=== PATIENT | female | born 1945 | race Caucasian/White ===

== ENCOUNTER → 2017-06-05 15:22 | Outpatient (CLI) | payer MEDICARE, OTHER, SELFPAY ==
[2017-06-05 17:12] LABS: Absolute Lymphocyte Count 1.61 X10^3/ul (0.83-4.51); Basophil# 0.04 X10^3/uL; Basophil% 0.5 % (0-1); Eosinophils% 2.3 % (0-5); Hematocrit 41.7 % (37-47); Hemoglobin 13.2 g/dl (12.0-15.0); Lymphocyte # 1.61 X10^3/ul (4.0); Lymphocyte % 18.7 % (19-41); Mean Corp Hgb Conc 31.7 g/gl (32-36); Mean Corpuscular Hgb 30.8 pg (27.0-32.0); Mean Corpuscular Volume 97.4 fL (81-99); Mean Platelet Vol. 10.6 fl (6.2-12.0); Monocyte# 0.73 X10^3/uL; Monocyte% 8.5 % (0-10); Neutrophil # 6.02 X10^3/uL (2.7-7.7); Neutrophil % 69.9 % (47-70); Platelet Count 307 K/mm3 (150-450); RBC Distribution Width SD 49.1 fl (35.1-43.9); Red Blood Count 4.28 M/mm3 (4.2-5.4); White Blood Count 8.6 K/mm3 (4.4-11.0)
[2017-06-05 17:16] LABS: POSITIVE COUNT NO; POSITIVE DIFFERENTIAL NO; POSITIVE MORPHOLOGY NO
[2017-06-05 17:32] LABS: AST(SGOT) 20 U/L (15-37); Alanine Aminotransfer ALT/SGPT 31 U/L (13-56); Albumin, Serum 3.6 g/dL (3.2-5.0); Alkaline Phosphatase 45 U/L (45-117); Anion Gap 10 (5-15); BUN 18 mg/dL (7-18); BUN/Creat Ratio 19.2 RATIO (10-20); Calcium,Total 9.5 mg/dL (8.5-10.1); Chloride 107 mmol/L (98-107); Creatinine, Serum 0.94 mg/dL (0.55-1.02); EST Glomerular Filtration Rate 62 mL/min (>60); Est Glom Filt Rate - Afr Amer 76 mL/min (>60); Globulin 3.7 g/dL (2.2-4.2); Glucose 112 mg/dL (74-106); Potassium 4.1 mmol/L (3.5-5.1); Protein, Total 7.3 g/dL (6.4-8.2); Sodium Level 144 mmol/L (136-145); Thyroid Stim Hormone (TSH) 2.33 uIU/mL (0.358-3.74)
[2017-06-05 17:36] LABS: Vitamin D,25 Hydroxy 17.9 ng/mL (29.95-100.01)
== END ==
PROVIDERS: Family Provider Family Medicine Geriatric Medicine; PCP Family Medicine Geriatric Medicine; Visit Provider Family Medicine Geriatric Medicine
DX: I10 Essential (primary) hypertension (principal); E55.9 Vitamin D deficiency, unspecified
CPT/HCPCS: 36415; 80053; 82306; 84443; 85025

== ENCOUNTER → 2017-06-19 12:47 | Outpatient (CLI) | payer MEDICARE, OTHER, SELFPAY ==
--- NOTE | 2017-06-19 13:00 | SP.MBSS_ITS ---
PRIMARY / SECONDARY DIAGNOSIS: dysphagia (R13.10) REFERRING PHYSICIAN: Dr. Jose Bañuelos MD CURRENT DIET: regular textures, thin liquids DENTITION: WFL MENTAL STATUS: WNL RESPIRATORY STATUS: O2 via room air PREVIOUS MODIFIED BARIUM SWALLOW STUDY: none REASON FOR REFERRAL: Patient is a 71 year old female referred for a modified barium swallow (MBS) study to objectively assess the Patients oropharyngeal swallow function under fluoroscopy secondary to reported globus sensation during intake occurring approximately 5 minutes into meals during intake of both solids and liquids, with reported reflux with associated heartburn and at times mild odynophagia. Patient reports globus sensation and reflux occurring more often at night. Patient reports symptoms occasionally ameliorated with effortful swallows and liquid wash. Patient reports gastroesophageal reflux disease currently treated via Omeprazole x1 daily, was previously treated with Omeprazole x2 daily with improved results. 09/25/2017 CT revealed persistent mild hydrocephalus, stable bore hole right frontal region with a shunt extending into the ventricular system; no evidence of acute hemorrhage infarct or edema. 08/05/2015 MRI revealed ventricular configuration suggesting normal pressure hydrocephalus, similar to previous CT examinations with right frontal ventriculoperitoneal shunt catheter; mild chronic involutional and small vessel ischemic changes of the brain; no acute intracranial findings. Esophagram scheduled 06/20/2017. MEDICAL HISTORY: Normal pressure hydrocephalus status post shunt placement, hypertension, deep vein thrombosis, osteoarthritis, pulmonary embolism, sleep apnea, obesities; surgical history significant for appendectomy, multiple surgeries for trigger fingers, ventral hernia repair ?2, appendectomy, hysterectomy and back surgery STUDY FINDINGS: Patient participated in a Modified Barium Swallow (MBS) study on 06/19/2017. Dr. Malave was the radiologist present for this evaluation. This study was recorded in the lateral view and images were sent to PACs for storage. The following consistencies were presented to this patient for analysis of oropharyngeal swallow function: thin liquids, nectar thickened liquids, pudding , and a regular textured, [place] cookie. Results of the MBS are as follows: PENETRATION / ASPIRATION SCALE (SANDY): 1 = does not enter airway 2 = enters airway/above vocal folds/ejected 3 = enters airway/above vocal folds/not ejected 4 = enters airway/contacts vocal folds/ejected 5 = enters airway/contacts vocal folds/not ejected 6 = enters airway/below vocal folds/ejected 7 = enters airway/below vocal folds/not ejected despite effort 8 = enters airway/below vocal folds/no effort VIDEOFLOROSCOPIC SCALE SCORE (SANDY): Grade I = aspiration of material that has penetrated into the laryngeal vestibule, intact cough reflex Grade II = aspiration < 10 % of the bolus, intact cough reflex Grade III = aspiration of < 10 % of the bolus, reduced cough reflex or aspiration of > 10 % of the bolus, intact cough reflex Grade IV = aspiration of > 10 % of the bolus, reduced cough reflex PENETRATION / ASPIRATION SCALE (SCORE) WITH VIDEOFLOROSCOPIC SCALE SCORE: Thin liquid - 5 mL tsp.: 3 Thin liquids via cup (single sip): 2 Thin liquids via cup (single sip): 2 Thin liquids via cup (sequential swallows): 4 Thin liquids via straw (sequential swallows): 4 Thin liquids via straw (single sip): 3 Thin liquids via straw (chin tuck): 1, 7* - Grade I Thin liquids via straw (chin tuck): 2 Thin liquids via straw (chin tuck): 2 [place] thickened liquids via cup (single sip): 2 [place] thickened liquids via cup (single sip): 2 [place] thickened liquids via cup (chin tuck): 1 [place] thickened liquids via cup (chin tuck): 1 [place] thickened liquids via cup (chin tuck): 1 Pudding via spoon: 1 Regular textured cookie: 1 Thin liquids via straw (effort swallow): 2 Thin liquids via straw (effort swallow): 2 IMPRESSION: DIAGNOSIS: moderate pharyngeal dysphagia (R13.13) ORAL PHASE CHARACTERIZED BY: LABIAL SEAL: no labial escape TONGUE CONTROL DURING BOLUS MANIPULATION: cohesive bolus between tongue to palatal seal BOLUS PREPARATION / MASTICATION: timely and efficient chewing and mashing BOLUS TRANSPORT / LINGUAL MOTION: brisk tongue motion ORAL RESIDUE: trace residue lining oral structures PHARYNGEAL PHASE CHARACTERIZED BY: INITIATION OF PHARYNGEAL SWALLOW: bolus head in pyriforms at first hyoid excursion SOFT PALATE ELEVATION: no bolus between soft palate and pharyngeal wall LARYNGEAL ELEVATION: partial superior movement of thyroid cartilage/partial approximation of arytenoids cartilage to epiglottic petiole ANTERIOR HYOID EXCURSION: complete anterior movement EPIGLOTTIC MOVEMENT: complete epiglottic inversion LARYNGEAL VESTIBULE CLOSURE AT HEIGHT OF SWALLOW: incomplete laryngeal vestibule closure with narrow column of air/contrast in laryngeal vestibule PHARYNGEAL STRIPPING WAVE: pharyngeal stripping wave present / complete PHARYNGOESOPHAGEAL SEGMENT OPENING: complete distension and complete duration with no obstruction of flow TONGUE BASE RETRACTION: trace column of contrast between tongue base and posterior pharyngeal wall PHARYNGEAL RESIDUE: complete pharyngeal clearance ESOPHAGEAL PHASE CHARACTERIZED BY: ESOPHAGEAL BOLUS CLEARANCE IN THE UPRIGHT POSITION: could not view EFFECTS OF TREATMENT STRATEGIES ATTEMPTED: Chin tuck posture = moderately effective 3 second prep = ineffective Effort swallow = ineffective Reduced bolus size = moderately effective Addition of straw = moderately effective DIET TEXTURE RECOMMENDATIONS: Will recommend a regular textured, nectar thickened liquid diet. COMPENSATORY STRATEGIES RECOMMENDED: Chin tuck, reduced bolus volume, seated upright at 90 degrees during PO intake , remain upright for 30-60 minutes post meal (GERD precaution) INTERPRETATION OF RESULTS: Patient presents with moderate pharyngeal dysphagia (R13.13) likely neurological in nature in addition to secondary presbyphagia based on the Patients provided past medical history. Oral phase largely unremarkable. Pharyngeal phase primarily marked by significant impaired pharyngeal swallow onset timing resulting in persistent suboptimal bolus location upon swallow onset contributing to prandial and occasional pre-prandial penetration; and reduced closure of the airway during deglutition attributed to reduced laryngeal elevation resulting in poor laryngeal vestibule closure / pressure contributing to prandial penetration, with insufficient and inconsistent laryngeal vestibule pressure generated to expel penetrated material resulting in overt aspiration of trace amounts of thin liquids upon review. All deficits ameliorated with bolus volume adjustments, execution of the chin tuck posture, and adjustments in liquid viscosity. RECOMMENDATIONS: This Patient would be a good candidate for the [place] Free Water Protocol ( FFWP) to facilitate improved liquid intake between meals following Patient education if clinically appropriate. Patient requires continued skilled speech- language intervention targeting continued diet texture management; training and implementation of recommended compensatory strategies; training, implementation , and Patient education regarding implementation of the FFWP; Patient and caregiver training targeting thickened liquid preparation; with considerations for training and implementation of pharyngeal strengthening exercises to facilitate improved pharyngeal strength and coordination, ADDITIONAL COMMENTS/RECOMMENDATIONS: Results and recommendations were discussed with the Patient immediately following MBS completion, with the Patient verbalizing understanding and agreement with all recommendations and education provided. IMAGE COUNT: [id number] G-CODES: SWALLOWING G8996 Current Status: CJ SWALLOWING G8997 Goal Status: CI SWALLOWING G8998 Discharge Status:
--- NOTE | 2017-06-19 13:00 | RAD_ITS ---
STUDY: SWALLOWING STUDY REASON FOR EXAM: Female, 71 years old. Dysphagia. TECHNIQUE: The examination was performed with Speech Pathology in attendance. Under fluoroscopic observation, the patient ingested thin barium, thick barium, barium pudding, and barium coated cracker. FLUOROSCOPY TIME: 1:38 minutes/seconds. 2069 fluoroscopic images were obtained. RADIOLOGIST INVOLVEMENT: Radiologist was present and providing direct supervision. COMPARISON: None. FINDINGS: The following was observed during swallowing of the various mixtures of barium: Thin Barium: Transient penetration to the level of the cords with ingestion of thin liquids. This improves with the chin tuck maneuver and the super super swallowing technique. Thick Barium: There was no evidence of aspiration or laryngeal penetration. Barium Pudding: There was no evidence of aspiration or laryngeal penetration. Barium Coated Cracker: There was no evidence of aspiration or laryngeal penetration. RAD/Swallowing Function w/Video IMPRESSION: Transient penetration to the level of the cords with ingestion of thin liquids. This improves with the chin tuck maneuver and the superior super swallowing technique. The swallow study findings were discussed with the patient by the speech pathologist at the conclusion of the examination. Please see speech pathology report for more information and recommendations. Electronically Signed: Jose M Malave MD at 13:49 EDT Tel [phone], Service support ,
== END ==
PROVIDERS: Family Provider Family Medicine Geriatric Medicine; PCP Family Medicine Geriatric Medicine; Visit Provider Family Medicine Geriatric Medicine
DX: R13.10 Dysphagia, unspecified (principal)
CPT/HCPCS: 74230; 92611; G8996; G8997; G8998

== ENCOUNTER → 2017-06-20 07:59 | Outpatient (CLI) | payer MEDICARE, OTHER, SELFPAY ==
--- NOTE | 2017-06-20 08:02 | RAD_ITS ---
STUDY: X-RAY - ESOPHAGUS (BARIUM SWALLOW) WITH FLUOROSCOPY REASON FOR EXAM: Female, 71 years old. Dysphagia for solids. TECHNIQUE: 15 view(s) of the esophagus were obtained following swallowing of barium. FLUOROSCOPY TIME (if supplied): (0:26) minutes/seconds COMPARISON: None. FINDINGS: There is no demonstrated esophageal foreign body. There is no demonstrated stricture or mucosal abnormality. Normal gastroesophageal junction, without a demonstrated hiatal hernia. The patient ingest a 12 mm tablet of barium without any difficulty. There is atherosclerotic tortuosity of the aortic arch and descending thoracic aorta. Normal visualized pulmonary parenchyma. There are degenerative changes of the visualized thoracic spine. RAD/Esophagus Only IMPRESSION: Normal plain film x-ray examination (barium swallow) of the esophagus. Electronically Signed: Jose M Malave MD at 8:58 EDT Tel [phone], Service support ,
--- NOTE | 2017-06-24 07:28 | LEAS_ITS ---
Arterial Study - Arterial Study Arterial Study: This is a 71 year old female with a history of hypertension, hyperlipidemia, and arthritis. The patient presents with temperature changes in her lower extremities suggestive of ischemia, and a history of intermittent claudication. She is brought to the noninvasive vascular laboratory at this time for the purpose of bilateral noninvasive lower extremity arterial assessment. Doppler signal assessment was used to evaluate the pulses at ankle level bilaterally. The posterior tibial and dorsalis pedis pulses were triphasic bilaterally. Segmental limb pressures were obtained at ankle level bilaterally. The right ankle pressure, as determined by posterior tibial pulse, was measured at 169 mmHg. The right ankle pressure, as determined by dorsalis pedis pulse, was measured at 156 mmHg. The left ankle pressure, as determined by posterior tibial pulse, was measured at 162 mmHg. The left ankle pressure, as determined by dorsalis pedis pulse, was measured at 169 mmHg. Resting ankle-brachial indices were calculated bilaterally. The resting right ankle-brachial index was calculated to be 1.14. The resting left ankle- brachial index was calculated to be 1.14. Impression: Based upon the findings of this resting noninvasive lower extremity trial study, arterial perfusion in the lower extremities appears to be normal bilaterally. There is no evidence of significant atherosclerotic peripheral arterial occlusive disease in the lower extremities bilaterally. In summary, this represents a normal resting noninvasive lower extremity arterial study bilaterally.
== END ==
PROVIDERS: Family Provider Family Medicine Geriatric Medicine; PCP Family Medicine Geriatric Medicine; Visit Provider Family Medicine Geriatric Medicine
DX: I73.9 Peripheral vascular disease, unspecified (principal); R13.10 Dysphagia, unspecified
CPT/HCPCS: 74220; 93922

== ENCOUNTER 2017-08-01 10:30 | Outpatient (RCR) | payer MEDICARE, OTHER, SELFPAY ==
--- NOTE | 2017-07-18 19:11 | HP.SP.AD_ITS ---
History - History Date of Eval: 07/18/17 Medical Diagnosis (from RX): Dysphagia (R13.12) Previous speech therapy: No Other Relevant Medical History/Diagnoses/Surgery: Normal pressure hydrocephalus status post shunt placement, asthma, shortness of breath, gastroesophageal reflux disease, chronic diastolic congestive heart failure, pharyngitis and bronchitis, prior aspiration pneumonia (aspiration of gastric contents following accidental ingestion of another individuals tobacco products), hypertension, deep vein thrombosis, osteoarthritis, pulmonary embolism, sleep apnea, obesity, hypokalemia, obstructive sleep apnea; surgical history significant for appendectomy, multiple surgeries for trigger fingers, ventral hernia repair ?2, appendectomy, hysterectomy and back surgery Medications related to this diagnosis: Ipratropium/Albuterol Respimat [ Combivent Respimat Inhal Maybee] 2 puff INHALATION 4X/DAY PRN. Amlodipine/ Benazepril [Lotrel 5-10 MG Capsule] 1 cap PO DAILY. Multivitamins,Ther W- Minerals [Multivitamin With Minerals] 1 tab PO DAILY. Aspirin [Aspirin, Baby] 81 mg PO DAILY@0800 #30 tab.chew. Gabapentin [Neurontin] 600 mg PO QHS. Spironolactone [Aldactone] 50 mg PO DAILY. Oxycodone CR [Oxycontin] 10 mg PO BID #30 tab. Oxycodone HCl/Acetaminophen [Percocet 5-325] 2 tab PO Q6H PRN PRN #30 tab. Vitamin B Comp W-C [[place] W/C [place], Thera B Comp/C] 1 cap PO DAILYCM #0 cap. Warfarin [Coumadin] 3.5 mg PO DAILY@1700. albuterol sulfate HFA 90 mcg/actuation aerosol inhaler 2 puff INHALATION Q4H #1 inh. fluticasone 200 mcg-vilanterol 25 mcg/dose powder for inhalation 1 inh INHALATION QDAY #60 ea Smoking Status: Never smoker Hx Smoking: No Hx Tobacco Use: No Hx Smoking Exposure: No - Pain Is pain an issue with your current prescribed condition?: No - Personal Right Hearing Abillity: Normal Left Hearing Abillity: Normal Patient Allergies - Allergies Allergies rivaroxaban [From Xarelto] Allergy (Severe, Verified 06/18/17 10:23) Unknown adhesive Allergy (Verified 06/18/17 10:23) Rash carisoprodol [From Soma] Allergy (Verified 06/18/17 10:23) Rash antihistamines Adverse Reaction (Uncoded 06/18/17 10:23) Other rash disoriented Subjective Oral Motor - Comments Comments: Patient reports moderate xerostomia; otherwise unremarkable. Dysphagia Assessment - Swallowing Impairment Contributing Factors to Swallowing Impairment: Delayed Swallow Initiation, Reduced Laryngeal Excursion - Impact Impact on Safety & Functioning: Risk for Aspiration - Diet Texture Recommendations Solids Other: Regular Liquids: The Silos Thick [place] free water Protocol: Yes - Safety Other: Reduced bolus volume, seated upright at 90 degrees during PO intake, remain upright for 30-60 minutes post meal (GERD precaution) Plan - Plan Plan: Patient is a 71 year old female referred for an outpatient clinical swallow assessment following completion of a modified barium swallow (MBS) study revealing moderate pharyngeal phase dysphagia (R13.12). Patient reporting continued globus sensation during intake occurring approximately 5 minutes into meals during intake of primarily solids, with reported reflux with associated heartburn and at times mild odynophagia; reports gastroesophageal reflux disease currently treated via Omeprazole x1 daily, was previously treated with Omeprazole x2 daily with improved results, previously treated with Nexium; prior workup via rn patient care revealing inflammation at what appears to be the lower esophageal sphincter with treatment via antibiotic regimen for 3 months, per Patient?s report. Patient reports symptoms occasionally ameliorated with effortful swallows and small volume liquid wash. Patient reports dedicated use of thickened liquids with initial complications (insufficient preparation with thicker ?chunks?) ameliorated with adjustments in preparation (using ? stirring stick?), no coughing episodes reported. 09/25/2017 CT revealed persistent mild hydrocephalus, stable bore hole right frontal region with a shunt extending into the ventricular system; no evidence of acute hemorrhage infarct or edema. 08/05/2015 MRI revealed ventricular configuration suggesting normal pressure hydrocephalus, similar to previous CT examinations with right frontal ventriculoperitoneal shunt catheter; mild chronic involutional and small vessel ischemic changes of the brain; no acute intracranial findings. Esophagram scheduled. 06/20/2017 X-ray examination of the esophagus (barium swallow) with fluoroscopy revealed normal plan film x-ray examination of the esophagus with atherosclerotic tortuosity of the aortic arch and descending thoracic aorta. Patient presents with moderate pharyngeal dysphagia (R13.13) likely neurological in nature in addition to secondary presbyphagia based on the Patients provided past medical history. Oral phase largely unremarkable. Pharyngeal phase primarily marked by significant impaired pharyngeal swallow onset timing resulting in persistent suboptimal bolus location upon swallow onset contributing to prandial and occasional pre-prandial penetration expressed by post prandial coughing, further complicated by reduced closure of the airway during deglutition attributed to reduced laryngeal elevation resulting in poor laryngeal vestibule closure / pressure contributing to prandial penetration expressed by reduction in hyolaryngeal excursion upon digital palpation. All deficits ameliorated with bolus volume adjustments, execution of the chin tuck posture, and adjustments in liquid viscosity. Recommend advancement as recommended following 06/19/2017 MBS. - Recommendations Treatment Warranted: Yes - Frequency Frequency: 1x/Week Duration: 4 Weeks - Prognosis Prognosis: Excellent - Goals that are Established: Determination:: Goals will be added/modified as deemed necessary and appropriate. Therapy will be discontinued when results of re-evaluation indicate therapy is no longer needed or lack of progress has been documented. - Goal #1-5 Goal #1: Pt. will tolerate the least restrictive means of nutrition to facilitate adequate hydration/nutrition with optimum safety and efficiency of the Pt.?s swallowing function during P.O. intake without overt signs and symptoms of aspiration across 3 consecutive sessions Goal #2: Pt. will independently demonstrate and utilize recommended compensatory swallowing techniques to facilitate improved airway protection and decreased risk for aspiration during PO intake, with minimal cueing and prompting provide by the clinician, across 2 out of 3 sessions. Goal #3: Pt. will independently demonstrate and utilize recommended safety precautions associated with the [place] Free Water Protocol to facilitate improved hydration / intake with complete independence across 3 consecutive sessions. Goal #4: Goal adjustment as needed Education - Patient Instruction Patient Education: Diagnosis, Treatment Plan Person Taught: Patient Teaching Method: Discussion Response to teaching: Verbalize understanding
--- NOTE | 2017-11-21 16:33 | HP.SP.DC ---
ST Discharge Summary - Discharged: Discharge: Patient is a 71 year old female referred for outpatient clinical swallow assessment and intervention following completion of a modified barium swallow (MBS) study revealing moderate pharyngeal phase dysphagia (R13.12). Patient has participated in 2 skilled speech-language therapy sessions targeting dysphagia, with Patient reporting consistent and dedicated use of thickened liquids; though reports inconsistent recall of chin tuck position (improves tolerance). Patient further reported continued heartburn with ingestion of tea, coffee, chocolate, roast beef (most meats), fried potatoes, mashed potatoes, potato chips; all improves slightly with moderation, though has needed to sleep at an incline due to nocturnal reflux, reports reflux with associated heartburn and at times mild odynophagia; reports gastroesophageal reflux disease currently treated via Omeprazole x1 daily, was previously treated with Omeprazole x2 daily with improved results, previously treated with Nexium; Reflux Symptom Index (RSI): 26 (RSI >13 indicates significant reflux). At this time, the Patient has not scheduled any follow up sessions after her initial intervention session. Will discharge the Patient from the caseload at this time, though would be more than willing to re-initiate intervention after obtaining a physicians order if further intervention is desired.
== END 2017-08-01 19:00 | disposition home or self-care (01) ==
LOC: SP 10:30
PROVIDERS: Family Provider Family Medicine Geriatric Medicine; PCP Family Medicine Geriatric Medicine; Visit Provider Family Medicine Geriatric Medicine
DX: T17.908D Unspecified foreign body in respiratory tract, part unspecified causing other injury, subsequent encounter (principal); G52.1 Disorders of glossopharyngeal nerve
CPT/HCPCS: 92526; 92610

== ENCOUNTER → 2017-09-12 12:00 | Outpatient (CLI) | payer MEDICARE, OTHER, SELFPAY ==
--- NOTE | 2017-09-12 12:00 | DT_ITS ---
This patient was seen during an EMR downtime September 09, 2017 - September 16, 2017. This patient may have a combination of paper and electronic documentation or all paper documentation. All documentation is viewable within the e-chart portion of [employer] for each patient visit.
[2017-09-17 05:16] LABS: ALB/GLOB Ratio 0.9 RATIO (0.9-2.4); Albumin, Serum 3.6 g/dL (3.2-5.0); BUN 19 mg/dL (7-18); BUN/Creat Ratio 21.1 RATIO (10-20); Calcium,Total 9.4 mg/dL (8.5-10.1); EST Glomerular Filtration Rate 65 mL/min (>60); Est Glom Filt Rate - Afr Amer 79 mL/min (>60); Globulin 3.8 g/dL (2.2-4.2); Glucose 89 mg/dL (74-106); Protein, Total 7.4 g/dL (6.4-8.2)
[2017-09-17 05:17] LABS: AST(SGOT) 15 U/L (15-37); Alanine Aminotransfer ALT/SGPT 29 U/L (13-56); Alkaline Phosphatase 55 U/L (45-117); Anion Gap 8 (5-15); Chloride 108 mmol/L (98-107); Potassium 4.2 mmol/L (3.5-5.1); Sodium Level 143 mmol/L (136-145); Thyroid Stim Hormone (TSH) 1.22 uIU/mL (0.358-3.74)
[2017-09-17 06:04] LABS: Hematocrit 43.1 % (37-47); Hemoglobin 13.4 g/dl (12.0-15.0); Lymphocyte % 20.1 % (19-41); Mean Corp Hgb Conc 31.1 g/gl (32-36); Mean Corpuscular Hgb 29.7 pg (27.0-32.0); Mean Corpuscular Volume 95.6 fL (81-99); Mean Platelet Vol. 10.3 fl (6.2-12.0); Neutrophil % 69.2 % (47-70); POSITIVE COUNT NO; POSITIVE DIFFERENTIAL NO; POSITIVE MORPHOLOGY NO; Platelet Count 340 K/mm3 (150-450); RBC Distribution Width CV 14.2 % (11.6-14.6); Red Blood Count 4.51 M/mm3 (4.2-5.4); White Blood Count 10.4 K/mm3 (4.4-11.0)
[2017-09-17 06:05] LABS: Absolute Lymphocyte Count 2.09 X10^3/ul (0.83-4.51); Absolute Neutrophil Count 7.2 X10^3/uL (2.0-7.7); Basophil# 0.04 X10^3/uL; Basophil% 0.4 % (0-1); Eosinophil# 0.26 X10^3/uL; Eosinophils% 2.5 % (0-5); Lymphocyte # 2.09 X10^3/ul (4.0); Monocyte# 0.76 X10^3/uL; Monocyte% 7.3 % (0-10); Neutrophil # 7.22 X10^3/uL (2.7-7.7); Total Cells Counted 0.05 (MANUAL DIFF)
== END ==
PROVIDERS: Family Provider Family Medicine Geriatric Medicine; PCP Family Medicine Geriatric Medicine; Visit Provider Family Medicine Geriatric Medicine
DX: E55.9 Vitamin D deficiency, unspecified (principal); I10 Essential (primary) hypertension
CPT/HCPCS: 36415; 80053; 82306; 84443; 85025

== ENCOUNTER → 2017-10-14 15:11 | Outpatient (CLI) | payer MEDICARE, OTHER, SELFPAY ==
[2017-10-14 16:22] LABS: Absolute Lymphocyte Count 1.18 X10^3/ul (0.83-4.51); Absolute Neutrophil Count 4.9 X10^3/uL (2.0-7.7); Basophil# 0.03 X10^3/uL; Basophil% 0.4 % (0-1); Eosinophils% 4.2 % (0-5); Hematocrit 39.8 % (37-47); Hemoglobin 12.2 g/dl (12.0-15.0); Lymphocyte # 1.18 X10^3/ul (4.0); Lymphocyte % 16.6 % (19-41); Mean Corp Hgb Conc 30.7 g/gl (32-36); Mean Corpuscular Hgb 29.3 pg (27.0-32.0); Mean Corpuscular Volume 95.4 fL (81-99); Mean Platelet Vol. 9.6 fl (6.2-12.0); Monocyte# 0.66 X10^3/uL; Monocyte% 9.3 % (0-10); Neutrophil # 4.94 X10^3/uL (2.7-7.7); Neutrophil % 69.5 % (47-70); Platelet Count 277 K/mm3 (150-450); RBC Distribution Width CV 14.1 % (11.6-14.6); RBC Distribution Width SD 49.2 fl (35.1-43.9); Red Blood Count 4.17 M/mm3 (4.2-5.4); White Blood Count 7.1 K/mm3 (4.4-11.0)
[2017-10-14 16:26] LABS: POSITIVE COUNT NO; POSITIVE DIFFERENTIAL NO; POSITIVE MORPHOLOGY NO
[2017-10-14 16:34] LABS: AST(SGOT) 22 U/L (15-37); Alanine Aminotransfer ALT/SGPT 37 U/L (13-56); Albumin, Serum 3.6 g/dL (3.2-5.0); Alkaline Phosphatase 49 U/L (45-117); Anion Gap 9 (5-15); BUN 13 mg/dL (7-18); BUN/Creat Ratio 15.4 RATIO (10-20); Calcium,Total 9.7 mg/dL (8.5-10.1); Chloride 107 mmol/L (98-107); Creatinine, Serum 0.84 mg/dL (0.55-1.02); EST Glomerular Filtration Rate 70 mL/min (>60); Est Glom Filt Rate - Afr Amer 85 mL/min (>60); Globulin 3.6 g/dL (2.2-4.2); Glucose 91 mg/dL (74-106); Potassium 4.1 mmol/L (3.5-5.1); Protein, Total 7.2 g/dL (6.4-8.2); Sodium Level 143 mmol/L (136-145)
--- NOTE | 2017-10-14 17:02 | CT_ITS ---
STUDY: CT ABDOMEN WITH CONTRAST REASON FOR EXAM: Female, 71 years old. Right lower quadrant tenderness RADIATION DOSAGE (If Supplied By Facility): CTDIvol = ( 16.86 ) mGy, DLP = ( 1212.29 ) mGycm TECHNIQUE: Transaxial images were obtained post I.V. administration of 100CC ml of Isovue 300 contrast, and oral contrast. Sagittal and coronal images were reconstructed. Individualized dose optimization techniques were used for this CT. COMPARISON: January 10, 2015 FINDINGS: The visualized lung bases are unremarkable. The visualized portions of the heart are within normal limits. Normal liver. Normal gallbladder is not visualized however there does appear to be thick-walled small fluid density in the gallbladder fossa which may be consistent with contracted gallbladder. Clinical correlation is recommended. Normal spleen. Normal pancreas. Normal bilateral adrenal glands. No evidence for renal obstruction or ureteral calculus. There is a small left renal cyst. Normal visualized stomach. Normal small intestine. There is eccentric thickening of the wall at the cecal tip. This may represent adherent feces however mucosal lesion cannot be excluded.. There is also thickening of the ileocecal junction. Possibility of changes due to Crohn's disease not excluded.. Appendix not visualized consistent with appendectomy.. There is also nonspecific concentric thickening of the wall of the mid descending colon Atherosclerotic changes of the aorta without evidence for aneurysm. Inferior vena caval filter noted in situ. Normal retroperitoneum. Uterus not visualized status post hysterectomy Normal abdominal wall. Lumbar spine demonstrates advanced spondylosis. There are postsurgical changes status post laminectomy and fusion at L3-4 There is a shunt tube entering the left upper abdomen extending inferiorly to the left lower quadrant CT/Abdomen/Pelvis WITH Contrast IMPRESSION: Normal appendix not visualized consistent with appendectomy. There is concentric thickening of the wall of the cecum as well as the ileocecal junction which may be due to chronic inflammatory disease. Neoplasm is not excluded. There is also nonspecific thickening of the ferreira of the descending colon with narrowing of the lumen without acute inflammatory changes in the fat. This could be due to peristaltic wave, chronic inflammatory changes or neoplasm. Clinical correlation recommended Electronically Signed: Eugenio Barrera MD at 18:40 EDT , Service support ,
== END ==
PROVIDERS: Family Provider Family Medicine Geriatric Medicine; PCP Family Medicine Geriatric Medicine; Visit Provider Family Medicine Geriatric Medicine
DX: R10.9 Unspecified abdominal pain (principal); N39.0 Urinary tract infection, site not specified
CPT/HCPCS: 36415; 74177; 80053; 85025; 87086; 87088; Q9967

== ENCOUNTER → 2017-10-15 21:41 | Outpatient (CLI) | payer MEDICARE, OTHER, SELFPAY | PROVIDERS: Family Provider Family Medicine Geriatric Medicine; PCP Family Medicine Geriatric Medicine; Visit Provider Family Medicine Geriatric Medicine | DX: R19.7 Diarrhea, unspecified (principal) | CPT/HCPCS: 82274; 83630; 87177; 87209; 87493 ==

== ENCOUNTER → 2021-01-03 15:03 | Outpatient (CLI) | payer MEDICARE, OTHER, SELFPAY ==
--- NOTE | 2021-01-03 15:22 | RAD_ITS ---
STUDY: X-RAY - PELVIS AND BILATERAL HIPS REASON FOR EXAM: Female, 75 years old. Hip pain. TECHNIQUE: AP view of the pelvis.? 2 views of the right hip, and 2 views of the left hip were obtained. COMPARISON: 08/05/2015. FINDINGS: There is a non-specific bowel gas pattern. Phleboliths. Osteopenia. Stable postsurgical changes of L4-5. Mild arthrosis of the sacroiliac joints and symphysis pubis, unchanged. Moderate arthrosis of both hips, with small osteophytes, right greater than left, slightly progressed since the prior study. RAD/Hips B/L min 2 views w/ Pelvis IMPRESSION: Osteopenia with progression of osteoarthrosis of both hips, right greater than left. Electronically Signed: Fabian Addison MD at 10:01 EDT , Service support ,
[2021-01-03 16:53] LABS: Absolute Lymphocyte Count 1.32 X10^3/uL (0.83-4.51); Basophil# 0.05 X10^3/uL; Basophil% 0.6 % (0-1); Eosinophil# 0.35 X10^3/uL; Eosinophils% 4.2 % (0-5); Hematocrit 30.7 % (37-47); Hemoglobin 9.2 g/dL (12.0-15.0); Lymphocyte # 1.32 X10^3/ul (0.83-4.51); Lymphocyte % 15.9 % (19-41); Mean Corpuscular Hgb 25.6 pg (27.0-32.0); Mean Corpuscular Volume 85.3 fL (81-99); Mean Platelet Vol. 9.8 fl (6.2-12.0); Monocyte# 0.63 X10^3/uL; Monocyte% 7.6 % (0-10); NRBC Flagged by Analyzer 0 % (0-5); Neutrophil # 5.95 X10^3/uL (2.7-7.7); Neutrophil % 71.5 % (47-70); Platelet Count 455 K/mm3 (150-450); RBC Distribution Width SD 50.6 fl (35.1-43.9); White Blood Count 8.3 K/mm3 (4.4-11.0)
[2021-01-03 17:14] LABS: ALB/GLOB Ratio 0.9 RATIO (0.9-2.4); AST(SGOT) 20 U/L (15-37); Alanine Aminotransfer ALT/SGPT 27 U/L (13-56); Albumin, Serum 3.4 g/dL (3.2-5.0); Alkaline Phosphatase 58 U/L (45-117); Anion Gap 10 (5-15); BUN 22 mg/dL (7-18); BUN/Creat Ratio 20.8 RATIO (10-20); Calcium,Total 9.8 mg/dL (8.5-10.1); Chloride 105 mmol/L (98-107); Creatinine, Serum 1.06 mg/dL (0.55-1.02); EST Glomerular Filtration Rate 54 mL/min (>60); Est Glom Filt Rate - Afr Amer 65 mL/min (>60); Globulin 3.9 g/dL (2.2-4.2); Glucose 101 mg/dL (74-106); Potassium 4.7 mmol/L (3.5-5.1); Protein, Total 7.3 g/dL (6.4-8.2); Sodium Level 138 mmol/L (136-145); Thyroid Stim Hormone (TSH) 1.26 uIU/mL (0.358-3.74)
== END ==
LOC: POLAB3 15:05 → RAD 15:21
PROVIDERS: PCP Family Medicine Geriatric Medicine; Referring Provider Family Medicine Geriatric Medicine; Visit Provider Family Medicine Geriatric Medicine
DX: E55.9 Vitamin D deficiency, unspecified (principal); I10 Essential (primary) hypertension; M25.559 Pain in unspecified hip
CPT/HCPCS: 36415; 73521; 80053; 82306; 84443; 85025

== ENCOUNTER → 2021-01-05 11:56 | Outpatient (CLI) | payer MEDICARE, OTHER, SELFPAY ==
[2021-01-05 12:55] LABS: Vitamin B12 537 pg/mL (211-911)
[2021-01-05 13:42] LABS: Ferritin 10 ng/mL (8-252); Iron 53 ug/dL (50-170); Iron Binding Capacity,Total 440 ug/dL (250-450)
== END ==
PROVIDERS: PCP Family Medicine Geriatric Medicine; Visit Provider Family Medicine Geriatric Medicine
DX: D64.9 Anemia, unspecified (principal)
CPT/HCPCS: 36415; 82607; 82728; 82746; 83540; 83550

== ENCOUNTER → 2021-02-02 13:08 | Outpatient (CLI) | payer MEDICARE, OTHER, SELFPAY ==
--- NOTE | 2021-02-02 13:12 | RAD_ITS ---
STUDY: X-RAY - CERVICAL SPINE REASON FOR EXAM: Female, 75 years old. Neck pain. TECHNIQUE: 3 view(s) of the cervical spine were obtained on 7 images. COMPARISON: None FINDINGS: Osteopenia. Normal anterior atlantoaxial articulation. Normal odontoid process. Normal cervical lordosis. Diffuse uncovertebral and facet sclerosis. Intervertebral disc space narrowing at C4-5, C5-6, C6-7 and C7-T1 with osteophyte formation most marked at C6-7. The soft tissue structures are unremarkable. RAD/Cerv Spine 2 or 3 Views IMPRESSION: Osteopenia with diffuse cervical spondylosis most marked at C6-7. No acute finding. Electronically Signed: Fabian Addison MD at 9:20 EDT , Service support ,
== END ==
PROVIDERS: PCP Family Medicine Geriatric Medicine; Referring Provider Family Medicine Geriatric Medicine; Visit Provider Family Medicine Geriatric Medicine
DX: M54.2 Cervicalgia (principal)
CPT/HCPCS: 72040

== ENCOUNTER → 2021-02-09 08:53 | Outpatient (CLI) | payer MEDICARE, OTHER, SELFPAY | PROVIDERS: PCP Family Medicine Geriatric Medicine; Referring Provider Family Medicine Geriatric Medicine; Visit Provider Family Medicine Geriatric Medicine | DX: R06.89 Other abnormalities of breathing (principal) | CPT/HCPCS: 87635; 87804; 87807; C9803; U0005; U0003 ==

== ENCOUNTER 2021-02-24 12:30 | Outpatient (RCR) | payer MEDICARE, OTHER, SELFPAY ==
--- NOTE | 2021-01-12 11:31 | HP.PTEVAL ---
Patient's Visit Information BRICE LOMELI is a 75 year old F referred to Physical Therapy by Dr. 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 Date of Evaluation: 01/12/21 Physical Therapist: Torrey Martin - Visit Plan Frequency: 2x /Week Duration: 6 Weeks Plan: Continue with hip, core, and back strengthening. Also add balance exercises as well. Use manual therapy and modalities as needed for pain control. - Subjective Pt. is a 75 y.o. female who has been having bilateral hip pain for a few years with right hip pain worse than the left. Pt. PLOF includes history of left TKR in 2011. She had recent x-ray of both of her hips which showed osteoarthritis. Pt. will get occasional back pain but has a history of a couple back surgeries in the past. She denies any pain down her legs normally but will occasionally get cramping. Pt. is using a cane now more recently for longer distances of walking. Pt. denies any falls in the last six months. She has difficulty with standing longer than 10 minutes, walking more than 1/2 a block, ascending/descending stairs, squatting, housework, and working in her flower beds. Pt. is retired and worked for [employer] prior. Her goal with physical therapy is to decrease the pain and be able to walk longer distances. Pt. has had previous physical therapy for her back and knee. Pt. currently rates right hip pain at 1/10, left hip pain 0/10, at worst 9/10 and describes the pain as achy and throbbing. Pt. will take Ibuprofen for pain. Her PMH includes two heart stents, prediabetic, left TKR, lumbar disectomy, lumbar fusion, shunt placed for hydrocephalus, right RTC repair, four trigger finger surgeries, left great toe surgery, bilateral carpal tunnel surgery, appendectomy, gall bladder removed, and hysterectomy. Pt. lives alone in a one story home with two steps to enter and no handrail. Her hobbies include reading, knitting, and sewing. - Objective Posture- Mild forward flexed posture in standing. Palpation- Tenderness over bilateral lateral hip over greater trochanter. Lumbar AROM- flexion WNL and mild low back pain, extension min restriction and mild low back pain, SB to right min restriction and mild low back pain, SB to left min restriction and mild low back pain, rotations WNL and no pain. Pelvis alignment- Normal pelvis and leg length in supine. Hip PROM- WNL bilaterally. Right hip strength flexion 4+/5 , abduction 4/5, adduction 4+/5, extension 4/5, knee flexion 5/5, knee extension 5/5, ankle DF 5/5, PF 5/5. Left hip strength flexion 4+/5, abduction 4/5, adduction 5/5, extension 4/5, knee flexion 5/5, knee extension 5/5, ankle DF 5/5, PF 5/5. Special test- Hip scour [+ bilaterally], Hip quadrant [+ bilaterally], SHANDRA's [+ on right]. Tandem stance on right 10 secs, left 27 secs. SLS on right 4 secs, left 4 secs. Sensation- WNL bilateral lower extremity sensation. 30 sec sit to stand- 9 times with no arm assist. Gait- Pt. ambulates with toe out on right and decreased knee extension during terminal stance. Stairs- Pt. ascends/descends stairs with alternating step pattern and unilateral handrail. - Balance/Special Test Scores Lower Extremity Functional Score: 34 - Goals Goal 1:: Pt. will be independent with home exercise program. Goal Time Frame: 2 Weeks Goal 2:: Pt. will be able to stand for at least 20 minutes with bilateral hip pain < 3/10. Goal Time Frame: 4-6 Weeks Goal 3:: Pt. will improve bilateral hip strength to 4+/5 for all motions in order to improve mobility. Goal Time Frame: 4-6 Weeks Goal 4:: Pt. will be able to complete at least 10 sit to stands in 30 secs in order to improve strength and mobility. Goal Time Frame: 4-6 Weeks Goal 5:: Pt. will be able to ascend/descend a flight of stairs with alternating step pattern and unilateral handrail with no hip pain. Goal Time Frame: 4-6 Weeks Goal 6:: Pt. will rate bilateral hip pain at worst at 3/10 with ADL's. Goal Time Frame: 4-6 Weeks - Rehabilitation Potential Physical Therapy Diagnosis: Decreased LE strength, core/back strength, balance, and pain Rehabilitation Potential: Good - Anticipated Interventions Patient/Client Instruction: Educate patient on: Condition, Plan of Care For the Purpose of:: To decrease pain, To decrease swelling/inflammation, To increase ROM, To improve ability to perform ADL's, To improve performance and independence with ADL's, To increase flexibility/ROM, To assume or resume ADL's, To improve tolerance to ADL's Therapeutic Exercise to Include: Strength training, Endurance training, Balance training, Body mechanics, Postural training, Gait and locomotor training, Active ROM, Dynamic Lumbar Stabilization Comment: Focus on hip, core, and back strengthening. Add balance exercises as well. For the Purpose of:: To decrease pain, To decrease swelling/inflammation, To increase ROM, To improve ability to perform ADL's, To improve performance and independence with ADL's, To increase flexibility/ROM, To assume or resume ADL's, To improve tolerance to ADL's Functional Training to Include: ADL Training, Gait training For the Purpose of:: To decrease pain, To improve ability to perform ADL's, To improve performance and independence with ADL's, To improve balance, To assume or resume ADL's, To improve tolerance to ADL's Manual Therapy Techniques to Include: Mobilization, Soft tissue mobilization For the Purpose of:: To decrease pain, To improve ability to perform ADL's, To improve performance and independence with ADL's, To assume or resume ADL's, To improve tolerance to ADL's Assistive Devices: Cane For the Purpose of:: To decrease pain, To improve ability to perform ADL's, To improve performance and independence with ADL's, To improve balance, To improve safety with gait, To assume or resume ADL's, To improve safety, To improve tolerance to ADL's TENS: Yes IF ES: Yes Cryotherapy (ice pack, ice massage): Yes Thermo therapy (hot pack): Yes For the Purpose of:: To decrease pain, To decrease swelling/inflammation, To improve ability to perform ADL's, To improve performance and independence with ADL's, To assume or resume ADL's, To improve tolerance to ADL's Thank you for the opportunity to evaluate your patient. For Medicare and Medicare HMO plans, please review the plan of care and approve it. It will need to be FAXED BACK to us at [phone] for Medicare purposes. For Medicare only, by signing this I certify the plan of care. Please let me know if there are questions or concerns regarding this plan of care. Physician Signature: Date:
--- NOTE | 2021-02-15 15:46 | HP.PTREVAL ---
Dr. Jean Paul Bañuelos MD, It has been my pleasure to treat BRICE LOMELI over the last 7 visits for OA bilateral hips, M19.90. Please see the progress note below for an update on the physical therapy plan of care! Subjective: Pt reports that her R hip still bothers her but not sharp pains like it has been. Her legs have gotten weak again and can not walk a long distance without legs feeling like giving out on her and did not have that since November when she had COVID. Pt has not fallen due to her legs given out but there has been a few times she has felt like it and grabbed something quick. R hip is her worst hip. Objective/Function: Stairs: up and down recip with 2 hand rails with evidence of weakness and heistation. LE MMT: Hip flex B 4/5, B knee ext 4/5, B knee flex 4/5, B hip abd 3-/5. Sit to stand: pt had trouble gettin up on first attempt as she did not weight shift enough FW. Plan Plan: Pt will be seen for 3 additional visits. Please give pt HEP with worksheets over next few visits as she will be out of town through the Holidays and will continue with HEP. Continue with hip, core, and back strengthening. Also add balance exercises as well. Use manual therapy and modalities as needed for pain control. Balance/Gait/Functional tests - Balance/Special Test Scores Lower Extremity Functional Score: 23 Goals Goal 1:: Pt. will be independent with home exercise program. Goal Time Frame: 2 Weeks Goal Progress: Progressing Goal 2:: Pt. will be able to stand for at least 20 minutes with bilateral hip pain < 3/10. Goal Time Frame: 4-6 Weeks Goal Progress: Goal Met Goal 3:: Pt. will improve bilateral hip strength to 4+/5 for all motions in order to improve mobility. Goal Time Frame: 4-6 Weeks Goal Progress: Progressing Goal 4:: Pt. will be able to complete at least 10 sit to stands in 30 secs in order to improve strength and mobility. Goal Time Frame: 4-6 Weeks Goal Progress: Progressing Goal 5:: Pt. will be able to ascend/descend a flight of stairs with alternating step pattern and unilateral handrail with no hip pain. Goal Time Frame: 4-6 Weeks Goal Progress: Progressing Goal 6:: Pt. will rate bilateral hip pain at worst at 3/10 with ADL's. Goal Time Frame: 4-6 Weeks Goal Progress: Progressing Anticipated Interventions Patient/Client Instruction: Educate patient on: Condition, Plan of Care For the Purpose of:: To decrease pain, To decrease swelling/inflammation, To increase ROM, To improve ability to perform ADL's, To improve performance and independence with ADL's, To increase flexibility/ROM, To assume or resume ADL's, To improve tolerance to ADL's Therapeutic Exercise to Include: Strength training, Endurance training, Balance training, Body mechanics, Postural training, Gait and locomotor training, Active ROM, Dynamic Lumbar Stabilization Comment: Focus on hip, core, and back strengthening. Add balance exercises as well. For the Purpose of:: To decrease pain, To decrease swelling/inflammation, To increase ROM, To improve ability to perform ADL's, To improve performance and independence with ADL's, To increase flexibility/ROM, To assume or resume ADL's, To improve tolerance to ADL's Functional Training to Include: ADL Training, Gait training For the Purpose of:: To decrease pain, To improve ability to perform ADL's, To improve performance and independence with ADL's, To improve balance, To assume or resume ADL's, To improve tolerance to ADL's Manual Therapy Techniques to Include: Mobilization, Soft tissue mobilization For the Purpose of:: To decrease pain, To improve ability to perform ADL's, To improve performance and independence with ADL's, To assume or resume ADL's, To improve tolerance to ADL's Assistive Devices: Cane For the Purpose of:: To decrease pain, To improve ability to perform ADL's, To improve performance and independence with ADL's, To improve balance, To improve safety with gait, To assume or resume ADL's, To improve safety, To improve tolerance to ADL's TENS: Yes IF ES: Yes Cryotherapy (ice pack, ice massage): Yes Thermo therapy (hot pack): Yes For the Purpose of:: To decrease pain, To decrease swelling/inflammation, To improve ability to perform ADL's, To improve performance and independence with ADL's, To assume or resume ADL's, To improve tolerance to ADL's Please do not hesitate to contact me at [phone] by phone or if you have questions or concerns regarding this new plan of care! Sincerely, Kalyani Prado, MPT
--- NOTE | 2021-02-24 13:55 | HP.PTDCSUM ---
It has been my pleasure to treat BRICE LOMELI referred by Dr. 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 Discharge Date: 02/24/21 Please see the following information for a summary of their discharge status. Subjective: Pt reports that she thinks that she will be fine with a HEP Right hip Pain Intensity (Out of 10): 2 Left hip pain Pain Intensity (Out of 10): 2 mid/upper back Pain Intensity (Out of 10): Unrated LBP Pain Intensity (Out of 10): 0 % Improvement: 40 Objective/Function: Pt had full understandin of HEP Goal 1:: Pt. will be independent with home exercise program. Goal Progress: Progressing Goal 2:: Pt. will be able to stand for at least 20 minutes with bilateral hip pain < 3/10. Goal Progress: Goal Met Goal 3:: Pt. will improve bilateral hip strength to 4+/5 for all motions in order to improve mobility. Goal Progress: Progressing Goal 4:: Pt. will be able to complete at least 10 sit to stands in 30 secs in order to improve strength and mobility. Goal Progress: Progressing Goal 5:: Pt. will be able to ascend/descend a flight of stairs with alternating step pattern and unilateral handrail with no hip pain. Goal Progress: Progressing Goal 6:: Pt. will rate bilateral hip pain at worst at 3/10 with ADL's. Goal Progress: Progressing Plan: Pt feels comfortable with the HEP given. DC PT to HEP with pictures Discharge Comments: DC PT to HEP If there are questions or concerns regarding this patient's physical therapy, please feel free to call me at [phone]. Thank you for the referral of this patient. Sincerely, Kalyani Prado, MPT Balance/Gait/Functional tests - Balance/Special Test Scores Lower Extremity Functional Score: 23
== END 2021-02-24 19:00 | disposition home or self-care (01) ==
LOC: PT 12:30
PROVIDERS: PCP Family Medicine Geriatric Medicine; Referring Provider Family Medicine Geriatric Medicine; Visit Provider Family Medicine Geriatric Medicine
DX: M16.0 Bilateral primary osteoarthritis of hip (principal)
CPT/HCPCS: 97110; 97162; 97530

== ENCOUNTER 2021-02-28 12:38 | Day surgery (SDC) | payer MEDICARE, OTHER, SELFPAY ==
[2021-02-28] VITALS (7 sets, daily range): BP systolic 120–150; BP diastolic 60–72; PULSE 56–68; RESP 16; TEMP 36.1–36.4; O2SAT 98–100; BMI 34.7
--- NOTE | 2021-02-28 | IMM_PTH ---
PATIENT: BRICE LOMELI LOC: EN U#:[id number] AGE/SX: 75/F ROOM: RE02/28/[address]: Dr. Kirby Cheng DO : 1945 BED: DIS: 02/28/2021 SPEC #: [id number] RECD: 03/01/21 12:34 STATUS: GIBRAN REYobani #: [id number] JEFERSON: 02/28/21 00:[address]: Kirby Cheng DEPT: IMMUNOHISTOCHEMISTRY RECD BY: Aroldo Cardenas ENTERED: 03/01/21 12:35 SP TYPE: IMMUNO OTHR DR: Dr. Jean Paul Bañuelos MD Tissues: Gastric mucous membrane Procedures: H Pylori (initial) PHYSICIAN & INSTITUTION [place] [address] SPECIMEN INFORMATION: Tissue Source: Gastric antrum Clinical Info: Diarrhea, anemia, cough Specimen Number: [id number] CPT code: 14261 METHODOLOGY: Deparaffinized sections of prefer/formalin-fixed tissue or PAP/DQ stained slides are incubated with monoclonal/polyclonal antibodies/oligonucleotide probes. Localization is made via biotin free immunoperoxidase method. Appropriate controls are performed and reacted as expected. Results on target cell population are indicated in the following table: RESULTS: ANTIBODY / CLONE RESULT H Pylori (polyclonal) negative These tests were developed and their performance characteristics determined by [facility]. They may not have been cleared or approved by the U.S. Food and Drug Administration. The FDA has determined that such clearance or approval is not necessary. The above immunohistochemical/dualISH markers are ordered and reviewed by the Pathologist. INTERPRETATION: Gastric antrum, biopsy: Negative for Helicobacter pylori organisms. SJ:driss 03/03/21
[2021-02-28] MEDS: Lactated Ringers 1,000 ML 15 ML IV (13:28)
--- NOTE | 2021-02-28 13:45 | EGD_PTH ---
PATIENT: BRICE LOMELI LOC: EN U#:[id number] AGE/SX: 75/F ROOM: RE02/28/[address]: Dr. Kirby Cheng DO : 1945 BED: DIS: 02/28/2021 SPEC #: [id number] RECD: 02/28/21 15:06 STATUS: GIBRAN CORNELIO #: [id number] JEFERSON: 02/28/21 13:[address]: Kirby Cheng DEPT: SURGICAL PATHOLOGY RECD BY: Katherine Wilson ENTERED: 03/01/21 08:38 SP TYPE: EGD BIOPSY OT DR: Dr. Jean Paul Bañuelos MD Tissues: A - Duodenum, NOS B - Gastric mucous membrane C - Esophagus, NOS D - COLON BIOPSY Procedures: Surgery Specimen Level IV HEADER OPERATION: EGD colonoscopy PRE-OP DIAGNOSIS: Diarrhea, anemia, cough TISSUE SUBMITTED: A. Duodenum biopsy, B. Gastric antrum biopsy, C. Distal esophagus biopsy, D. Random colon biopsy MICROSCOPIC DIAGNOSIS A. Duodenum biopsy: Fragments of duodenal mucosa, no pathologic diagnosis. B. Gastric antrum biopsy: Mild gastritis. See microscopic description and comment. C. Distal esophagus biopsy: Fragments of gastroesophageal mucosa with mild chronic inflammation. Intestinal metaplasia (goblet cell metaplasia) not identified. See comment. D. Random colon biopsy: Fragments of colonic mucosa with focal hyperplastic polyp type changes. COMMENT B. The results of immunohistochemistry for Helicobacter pylori will be reported separately ([id number]). C. Alcian blue/PAS stain with matched control is used in the evaluation of the specimen. MICROSCOPIC DESCRIPTION Slides are reviewed. B. The specimen shows fragments of gastric mucosa with mild chronic inflammatory cells infiltrates in the lamina propria consisting of lymphocytes and plasma cells, consistent with mild chronic gastritis. GROSS DESCRIPTION A. Received is one container labeled with the patient name and designated duodenum. The specimen consists of multiple irregular fragments of light villanueva soft tissue that in aggregate measures 1.2 x 0.3 x 0.1 cm. The specimen is totally submitted in one cassette. B. Received is one container labeled with the patient name and designated gastric antrum. The specimen consists of multiple irregular fragments of light villanueva soft tissue that in aggregate measures 1.0 x 0.3 x 0.1 cm. The specimen is totally submitted in one cassette. C. Received is one container labeled with the patient name and designated distal esophagus. The specimen consists of multiple irregular fragments of light villanueva soft tissue that in aggregate measures 1.0 x 0.3 x 0.1 cm. multiple irregular fragments of light villanueva soft tissue that in aggregate measures 1.2 x 0.3x 0.1 cm. The specimen is totally submitted in one cassette. D. Received is one container labeled with the patient name and designated random colon. The specimen consists of multiple irregular fragments of light villanueva soft tissue that in aggregate measures 2.0 x 1.0 x 0.1 cm. The specimen is totally submitted in one cassette. /SJ:cc 03/01/21 TC:3 CPT: 59249 x4, 97381
--- NOTE | 2021-02-28 13:53 | HP.PCM_ITS ---
History and Physical Date of Admission: 02/28/21 [facility] Chief Complaint: Cough Details: BRICE LOMELI, is a 75 F who presents to the office today for Referral from Dr. Bañuelos due to anemia and is hoping she will be eligible for endoscopy. RBC 3.6 HgB 9.2 on 01/03/21 In the last three years she has had two EGD's and one colonoscopy. Has difficulty with swallowing where it feels as though things get caught when swallowing. She has been having ongoing difficulty with urgent diarrhea causing incontinence sometimes it is mucous-like and notes blood. When it occurs it lasts about 24 hours; will sometimes go away for a couple days and then return. Also has more common difficulty with constipation issues occurring every five days. Has noted that diarrhea issues flare with emotional stress. Previous GI thought she has IBS and gave her medicine to help with diarrhea and stopped medications for constipation and GERD. During a previous EGD she was told that the food she had eaten the night before had not moved past the upper part of her small intestine. Taking colestipol and lasanprazole. She does not take these regularly. Colestipol gets missed sometimes because of timing - taking one hour after others and she forgets. ROS Const Constitutional: Positive for fatigue, headache(s) and weakness Eyes Eyes: Positive for blurry vision and irritation ENT ENT: Positive for ear or mastoid pain, hearing loss, headache(s), difficulty swallowing and sore throat Cardio Cardiology: Positive for shortness of breath Gastro GI: Positive for abdominal pain, bloating, constipation, diarrhea, heartburn, difficulty swallowing and Blood in stool Genitourinary-Female: Positive for urinary incontinence, urinary frequency and urinary urgency Musc Musculoskeletal: Positive for abnormal gait, back pain, muscle cramps, muscle weakness, Arthritis and restless legs Neuro Neurology: Positive for abnormal gait, weakness, headache(s) and restless legs Endo Endocrine: Positive for fatigue, heat intolerance and increased thirst/drinking Lokesh/Lymp Hematologic/Lymphatic: Positive for easy bruising Quality Reporting Tobacco Screening ([facility] 138) Smoking Status: Never smoker Assessment and Plan Assessment and Plan (1) Diarrhea: Plan - Dr. Orr Friend, DO: She will need to take her colestipol plus or minus a short course of doxycycline therapy. I think she really needs Xifaxan therapy because she has failed other therapies however we will try second line therapy prior to trying to institute Xifaxan. (2) Anemia: Status: Acute Patient Instructions: She will need to undergo a capsule endoscopy as soon as it is available to evaluate her small bowel for her chronic anemia. I have re-examined the patient. There are no clinical changes since date of exam.
--- NOTE | 2021-12-08 06:38 | OP.EGD_ITS ---
Patient Name: Barbara Lloyd Procedure Date: 02/28/2021 1:48 PM Date of : 1945 Age: 75 Procedure: Upper GI endoscopy Indications: Epigastric abdominal pain, Dysphagia, Heartburn Providers: Kirby Cheng DO Medicines: See the Anesthesia note for documentation of the administered medications Patient Profile: This is a 75 year old female. Refer to note in patient chart for documentation of history and physical. Patient has symptoms of chronic abdominal cramping, chronic abdominal distention, acute epigastric abdominal pain and dysphagia with solids. Complications: No immediate complications. Procedure: Pre-Anesthesia Assessment: - Prior to the procedure, a History and Physical was performed, and patient medications and allergies were reviewed. The patient is competent. The risks and benefits of the procedure and the sedation options and risks were discussed with the patient. All questions were answered and informed consent was obtained. Patient identification and proposed procedure were verified by the physician in the pre-procedure area. Mental Status Examination: alert and oriented. Airway Examination: normal oropharyngeal airway and neck mobility. Respiratory Examination: clear to auscultation. CV Examination: normal. Prophylactic Antibiotics: The patient does not require prophylactic antibiotics. Prior Anticoagulants: The patient has taken no previous anticoagulant or antiplatelet agents. ASA Grade Assessment: II - A patient with mild systemic disease. After reviewing the risks and benefits, the patient was deemed in satisfactory condition to undergo the procedure. The anesthesia plan was to use moderate sedation / analgesia (conscious sedation). Immediately prior to administration of medications, the patient was re-assessed for adequacy to receive sedatives. The heart rate, respiratory rate, oxygen saturations, blood pressure, adequacy of pulmonary ventilation, and response to care were monitored throughout the procedure. The physical status of the patient was re-assessed after the procedure. After obtaining informed consent, the endoscope was passed under direct vision. Throughout the procedure, the patient's blood pressure, pulse, and oxygen saturations were monitored continuously. The Endoscope was introduced through the and advanced to the. The gastroscope was introduced through the mouth, and advanced to the second part of duodenum. The upper GI endoscopy was accomplished without difficulty. The patient tolerated the procedure well. Moderate Sedation: Moderate (conscious) sedation was administered by the endoscopy nurse and supervised by the endoscopist. The patient's oxygen saturation, heart rate, blood pressure and response to care were monitored. Total physician intraservice time was 15 minutes. Scope In: 2:04:55 PM Scope Out: 2:15:59 PM Total Procedure Duration Time 0 hours 11 minutes 4 seconds Findings: Esophagitis with no bleeding was found 34 to 35 cm from the incisors. Biopsies were taken with a cold forceps for histology. Verification of patient identification for the specimen was done. Estimated blood loss was minimal. A moderate Schatzki ring was found in the lower third of the esophagus. A guidewire was placed and the scope was withdrawn. Dilation was performed with a Savary dilator with no resistance at 54 Fr. Patchy mild inflammation characterized by erythema was found in the gastric antrum. Biopsies were taken with a cold forceps for histology. Verification of patient identification for the specimen was done. Estimated blood loss was minimal. Patchy mildly erythematous mucosa without active bleeding and with no stigmata of bleeding was found in the second portion of the duodenum. Biopsies were taken with a cold forceps for histology. Impression: - Candidiasis esophagitis. Biopsied. - Moderate Schatzki ring. Dilated. - Gastritis. Biopsied. - Erythematous duodenopathy. Biopsied. Recommendation: - Await pathology results. - Await pathology results. - Repeat upper endoscopy in 1 year for surveillance based on pathology results. - Return to GI clinic in 2 weeks. - Continue present medications. Procedure Code(s): --- Professional --- 94617, Esophagogastroduodenoscopy, flexible, transoral; with insertion of guide wire followed by passage of dilator(s) through esophagus over guide wire 76916, 59, Esophagogastroduodenoscopy, flexible, transoral; with biopsy, single or multiple G0500, Moderate sedation services provided by the same physician or other qualified health client care coordinator performing a gastrointestinal endoscopic service that sedation supports, requiring the presence of an independent trained observer to assist in the monitoring of the patient's level of consciousness and physiological status; initial 15 minutes of intra-service time; patient age 5 years or older (additional time may be reported with 45553, as appropriate) CPT copyright 2017 [employer]. All rights reserved. The codes documented in this report are preliminary and upon swing ride operator review may be revised to meet current compliance requirements. Kirby Cheng DO 02/28/2021 2:55:46 PM This report has been signed electronically. Number of Addenda: 1 Note Initiated On: 02/28/2021 1:48 PM Addendum Number: 1 Addendum Date: 12/08/2021 6:33:53 AM MAC was used instead of moderate sedation for this patient. Kirby Cheng DO 12/08/2021 6:33:57 AM This report has been signed electronically.
== END 2021-02-28 15:47 ==
LOC: EN 12:38 → AC 12:40
PROVIDERS: PCP Family Medicine Geriatric Medicine; Referring Provider Family Medicine Geriatric Medicine; Visit Provider Internal Medicine Gastroenterology
PROC: 0DJD8ZZ Inspection of Lower Intestinal Tract, Via Natural or Artificial Opening Endoscopic (ICD-10-PCS; CPT 45378; principal; 2021-02-28 13:40)
DX: B37.81 Candidal esophagitis (principal); K29.70 Gastritis, unspecified, without bleeding; R19.7 Diarrhea, unspecified; D64.9 Anemia, unspecified; I48.91 Unspecified atrial fibrillation; J45.909 Unspecified asthma, uncomplicated; I50.32 Chronic diastolic (congestive) heart failure; I11.0 Hypertensive heart disease with heart failure; Z86.718 Personal history of other venous thrombosis and embolism; G47.33 Obstructive sleep apnea (adult) (pediatric)
CPT/HCPCS: 43239; 43248; 88305; 88342; J7120; C1769; J2405

== ENCOUNTER 2021-05-15 11:23 | Outpatient (CLI) | payer MEDICARE, OTHER, SELFPAY ==
--- NOTE | 2021-05-15 11:28 | VDLE_ITS ---
Reason For Study: Edema RIGHT LEFT GSV is normal. GSV is normal. CFV is compressible, spontaneous, phasic, CFV is compressible, spontaneous, phasic, competent and demonstrates normal competent, and demonstrates normal augmentation. augmentation. FV is compressible, spontaneous, phasic, FV is compressible, spontaneous, phasic, competent and demonstrates normal competent and demonstrates normal augmentation. augmentation. POP V is compressible, spontaneous, phasic, POP V is compressible, spontaneous, phasic, competent and demonstrates normal competent and demonstrates normal augmentation. augmentation. T/P Trunk is compressible. T/P Trunk is compressible. PTV is compressible. PTV is compressible. RT PerV is compressible. LT PerV is compressible. Procedure This is a venous duplex using B-mode, color flow and spectral Doppler. Exam performed in department. A preliminary report was called and/or faxed to [facility]. VL/Venous Duplex US, Unilateral Interpretation Summary Deep veins of the lower extremities are bilaterally patent and compressible seg mentally. There is no evidence of deep vein thrombosis on either side. Valvular competence appears in tact within the proximal deep venous systems bilaterally. The great saphenous veins appear bila terally patent and compressible segmentally. Ordering Physician: Jean Paul Bañuelos Referring Physician: Jean Paul Bañuelos Chi Performed By: Maribel Ruggiero RVT
== END 2021-05-15 23:59 | disposition home or self-care (01) ==
PROVIDERS: PCP Family Medicine Geriatric Medicine; Referring Provider Family Medicine Geriatric Medicine; Visit Provider Family Medicine Geriatric Medicine
DX: R60.0 Localized edema (principal); R79.9 Abnormal finding of blood chemistry, unspecified
CPT/HCPCS: 36415; 80048; 84550; 85025; 85652; 86140; 93971

== ENCOUNTER 2021-05-15 11:30 | Outpatient (CLI) | payer MEDICARE, OTHER, SELFPAY ==
[2021-05-15 12:31] LABS: Erythrocyte Sedimentation Rate 129 mm/hr (0-30)
[2021-05-15 12:32] LABS: Absolute Lymphocyte Count 1.66 X10^3/uL (0.83-4.51); Absolute Neutrophil Count 11.9 X10^3/uL (2.0-7.7); Basophil# 0.06 X10^3/uL; Basophil% 0.4 % (0-1); Eosinophil# 0.22 X10^3/uL; Eosinophils% 1.4 % (0-5); Hematocrit 26.5 % (37-47); Hemoglobin 7.7 g/dL (12.0-15.0); Lymphocyte # 1.66 X10^3/ul (0.83-4.51); Lymphocyte % 10.9 % (19-41); Mean Corp Hgb Conc 29.1 g/dL (32-36); Mean Corpuscular Hgb 19.6 pg (27.0-32.0); Mean Corpuscular Volume 67.6 fL (81-99); Mean Platelet Vol. 10.5 fl (6.2-12.0); Monocyte# 1.31 X10^3/uL; Monocyte% 8.6 % (0-10); NRBC Flagged by Analyzer 0 % (0-5); Neutrophil # 11.91 X10^3/uL (2.7-7.7); Neutrophil % 78.2 % (47-70); POSITIVE MORPHOLOGY YES; Platelet Count 553 K/mm3 (150-450); RBC Distribution Width CV 20.7 % (11.6-14.6); RBC Distribution Width SD 49.4 fl (35.1-43.9); Red Blood Count 3.92 M/mm3 (4.2-5.4); White Blood Count 15.2 K/mm3 (4.4-11.0)
[2021-05-15 12:34] LABS: Differential Indicated SCAN CRITERIA MET
[2021-05-15 12:41] LABS: Anion Gap 9 (5-15); BUN 21 mg/dL (7-18); BUN/Creat Ratio 17.4 RATIO (10-20); Calcium,Total 9.5 mg/dL (8.5-10.1); Chloride 107 mmol/L (98-107); Creatinine, Serum 1.21 mg/dL (0.55-1.02); EST Glomerular Filtration Rate 46 mL/min (>60); Est Glom Filt Rate - Afr Amer 56 mL/min (>60); Glucose 116 mg/dL (74-106); Potassium 4.1 mmol/L (3.5-5.1); Sodium Level 138 mmol/L (136-145); Uric Acid 4.5 mg/dL (2.6-6.0)
[2021-05-15 12:59] LABS: Anisocytosis 1+
== END 2021-05-15 23:59 | disposition home or self-care (01) ==
LOC: POLAB3 11:33
PROVIDERS: PCP Family Medicine Geriatric Medicine; Visit Provider Family Medicine Geriatric Medicine
DX: R79.9 Abnormal finding of blood chemistry, unspecified (principal)
CPT/HCPCS: 36415; 80048; 84550; 85025; 85652; 86140

== ENCOUNTER 2021-05-16 11:23 | Outpatient (CLI) | payer MEDICARE, OTHER, SELFPAY | END 2021-05-16 23:59 | disposition home or self-care (01) | LOC: PSN 11:26 | PROVIDERS: PCP Family Medicine Geriatric Medicine; Referring Provider Family Medicine Geriatric Medicine; Visit Provider Family Medicine Geriatric Medicine | DX: D64.9 Anemia, unspecified (principal); R68.83 Chills (without fever) | CPT/HCPCS: 36415; 82607; 82728; 82746; 83540; 83550; 85025; 85045; 87635; 87804; 87807; C9803; U0003; U0005 ==

== ENCOUNTER 2021-05-16 14:48 | Outpatient (CLI) | payer MEDICARE, OTHER, SELFPAY ==
[2021-05-16 16:48] LABS: Absolute Lymphocyte Count 1.37 X10^3/uL (0.83-4.51); Absolute Neutrophil Count 20.8 X10^3/uL (2.0-7.7); Basophil# 0.02 X10^3/uL; Basophil% 0.1 % (0-1); Hemoglobin 6.7 g/dL (12.0-15.0); Lymphocyte # 1.37 X10^3/ul (0.83-4.51); Lymphocyte % 5.7 % (19-41); Mean Corp Hgb Conc 29.1 g/dL (32-36); Mean Corpuscular Hgb 19.4 pg (27.0-32.0); Mean Corpuscular Volume 66.7 fL (81-99); Mean Platelet Vol. 9.9 fl (6.2-12.0); Monocyte# 1.77 X10^3/uL; Monocyte% 7.3 % (0-10); NRBC Flagged by Analyzer 0 % (0-5); Neutrophil # 20.76 X10^3/uL (2.7-7.7); Neutrophil % 85.8 % (47-70); POSITIVE DIFFERENTIAL YES; POSITIVE MORPHOLOGY YES; Platelet Count 533 K/mm3 (150-450); RBC Distribution Width CV 20.7 % (11.6-14.6); RBC Distribution Width SD 48.4 fl (35.1-43.9); RET-HE 17.6 pg (30-35); Red Blood Count 3.45 M/mm3 (4.2-5.4); Reticulocyte Count 1.17 % (0.5-1.5); White Blood Count 24.2 K/mm3 (4.4-11.0)
[2021-05-16 16:57] LABS: Vitamin B12 419 pg/mL (211-911)
[2021-05-16 17:14] LABS: Differential Indicated SCAN CRITERIA MET
[2021-05-16 17:16] LABS: Anisocytosis 1+; Hypochromasia 1+; Microcytosis 1+; Platelet Estimate MOD INC (ADEQ); Red Cell Morphology N CHROM NORMAL (NORM C&C)
[2021-05-16 17:38] LABS: Ferritin 15 ng/mL (8-252); Iron 14 ug/dL (50-170); Iron Binding Capacity,Total 388 ug/dL (250-450); PERCENT IRON SATURATION 3.6 % (15.0-55.0)
[2021-05-17 13:51] LABS: Pathologist Review Reviewed
== END 2021-05-16 23:59 | disposition home or self-care (01) ==
LOC: POLAB3 14:49
PROVIDERS: PCP Family Medicine Geriatric Medicine; Visit Provider Family Medicine Geriatric Medicine
DX: D64.9 Anemia, unspecified (principal)
CPT/HCPCS: 36415; 82607; 82728; 82746; 83540; 83550; 85025; 85045

== ENCOUNTER 2021-05-18 06:50 | Outpatient (CLI) | payer MEDICARE, OTHER, SELFPAY ==
--- NOTE | 2021-05-18 06:55 | ECHOD_ITS ---
Reason For Study: CAD/ASHD Procedure This was a 2D Doppler, Color Flow transthoracic echocardiogram. The study was technically difficult. Exam performed in department. Left Ventricle Normal LV size. Sigmoid septum. Left ventricular systolic function is normal. The estimated ejection fraction is 60 %. Septal motion consistent with IVCD. Diastolic function is indeterminate. No regional wall motion abnormalities noted. Right Ventricle Normal RV size. Normal systolic function. Atria The left atrium is mildly enlarged. Normal right atrium. No doppler evidence for ASD. Mitral Valve There is no mitral annular calcification. Mild diffuse mitral valve thickening. Mild focal mitral valve calcification, bileaflet. Mild (1+) mitral valve insufficiency. Tricuspid Valve Normal tricuspid valve. Trivial tricuspid valve insufficiency. Right ventricular systolic pressure estimated to be 28 mmHg. Aortic Valve Trisinus/trileaflet aortic valve. Mild diffuse aortic valve thickening. Mild focal aortic valve calcification. Mild aortic stenosis. Pulmonic Valve The pulmonic valve is not well visualized. Great Vessels Normal aortic root. Pericardium/Pleural No pericardial effusion. MMode/2D Measurements & Calculations LVIDd: 4.9 cm IVSd: 1.2 cm LVOT diam: 2.1 cm LVIDs: 2.9 cm LVPWd: 1.1 cm LVOT area: 3.3 cm2 RVDd: 3.6 cm FS: 40.4 % Ao root diam: 3.1 cm LAV(MOD-bp): 94.9 ml LA A4 area: 26.0 cm2 LAV(MOD-bp) Indexed: 48.7 ml/m2 LAV(MOD-sp2): 86.9 ml LAV(MOD-sp4): 95.0 ml LA dimension(2D): 4.2 cm RA A4 area: 17.8 cm2 Time Measurements MV dec time: 0.15 sec Doppler Measurements & Calculations MV E max froylan: 102.7 cm/sec Lat Peak E' Froylan: 12.5 cm/sec Med Peak E' Froylan: 7.5 cm/sec MV A max froylan: 126.8 cm/sec E/E' lat: 8.2 E/E' med: 13.6 MV E/A: 0.81 Ao V2 max: 267.0 cm/sec LV V1 max: 110.1 cm/sec MR max froylan: 538.6 cm/sec Ao max P.5 mmHg LV V1 max P.9 mmHg MR max P.0 mmHg Ao V2 mean: 177.9 cm/sec LV V1 mean P.7 mmHg MR mean froylan: 410.7 cm/sec Ao mean P.1 mmHg LV V1 mean: 78.9 cm/sec MR mean P.4 mmHg Ao V2 VTI: 53.5 cm LV V1 VTI: 22.9 cm MR VTI: 189.7 cm SARA(I,D): 1.4 cm2 SARA(V,D): 1.4 cm2 SV(LVOT): 75.5 ml PA V2 max: 148.6 cm/sec TR max froylan: 249.7 cm/sec TR max P.9 mmHg ECHO/Echo Complete Interpretation Summary The study was technically difficult. Left ventricular systolic function is normal. The estimated ejection fraction is 60 %. Sigmoid septum. Septal motion consistent with IVCD. The left atrium is mildly enlarged. Mild diffuse mitral valve thickening. Mild focal mitral valve calcification, bileaflet. Mild (1+) mitral valve insufficiency. Trivial tricuspid valve insufficiency. Mild aortic stenosis. Right ventricular systolic pressure estimated to be 28 mmHg. Diastolic function is indeterminate. Ordering Physician: Merritt Cooper Referring Physician: Jean Paul Bañuelos Chi Performed By: Anabelle Nagy, RDCS, RVT
--- NOTE | 2021-05-18 06:55 | CDU_ITS ---
Reason For Study: Carotid artery bruit Rt. Velocities/BP Lt. Velocities/BP Prox CCA 102.1/26.5 cm/sec. Prox CCA 115.5/27.9 cm/sec. Mid CCA 79.9/20 cm/sec. Mid CCA 79/22.4 cm/sec. Dist CCA 68.2/20. cm/sec. Dist CCA 80.2/23.7 cm/sec. Prox ICA 83.9/25.2 cm/sec. Prox ICA 57.5/17.9 cm/sec. Mid ICA 98.2/26.5 cm/sec. Mid ICA 77.3/28.9 cm/sec. Dist ICA 86.5/27.8 cm/sec. Dist ICA 78.4/30 cm/sec. Rt. ICA/CCA = 1.23. Lt. ICA/CCA = 0.98. Prox ECA 94.3/10.8 cm/sec. Prox ECA 74/10.2 cm/sec. Rt. Vert. 135.7/24.3 cm/sec. Lt. Vert. 59.7/21.2 cm/sec. Right Extracranial There is intimal thickening but no significant atherosclerotic plaque noted in the right common carotid artery. There is heterogeneous, irregular atherosclerotic plaque noted in the right internal carotid artery. There is intimal thickening but no significant atherosclerotic plaque noted in the right external carotid artery. Antegrade flow is noted in the right vertebral artery. Left Extracranial There is homogeneous, smooth atherosclerotic plaque noted in the left common carotid artery. There is heterogeneous, irregular atherosclerotic plaque noted in the left internal carotid artery. There is intimal thickening but no significant atherosclerotic plaque noted in the left external carotid artery. Antegrade flow is noted in the left vertebral artery. Procedure Carotid Duplex [id number]. This is a Carotid Duplex examination using B-mode, color flow and specral Doppler. Exam performed in department. VL/Carotid Duplex Ultrasound Interpretation Summary Mild (<50%) stenosis right extracranial internal carotid. Mild (<50%) stenosis left extracranial internal carotid. Flow within the vertebral arteries is antegrade bilaterally. Ordering Physician: Merritt Cooper Referring Physician: Jean Paul Bañuelos Chi Performed By: Maribel Ruggiero RVT
--- NOTE | 2021-05-18 10:13 | STRESSREP_ITS ---
Stress Test Report Date: 05-18-2021 Procedure: Pharmacologic stress nuclear imaging study Indications: Chest pain/angina pectoris; CAD; PCI; PAF Consent: Per the patient Procedure: The patient underwent pharmacologic (Regadenoson 0.4mg ) evaluation with a peak heart rate of 82 beats per minute (56%predicted maximal heart rate) and a peak blood pressure of 128/72 mmHg. The baseline ECG demonstrated sinus rhythm; nonspecific ST/T wave abnormality. The peak pharmacologic ECG demonstrated no obvious ECG changes. There was a rare PVC during recovery. There was no complaint of chest discomfort during pharmacologic infusion or recovery. The examination was discontinued secondary to completion of protocol. Impression: 1. Pharmacologic (Regadenoson) evaluation 2. Peak pharmacologic ECG with continued nonspecific ST/T wave abnormality. 3. There was a rare PVC during recovery. 4. Nuclear images pending Myocardial perfusion imaging study: Technique: The patient was injected with 11.9 millicuries of technetium 99m Cardiolite and subsequently rest SPECT Cardiolite nuclear imaging was obtained in the horizontal long, vertical long, and short axis views. The patient underwent pharmacologic (Regadenoson) evaluation with a peak heart rate of 82 beats per minute (56% percent predicted maximal heart rate) and a peak blood pressure of 128/72 mmHg. The patient was injected with 35.5 millicuries of technetium 99m Cardiolite and subsequently stress SPECT Cardiolite nuclear imaging was obtained in the horizontal long, vertical long, and short axis views. A gated Cardiolite study at peak stress was obtained. Interpretation: Rest and stress SPECT Cardiolite nuclear imaging status post realignment, normalization, and attenuation correction demonstrate an element of body motion during image acquisition and at rest the appearance of subtle diminished tracer uptake in portions of the distal anterior, distal anteroseptal, and septal apica l segments which appears to improve/normalize following stress. There is end systolic thickening and brightening. The gated Cardiolite study demonstrates myocardial thickening and inward wall motion. The reported LVEF is 67%. Impression: 1. Rest and stress SPECT Cardiolite nuclear imaging demonstrate myocardial perfusion changes appearing compatible with shifting soft tissue attenuation/artifact with no myocardial perfusion changes considered diagnostic for associated stress-induced myocardial ischemia. 2. The gated Cardiolite study reports an LVEF of 67%. This note was generated with [employer] software. It may contain incorrect words, spelling, and punctuation that were not noted in checking the note before signing.
== END 2021-05-18 23:59 | disposition home or self-care (01) ==
LOC: CVS 06:51
PROVIDERS: PCP Family Medicine Geriatric Medicine; Referring Provider Internal Medicine Cardiovascular Disease; Visit Provider Internal Medicine Cardiovascular Disease
DX: R09.89 Other specified symptoms and signs involving the circulatory and respiratory systems (principal); I50.32 Chronic diastolic (congestive) heart failure; I11.0 Hypertensive heart disease with heart failure; E78.5 Hyperlipidemia, unspecified; I25.10 Atherosclerotic heart disease of native coronary artery without angina pectoris; R07.9 Chest pain, unspecified; Z95.5 Presence of coronary angioplasty implant and graft; Z95.828 Presence of other vascular implants and grafts; Z86.711 Personal history of pulmonary embolism
CPT/HCPCS: 78452; 93017; 93306; 93880; A9500; A4216; J2785

== ENCOUNTER 2021-05-19 08:22 | Outpatient (CLI) | payer MEDICARE, OTHER, SELFPAY ==
[2021-05-17 13:36] LABS: Hematocrit 22.2 % (37-47); Hemoglobin 6.1 g/dL (12.0-15.0)
[2021-05-19] VITALS (7 sets, daily range): BP systolic 130–146; BP diastolic 54–70; PULSE 62–71; RESP 16–18; TEMP 35.8–36.4; O2SAT 97–100; BMI 35.6
[2021-05-19] MEDS: 0.9% NaCl Peripheral Flush Adult/Peds IV (09:14)
[2021-05-19] MEDS: Furosemide 20 MG/2 ML VIAL IV (11:24)
== END 2021-05-19 23:59 | disposition home or self-care (01) ==
LOC: MEDOUTP 08:23
PROVIDERS: PCP Family Medicine Geriatric Medicine; Referring Provider Family Medicine Geriatric Medicine; Visit Provider Family Medicine Geriatric Medicine
DX: D64.9 Anemia, unspecified (principal)
CPT/HCPCS: 36415; 36430; 85014; 85018; 86850; 86900; 86901; 86920; 86922; J7040; P9016; A4216; J1940

== ENCOUNTER 2021-06-13 16:00 | Outpatient (CLI) | payer MEDICARE, OTHER, SELFPAY ==
[2021-06-13 16:43] LABS: Absolute Lymphocyte Count 2.09 X10^3/uL (0.83-4.51); Absolute Neutrophil Count 6.3 X10^3/uL (2.0-7.7); Basophil# 0.06 X10^3/uL; Basophil% 0.6 % (0-1); Eosinophil# 0.32 X10^3/uL; Eosinophils% 3.4 % (0-5); Hematocrit 31.3 % (37-47); Hemoglobin 9.2 g/dL (12.0-15.0); Lymphocyte # 2.09 X10^3/ul (0.83-4.51); Mean Corp Hgb Conc 29.4 g/dL (32-36); Mean Corpuscular Hgb 22.6 pg (27.0-32.0); Mean Corpuscular Volume 76.9 fL (81-99); Mean Platelet Vol. 9.9 fl (6.2-12.0); Monocyte# 0.68 X10^3/uL; Monocyte% 7.2 % (0-10); NRBC Flagged by Analyzer 0 % (0-5); Neutrophil % 66.5 % (47-70); POSITIVE MORPHOLOGY YES; Platelet Count 344 K/mm3 (150-450); Red Blood Count 4.07 M/mm3 (4.2-5.4); White Blood Count 9.5 K/mm3 (4.4-11.0)
[2021-06-13 17:52] LABS: Differential Indicated SCAN CRITERIA MET
[2021-06-13 18:06] LABS: Anisocytosis 1+; Differential Comment SCANNED; Hypochromasia 2+; Target Cells RARE
== END 2021-06-13 23:59 | disposition home or self-care (01) ==
LOC: POLAB3 16:01
PROVIDERS: PCP Family Medicine Geriatric Medicine; Visit Provider Family Medicine Geriatric Medicine
DX: D50.9 Iron deficiency anemia, unspecified (principal)
CPT/HCPCS: 36415; 85025

== ENCOUNTER 2021-07-05 17:06 | Outpatient (CLI) | payer MEDICARE, OTHER, SELFPAY ==
[2021-07-05 17:23] LABS: Absolute Lymphocyte Count 2.48 X10^3/uL (0.83-4.51); Absolute Neutrophil Count 7.1 X10^3/uL (2.0-7.7); Basophil# 0.05 X10^3/uL; Basophil% 0.4 % (0-1); Eosinophils% 5.4 % (0-5); Hematocrit 24.1 % (37-47); Hemoglobin 7.3 g/dL (12.0-15.0); Lymphocyte # 2.48 X10^3/ul (0.83-4.51); Lymphocyte % 22.1 % (19-41); Mean Corp Hgb Conc 30.3 g/dL (32-36); Mean Corpuscular Hgb 23.1 pg (27.0-32.0); Mean Corpuscular Volume 76.3 fL (81-99); Mean Platelet Vol. 9.4 fl (6.2-12.0); Monocyte# 0.91 X10^3/uL; Monocyte% 8.1 % (0-10); NRBC Flagged by Analyzer 0 % (0-5); Neutrophil # 7.13 X10^3/uL (2.7-7.7); Neutrophil % 63.6 % (47-70); POSITIVE MORPHOLOGY YES; Platelet Count 444 K/mm3 (150-450); RBC Distribution Width CV 27.5 % (11.6-14.6); RBC Distribution Width SD 72.1 fl (35.1-43.9); Red Blood Count 3.16 M/mm3 (4.2-5.4); White Blood Count 11.2 K/mm3 (4.4-11.0)
[2021-07-05 18:14] LABS: Differential Indicated SCAN CRITERIA MET
[2021-07-05 18:21] LABS: ALB/GLOB Ratio 1.1 RATIO (0.9-2.4); AST(SGOT) 21 U/L (15-37); Alanine Aminotransfer ALT/SGPT 20 U/L (13-56); Albumin, Serum 3.4 g/dL (3.2-5.0); Alkaline Phosphatase 41 U/L (45-117); Anion Gap 5 (5-15); BUN 29 mg/dL (7-18); BUN/Creat Ratio 16.8 RATIO (10-20); Calcium,Total 9.2 mg/dL (8.5-10.1); Chloride 108 mmol/L (98-107); Creatinine, Serum 1.73 mg/dL (0.55-1.02); EST Glomerular Filtration Rate 30 mL/min (>60); Est Glom Filt Rate - Afr Amer 37 mL/min (>60); Globulin 3.2 g/dL (2.2-4.2); Glucose 95 mg/dL (74-106); Potassium 4.1 mmol/L (3.5-5.1); Protein, Total 6.6 g/dL (6.4-8.2); Sodium Level 139 mmol/L (136-145)
== END 2021-07-05 23:59 | disposition home or self-care (01) ==
LOC: LAB 17:07
PROVIDERS: PCP Family Medicine Geriatric Medicine; Referring Provider Family Medicine Geriatric Medicine; Visit Provider Family Medicine Geriatric Medicine
DX: I10 Essential (primary) hypertension (principal)
CPT/HCPCS: 36415; 80053; 85025

== ENCOUNTER 2021-07-07 10:24 | Outpatient (CLI) | payer MEDICARE, OTHER, SELFPAY | END 2021-07-07 23:59 | disposition home or self-care (01) | LOC: POLAB3 10:26 | PROVIDERS: PCP Family Medicine Geriatric Medicine; Visit Provider Family Medicine Geriatric Medicine | DX: D64.9 Anemia, unspecified (principal) | CPT/HCPCS: 36415; 80048; 85025; 86850; 86900; 86901; 86920; 86922 ==

== ENCOUNTER 2021-07-10 10:08 | Outpatient (CLI) | payer MEDICARE, OTHER, SELFPAY ==
[2021-07-07 10:49] LABS: Absolute Lymphocyte Count 1.14 X10^3/uL (0.83-4.51); Absolute Neutrophil Count 5.3 X10^3/uL (2.0-7.7); Basophil# 0.05 X10^3/uL; Basophil% 0.7 % (0-1); Eosinophil# 0.41 X10^3/uL; Eosinophils% 5.4 % (0-5); Hematocrit 22.5 % (37-47); Hemoglobin 6.7 g/dL (12.0-15.0); Lymphocyte # 1.14 X10^3/ul (0.83-4.51); Mean Corp Hgb Conc 29.8 g/dL (32-36); Mean Corpuscular Hgb 23.2 pg (27.0-32.0); Mean Corpuscular Volume 77.9 fL (81-99); Mean Platelet Vol. 9.7 fl (6.2-12.0); Monocyte# 0.67 X10^3/uL; Monocyte% 8.8 % (0-10); NRBC Flagged by Analyzer 0 % (0-5); Neutrophil # 5.31 X10^3/uL (2.7-7.7); Neutrophil % 69.7 % (47-70); POSITIVE MORPHOLOGY YES; Platelet Count 374 K/mm3 (150-450); RBC Distribution Width CV 27.8 % (11.6-14.6); RBC Distribution Width SD 73.6 fl (35.1-43.9); Red Blood Count 2.89 M/mm3 (4.2-5.4); White Blood Count 7.6 K/mm3 (4.4-11.0)
[2021-07-07 10:51] LABS: Differential Indicated SCAN CRITERIA MET
[2021-07-07 11:08] LABS: Anisocytosis 2+; Hypochromasia 2+
[2021-07-07 11:25] LABS: Anion Gap 4 (5-15); BUN 24 mg/dL (7-18); BUN/Creat Ratio 18.8 RATIO (10-20); Chloride 111 mmol/L (98-107); Creatinine, Serum 1.28 mg/dL (0.55-1.02); EST Glomerular Filtration Rate 43 mL/min (>60); Est Glom Filt Rate - Afr Amer 52 mL/min (>60); Glucose 112 mg/dL (74-106); Potassium 4.8 mmol/L (3.5-5.1); Sodium Level 137 mmol/L (136-145)
[2021-07-10 10:29] VITALS: BP 105/58; PULSE 58; RESP 18; TEMP 36.7; O2SAT 99
[2021-07-10 10:42] VITALS: BP 97/52; PULSE 65; RESP 18; TEMP 36.7
[2021-07-10 11:45] VITALS: BP 103/60; PULSE 58; RESP 16; TEMP 36.2; O2SAT 98
[2021-07-10 12:35] VITALS: BP 106/53; PULSE 53; RESP 16; TEMP 36.6; O2SAT 99
== END 2021-07-10 23:59 | disposition home or self-care (01) ==
LOC: MEDOUTP 10:09
PROVIDERS: PCP Family Medicine Geriatric Medicine; Referring Provider Family Medicine Geriatric Medicine; Visit Provider Family Medicine Geriatric Medicine
DX: D64.9 Anemia, unspecified (principal)
CPT/HCPCS: 36415; 36430; 80048; 85025; 86850; 86900; 86901; 86920; 86922; J7040; P9016; A4216

== ENCOUNTER 2021-07-11 08:23 | Outpatient (CLI) | payer MEDICARE, OTHER, SELFPAY ==
[2021-07-11] MEDS: 0.9% NaCl Peripheral Flush Adult/Peds IV ×2 (08:43→11:25)
[2021-07-11 08:44] VITALS: BP 148/58; PULSE 69; RESP 16; TEMP 35.7; O2SAT 99; BMI 35.0
[2021-07-11 09:18] VITALS: BP 115/65; PULSE 55; RESP 16; TEMP 35.8; O2SAT 99
[2021-07-11 10:26] VITALS: BP 127/63; PULSE 51; RESP 16; TEMP 35.8; O2SAT 99
[2021-07-11 11:16] VITALS: BP 130/62; PULSE 54; RESP 16; TEMP 35.8
[2021-07-11] MEDS: Furosemide 20 MG/2 ML VIAL IV (11:25)
== END 2021-07-11 23:59 | disposition home or self-care (01) ==
LOC: MEDOUTP 08:24
PROVIDERS: PCP Family Medicine Geriatric Medicine; Referring Provider Family Medicine Geriatric Medicine; Visit Provider Family Medicine Geriatric Medicine
DX: D64.9 Anemia, unspecified (principal)
CPT/HCPCS: 36430; 86850; 86900; 86901; 86920; 86922; J7040; P9016; A4216; J1940

== ENCOUNTER 2021-07-14 09:49 | Outpatient (CLI) | payer MEDICARE, OTHER, SELFPAY ==
[2021-07-14 12:41] LABS: Absolute Lymphocyte Count 1.04 X10^3/uL (0.83-4.51); Absolute Neutrophil Count 5.4 X10^3/uL (2.0-7.7); Basophil# 0.04 X10^3/uL; Basophil% 0.5 % (0-1); Eosinophil# 0.66 X10^3/uL; Eosinophils% 8.5 % (0-5); Hematocrit 30.8 % (37-47); Hemoglobin 9.3 g/dL (12.0-15.0); Lymphocyte # 1.04 X10^3/ul (0.83-4.51); Lymphocyte % 13.5 % (19-41); Mean Corp Hgb Conc 30.2 g/dL (32-36); Mean Corpuscular Hgb 25.8 pg (27.0-32.0); Mean Corpuscular Volume 85.6 fL (81-99); Mean Platelet Vol. 9.9 fl (6.2-12.0); Monocyte# 0.57 X10^3/uL; Monocyte% 7.4 % (0-10); NRBC Flagged by Analyzer 0 % (0-5); Neutrophil # 5.38 X10^3/uL (2.7-7.7); Neutrophil % 69.6 % (47-70); POSITIVE MORPHOLOGY YES; Platelet Count 322 K/mm3 (150-450); RBC Distribution Width CV 25.2 % (11.6-14.6); White Blood Count 7.7 K/mm3 (4.4-11.0)
[2021-07-14 12:42] LABS: Differential Indicated SCAN CRITERIA MET
[2021-07-14 12:51] LABS: Anion Gap 3 (5-15); BUN 23 mg/dL (7-18); BUN/Creat Ratio 21.9 RATIO (10-20); Chloride 111 mmol/L (98-107); Creatinine, Serum 1.05 mg/dL (0.55-1.02); EST Glomerular Filtration Rate 54 mL/min (>60); Est Glom Filt Rate - Afr Amer 65 mL/min (>60); Glucose 155 mg/dL (74-106); Potassium 4.4 mmol/L (3.5-5.1); Sodium Level 139 mmol/L (136-145)
[2021-07-14 13:01] LABS: Anisocytosis 2+; Microcytosis 1+; Platelet Estimate ADEQUATE (ADEQ)
== END 2021-07-14 23:59 | disposition home or self-care (01) ==
LOC: POLAB3 09:50
PROVIDERS: PCP Family Medicine Geriatric Medicine; Visit Provider Family Medicine Geriatric Medicine
DX: R53.83 Other fatigue (principal)
CPT/HCPCS: 36415; 80048; 85025

== ENCOUNTER 2021-08-03 14:32 | Observation (INO) | payer MEDICARE, OTHER, SELFPAY ==
[2021-08-03] VITALS (8 sets, daily range): BP systolic 104–138; BP diastolic 60–116; PULSE 57–80; RESP 16; TEMP 36.8–37.1; O2SAT 97–100; BMI 35.0; BMI 35.2
--- NOTE | 2021-08-03 15:12 | EKG12_ITS ---
Test Reason : CP Blood Pressure : / mmHG Vent. Rate : 065 BPM Atrial Rate : 065 BPM P-R Int : 236 ms QRS Dur : 196 ms QT Int : 464 ms P-R-T Axes : 059 -60 097 degrees QTc Int : 482 ms Sinus rhythm with 1st degree A-V block Left axis deviation Left bundle branch block Abnormal ECG Confirmed by NURYS VILLALTA, YAZMIN ([id number]), editor magazine FORREST SALDAÑA ([id number]) on 08/04/2021 10:28:51 AM Referred By: RICHARD Confirmed By:YAZMIN NUNO MD
--- NOTE | 2021-08-03 15:13 | EDS_ITS ---
HPI History of Present Illness Chief Complaint: Chest Pain Informant: patient Narrative Narrative: 75-year-old female with history of coronary artery disease presenting to the emergency department for evaluation of chest discomfort. Patient states that she follows locally with Dr. Cooper. She had a heart catheterization in 2020 receiving a stent to her LAD. Recently she states that she underwent a stress test and is supposed to follow-up in the office in 6 weeks. Last week she had an episode of what she describes as heartburn.. Describes discomfort in the anterior chest going up into the neck. She is unsure if there is associated dyspnea with it. She states that today she had 2 episodes lasting about 20 minutes while she was out shopping. Each time she felt perhaps there was a smell of the store that was causing it. She did not have her nit roglycerin with her. Last week the nitroglycerin did help her symptoms. She is currently asymptomatic. She has a known left bundle branch block. Aspirin taken at home. [facility] Medical History Afib Anemia Anemia Angina pectoris Aortic valve disorder Arthritis Asthma Atherosclerotic heart disease of [place] coronary artery without angina pectoris Atrial fibrillation Atrioventricular bloc first degree Back pain BiPAP (biphasic positive airway pressure) dependence Bronchitis Cardiology follow-up encounter Carotid bruit Chronic diastolic (congestive) heart failure Depression Diarrhea Difficulty balancing Dizziness DVT (deep venous thrombosis) Dysphagia Essential hypertension Fatigue Gastric reflux Glaucoma Hay fever Hemorrhoids History of atrial fibrillation History of DVT (deep vein thrombosis) History of echocardiogram History of edema History of IBS History of osteoarthritis History of pulmonary embolism History of stress test HLD (hyperlipidemia) Hypokalemia Incontinence Injury of head and neck Knee pain Leg cramps Limb weakness Neck pain Non-smoker Normal pressure hydrocephalus Obesities, morbid Obesity JONY (obstructive sleep apnea) Pharyngitis Presence of IVC filter Presence of IVC filter Pulmonary embolism Shortness of breath on exertion Shoulder pain Sleep apnea SOB (shortness of breath) Thromboembolic disorder unexpained bruising Upper respiratory infection Wears glasses Wears hearing aid Home Medications gabapentin 600 mg PO QHS 05/04/15 [History Last Taken Unknown] benazepril 10 mg tablet 10 mg PO DAILY 30 Days #30 09/27/17 [History Last Taken Unknown] latanoprostene bunod 0.024 % eye drops 1 drp OPHTHALMIC QPM 09/27/17 [History Last Taken Unknown] solifenacin 10 mg tablet 10 mg PO QDAY 09/27/17 [History Last Taken Unknown] atorvastatin 20 mg PO QHS 02/24/21 [History Last Taken Unknown] clopidogrel 75 mg PO DAILY 02/24/21 [History Last Taken 02/24/21] dorzolamide 1 drp LEFT EYE BID 02/24/21 [History Last Taken Unknown] duloxetine 40 mg PO DAILY 02/24/21 [History Last Taken Unknown] multivitamin 1 tab PO DAILY 02/24/21 [History Last Taken Unknown] nitroglycerin 0.4 mg SUBLINGUAL Q5M PRN 02/24/21 [History Last Taken Unknown] dabigatran etexilate 150 mg capsule 150 mg PO BID 04/27/21 [History Last Taken Unknown] spironolactone 50 mg tablet 50 mg PO DAILY #30 tab 04/27/21 [Rx Last Taken Unknown] albuterol sulfate 90 mcg/actuation aerosol inhaler 2 puff INHALATION Q4H PRN #18 g 07/20/21 [Rx Last Taken Unknown] Allergy/AdvReac Type Severity Reaction Status Date / Time rivaroxaban [From Xarelto] Allergy Severe Unknown Verified 08/03/21 14:35 acetaminophen [From Percocet] Allergy Unknown hallucinati Verified 08/03/21 14:35 ons alprazolam [From Xanax] Allergy Unknown fatigue Verified 08/03/21 14:35 oxycodone [From Percocet] Allergy Unknown hallucinati Verified 08/03/21 14:35 ons carisoprodol [From Soma] Allergy Rash Verified 08/03/21 14:35 adhesives Allergy Unknown blisters Uncoded 08/03/21 14:35 antihistamines AdvReac Other Uncoded 08/03/21 14:35 Family History Mother Cancer pancreatic Asthma Son Asthma Brother Heart disease Diabetes Hypertension Kidney disease Sister Heart disease Hypertension Diabetes Surgical History History of arthroscopy of right shoulder History of cardiac catheterization History of coronary artery stent placement History of hernia repair History of hysterectomy History of laminectomy History of spinal fusion History of toe surgery History of total left knee replacement History of ventriculoperitoneal shunting (~06/16/14) Hx of appendectomy Hx of carpal tunnel repair Hx of cholecystectomy Presence of coronary angioplasty implant and graft (~06/08/20) Presence of stent in coronary artery (~06/08/20) Social History Smoking Status: Never smoker Electronic Cigarette Use: not used alcohol intake: never substance use type: does not use caffeine: Yes Type: tea Number of servings: 1 ROS ROS ED Constitutional Constitutional ED: Denies chills, fever(s) or weight loss Eyes Eyes: Denies change in vision or diplopia ENT ENT ED: Denies ear pain, rhinorrhea or sore throat Cardiovascular Cardiovascular: Reports chest pain; Denies orthopnea, palpitations or racing heartbeat Respiratory/Chest Respiratory/Chest: Denies cough, dyspnea or orthopnea Gastrointestinal Gastrointestinal: Denies abdominal pain, diarrhea, nausea or vomiting Genitourinary Genitourinary ED: Denies dysuria, hematuria or urinary frequency Musculoskeletal Musculoskeletal: Denies arthralgias or myalgias Integumentary Denies abscess or rash Neurologic Neurologic: Denies headache(s) or weakness Psychiatric Psychiatric: Denies anxiety, depression, suicidal ideation or suicidal thoughts Endocrine Endocrinology: Denies polydipsia, polyphagia or polyuria Allergic/Immunologic Allergic/Immunologic ED: Denies mouth swelling, tongue swelling or urticaria EXAM Physical Exam Const Vital Signs: 08/03/21 14:33 08/03/21 14:46 08/03/21 15:55 Temperature 98.3 F Temperature Source Temporal Pulse Rate 80 65 Respiratory Rate 16 16 Respiratory Effort Normal Blood Pressure 138/116 H 104/87 H Blood Pressure Mean 123 92 Pulse Ox 100 99 Oxygen Delivery Method Room Air Room Air 08/03/21 16:39 Temperature Temperature Source Pulse Rate 62 Respiratory Rate 16 Respiratory Effort Blood Pressure 128/72 H Blood Pressure Mean 90 Pulse Ox 97 Oxygen Delivery Method Room Air Positive well nourished and well developed General Appearance ED: well developed HEENT Reports normocephalic, head/scalp atraumatic, TM's clear and moist mucous membranes normocephalic and atraumatic Tympanic Membrane ED: Yes TM's clear Eyes PERRL and EOMs intact bilaterally Neck no lymphadenopathy, supple and no JVD Resp normal respiratory effort and clear to auscultation bilaterally Cardio regular rate and regular rhythm Rate: other Other Details: systolic murmur GI normal to inspection, nondistended, normoactive bowel sounds and non-tender Palpation: soft Back/Spine no CVA tenderness and normal ROM Extremity normal to inspection General Extremety ED: Negative for edema General Extremity: Negative for edema Neuro oriented x3 and CN's II-XII intact bilaterally Sensorium / Orientation: alert Motor Exam: strength 5/5 throughout Psych mental status grossly normal Mood & Affect: Negative for depressed or tearful Skin no rashes or lesions noted and no wounds Heart Score History: Slightly/Non-Suspicious ECG: Normal Age: >/= 65 years Risk Factors: >/= 3 Risk Factors or History of CAD Troponin: </= Normal Limit Score: 4 MDM MDM MDM Narrative Medical decision making narrative: My interpretation of the chest x-ray is no acute process. CBC showed a hemoglobin of 9.8. Creatinine 1.2. Troponin is normal. My interpretation of the chest x-ray is no acute process. I spoke with her mechanical energy engineer as well as the patient. We will admit tonight for further evaluation. Lab Data Attestation: I reviewed the patient's lab results. Labs: Laboratory Results - last 24 hr 08/03/21 08/03/21 08/03/21 15:15 15:15 15:15 WBC 7.4 RBC 3.55 L Hgb 9.8 L Hct 31.9 L MCV 89.9 MCH 27.6 MCHC 30.7 L RDW Std Deviation 77.3 H RDW Coeff of Bridget 22.9 H Plt Count 306 MPV 9.9 Immature Gran % (Auto) 0.300 Neut % (Auto) 67.8 Lymph % (Auto) 19.3 [place] % (Auto) 8.1 Eos % (Auto) 4.0 Baso % (Auto) 0.5 Absolute Neuts (auto) 5.0 Absolute Lymphs (auto) 1.43 Nucleated RBC % 0 Differential Comment SCANNED Anisocytosis 2+ Sodium 138 Potassium 4.1 Chloride 106 Carbon Dioxide 27.0 Anion Gap 5 BUN 22 H Creatinine 1.20 H Estim Creat Clear Calc 32.99 Est GFR (MDRD) Af Amer 56 L Est GFR (MDRD) Non-Af 46 L BUN/Creatinine Ratio 18.3 Glucose 124 H Calcium 9.0 Troponin I High Sens 6 Radiography Diagnostic Testing: Clinical Impression(s) from Imaging Studies Chest X-Ray 08/03/21 15:28 IMPRESSION: No acute abnormality is seen. Electronically Signed: Jose M Malave MD at 15:44 EDT , EKG Initial EKG: Attestation: I personally reviewed and interpreted this EKG as follows: Comments: Sinus rhythm with a first-degree AV block and associated left bundle branch block with a ventricular rate of 65 bpm Discharge Plan Dx/Rx/DC Orders Clinical Impression: Chest pain, Anemia, CAD (coronary artery disease) Disposition Disposition: Acute Care Hospital [facility]
--- NOTE | 2021-08-03 15:28 | RAD_ITS ---
STUDY: X-RAY CHEST REASON FOR EXAM: Female, 75 years old. Chest pain WITH DIZZINESS -- CHEST PAIN OFF AND ON xWEEKS TECHNIQUE: Single AP portable view of the chest. COMPARISON: Comparison is made with prior examination dated 09/26/2015. FINDINGS: EKG electrodes are seen. A right-sided ventriculoperitoneal shunt tube is seen. The lungs are clear and expanded. There is no demonstrated pleural abnormality. Normal size heart. Normal mediastinum and holden. Normal visualized pulmonary arteries. There is atherosclerotic tortuosity of the aortic arch and descending thoracic aorta. There are diffuse degenerative changes of the visualized thoracic spine. Normal visualized ribs, clavicles, and shoulders. There is no demonstrated abnormality of the visualized soft tissue structures of the upper abdomen. RAD/Chest 1 View (Portable) IMPRESSION: No acute abnormality is seen. Electronically Signed: Jose M Malave MD at 15:44 EDT ,
[2021-08-03 15:31] LABS: Absolute Lymphocyte Count 1.43 X10^3/uL (0.83-4.51); Basophil# 0.04 X10^3/uL; Basophil% 0.5 % (0-1); Hematocrit 31.9 % (37-47); Hemoglobin 9.8 g/dL (12.0-15.0); Lymphocyte # 1.43 X10^3/ul (0.83-4.51); Lymphocyte % 19.3 % (19-41); Mean Corp Hgb Conc 30.7 g/dL (32-36); Mean Corpuscular Hgb 27.6 pg (27.0-32.0); Mean Corpuscular Volume 89.9 fL (81-99); Mean Platelet Vol. 9.9 fl (6.2-12.0); Monocyte% 8.1 % (0-10); NRBC Flagged by Analyzer 0 % (0-5); Neutrophil # 5.03 X10^3/uL (2.7-7.7); Neutrophil % 67.8 % (47-70); POSITIVE MORPHOLOGY YES; Platelet Count 306 K/mm3 (150-450); RBC Distribution Width CV 22.9 % (11.6-14.6); RBC Distribution Width SD 77.3 fl (35.1-43.9); Red Blood Count 3.55 M/mm3 (4.2-5.4); White Blood Count 7.4 K/mm3 (4.4-11.0)
[2021-08-03 15:36] LABS: Differential Indicated SCAN CRITERIA MET
[2021-08-03 15:45] LABS: Anion Gap 5 (5-15); BUN 22 mg/dL (7-18); BUN/Creat Ratio 18.3 RATIO (10-20); Chloride 106 mmol/L (98-107); EST Glomerular Filtration Rate 46 mL/min (>60); Est Glom Filt Rate - Afr Amer 56 mL/min (>60); Estimated Creatinine Clearance 32.99 ml/min; Glucose 124 mg/dL (74-106); Potassium 4.1 mmol/L (3.5-5.1); Sodium Level 138 mmol/L (136-145)
[2021-08-03 16:07] LABS: Anisocytosis 2+; Differential Comment SCANNED
[2021-08-03 16:31] LABS: Troponin-I HS (w/2H Reflex) 6 pg/mL (3.0-54.0)
--- NOTE | 2021-08-03 17:07 | PCM.HP.STD ---
HPI - General General Date of Admission: 08/03/21 Date of Service: 08/03/21 Chief Complaint: Chest pain, buring. HPI Narrative The patient is a 75 y/o F w/ PMHx: Anxiety and Depression, GERD, Asthma, Chronic anemia, HTN, HLD, JONY on BIPAP, Depression and Anxiety, PAF, VTE (PE, DVT) s/p IVC Filter placement, Chronic diastolic CHF, CAD s/p PCI following with Dr. Cooper with most recent catheterization 2020 with PCI LAD with recent outpatient stress testing with plan follow-up in the office in 6 weeks who presents to the [facility] ED on 08/03/21 with history of chest discomfort starting approximately 2 weeks prior with initial sensation the potentially was secondary to heartburn described as a discomfort in the anterior chest going up into the neck with on day of presentation 2 specific episodes each lasting approximately 20 minutes while she was out shopping reporting that the week prior she did take nitroglycerin which seemed to help subside her symptoms however she did not have it on her while she was out. Given recurrent episodes prompted ED evaluation. She can only denies any chest discomfort at this time. When she does have the discomfort she rates it 5 out of 10 in severity work-up in the ED included T 98.3, HR 80, BP 138/116, RR 16, 100% on RA, WC 7.4, hemoglobin 9.8, platelet 306 without marked shift, BMP with BUN/creat 22/1.20, glucose 124, troponin 6, chest x-ray with no acute cardiopulmonary finding, EKG with sinus rhythm with left bundle branch block with first-degree AVB. ED physician did discuss case with patient's cement tester assistant Dr. Cooper who requested cardiology consultation with Dr. Clifford for evaluation of patient for possible catheterization consideration. In the ED patient was chest pain-free of note. COUNT INCLUDES [facility] Medical History (Updated 08/03/21 @ 17:[address] Melly Hua MD) Afib Anemia Anemia Angina pectoris Aortic valve disorder Arthritis Asthma Atherosclerotic heart disease of [place] coronary artery without angina pectoris Atrial fibrillation Atrioventricular bloc first degree Back pain BiPAP (biphasic positive airway pressure) dependence Bronchitis Cardiology follow-up encounter Carotid bruit Chronic diastolic (congestive) heart failure Depression Diarrhea Difficulty balancing Dizziness DVT (deep venous thrombosis) Dysphagia Essential hypertension Fatigue Gastric reflux Glaucoma Hay fever Hemorrhoids History of atrial fibrillation History of DVT (deep vein thrombosis) History of echocardiogram History of edema History of IBS History of osteoarthritis History of pulmonary embolism History of stress test HLD (hyperlipidemia) Hydrocephalus Hypokalemia Incontinence Injury of head and neck Knee pain Leg cramps Limb weakness Neck pain Non-smoker Normal pressure hydrocephalus Obesities, morbid Obesity JONY (obstructive sleep apnea) Pharyngitis Presence of IVC filter Presence of IVC filter Pulmonary embolism Shortness of breath on exertion Shoulder pain Sleep apnea SOB (shortness of breath) Thromboembolic disorder unexpained bruising Upper respiratory infection Wears glasses Wears hearing aid Home Medications gabapentin 600 mg PO QHS 05/04/15 [History Last Taken 08/02/21] solifenacin 10 mg tablet 10 mg PO DAILY 09/27/17 [History Last Taken 08/02/21] atorvastatin 20 mg PO QHS 02/24/21 [History Last Taken 08/02/21] dorzolamide 1 drp LEFT EYE BID 02/24/21 [History Last Taken 08/03/21] multivitamin 1 tab PO DAILY 02/24/21 [History Last Taken 08/03/21] nitroglycerin 0.4 mg SUBLINGUAL Q5M PRN 02/24/21 [History Last Taken 07/28/21] dabigatran etexilate 150 mg capsule 150 mg PO BID 04/27/21 [History Last Taken 08/03/21] spironolactone 50 mg tablet 50 mg PO DAILY #30 tab 04/27/21 [Rx Last Taken 08/03/21] albuterol sulfate 90 mcg/actuation aerosol inhaler 2 puff INHALATION Q4H PRN #18 g 07/20/21 [Rx Last Taken Unknown] benazepril 10 mg PO DAILY 08/03/21 [History Last Taken 08/03/21] duloxetine 40 mg PO DAILY 08/03/21 [History Last Taken 08/03/21] latanoprost 1 drp EACH EYE QHS 08/03/21 [History Last Taken 08/02/21] polysaccharide iron complex [iFerex 150] 150 mg PO DAILY 08/03/21 [History Last Taken Unknown] Allergy/AdvReac Type Severity Reaction Status Date / Time rivaroxaban [From Xarelto] Allergy Severe Unknown Verified 08/03/21 14:35 acetaminophen [From Percocet] Allergy Unknown hallucinati Verified 08/03/21 14:35 ons alprazolam [From Xanax] Allergy Unknown fatigue Verified 08/03/21 14:35 oxycodone [From Percocet] Allergy Unknown hallucinati Verified 08/03/21 14:35 ons carisoprodol [From Soma] Allergy Rash Verified 08/03/21 14:35 adhesives Allergy Unknown blisters Uncoded 08/03/21 14:35 antihistamines AdvReac Other Uncoded 08/03/21 14:35 Family History Mother Cancer pancreatic Asthma Son Asthma Brother Heart disease Diabetes Hypertension Kidney disease Sister Heart disease Hypertension Diabetes Surgical History (Updated 08/03/21 @ 17:41 by Valerie Mendoza) History of arthroscopy of right shoulder History of cardiac catheterization History of coronary artery stent placement History of hernia repair History of hysterectomy History of laminectomy History of spinal fusion History of toe surgery History of total left knee replacement History of ventriculoperitoneal shunting (~06/16/14) Hx of appendectomy Hx of carpal tunnel repair Hx of cholecystectomy Intracranial shunt Presence of coronary angioplasty implant and graft (~06/08/20) Presence of stent in coronary artery (~06/08/20) Social History Smoking Status: Never smoker Electronic Cigarette Use: not used alcohol intake: never substance use type: does not use caffeine: Yes Type: tea Number of servings: 1 ROS ROS Narrative Admission Review of Systems: CONSTITUTIONAL: No weight loss, fever, chills, + weakness or fatigue. HEENT: Eyes: No visual loss, blurred vision, double vision or yellow sclerae. Ears, Nose, Throat: No hearing loss, sneezing, congestion, runny nose or sore throat. SKIN: No rash or itching, lesions, wounds. CARDIOVASCULAR: + chest pain, chest pressure or chest discomfort, No palpitations, edema, orthopnea, syncopal events. RESPIRATORY: No shortness of breath, cough or sputum, wheezing, hemoptysis. GASTROINTESTINAL: No anorexia, nausea, vomiting or diarrhea, abdominal pain, melena, BRBPR. GENITOURINARY: No dysuria, frequency, urgency or retention. NEUROLOGICAL: No headache, dizziness, syncope, paralysis, ataxia, numbness or tingling in the extremities, focal weakness, change in bowel or bladder control, seizure. MUSCULOSKELETAL: + muscle, back pain, joint pain or stiffness. HEMATOLOGIC: + anemia, bleeding or bruising. LYMPHATICS: No enlarged nodes. No history of splenectomy. PSYCHIATRIC: No history of depression or anxiety. ENDOCRINOLOGIC: No reports of sweating, cold or heat intolerance. No polyuria or polydipsia. ALLERGIES: No history of asthma, hives, eczema or rhinitis. Vital Signs Vital Signs Vital Signs: 08/03/21 14:33 08/03/21 14:46 08/03/21 15:55 Temperature 98.3 F Temperature Source Temporal Pulse Rate 80 65 Respiratory Rate 16 16 Respiratory Effort Normal Blood Pressure 138/116 H 104/87 H Blood Pressure Mean 123 92 Pulse Ox 100 99 Oxygen Delivery Method Room Air Room Air 08/03/21 16:39 Temperature Temperature Source Pulse Rate 62 Respiratory Rate 16 Respiratory Effort Blood Pressure 128/72 H Blood Pressure Mean 90 Pulse Ox 97 Oxygen Delivery Method Room Air Weight Weight: 198 lb Body Mass Index (BMI) 35.0 Physical Exam Narrative Physical Examination: General: Awake, alert, oriented x 3 and cooperative, seated upright in the ED bed in no apparent distress, no current chest pain. Skin: Normal color, normal turgor, no icterus, no cyanosis. HEENT: AT/NC, EOMI, PERRLA, MMM, no carotid bruits or JVD noted. Lungs: Mildly diminished, greater bases no rales, ronchi or wheezing. Heart: Currently regular rate and rhythm; no gallop, rub audible, some mild discomfort with palpation of the anterior chest but she notes this is different discomfort than she has been experiencing. Abdomen: Soft, obese, NTTP, ND, normal BS, no HSM. Extremities: No cyanosis, clubbing, or edema. Neurological: Patient awake, alert, oriented as noted, cognitive function intact; pupils equally reactive to light and accommodation, cranial nerves II-XII grossly normal, moving all 4 extremities, no focal deficits, strength mildly globally decreased secondary to acute complaints and presentation. Psychiatric: Affect appears normal, no acute evidence of depressive or anxiety feelings. Results Lab / Micro Data Result Diagrams: 08/03/21 15:15 08/03/21 15:15 Labs: Laboratory Results - last 24 hr 08/03/21 15:15: WBC 7.4, RBC 3.55 L, Hgb 9.8 L, Hct 31.9 L, MCV 89.9, MCH 27.6, MCHC 30.7 L, RDW Std Deviation 77.3 H, RDW Coeff of Bridget 22.9 H, Plt Count 306, MPV 9.9, Immature Gran % (Auto) 0.300, Neut % (Auto) 67.8, Lymph % (Auto) 19.3, [place] % (Auto) 8.1, Eos % (Auto) 4.0, Baso % (Auto) 0.5, Absolute Neuts (auto) 5.0, Absolute Lymphs (auto) 1.43, Nucleated RBC % 0, Differential Comment SCANNED, Anisocytosis 2+ 08/03/21 15:15: Sodium 138, Potassium 4.1, Chloride 106, Carbon Dioxide 27.0, Anion Gap 5, BUN 22 H, Creatinine 1.20 H, Estim Creat Clear Calc 32.99, Est GFR (MDRD) Af Amer 56 L, Est GFR (MDRD) Non-Af 46 L, BUN/Creatinine Ratio 18.3, Glucose 124 H, Calcium 9.0 08/03/21 15:15: Troponin I High Sens 6 Radiology Impression Chest X-Ray 08/03/21 15:28 IMPRESSION: No acute abnormality is seen. Electronically Signed: Jose M Malave MD at 15:44 EDT Reading Location ID and State: [address] [place] [address] , Service support , Assessment & Plan Assessment/Plan (1) Chest pain: QUALIFIERS: Chest pain type: unspecified Qualified Code(s): R07.9 - Chest pain, unspecified PLAN: The patient is a 75 y/o F w/ PMHx: Anxiety and Depression, GERD, Asthma, Chronic anemia, HTN, HLD, JONY on BIPAP, Depression and Anxiety, PAF, VTE (PE, DVT) s/p IVC Filter placement, Chronic diastolic CHF, CAD s/p PCI following with Dr. Cooper with most recent catheterization 2020 with PCI LAD with recent outpatient stress testing with plan follow-up in the office in 6 weeks who presents to the [facility] ED on 08/03/21 with history of chest discomfort starting approximately 2 weeks prior with initial sensation the potentially was secondary to heartburn described as a discomfort in the anterior chest going up into the neck with on day of presentation 2 specific episodes each lasting approximately 20 minutes while she was out shopping reporting that the week prior she did take nitroglycerin which seemed to help subside her symptoms however she did not have it on her while she was out. #1. Chest Pain: EKG in ED sinus rhythm with left bundle branch block with first-degree AVB, CXR w/ no acute cardiopulmonary finding, initial trop normal x1. Will admit to PCU, place on a monitored bed to assure no acute myocardial infarction with serial cardiac enzymes and EKGs. Patient with recent outpatient stress testing 05/18/2021 consider diagnostic for associated stress-induced myocardial ischemia with EF at that time 67%, will consult cardiology, n.p.o. after midnight in case of decision for catheterization, obtain coags, magnesium requested, FLP in AM. ASA, NG, morphine. #2. CAD: Status post most recent PCI 2020 with PCI LAD, recent stress testing approximately 6 weeks prior to current presentation, following with Dr. Cooper, will continue aspirin, temporarily holding Pradaxa and transition to heparin drip in case of catheterization, statin, benazepril, not on beta-graeme therapy. #3. Hypertension: Continue home regimen including spironolactone, benazepril, PRN hydralazine. #4. Hyperlipidemia: Continue home statin regimen. AM FLP. #5. Chronic anemia, iron deficiency: Admission hemoglobin 9.8, baseline since 2020 later in the year appears primarily 7-9 but has decreased into the sixes, most recently 07/14/2021 9.3, continue to trend and continue iron oral supplementation, recently held secondary to IV iron transfusions which she is recently just completed. #6. Chronic diastolic CHF: We will continue aspirin, holding Pradaxa temporarily with heparin transition as noted, benazepril, not on KIERSTEN inhibitor or ARB, continue spironolactone therapy #7. Asthma: Not on any chronic inhalers, as needed albuterol. #8. Anxiety and depression: We will continue patient home duloxetine regimen. #9. History of VTE: History of DVT, PE, patient status post IVC filter, will temporarily hold Pradaxa and transition to heparin drip at next dose due in case decision for cardiac catheterization. #10. PAF: Per current list not chronically anticoagulated, not on beta-graeme or rhythm agents per review of current list. #11. JONY: BiPAP nightly. #12. DVT prophylaxis: SCDs, will hold patient home Pradaxa regimen and transition to heparin drip in the interim in case decision for cardiac catheterization. #13. CODE STATUS: Full code. Charges/Coding Visit Charges OBSV E&M: 92760 Initial observation care L3
--- NOTE | 2021-08-03 17:48 | EKG12_ITS ---
Test Reason : AM EKG Blood Pressure : / mmHG Vent. Rate : 050 BPM Atrial Rate : 050 BPM P-R Int : 266 ms QRS Dur : 118 ms QT Int : 454 ms P-R-T Axes : 061 -30 027 degrees QTc Int : 413 ms Sinus bradycardia with 1st degree A-V block Left axis deviation Incomplete left bundle branch block Nonspecific ST and T wave abnormality Abnormal ECG Confirmed by NURYS VILLALTA, YAZMIN ([id number]), assignment editor FORREST SALDAÑA ([id number]) on 08/07/2021 11:36:32 AM Referred By: DR HOOKS Confirmed By:YAZMIN NUNO MD
[2021-08-03 18:04] LABS: Reflex Troponin-HS? (from REC) Y
[2021-08-03 18:12] LABS: Magnesium 2.4 mg/dL (1.6-2.6)
[2021-08-03 18:42] LABS: Troponin-I HS 7 pg/mL (3.0-54.0)
[2021-08-03 19:01] LABS: Partial Thromboplast Time 58.2 Seconds (24.1-36.2)
--- NOTE | 2021-08-03 19:45 | EKG12_ITS ---
Test Reason : RHYTHM CHG Blood Pressure : / mmHG Vent. Rate : 060 BPM Atrial Rate : 060 BPM P-R Int : 268 ms QRS Dur : 112 ms QT Int : 422 ms P-R-T Axes : 057 -35 061 degrees QTc Int : 422 ms Sinus rhythm with 1st degree A-V block Left axis deviation Incomplete left bundle branch block Nonspecific ST abnormality Abnormal ECG Confirmed by NURYS VILLALTA, YAZMIN ([id number]), book or script editor FORREST SALDAÑA ([id number]) on 08/07/2021 11:36:58 AM Referred By: DR HOOKS Confirmed By:YAZMIN NUNO MD
--- NOTE | 2021-08-03 20:51 | CPS ---
Pt had family bring her home cpap/bipap unit . Pt remains on room air.
[2021-08-03] MEDS: 0.9% Saline Lock 10 ML Syringe IV (21:18)
[2021-08-03] MEDS: Gabapentin 600 MG Tablet PO (21:19)
[2021-08-03] MEDS: Atorvastatin Calcium 20 MG Tablet PO (21:19)
[2021-08-03 21:50] LABS: Troponin-I HS 5 pg/mL (3.0-54.0)
[2021-08-03] MEDS: Dorzolamide 2% 10ml Bottle 1 DRP LEFT EYE (22:27)
[2021-08-03] MEDS: Latanoprost 0.005% 1 Bottle 1 DRP EACH EYE (22:27)
[2021-08-03] MEDS: 0.9% Normal Saline 1,000 ML 100 ML IV (23:31)
[2021-08-04] VITALS (13 sets, daily range): BP systolic 97–122; BP diastolic 52–65; PULSE 51–58; RESP 12–16; TEMP 36.6–36.7; O2SAT 94–99
[2021-08-04 04:07] LABS: Absolute Lymphocyte Count 1.83 X10^3/uL (0.83-4.51); Absolute Neutrophil Count 4.6 X10^3/uL (2.0-7.7); Basophil# 0.06 X10^3/uL; Basophil% 0.8 % (0-1); Eosinophil# 0.45 X10^3/uL; Eosinophils% 5.9 % (0-5); Hematocrit 29.2 % (37-47); Hemoglobin 8.8 g/dL (12.0-15.0); Lymphocyte # 1.83 X10^3/ul (0.83-4.51); Lymphocyte % 24.1 % (19-41); Mean Corp Hgb Conc 30.1 g/dL (32-36); Mean Corpuscular Hgb 27.4 pg (27.0-32.0); Mean Platelet Vol. 9.9 fl (6.2-12.0); Monocyte# 0.62 X10^3/uL; Monocyte% 8.2 % (0-10); NRBC Flagged by Analyzer 0 % (0-5); Neutrophil # 4.59 X10^3/uL (2.7-7.7); Neutrophil % 60.6 % (47-70); POSITIVE MORPHOLOGY YES; Platelet Count 274 K/mm3 (150-450); RBC Distribution Width CV 22.8 % (11.6-14.6); RBC Distribution Width SD 78.3 fl (35.1-43.9); Red Blood Count 3.21 M/mm3 (4.2-5.4); White Blood Count 7.6 K/mm3 (4.4-11.0)
[2021-08-04 04:09] LABS: Differential Indicated SCAN CRITERIA MET
[2021-08-04 04:23] LABS: ALB/GLOB Ratio 1.1 RATIO (0.9-2.4); AST(SGOT) 11 U/L (15-37); Alanine Aminotransfer ALT/SGPT 19 U/L (13-56); Alkaline Phosphatase 33 U/L (45-117); Anion Gap 5 (5-15); BUN 22 mg/dL (7-18); BUN/Creat Ratio 22.2 RATIO (10-20); Calcium,Total 8.7 mg/dL (8.5-10.1); Chloride 112 mmol/L (98-107); Cholesterol 103 mg/dL (200); Creatinine, Serum 0.99 mg/dL (0.55-1.02); EST Glomerular Filtration Rate 58 mL/min (>60); Est Glom Filt Rate - Afr Amer 70 mL/min (>60); Estimated Creatinine Clearance 39.99 ml/min; Globulin 2.7 g/dL (2.2-4.2); Glucose 105 mg/dL (74-106); High Density Lipoprotein 45 mg/dL; Potassium 4.2 mmol/L (3.5-5.1); Protein, Total 5.7 g/dL (6.4-8.2); Sodium Level 141 mmol/L (136-145); Triglycerides 74 mg/dL; Very Low Density Lipoprotein 15 mg/dL (5-40)
[2021-08-04 04:26] LABS: Partial Thromboplast Time 127.7 Seconds (24.1-36.2)
[2021-08-04 05:08] LABS: Anisocytosis 1+; Differential Comment SCANNED; Microcytosis 1+
[2021-08-04 05:19] LABS: International Normalized Ratio 1.5; Prothrombin Time (Protime)PT. 17.4 SECONDS (11.7-14.9)
--- NOTE | 2021-08-04 05:55 | EKG12_ITS ---
Test Reason : Blood Pressure : / mmHG Vent. Rate : 056 BPM Atrial Rate : 056 BPM P-R Int : 258 ms QRS Dur : 114 ms QT Int : 432 ms P-R-T Axes : 051 -39 045 degrees QTc Int : 416 ms Sinus bradycardia with 1st degree A-V block Left axis deviation Incomplete left bundle branch block Nonspecific ST and T wave abnormality Abnormal ECG Confirmed by NURYS VILLALTA, YAZMIN ([id number]), editor in chief newspaper FORREST SALDAÑA ([id number]) on 08/07/2021 11:37:19 AM Referred By: NEVA Confirmed By:YAZMIN NUNO MD
[2021-08-04] MEDS: Lisinopril 10 MG Tablet PO (06:35)
[2021-08-04] MEDS: Aspirin 81 MG TAB.CHEW PO (06:35)
--- NOTE | 2021-08-04 08:37 | PCM.CONS.C ---
Assessment & Plan Assessment/Plan (1) Unstable angina: PLAN: The patient presents with symptoms concerning for worsening angina pectoris/unstable angina pectoris. She has a cardiovascular history as noted above. She has recently undergone noninvasive studies as noted above. Despite her medical therapy and these findings she presents with concerning symptoms. Her cardiac enzymes appear to be negative. Her ECG is as noted. At the present time based upon the patient's clinical scenario and history it was felt prudent the patient be considered for further evaluation with diagnostic cardiac catheterization. The procedure and risk were discussed with her. She was agreeable to this approach. (2) Atherosclerotic heart disease of [place] coronary artery without angina pectoris: PLAN: The patient has undergone evaluation care for CAD in the past both locally and in [place], [place]. At the present time she will continue medical therapy as tolerated. Based upon her clinical history and her clinical scenario she will proceed with further evaluation with diagnostic cardiac catheterization. (3) Presence of stent in coronary artery: PLAN: The patient's previous PCI was reviewed. Based upon her recent noninvasive studies there was no definitive evidence of ongoing stress-induced myocardial ischemia. However based upon her ongoing symptoms and appear to be otherwise unexplained there is concern as to whether or not she has progressed her underlying CAD status. Thus she will continue medical therapy and proceed with further evaluation with diagnostic cardiac catheterization. (4) Aortic valve disorder: PLAN: The patient does have a cardiac murmur. She has been evaluated noninvasively. The results of her studies are as noted. She will continue to be followed. (5) Atrial fibrillation: PLAN: The patient has stated in the past that she believes she has a history of PAF. At the moment she appears to be in sinus rhythm. If she has recurrence of her atrial fibrillation then she will need further evaluation care as deemed appropriate. (6) Chronic diastolic (congestive) heart failure: PLAN: The patient does not appear to have acute on chronic diastolic mediated CHF symptoms at this time. She will continue medical management. (7) Essential hypertension: PLAN: The patient's blood pressure will be followed. Her medications can be adjusted accordingly. (8) Iron refractory iron deficiency anemia: PLAN: The patient does have a history of iron deficiency anemia. Her hemoglobin levels have waxed and waned. She has undergone GI evaluation as noted. She has been receiving iron supplements. This has to be taken into consideration depending upon the patient's cardiovascular findings especially if she would need to be placed on antiplatelet therapy with aspirin, other antiplatelets, or anticoagulant therapy. Addt'l Comments The patient's case was discussed and reviewed with the patient and previously with the [facility] emergency department staff. This note was generated using a voice recognition system and there may be incorrect words, spelling or punctuation that were not noted when reviewing the office note prior to saving. 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 Becerra and since that time has been following up with the [facility] in [place], who is being referred for evaluation of her ongoing concerns of heartburn. While living locally she has undergone noninvasive evaluation in the past with transthoracic echocardiogram, pharmacologic stress nuclear imaging study, and diagnostic cardiac catheterization. Those procedures are noted below. While living in the [place], [place] area she has undergone additional noninvasive and invasive studies. This included a transthoracic echocardiogram on 03-26-2018. At that time per the report the left ventricle was normal with an LVEF of 55 to 60% with mild left ventricular hypertrophy and a comment of aortic valve sclerosis without significant stenosis. On 06-08-2020 she underwent a right/left cardiac catheterization. Per the report the arterial access was via the left radial artery. There does not appear to be a comment with respect to the venous access site. The impression was she had severe CAD of the mid LAD with 80% stenosis, 50% mid RCA disease, normal right heart pressures, normal LV filling pressure with an LVEDP of 6 mmHg. It appears this was followed by successful PCI of the mid LAD with a DONNIE (Xience 3.5 x 23 mm and 3.0 x 8 mm) stents. It appears in July 2000 () she had an outpatient cardiovascular follow-up at which time she was continuing medical management. Earlier this year, she returned to [place] and wishes to reestablish cardiovascular care. She notes she has had symptoms of what she describes as heartburn. Although she states this radiates to her neck and to the back of her shoulders. This may be associated with some element of shortness of breath and dyspnea. There is been no nausea, emesis, or diaphoresis. She has not had any episodes of syncope. She does note the symptoms are similar to symptoms she has had prior to her PCI. She has used nitroglycerin sublingual for the symptoms and she believes she gains relief. She had an ECG in the office. She was noted to be in sinus rhythm with first-degree AV block with left axis deviation and a left bundle branch block pattern. She has been known to have a left bundle branch block pattern in the past. She also has a history of normal pressure hydrocephalus. She has an intracranial shunt in place. To the best of her knowledge it has been functioning appropriately. Status post her outpatient cardiovascular consultation on 04-27-2021 she underwent reevaluation from a noninvasive standpoint. This included a transthoracic echocardiogram and a pharmacologic stress nuclear imaging study. The results are noted below. She states that she had been doing well until recently. Recently she has had recurrence of her heartburn . She states she gets this sensation in her chest which radiates to her neck and her jaw. At times she will use her nitroglycerin sublingual and feel better. She states yesterday she had at least 2 episodes of this which occurred with exertional activity and improved with rest. She has not described ongoing orthopnea or PND or peripheral pitting edema. She has had no near-syncope or syncope. She states she was encouraged to contact the physician's office. She was then instructed to report to the emergency department for further evaluation. In the emergency department she was evaluated and thought to have negative cardiac enzymes. Her ECGs were noted to demonstrate sinus rhythm with a left bundle branch block pattern, however, at a somewhat lower rate it appeared she had sinus rhythm with a first-degree AV block with left axis deviation with an incomplete left bundle branch block pattern thus raising the question that she may have a rate related left bundle branch block pattern. Her chest x-ray was reported as unremarkable. She is noted to have anemia. She has undergone evaluation by gastroenterology. According to an outpatient gastroenterology note from March 2021 he had noted she had an EGD and a colonoscopy performed in February 2021. Her EGD demonstrated candidiasis esophagitis with a moderate Schatzki ring and gastritis and an erythematous duodenopathy. She was noted to have a random colon focal hyperplastic polyp. She was started on medical therapy with PPI and Carafate. She also was subsequently commended for capsule endoscopy which she states she had done and was reported as unremarkable. She states she has been diagnosed with an iron deficiency anemia and has required iron supplements including IV iron supplements. [facility] Medical History (Updated 08/04/21 @ 08:[address] Merritt Cooper MD) Afib Anemia Anemia Angina pectoris Aortic valve disorder Arthritis Asthma Atherosclerotic heart disease of [place] coronary artery without angina pectoris Atrial fibrillation Atrioventricular bloc first degree Back pain BiPAP (biphasic positive airway pressure) dependence Bronchitis Cardiology follow-up encounter Carotid bruit Chronic diastolic (congestive) heart failure Depression Diarrhea Difficulty balancing Dizziness DVT (deep venous thrombosis) Dysphagia Essential hypertension Fatigue Gastric reflux Glaucoma Hay fever Hemorrhoids History of atrial fibrillation History of DVT (deep vein thrombosis) History of echocardiogram History of edema History of IBS History of osteoarthritis History of pulmonary embolism History of stress test HLD (hyperlipidemia) Hydrocephalus Hypokalemia Incontinence Injury of head and neck Knee pain Leg cramps Limb weakness Neck pain Non-smoker Normal pressure hydrocephalus Obesities, morbid Obesity JONY (obstructive sleep apnea) Pharyngitis Presence of IVC filter Presence of IVC filter Pulmonary embolism Shortness of breath on exertion Shoulder pain Sleep apnea SOB (shortness of breath) Thromboembolic disorder unexpained bruising Unstable angina Upper respiratory infection Wears glasses Wears hearing aid Home Medications gabapentin 600 mg PO QHS 05/04/15 [History Last Taken 08/02/21] solifenacin 10 mg tablet 10 mg PO DAILY 09/27/17 [History Last Taken 08/02/21] atorvastatin 20 mg PO QHS 02/24/21 [History Last Taken 08/02/21] dorzolamide 1 drp LEFT EYE BID 02/24/21 [History Last Taken 08/03/21] multivitamin 1 tab PO DAILY 02/24/21 [History Last Taken 08/03/21] nitroglycerin 0.4 mg SUBLINGUAL Q5M PRN 02/24/21 [History Last Taken 07/28/21] dabigatran etexilate 150 mg capsule 150 mg PO BID 04/27/21 [History Last Taken 08/03/21] spironolactone 50 mg tablet 50 mg PO DAILY #30 tab 04/27/21 [Rx Last Taken 08/03/21] albuterol sulfate 90 mcg/actuation aerosol inhaler 2 puff INHALATION Q4H PRN #18 g 07/20/21 [Rx Last Taken Unknown] benazepril 10 mg PO DAILY 08/03/21 [History Last Taken 08/03/21] duloxetine 40 mg PO DAILY 08/03/21 [History Last Taken 08/03/21] latanoprost 1 drp EACH EYE QHS 08/03/21 [History Last Taken 08/02/21] polysaccharide iron complex [iFerex 150] 150 mg PO DAILY 08/03/21 [History Last Taken Unknown] Allergy/AdvReac Type Severity Reaction Status Date / Time rivaroxaban [From Xarelto] Allergy Severe Unknown Verified 08/03/21 14:35 acetaminophen [From Percocet] Allergy Unknown hallucinati Verified 08/03/21 14:35 ons alprazolam [From Xanax] Allergy Unknown fatigue Verified 08/03/21 14:35 oxycodone [From Percocet] Allergy Unknown hallucinati Verified 08/03/21 14:35 ons carisoprodol [From Soma] Allergy Rash Verified 08/03/21 14:35 adhesives Allergy Unknown blisters Uncoded 08/03/21 14:35 antihistamines AdvReac Other Uncoded 08/03/21 14:35 Family History Mother Cancer pancreatic Asthma Son Asthma Brother Heart disease Diabetes Hypertension Kidney disease Sister Heart disease Hypertension Diabetes Surgical History (Updated 08/03/21 @ 17:41 by Valerie Mendoza) History of arthroscopy of right shoulder History of cardiac catheterization History of coronary artery stent placement History of hernia repair History of hysterectomy History of laminectomy History of spinal fusion History of toe surgery History of total left knee replacement History of ventriculoperitoneal shunting (~06/16/14) Hx of appendectomy Hx of carpal tunnel repair Hx of cholecystectomy Intracranial shunt Presence of coronary angioplasty implant and graft (~06/08/20) Presence of stent in coronary artery (~06/08/20) Social History Smoking Status: Never smoker Electronic Cigarette Use: not used alcohol intake: never substance use type: does not use caffeine: Yes Type: tea Number of servings: 1 ROS Constitutional Constitutional: Reports as per HPI Eyes Eyes: Reports as per HPI ENT HEENT: Reports as per HPI Cardiovascular Cardiovascular: Reports chest pain and chest pain with activity Respiratory/Chest Respiratory/Chest: Reports as per HPI Gastrointestinal Gastrointestinal: Reports as per HPI Genitourinary Genitourinary: Reports as per HPI Musculoskeletal Musculoskeletal: Reports as per HPI Integumentary Integumentary: Reports as per HPI Neurologic Neurologic: Reports as per HPI Physical Exam Const alert, oriented x3 and healthy appearing Orientation / Consciousness: awake HEENT normocephalic, head/scalp atraumatic and hearing grossly normal bilaterally Eyes PERRL, EOMs intact bilaterally and conjunctivae normal Neck full ROM, supple and no JVD Resp clear to auscultation bilaterally Cardio regular rate, regular rhythm, S1 normal heart sound and S2 normal heart sound Heart Sounds: murmur systolic III/ harsh mid left sternal border, LVOT and sternal notch GI normal to inspection, nondistended, normoactive bowel sounds Extremity no pedal edema Skin no rashes or lesions noted Neuro oriented x3, moves all extremities, no focal motor deficits and no sensory deficits noted Psych mental status grossly normal Risk Stratification Risk Stratification Applicable: Yes Age >/= 65: Yes >/= 3 CAD Risk Factors (HTN, HLD, DM, family hx of CAD, or current smoker): Yes Aspirin Use in the Past 7 Days: No Severe Angina (>/= episodes in 24 hours): Yes EKG ST Changes >/= 0.5mm: No Positive Cardiac Marker: No MORIAH Risk Stratification Score: 3 MORIAH % Risk: 13% Risk Procedure Criteria Type of Procedure Procedure Type: Elective Elective Risks - COVID COVID Risk Discussion: The surgeon/proceduralist and patient have discussed in detail the risk of exposure to and/or potential harm posed by the COVID-19 virus with having a surgery/procedure at this time versus the risk of delaying the surgery/procedure. It is not possible to know either the risk of delaying the surgery or procedure or chance of getting an infection with perfect accuracy, but a joint decision was made between the patient and the surgeon/proceduralist to proceed at this time with the scheduled surgery/procedure as indicated on the consent form. Objective Data Vital Signs: Vital Signs Temp Pulse Resp BP Pulse Ox 98.0 F 53 L 16 108/65 95 08/04/21 06:26 08/04/21 06:39 08/04/21 06:26 08/04/21 06:26 08/04/21 06:26 Oxygen Delivery Method Room Air Weight: 198 lb 10.184 oz Body Mass Index (BMI) 35.2 Intake & Output: Intake and Output for Last 24 Hours 08/02/21 08/03/21 08/04/21 23:59 23:59 23:59 Intake Total 100 / 100 605.3 / 605.3 Balance 100 / 100 605.3 / 605.3 Lab / Micro Data Result Diagrams: 08/04/21 03:41 08/04/21 03:41 Labs: Laboratory Results - last 24 hr 08/03/21 14:50: APTT 58.2 H 08/03/21 15:15: WBC 7.4, RBC 3.55 L, Hgb 9.8 L, Hct 31.9 L, MCV 89.9, MCH 27.6, MCHC 30.7 L, RDW Std Deviation 77.3 H, RDW Coeff of Bridget 22.9 H, Plt Count 306, MPV 9.9, Immature Gran % (Auto) 0.300, Neut % (Auto) 67.8, Lymph % (Auto) 19.3, [place] % (Auto) 8.1, Eos % (Auto) 4.0, Baso % (Auto) 0.5, Absolute Neuts (auto) 5.0, Absolute Lymphs (auto) 1.43, Nucleated RBC % 0, Differential Comment SCANNED, Anisocytosis 2+ 08/03/21 15:15: Sodium 138, Potassium 4.1, Chloride 106, Carbon Dioxide 27.0, Anion Gap 5, BUN 22 H, Creatinine 1.20 H, Estim Creat Clear Calc 32.99, Est GFR (MDRD) Af Amer 56 L, Est GFR (MDRD) Non-Af 46 L, BUN/Creatinine Ratio 18.3, Glucose 124 H, Calcium 9.0 08/03/21 15:15: Troponin I High Sens 6 08/03/21 17:55: Magnesium 2.4 08/03/21 17:55: Troponin I High Sens 7 08/03/21 21:19: Troponin I High Sens 5 08/04/21 03:41: WBC 7.6, RBC 3.21 L, Hgb 8.8 L, Hct 29.2 L, MCV 91.0, MCH 27.4, MCHC 30.1 L, RDW Std Deviation 78.3 H, RDW Coeff of Bridget 22.8 H, Plt Count 274, MPV 9.9, Immature Gran % (Auto) 0.400, Neut % (Auto) 60.6, Lymph % (Auto) 24.1, [place] % (Auto) 8.2, Eos % (Auto) 5.9 H, Baso % (Auto) 0.8, Absolute Neuts (auto) 4.6, Absolute Lymphs (auto) 1.83, Nucleated RBC % 0, Differential Comment SCANNED, Anisocytosis 1+, Microcytosis 1+ 08/04/21 03:41: PT 17.4 H, INR 1.5, APTT Cancelled 08/04/21 03:41: Sodium 141, Potassium 4.2, Chloride 112 H, Carbon Dioxide 24.0, Anion Gap 5, BUN 22 H, Creatinine 0.99, Estim Creat Clear Calc 39.99, Est GFR (MDRD) Af Amer 70, Est GFR (MDRD) Non-Af 58 L, BUN/Creatinine Ratio 22.2 H, Glucose 105, Calcium 8.7, Total Bilirubin 0.30, AST 11 L, ALT 19, Alkaline Phosphatase 33 L, Total Protein 5.7 L, Albumin 3.0 L, Globulin 2.7, Albumin/Globulin Ratio 1.1, Triglycerides 74, Cholesterol 103, LDL Cholesterol 43, VLDL Cholesterol 15, HDL Cholesterol 45 08/04/21 03:41: APTT 127.7 H* Cardiology Labs/Tests 08/03/21 14:50: APTT 58.2 H 08/03/21 15:15: WBC 7.4, RBC 3.55 L, Hgb 9.8 L, Hct 31.9 L, MCV 89.9, MCH 27.6, MCHC 30.7 L, Plt Count 306, MPV 9.9, Immature Gran % (Auto) 0.300, Neut % (Auto) 67.8, Lymph % (Auto) 19.3, [place] % (Auto) 8.1, Eos % (Auto) 4.0, Baso % (Auto) 0.5, Absolute Neuts (auto) 5.0, Nucleated RBC % 0 08/03/21 15:15: Sodium 138, Potassium 4.1, Chloride 106, Carbon Dioxide 27.0, Anion Gap 5, BUN 22 H, Creatinine 1.20 H, Est GFR (MDRD) Af Amer 56 L, Est GFR (MDRD) Non-Af 46 L, BUN/Creatinine Ratio 18.3, Glucose 124 H, Calcium 9.0 08/03/21 17:55: Magnesium 2.4 08/04/21 03:41: WBC 7.6, RBC 3.21 L, Hgb 8.8 L, Hct 29.2 L, MCV 91.0, MCH 27.4, MCHC 30.1 L, Plt Count 274, MPV 9.9, Immature Gran % (Auto) 0.400, Neut % (Auto) 60.6, Lymph % (Auto) 24.1, [place] % (Auto) 8.2, Eos % (Auto) 5.9 H, Baso % (Auto) 0.8, Absolute Neuts (auto) 4.6, Nucleated RBC % 0 08/04/21 03:41: PT 17.4 H, INR 1.5, APTT Cancelled 08/04/21 03:41: Sodium 141, Potassium 4.2, Chloride 112 H, Carbon Dioxide 24.0, Anion Gap 5, BUN 22 H, Creatinine 0.99, Est GFR (MDRD) Af Amer 70, Est GFR (MDRD) Non-Af 58 L, BUN/Creatinine Ratio 22.2 H, Glucose 105, Calcium 8.7, Total Bilirubin 0.30, Triglycerides 74, Cholesterol 103, LDL Cholesterol 43, VLDL Cholesterol 15, HDL Cholesterol 45 08/04/21 03:41: APTT 127.7 H* Rhythm: EKG: Echocardiogram: 04/21/2015 Interpretation Summary Normal LV size. Left ventricular systolic function is normal. The estimated ejection fraction is 60 %. Mild concentric left ventricular hypertrophy. Transmitral and pulmonary venous doppler flow suggestive of impaired relaxation of left ventricle Echocardiogram: 09-27-2016 Normal LV size Mild concentric left ventricular perjury Left ventricular systolic function is normal Transmitral pulmonary venous Doppler flow suggestive of impaired relaxation of left ventricle Mild (1+) eccentric mitral valve insufficiency Mild tricuspid valve insufficiency Pulmonary artery systolic pressure is 28 mmHg Echocardiogram: 05-18-2021 Interpretation Summary The study was technically difficult. Left ventricular systolic function is normal. The estimated ejection fraction is 60 %. Sigmoid septum. Septal motion consistent with IVCD. The left atrium is mildly enlarged. Mild diffuse mitral valve thickening. Mild focal mitral valve calcification, bileaflet. Mild (1+) mitral valve insufficiency. Trivial tricuspid valve insufficiency. Mild aortic stenosis. Right ventricular systolic pressure estimated to be 28 mmHg. Diastolic function is indeterminate. DATE OF SERVICE: 09/26/2016 Pharmacologic myocardial perfusion stress test. The patient is a 70-year-old lady with a history of chest pain. MEDICATIONS: Lotrel, magnesium, benazepril, Pradaxa. Resting EKG demonstrates sinus bradycardia with a rate of 58 beats per minute. Normal intervals are noted. Resting blood pressure was 134/76. 0.4 mg of regadenoson was infused per usual protocol followed by rapid intravenous saline flush injection. Continuous EKG monitoring was performed. The maximum heart rate attained was 96 beats per minute, which was 64% of maximum predicted heart rate. The maximum workload attained was 1 MET. At rest, there were no ST or T-wave changes noted to suggest abnormal flow reserve. At peak infusion, no ST or T-wave changes were noted to suggest abnormal flow reserve. The resting blood pressure was 134/76. Final blood pressure was 138/78. MYOCARDIAL PERFUSION PROTOCOL: 14.3 mCi of sestamibi was injected at rest. 0.4 mg of regadenoson was infused. At peak infusion, 43.8 mCi of sestamibi was injected. Stress images were obtained. Stress and rest images were reconstructed and compared in the short axis, vertical long and horizontal long axes. Gated images were also obtained. PERFUSION SPECT ANALYSIS: Review of the images demonstrated normal uptake of tracer noted in all areas of the myocardium on the stress images. The resting images similarly demonstrated normal uptake of tracer noted in all areas of the myocardium. No areas of reversibility are noted to suggest ischemia. No previous infarct is noted. GATED SPECT ANALYSIS: The gated ejection fraction is noted to be 69%. CONCLUSION: 1. Normal pharmacologic myocardial perfusion stress test. 2. Preserved ejection fraction. Stress Test Report Date: 05-18-2021 Procedure: Pharmacologic stress nuclear imaging study Indications: Chest pain/angina pectoris; CAD; PCI; PAF Consent: Per the patient Procedure: The patient underwent pharmacologic (Regadenoson 0.4mg ) evaluation with a peak heart rate of 82 beats per minute (56%predicted maximal heart rate) and a peak blood pressure of 128/72 mmHg. The baseline ECG demonstrated sinus rhythm; nonspecific ST/T wave abnormality. The peak pharmacologic ECG demonstrated no obvious ECG changes. There was a rare PVC during recovery. There was no complaint of chest discomfort during pharmacologic infusion or recovery. The examination was discontinued secondary to completion of protocol. Impression: 1. Pharmacologic (Regadenoson) evaluation 2. Peak pharmacologic ECG with continued nonspecific ST/T wave abnormality. 3. There was a rare PVC during recovery. 4. Nuclear images pending Myocardial perfusion imaging study: Technique: The patient was injected with 11.9 millicuries of technetium 99m Cardiolite and subsequently rest SPECT Cardiolite nuclear imaging was obtained in the horizontal long, vertical long, and short axis views. The patient underwent pharmacologic (Regadenoson) evaluation with a peak heart rate of 82 beats per minute (56% percent predicted maximal heart rate) and a peak blood pressure of 128/72 mmHg. The patient was injected with 35.5 millicuries of technetium 99m Cardiolite and subsequently stress SPECT Cardiolite nuclear imaging was obtained in the horizontal long, vertical long, and short axis views. A gated Cardiolite study at peak stress was obtained. Interpretation: Rest and stress SPECT Cardiolite nuclear imaging status post realignment, normalization, and attenuation correction demonstrate an element of body motion during image acquisition and at rest the appearance of subtle diminished tracer uptake in portions of the distal anterior, distal anteroseptal, and septal apical segments which appears to improve/normalize following stress. There is end systolic thickening and brightening. The gated Cardiolite study demonstrates myocardial thickening and inward wall motion. The reported LVEF is 67%. Impression: 1. Rest and stress SPECT Cardiolite nuclear imaging demonstrate myocardial perfusion changes appearing compatible with shifting soft tissue attenuation/artifact with no myocardial perfusion changes considered diagnostic for associated stress-induced myocardial ischemia. 2. The gated Cardiolite study reports an LVEF of 67%. Cardiac catheterization: 10-13-2003: [facility] Conclusion: 1. Normal left ventricular size and function 2. Normal left main coronary artery 3. Normal left circumflex coronary artery 4. Right coronary artery which is dominant and normal Comment: According to the body of the report the LAD was reported as a medium sized vessel with no angiographically significant stenosis noted in this vessel. Radiography Diagnostic Testing: Radiology Impression Chest X-Ray 08/03/21 15:28 IMPRESSION: No acute abnormality is seen. Electronically Signed: Jose M Malave MD at 15:44 EDT ,
--- NOTE | 2021-08-04 08:41 | PCM.PN.HOSP ---
Subjective Subjective Feels well. No new complaints. No further chest pain. Objective Data Objective Data Vital Signs: Vital Signs Temp Pulse Resp BP Pulse Ox 36.7 C 53 L 16 108/65 95 08/04/21 06:26 08/04/21 06:39 08/04/21 06:26 08/04/21 06:26 08/04/21 06:26 Oxygen Delivery Method Room Air Weight: 90.1 kg Body Mass Index (BMI) 35.2 Intake & Output: Intake and Output for Last 24 Hours 08/02/21 08/03/21 08/04/21 23:59 23:59 23:59 Intake Total 100 / 100 605.3 / 605.3 Balance 100 / 100 605.3 / 605.3 Lab / Micro Data Result Diagrams: 08/04/21 03:41 08/04/21 03:41 Labs: Laboratory Results - last 24 hr 08/03/21 14:50: APTT 58.2 H 08/03/21 15:15: WBC 7.4, RBC 3.55 L, Hgb 9.8 L, Hct 31.9 L, MCV 89.9, MCH 27.6, MCHC 30.7 L, RDW Std Deviation 77.3 H, RDW Coeff of Bridget 22.9 H, Plt Count 306, MPV 9.9, Immature Gran % (Auto) 0.300, Neut % (Auto) 67.8, Lymph % (Auto) 19.3, [place] % (Auto) 8.1, Eos % (Auto) 4.0, Baso % (Auto) 0.5, Absolute Neuts (auto) 5.0, Absolute Lymphs (auto) 1.43, Nucleated RBC % 0, Differential Comment SCANNED, Anisocytosis 2+ 08/03/21 15:15: Sodium 138, Potassium 4.1, Chloride 106, Carbon Dioxide 27.0, Anion Gap 5, BUN 22 H, Creatinine 1.20 H, Estim Creat Clear Calc 32.99, Est GFR (MDRD) Af Amer 56 L, Est GFR (MDRD) Non-Af 46 L, BUN/Creatinine Ratio 18.3, Glucose 124 H, Calcium 9.0 08/03/21 15:15: Troponin I High Sens 6 08/03/21 17:55: Magnesium 2.4 08/03/21 17:55: Troponin I High Sens 7 04/28/22 21:19: Troponin I High Sens 5 08/04/21 03:41: WBC 7.6, RBC 3.21 L, Hgb 8.8 L, Hct 29.2 L, MCV 91.0, MCH 27.4, MCHC 30.1 L, RDW Std Deviation 78.3 H, RDW Coeff of Bridget 22.8 H, Plt Count 274, MPV 9.9, Immature Gran % (Auto) 0.400, Neut % (Auto) 60.6, Lymph % (Auto) 24.1, [place] % (Auto) 8.2, Eos % (Auto) 5.9 H, Baso % (Auto) 0.8, Absolute Neuts (auto) 4.6, Absolute Lymphs (auto) 1.83, Nucleated RBC % 0, Differential Comment SCANNED, Anisocytosis 1+, Microcytosis 1+ 08/04/21 03:41: PT 17.4 H, INR 1.5, APTT Cancelled 08/04/21 03:41: Sodium 141, Potassium 4.2, Chloride 112 H, Carbon Dioxide 24.0, Anion Gap 5, BUN 22 H, Creatinine 0.99, Estim Creat Clear Calc 39.99, Est GFR (MDRD) Af Amer 70, Est GFR (MDRD) Non-Af 58 L, BUN/Creatinine Ratio 22.2 H, Glucose 105, Calcium 8.7, Total Bilirubin 0.30, AST 11 L, ALT 19, Alkaline Phosphatase 33 L, Total Protein 5.7 L, Albumin 3.0 L, Globulin 2.7, Albumin/Globulin Ratio 1.1, Triglycerides 74, Cholesterol 103, LDL Cholesterol 43, VLDL Cholesterol 15, HDL Cholesterol 45 08/04/21 03:41: APTT 127.7 H* Radiography Diagnostic Testing: Radiology Impression Chest X-Ray 08/03/21 15:28 IMPRESSION: No acute abnormality is seen. Electronically Signed: Jose M Malave MD at 15:44 EDT , Physical Exam Const alert, no apparent distress and average body habitus Resp normal respiratory effort, no retractions, no use of accessory muscles and clear to auscultation bilaterally Cardio regular rate, regular rhythm, S1 normal heart sound and S2 normal heart sound GI normal to inspection, nondistended, normoactive bowel sounds, soft to palpation, non-tender and non-distended Assessment & Plan Assessment/Plan (1) Chest pain: QUALIFIERS: Chest pain type: unspecified Qualified Code(s): R07.9 - Chest pain, unspecified PLAN: 1. Unstable angina troponins negative [facility] unrermarkable Meds: ASA, NTG 2. Chronic conditions: CAD: PCI in 2020 HTN: spironolactone, benzapril, HLP: statin Chronic anemia: stable.no need for transfusion HFpEF: compensated Asthma: stable 3. VTE prophylaxis: not indicated as pt is on anticoagulation
[2021-08-04] MEDS: 0.9% Normal Saline 1,000 ML 75 ML IV (10:12)
[2021-08-04] MEDS: Famotidine 20 MG Tablet PO (10:14)
[2021-08-04] MEDS: DULoxetine Hcl 20 MG Capsule 40 MG PO (10:14)
[2021-08-04] MEDS: Tolterodine Tartrate 4 MG CAP.SA PO (10:14)
[2021-08-04] MEDS: Iron Polysaccharide Complex 150 MG CAPSULE PO (10:14)
--- NOTE | 2021-08-04 10:14 | CL.D_ITS ---
Patient Name: BRICE LOMELI Study Date: 08/04/2021 Performing: Merritt Cooper MD Ht: 63 inches 160 cm : 1945 Wt: 198.7 lbs 90 kg Age: 75 Gender: female BSA: 1.93 PROCEDURE(S) PERFORMED DC01-(40504)LHC/COR/LV CLINICAL PROFILE AND INDICATIONS Indications: Worsening Angina, Suspected CAD Heart Failure: None Stress/Imaging Date: 05/18/2021tress Test with SPECT MPI: Negative Angina Classification Anginal Classification w/in 2 Weeks: CCS III CAD Presentations: Unstable angina. CONCLUSIONS Elevated Left Ventricular End Diastolic Pressure Normal LV size, wall motion,and systolic function LVEF: by LV gram 55 % [place] Multivessel CAD LAD: stent: patent RECOMMENDATIONS Medical therapy Comment: in addition to medical management would optimize medical therapy for anemia and attempt to k eep Hg level near 10 or greater as best as possible Case discussed / reviewed with Dr. Rivas of intervenetional cardiology who did not recommend any additonal catheter based diagnostic or interventional procedures at this time DESCRIPTION OF PROCEDURE The patient arrived to the procedure lab. The risks and benefits of the procedure as well as a full d escription of our services here and current unavailability of surgical backup were fully explained to the patient and/or their significant other prior to the catheterization. The Timeout was completed, verifying the correct patient and procedure. The patient's procedural site was prepped and draped in the usual fashion. Local anesthetic was given subcutaneously to right radial region with Lidocaine 2% . Using a modified Seldinger technique, arterial access was obtained via the right radial artery, a 6 Fr sheath was inserted. Right Coronary Artery selective angiography was then performed in multiple v iews using a 5 Fr. 4.0 [place] catheter. Left Coronary Artery selective angiography was performed in mu ltiple views using a 5 Fr. JL3.5 catheter. Left Ventriculography was performed in WINTER projection usin g a 5 Fr. Pigtail catheter. LV to AO pullback pressures were then recorded.The arterial sheath was pulled and a TR Band was applied for hemostasis CORONARY ANGIOGRAPHY DOMINANCE: Right Dominant LEFT HEART ASSESSMENT Left Ventricular Ejection Fraction: by LV Gram 55 % Normal LV wall motion Elevated Left Ventricular End Diastolic Pressure LVEDP: 17 mmHg LEFT MAIN: Angiographically normal LEFT ANTERIOR DESCENDING ARTERY: MID LAD: Previously placed stent is patent DIAGONAL 1: Proximal - near a trifurcating branch area: smooth: eccentric: 25 - 50 % Stenosis CIRCUMFLEX ARTERY: MID CIRC: Mild luminal irregularities RIGHT CORONARY ARTERY: Mild luminal irregularities MID RCA: long: smooth: eccentric: 25 % Stenosis AORTIC ROOT: Angiographically normal COMPLICATIONS No Complications PROCEDURE MEDICATIONS Versed 1 mg IV Fentanyl 50 mcg IV Oxygen: 2 L/min via nasal cannula Heparin given IA 08/04/2021 09:18:16 SUMMARY OF HEMODYNAMIC DATA Time AIR REST ECG 08:53:07 Art 136/58 (83) 09:07:12 AO 97/57 (75) SA 09:20:15 LV 123/2, 16 09:33:52 LV 120/-4, 17 09:34:18 LV 118/-1, 18 09:35:11 LV 121/-3, 17 09:35:18 LVp 119/-4, 19 09:35:25 AOp 120/44 (76) 09:35:30 Signed By Merritt Cooper MD On 08/04/2021 10:14:05 Merritt Cooper MD
[2021-08-04] MEDS: Dorzolamide 2% 10ml Bottle 1 DRP LEFT EYE (10:16)
--- NOTE | 2021-08-04 11:38 | DCINST_ITS ---
Discharge Instructions Diet Discharge Diet: No restrictions Dressing / Incision Call your doctor if you observe: Shortness of breath and Chest pain Follow Up Care Test Results: Test results from this visit will be discussed in further detail at your follow-up appointment, if applicable. Discharge Plan Admission Admit Date/Time: 08/03/21 17:08 Primary Reason for Your Visit: chest pain Attending Provider: Moody Kate Primary Care Provider: Jean Paul Bañuelos Chi Consulting Providers: Yvette Clifford Discharge Orders/Prescriptions Prescriptions: New isosorbide mononitrate 30 mg Tablet Extended Release 24 Hr 30 mg PO DAILY Qty: 30 RF: 0 Continued solifenacin [Vesicare] 10 mg tablet 10 mg PO DAILY RF: 0 Pradaxa 150 mg capsule 150 mg PO BID RF: 0 albuterol sulfate [Ventolin HFA] 90 mcg/actuation HFA aerosol inhaler 2 puff inhalation Q4H PRN (Reason: shortness of breath or wheezing) Qty: 18 RF: 6 gabapentin 600 MG tablet 600 mg PO QHS RF: 0 multivitamin Tablet 1 tab PO DAILY RF: 0 atorvastatin 20 mg Tablet 20 mg PO QHS RF: 0 nitroglycerin 0.4 mg Tablet, Sublingual 0.4 mg SUBLINGUAL Q5M PRN (Reason: Chest Pain) RF: 0 dorzolamide 2 % Drops 1 drp LEFT EYE BID RF: 0 latanoprost 0.005 % drops 1 drp EACH EYE QHS RF: 0 polysaccharide iron complex [iFerex 150] 150 mg iron capsule 150 mg PO DAILY RF: 0 benazepril 10 mg tablet 10 mg PO DAILY RF: 0 duloxetine 20 mg capsule,delayed release(DR/EC) 40 mg PO DAILY RF: 0 Changed spironolactone 50 mg tablet 25 mg PO DAILY Qty: 30 RF: 12 Referrals / Follow Up: Gus Longoria MD [NON-STAFF] - 08/17/21 12:30 pm Kirby Cheng DO [STAFF PHYSICIAN] - 08/14/21 3:00 pm Jean Paul Bañuelos Chi, MD [Primary Care Provider] - Within 2 Weeks Daquan Cruz NP, ONLINE AFFILIATE MARKETING MANAGER-C [Nurse Practitioner] - 10/26/21 3:30 pm Disposition Disposition (needs filled in before D/C Order can be placed): Home, Self Care
--- NOTE | 2021-08-04 11:48 | DS.PCM_ITS ---
Providers Date of Admission: 08/03/21 Primary Care Physician: Dr. Jean Paul Bañuelos MD Consultations 08/03/21 17:48 Consult: Cardiology Routine Consulting Provider: Yvette Clifford Reason for Consult: Chest pain, recent stress test not marked, consideration cath EMERGENT Consult: No MD Notified: Yes Date Notified: 08/03/21 Time Notified: 17:09 Method of Notification: cortext Reason For Visit: CHEST PAIN Diagnosis Discharge Diagnosis (1) Chest pain: Status: Acute Code(s): R07.9 - Chest pain, unspecified Qualifiers: Chest pain type: unspecified Qualified Code(s): R07.9 - Chest pain, unspecified (2) Unstable angina: Status: Acute Code(s): I20.0 - Unstable angina Medications at Discharge Home Medications gabapentin 600 mg PO QHS 05/04/15 solifenacin 10 mg tablet 10 mg PO DAILY 09/27/17 atorvastatin 20 mg PO QHS 02/24/21 dorzolamide 1 drp LEFT EYE BID 02/24/21 multivitamin 1 tab PO DAILY 02/24/21 nitroglycerin 0.4 mg SUBLINGUAL Q5M PRN 02/24/21 dabigatran etexilate 150 mg capsule 150 mg PO BID 04/27/21 albuterol sulfate 90 mcg/actuation aerosol inhaler 2 puff INHALATION Q4H PRN #18 g 07/20/21 benazepril 10 mg PO DAILY 08/03/21 duloxetine 40 mg PO DAILY 08/03/21 latanoprost 1 drp EACH EYE QHS 08/03/21 polysaccharide iron complex [iFerex 150] 150 mg PO DAILY 08/03/21 isosorbide mononitrate 30 mg PO DAILY #30 tab 08/04/21 spironolactone 25 mg PO DAILY #30 tab 08/04/21 Hospital Course Operations None Procedures Cardiac catheterization Summary of Care Provided Minutes Spent on Discharge: 28 Hospital Course: 1. Unstable angina troponins negative [facility] unrermarkable Meds: ASA, NTG 2. Chronic conditions: CAD: PCI in 2020 HTN: spironolactone, benzapril, HLP: statin Chronic anemia: stable.no need for transfusion HFpEF: compensated Asthma: stable Physical Exam Const alert Weight / BMI Weight Weight: 90.1 kg Body Mass Index (BMI) 35.2 ABG / Lab / Microbiology Data Result Diagrams: 08/04/21 03:41 08/04/21 03:41 Laboratory: Laboratory Results - last 24 hr 08/03/21 14:50: APTT 58.2 H 08/03/21 15:15: WBC 7.4, RBC 3.55 L, Hgb 9.8 L, Hct 31.9 L, MCV 89.9, MCH 27.6, MCHC 30.7 L, RDW Std Deviation 77.3 H, RDW Coeff of Bridget 22.9 H, Plt Count 306, MPV 9.9, Immature Gran % (Auto) 0.300, Neut % (Auto) 67.8, Lymph % (Auto) 19.3, [place] % (Auto) 8.1, Eos % (Auto) 4.0, Baso % (Auto) 0.5, Absolute Neuts (auto) 5.0, Absolute Lymphs (auto) 1.43, Nucleated RBC % 0, Differential Comment SCANNED, Anisocytosis 2+ 08/03/21 15:15: Sodium 138, Potassium 4.1, Chloride 106, Carbon Dioxide 27.0, Anion Gap 5, BUN 22 H, Creatinine 1.20 H, Estim Creat Clear Calc 32.99, Est GFR (MDRD) Af Amer 56 L, Est GFR (MDRD) Non-Af 46 L, BUN/Creatinine Ratio 18.3, Glucose 124 H, Calcium 9.0 08/03/21 15:15: Troponin I High Sens 6 08/03/21 17:55: Magnesium 2.4 08/03/21 17:55: Troponin I High Sens 7 08/03/21 21:19: Troponin I High Sens 5 08/04/21 03:41: WBC 7.6, RBC 3.21 L, Hgb 8.8 L, Hct 29.2 L, MCV 91.0, MCH 27.4, MCHC 30.1 L, RDW Std Deviation 78.3 H, RDW Coeff of Bridget 22.8 H, Plt Count 274, MPV 9.9, Immature Gran % (Auto) 0.400, Neut % (Auto) 60.6, Lymph % (Auto) 24.1, [place] % (Auto) 8.2, Eos % (Auto) 5.9 H, Baso % (Auto) 0.8, Absolute Neuts (auto) 4.6, Absolute Lymphs (auto) 1.83, Nucleated RBC % 0, Differential Comment SCANNED, Anisocytosis 1+, Microcytosis 1+ 08/04/21 03:41: PT 17.4 H, INR 1.5, APTT Cancelled 08/04/21 03:41: Sodium 141, Potassium 4.2, Chloride 112 H, Carbon Dioxide 24.0, Anion Gap 5, BUN 22 H, Creatinine 0.99, Estim Creat Clear Calc 39.99, Est GFR (MDRD) Af Amer 70, Est GFR (MDRD) Non-Af 58 L, BUN/Creatinine Ratio 22.2 H, Glucose 105, Calcium 8.7, Total Bilirubin 0.30, AST 11 L, ALT 19, Alkaline Phosphatase 33 L, Total Protein 5.7 L, Albumin 3.0 L, Globulin 2.7, Albumin/ Globulin Ratio 1.1, Triglycerides 74, Cholesterol 103, LDL Cholesterol 43, VLDL Cholesterol 15, HDL Cholesterol 45 08/04/21 03:41: APTT 127.7 H* Radiography Diagnostic Testing: Radiology Impression Chest X-Ray 08/03/21 15:28 IMPRESSION: No acute abnormality is seen. Electronically Signed: Jose M Malave MD at 15:44 EDT , D/C Instructions Discharge Diet: No restrictions Call your doctor if you observe: Shortness of breath and Chest pain Meaningful Use Info Meaningful Use Diagnoses (Choose all that apply): None applicable Discharge Plan Admission Admit Date/Time: 08/03/21 17:08 Primary Reason for Your Visit: chest pain Attending Provider: Moody Kate Primary Care Provider: Jean Paul Bañuelos Chi Consulting Providers: Yvette Clifford Discharge Orders/Prescriptions Prescriptions: New isosorbide mononitrate 30 mg Tablet Extended Release 24 Hr 30 mg PO DAILY Qty: 30 RF: 0 Continued solifenacin [Vesicare] 10 mg tablet 10 mg PO DAILY RF: 0 Pradaxa 150 mg capsule 150 mg PO BID RF: 0 albuterol sulfate [Ventolin HFA] 90 mcg/actuation HFA aerosol inhaler 2 puff inhalation Q4H PRN (Reason: shortness of breath or wheezing) Qty: 18 RF: 6 gabapentin 600 MG tablet 600 mg PO QHS RF: 0 multivitamin Tablet 1 tab PO DAILY RF: 0 atorvastatin 20 mg Tablet 20 mg PO QHS RF: 0 nitroglycerin 0.4 mg Tablet, Sublingual 0.4 mg SUBLINGUAL Q5M PRN (Reason: Chest Pain) RF: 0 dorzolamide 2 % Drops 1 drp LEFT EYE BID RF: 0 latanoprost 0.005 % drops 1 drp EACH EYE QHS RF: 0 polysaccharide iron complex [iFerex 150] 150 mg iron capsule 150 mg PO DAILY RF: 0 benazepril 10 mg tablet 10 mg PO DAILY RF: 0 duloxetine 20 mg capsule,delayed release(DR/EC) 40 mg PO DAILY RF: 0 Changed spironolactone 50 mg tablet 25 mg PO DAILY Qty: 30 RF: 12 Referrals / Follow Up: Gus Longoria MD [NON-STAFF] - 08/17/21 12:30 pm Kirby Cheng DO [STAFF PHYSICIAN] - 08/14/21 3:00 pm Jean Paul Bañuelos Chi, MD [Primary Care Provider] - Within 2 Weeks Daquan Cruz NP, OPTICS MANUFACTURING TECHNICIAN-C [Nurse Practitioner] - 10/26/21 3:30 pm Disposition Disposition (needs filled in before D/C Order can be placed): Home, Self Care Charges/Coding Visit Charges OBSV E&M: 00028 Observation care discharge
[2021-08-04] MEDS: Isosorbide Mononitrate 30 MG Tablet PO (12:14)
[2021-08-04 13:22] LABS: Partial Thromboplast Time 22.4 Seconds (24.1-36.2)
== END 2021-08-04 11:47 | disposition home or self-care (01) ==
LOC: ED 16:54 → PCU 18:03
PROVIDERS: Admitting Provider Family Medicine; Emergency Provider Emergency Medicine; PCP Family Medicine Geriatric Medicine
DX: I25.110 Atherosclerotic heart disease of native coronary artery with unstable angina pectoris (principal); I11.0 Hypertensive heart disease with heart failure; I50.32 Chronic diastolic (congestive) heart failure; I48.0 Paroxysmal atrial fibrillation; I44.0 Atrioventricular block, first degree; I44.7 Left bundle-branch block, unspecified; E78.5 Hyperlipidemia, unspecified; D50.9 Iron deficiency anemia, unspecified; Z79.01 Long term (current) use of anticoagulants; F41.9 Anxiety disorder, unspecified; J45.909 Unspecified asthma, uncomplicated; F32.A Depression, unspecified; Z86.711 Personal history of pulmonary embolism; G47.33 Obstructive sleep apnea (adult) (pediatric); Z86.718 Personal history of other venous thrombosis and embolism; M19.90 Unspecified osteoarthritis, unspecified site; K21.9 Gastro-esophageal reflux disease without esophagitis; Z79.899 Other long term (current) drug therapy; Z79.02 Long term (current) use of antithrombotics/antiplatelets
CPT/HCPCS: 36415; 71045; 80048; 80053; 80061; 83735; 84484; 85025; 85610; 85730; 93005; 93458; 96365; 96366; 99152; 99153; 99218; 99285; J7030; A4216; C1769; C1894; G0378; Q9967

== ENCOUNTER → 2021-08-14 | Outpatient (CLI) | payer MEDICARE, OTHER, SELFPAY ==
[2021-08-14 16:40] LABS: Hemoglobin 8.3 g/dL (12.0-15.0)
== END | disposition home or self-care (01) ==
LOC: LAB 15:52
PROVIDERS: PCP Family Medicine Geriatric Medicine; Referring Provider Internal Medicine Gastroenterology; Visit Provider Internal Medicine Gastroenterology
DX: K21.9 Gastro-esophageal reflux disease without esophagitis (principal)
CPT/HCPCS: 36415; 85018

== ENCOUNTER → 2021-08-25 | Outpatient (CLI) | payer MEDICARE, OTHER, SELFPAY | END | disposition home or self-care (01) | LOC: SL 09:16 | PROVIDERS: PCP Family Medicine Geriatric Medicine; Visit Provider Nurse Practitioner Acute Care | DX: Z46.89 Encounter for fitting and adjustment of other specified devices (principal) ==

== ENCOUNTER → 2021-09-12 | Outpatient (CLI) | payer MEDICARE, OTHER, SELFPAY ==
[2021-09-12 17:31] LABS: Absolute Lymphocyte Count 1.38 X10^3/uL (0.83-4.51); Absolute Neutrophil Count 6.4 X10^3/uL (2.0-7.7); Basophil# 0.05 X10^3/uL; Basophil% 0.6 % (0-1); Eosinophil# 0.32 X10^3/uL; Eosinophils% 3.5 % (0-5); Hematocrit 29.2 % (37-47); Hemoglobin 8.7 g/dL (12.0-15.0); Lymphocyte # 1.38 X10^3/ul (0.83-4.51); Lymphocyte % 15.2 % (19-41); Mean Corp Hgb Conc 29.8 g/dL (32-36); Mean Corpuscular Volume 93.9 fL (81-99); Mean Platelet Vol. 10.6 fl (6.2-12.0); Monocyte# 0.91 X10^3/uL; NRBC Flagged by Analyzer 0 % (0-5); Neutrophil # 6.39 X10^3/uL (2.7-7.7); Neutrophil % 70.4 % (47-70); Platelet Count 359 K/mm3 (150-450); RBC Distribution Width CV 17.2 % (11.6-14.6); RBC Distribution Width SD 59.7 fl (35.1-43.9); Red Blood Count 3.11 M/mm3 (4.2-5.4); White Blood Count 9.1 K/mm3 (4.4-11.0)
[2021-09-12 17:52] LABS: Vitamin D,25 Hydroxy 38.5 ng/mL
[2021-09-12 17:56] LABS: ALB/GLOB Ratio 1.1 RATIO (0.9-2.4); AST(SGOT) 18 U/L (15-37); Alanine Aminotransfer ALT/SGPT 24 U/L (13-56); Albumin, Serum 3.3 g/dL (3.2-5.0); Alkaline Phosphatase 38 U/L (45-117); Anion Gap 8 (5-15); BUN 26 mg/dL (7-18); BUN/Creat Ratio 22.4 RATIO (10-20); Calcium,Total 9.2 mg/dL (8.5-10.1); Chloride 107 mmol/L (98-107); Creatinine, Serum 1.16 mg/dL (0.55-1.02); EST Glomerular Filtration Rate 48 mL/min (>60); Est Glom Filt Rate - Afr Amer 58 mL/min (>60); Globulin 3.1 g/dL (2.2-4.2); Glucose 96 mg/dL (74-106); Potassium 4.3 mmol/L (3.5-5.1); Protein, Total 6.4 g/dL (6.4-8.2); Sodium Level 140 mmol/L (136-145); Thyroid Stim Hormone (TSH) 1.28 uIU/mL (0.358-3.74); Uric Acid 5.2 mg/dL (2.6-6.0)
== END | disposition home or self-care (01) ==
LOC: POLAB3 12:56
PROVIDERS: PCP Family Medicine Geriatric Medicine; Visit Provider Family Medicine Geriatric Medicine
DX: I10 Essential (primary) hypertension (principal); E11.65 Type 2 diabetes mellitus with hyperglycemia; E55.9 Vitamin D deficiency, unspecified; M10.9 Gout, unspecified
CPT/HCPCS: 36415; 80053; 82306; 84443; 84550; 85025

== ENCOUNTER → 2021-09-25 | Outpatient (CLI) | payer MEDICARE, OTHER, SELFPAY ==
[2021-09-25 16:44] LABS: Absolute Lymphocyte Count 1.65 X10^3/uL (0.83-4.51); Absolute Neutrophil Count 7.5 X10^3/uL (2.0-7.7); Basophil# 0.03 X10^3/uL; Basophil% 0.3 % (0-1); Eosinophil# 0.35 X10^3/uL; Eosinophils% 3.4 % (0-5); Hematocrit 24.1 % (37-47); Hemoglobin 7.1 g/dL (12.0-15.0); Lymphocyte # 1.65 X10^3/ul (0.83-4.51); Lymphocyte % 16.1 % (19-41); Mean Corp Hgb Conc 29.5 g/dL (32-36); Mean Corpuscular Hgb 26.7 pg (27.0-32.0); Mean Corpuscular Volume 90.6 fL (81-99); Mean Platelet Vol. 9.9 fl (6.2-12.0); Monocyte# 0.72 X10^3/uL; NRBC Flagged by Analyzer 0 % (0-5); Neutrophil # 7.48 X10^3/uL (2.7-7.7); Neutrophil % 72.7 % (47-70); Platelet Count 406 K/mm3 (150-450); RBC Distribution Width CV 17.5 % (11.6-14.6); RBC Distribution Width SD 58.4 fl (35.1-43.9); Red Blood Count 2.66 M/mm3 (4.2-5.4); White Blood Count 10.3 K/mm3 (4.4-11.0)
[2021-09-25 17:21] LABS: ALB/GLOB Ratio 1.1 RATIO (0.9-2.4); AST(SGOT) 12 U/L (15-37); Alanine Aminotransfer ALT/SGPT 19 U/L (13-56); Albumin, Serum 3.2 g/dL (3.2-5.0); Alkaline Phosphatase 35 U/L (45-117); Anion Gap 8 (5-15); BUN 29 mg/dL (7-18); Calcium,Total 9.5 mg/dL (8.5-10.1); Chloride 104 mmol/L (98-107); Creatinine, Serum 1.38 mg/dL (0.55-1.02); EST Glomerular Filtration Rate 39 mL/min (>60); Est Glom Filt Rate - Afr Amer 48 mL/min (>60); Glucose 143 mg/dL (74-106); Potassium 4.3 mmol/L (3.5-5.1); Protein, Total 6.2 g/dL (6.4-8.2); Sodium Level 136 mmol/L (136-145); Thyroid Stim Hormone (TSH) 2.05 uIU/mL (0.358-3.74)
== END | disposition home or self-care (01) ==
LOC: POLAB3 16:21
PROVIDERS: PCP Family Medicine Geriatric Medicine; Visit Provider Family Medicine Geriatric Medicine
DX: R53.1 Weakness (principal)
CPT/HCPCS: 36415; 80053; 84443; 85025

== ENCOUNTER 2021-09-27 14:49 | Emergency (ER) | payer MEDICARE, OTHER, SELFPAY ==
[2021-09-27 14:50] VITALS: BP 106/82; PULSE 61; RESP 14; TEMP 36.4; O2SAT 100; BMI 78.0
--- NOTE | 2021-09-27 15:06 | EKG12_ITS ---
Test Reason : CHEST PAIN Blood Pressure : / mmHG Vent. Rate : 061 BPM Atrial Rate : 061 BPM P-R Int : 266 ms QRS Dur : 200 ms QT Int : 476 ms P-R-T Axes : 062 -62 092 degrees QTc Int : 479 ms Sinus rhythm with 1st degree A-V block Left axis deviation Left bundle branch block Abnormal ECG Confirmed by NURYS VILLALTA, YAZMIN ([id number]), legal editor FORREST SALDAÑA ([id number]) on 09/29/2021 11:29:19 AM Referred By: SOLITARIO Confirmed By:YAZMIN NUNO MD
--- NOTE | 2021-09-27 15:07 | EDS_ITS ---
HPI History of Present Illness Chief Complaint: Chest Pain Informant: patient Narrative Narrative: 75-year-old male presenting to the emergency room for evaluation of chest pain. Patient states that she was laying in bed today and rolled onto her left side and developed a squeezing pain in between her shoulder blades and also had discomfort in her throat that felt like a sore throat. She took a nitroglycerin and went away. Later on in the morning she was receiving blood transfusion when she started to get similar symptoms and took another nitro which resolved it. She was shelter through a lunch meat sandwich when she realized that she was not supposed to be eating lunch meat unaided anyway. She is not sure why she is not supposed to eat lunch meat. She states that she then developed heartburn. She states that she supposed to be taking medicine for heartburn but does not know what it is. She had a heart catheterization in July and was found to have mild disease patent stent and medical management was recommended. She is on Pradaxa. She is asymptomatic at the current time. [facility] Medical History Afib Anemia Anemia Anemia due to gastrointestinal blood loss Angina pectoris Aortic valve disorder Arthritis Asthma Atherosclerotic heart disease of [place] coronary artery without angina pectoris Atrial fibrillation Atrioventricular bloc first degree Back pain BiPAP (biphasic positive airway pressure) dependence Bronchitis CAD (coronary artery disease) Cardiology follow-up encounter Carotid bruit Chronic diastolic (congestive) heart failure Depression Difficulty balancing Dizziness DVT (deep venous thrombosis) Dysphagia Essential hypertension Fatigue Gastric reflux Glaucoma Hay fever Hemorrhoids History of atrial fibrillation History of DVT (deep vein thrombosis) History of echocardiogram History of edema History of IBS History of left heart catheterization (LHC) (~08/04/21) History of osteoarthritis History of pulmonary embolism History of stress test HLD (hyperlipidemia) Hydrocephalus Hypokalemia Incontinence Injury of head and neck Iron deficiency anemia Iron refractory iron deficiency anemia Knee pain Leg cramps Limb weakness Neck pain Non-smoker Normal pressure hydrocephalus Obesities, morbid Obesity JONY (obstructive sleep apnea) Pharyngitis Presence of IVC filter Presence of IVC filter Pulmonary embolism Shortness of breath on exertion Shoulder pain Sleep apnea SOB (shortness of breath) Thromboembolic disorder unexpained bruising Unstable angina Upper respiratory infection Wears glasses Wears hearing aid Home Medications gabapentin 600 mg tablet 600 mg PO QHS 01/27/16 [History Last Taken 08/02/21] solifenacin 10 mg tablet (Vesicare) 10 mg PO DAILY BLADDER 09/27/17 [History Last Taken 08/02/21] atorvastatin 20 mg tablet 20 mg PO QHS 02/24/21 [History Last Taken 08/02/21] dorzolamide 2 % eye drops 1 drp LEFT EYE BID 02/24/21 [History Last Taken 08/03/21] multivitamin 1 tab PO DAILY 02/24/21 [History Last Taken 08/03/21] nitroglycerin 0.4 mg sublingual tablet 0.4 mg sublingual Q5M PRN Chest Pain 02/24/21 [History Last Taken 07/28/21] dabigatran etexilate 150 mg capsule (Pradaxa) 150 mg PO BID BLOOD THINNER 04/27/21 [History Last Taken 08/03/21] albuterol sulfate 90 mcg/actuation aerosol inhaler (Ventolin HFA) 2 puff inhalation Q4H PRN shortness of breath or wheezing #18 grams 07/20/21 [Rx Last Taken Unknown] benazepril 10 mg tablet 10 mg PO DAILY BP 08/03/21 [History Last Taken 08/03/21] duloxetine 20 mg capsule,delayed release 40 mg PO DAILY DEPRESSION 08/03/21 [History Last Taken 08/03/21] latanoprost 0.005 % eye drops 1 drp EACH EYE QHS GLUACOMA 08/03/21 [History Last Taken 08/02/21] polysaccharide iron complex 150 mg iron capsule (iFerex 150) 150 mg PO DAILY IRON 08/03/21 [History Last Taken Unknown] isosorbide mononitrate 30 mg tablet,extended release 24 hr 30 mg PO DAILY #30 tabs 08/04/21 [Rx Last Taken Unknown] spironolactone 50 mg tablet 25 mg PO DAILY #30 tabs 08/04/21 [Rx Last Taken 08/03/21] pantoprazole 40 mg tablet,delayed release 40 mg PO BID #60 tabs 08/14/21 [Rx Last Taken Unknown] sucralfate 1 gram tablet 1 g PO QAC #90 tabs 09/08/21 [Rx Last Taken Unknown] Allergy/AdvReac Type Severity Reaction Status Date / Time rivaroxaban [From Xarelto] Allergy Severe Unknown Verified 09/27/21 14:53 acetaminophen [From Percocet] Allergy Unknown hallucinati Verified 09/27/21 14:53 ons alprazolam [From Xanax] Allergy Unknown fatigue Verified 09/27/21 14:53 oxycodone [From Percocet] Allergy Unknown hallucinati Verified 09/27/21 14:53 ons carisoprodol [From Soma] Allergy Rash Verified 09/27/21 14:53 adhesives Allergy Unknown blisters Uncoded 09/27/21 14:53 antihistamines AdvReac Other Uncoded 09/27/21 14:53 Family History Mother Cancer pancreatic Asthma Son Asthma Brother Heart disease Diabetes Hypertension Kidney disease Sister Heart disease Hypertension Diabetes Surgical History History of arthroscopy of right shoulder History of cardiac catheterization History of coronary artery stent placement History of hernia repair History of hysterectomy History of laminectomy History of spinal fusion History of toe surgery History of total left knee replacement History of ventriculoperitoneal shunting (~06/16/14) Hx of appendectomy Hx of carpal tunnel repair Hx of cholecystectomy Intracranial shunt Presence of coronary angioplasty implant and graft (~06/08/20) Presence of stent in coronary artery (~06/08/20) Social History Smoking Status: Never smoker Electronic Cigarette Use: not used alcohol intake: never substance use type: does not use caffeine: Yes Type: tea Number of servings: 1 ROS ROS ED Constitutional Constitutional ED: Denies chills or weight loss Eyes Eyes: Denies change in vision or diplopia ENT ENT ED: Reports sore throat; Denies ear pain or rhinorrhea Cardiovascular Cardiovascular: Reports chest pain; Denies orthopnea, palpitations or racing heartbeat Respiratory/Chest Respiratory/Chest: Denies cough, dyspnea or orthopnea Gastrointestinal Gastrointestinal: Denies abdominal pain, diarrhea, nausea or vomiting Genitourinary Genitourinary ED: Denies dysuria, hematuria or urinary frequency Musculoskeletal Musculoskeletal: Reports back pain; Denies arthralgias or myalgias Integumentary Denies abscess or rash Neurologic Neurologic: Denies headache(s) or weakness Psychiatric Psychiatric: Denies anxiety, depression, suicidal ideation or suicidal thoughts Endocrine Endocrinology: Denies polydipsia, polyphagia or polyuria Allergic/Immunologic Allergic/Immunologic ED: Denies mouth swelling, tongue swelling or urticaria EXAM Physical Exam Const Vital Signs: 09/27/21 14:50 09/27/21 16:39 09/27/21 17:05 Temperature 97.5 F L Temperature Source Temporal Pulse Rate 61 61 60 Respiratory Rate 14 13 16 Blood Pressure 106/82 H 132/70 H 153/75 H Blood Pressure Mean 90 90 101 Pulse Ox 100 97 96 Oxygen Delivery Method Room Air Room Air 09/27/21 18:09 Temperature Temperature Source Pulse Rate 62 Respiratory Rate 18 Blood Pressure 153/76 H Blood Pressure Mean 101 Pulse Ox 100 Oxygen Delivery Method Positive well nourished, well developed and obese General Appearance ED: well developed Nutritional Appearance: obese HEENT Reports normocephalic, head/scalp atraumatic and moist mucous membranes Eyes PERRL and EOMs intact bilaterally Neck no lymphadenopathy, supple and no JVD Resp normal respiratory effort and clear to auscultation bilaterally Cardio regular rate, regular rhythm and no murmurs GI normal to inspection, nondistended, normoactive bowel sounds and non-tender Palpation: soft Back/Spine no CVA tenderness and normal ROM Extremity normal to inspection General Extremety ED: Negative for edema General Extremity: Negative for edema Neuro oriented x3 and CN's II-XII intact bilaterally Sensorium / Orientation: alert Motor Exam: strength 5/5 throughout Psych mental status grossly normal Mood & Affect: Negative for depressed or tearful Skin no rashes or lesions noted and no wounds Heart Score History: Slightly/Non-Suspicious ECG: Normal Age: >/= 65 years Risk Factors: >/= 3 Risk Factors or History of CAD Troponin: </= Normal Limit Score: 4 MDM MDM MDM Narrative Medical decision making narrative: 2 sets of heart enzymes were negative at 8. Normal sinus rhythm on the monitor. Interpretation the chest is no acute. At this point patient is going be discharged home. With a recent heart catheterization that did not need intervention and to negative troponins I think we have ruled out ACS. Patient to follow-up with her doctors. Lab Data Attestation: I reviewed the patient's lab results. Labs: Laboratory Results - last 24 hr 09/27/21 09/27/21 09/27/21 15:10 15:10 17:15 WBC 8.9 RBC 3.36 L Hgb 9.3 L Hct 29.1 L MCV 86.6 MCH 27.7 MCHC 32.0 D RDW Std Deviation 50.4 H RDW Coeff of Bridget 16.0 H Plt Count 366 MPV 9.7 Immature Gran % (Auto) 0.700 Neut % (Auto) 67.5 Lymph % (Auto) 17.0 L [place] % (Auto) 8.9 Eos % (Auto) 5.3 H Baso % (Auto) 0.6 Absolute Neuts (auto) 6.0 Absolute Lymphs (auto) 1.51 Nucleated RBC % 0 Sodium 139 Potassium 4.1 Chloride 107 Carbon Dioxide 26.0 Anion Gap 6 BUN 28 H Creatinine 1.43 H Estim Creat Clear Calc 27.69 Est GFR (MDRD) Af Amer 46 L Est GFR (MDRD) Non-Af 38 L BUN/Creatinine Ratio 19.6 Glucose 108 H Calcium 9.1 Total Bilirubin 1.00 AST 12 L ALT 18 Alkaline Phosphatase 35 L Troponin I High Sens 8 8 Total Protein 6.0 L Albumin 3.0 L Globulin 3.0 Albumin/Globulin Ratio 1.0 Lipase 65 L Radiography Diagnostic Testing: Clinical Impression(s) from Imaging Studies Chest X-Ray 09/27/21 15:15 IMPRESSION: There are no acute findings. Electronically Signed: Dragan López MD at 15:31 EDT Reading Location ID and State: [facility] / [place] , Service support , EKG Initial EKG: Attestation: I personally reviewed and interpreted this EKG as follows: Comments: Sinus rhythm with a first-degree AV block left bundle branch block noted. Ventricular rate of 61 bpm. Comparison made with 03 August 2021 EKG Prior EKG tracings: available for review Prior: Unchanged Discharge Plan Triage Chief Complaint: Chest Pain ED Provider: Wali Pugh Dx/Rx/DC Orders Clinical Impression: Chest pain Instructions: ED Chest Pain, Uncertain Cause Prescriptions: No Action solifenacin [Vesicare] 10 mg tablet 10 mg PO DAILY Pradaxa 150 mg capsule 150 mg PO BID albuterol sulfate [Ventolin HFA] 90 mcg/actuation HFA aerosol inhaler 2 puff inhalation Q4H PRN (Reason: shortness of breath or wheezing) Qty: 18 6RF pantoprazole 40 mg tablet,delayed release (DR/EC) 40 mg PO BID Qty: 60 3RF gabapentin 600 MG tablet 600 mg PO QHS Label Comments: nerve pain multivitamin Tablet 1 tab PO DAILY atorvastatin 20 mg Tablet 20 mg PO QHS nitroglycerin 0.4 mg Tablet, Sublingual 0.4 mg SUBLINGUAL Q5M PRN (Reason: Chest Pain) dorzolamide 2 % Drops 1 drp LEFT EYE BID latanoprost 0.005 % drops 1 drp EACH EYE QHS Label Comments: INSTILL 1 DROP INTO BOTH EYES NIGHTLY polysaccharide iron complex [iFerex 150] 150 mg iron capsule 150 mg PO DAILY Label Comments: PT STOPPED TAKING WHILE RECEIVING IRON INFUSIONS. PT IS NO LONGER GET INFUSIONS HAS NOT STARTED IFERREX AGAIN. benazepril 10 mg tablet 10 mg PO DAILY Label Comments: TAKE 1 TABLET BY MOUTH EVERY DAY duloxetine 20 mg capsule,delayed release(DR/EC) 40 mg PO DAILY Label Comments: TAKE 2 CAPSULES ORALLY ONCE PER DAY FOR 90 DAYS isosorbide mononitrate 30 mg Tablet Extended Release 24 Hr 30 mg PO DAILY Qty: 30 0RF spironolactone 50 mg tablet 25 mg PO DAILY Qty: 30 12RF sucralfate 1 gram tablet 1 g PO QAC Qty: 90 0RF Primary Care Provider: Jean Paul Bañuelos Chi Referrals: Jean Paul Bañuelos Chi, MD [Primary Care Provider] - [facility] appointment Disposition Disposition: Home, Self Care
[2021-09-27 15:15] LABS: Absolute Lymphocyte Count 1.51 X10^3/uL (0.83-4.51); Basophil# 0.05 X10^3/uL; Basophil% 0.6 % (0-1); Eosinophil# 0.47 X10^3/uL; Eosinophils% 5.3 % (0-5); Hematocrit 29.1 % (37-47); Hemoglobin 9.3 g/dL (12.0-15.0); Lymphocyte # 1.51 X10^3/ul (0.83-4.51); Mean Corpuscular Hgb 27.7 pg (27.0-32.0); Mean Corpuscular Volume 86.6 fL (81-99); Mean Platelet Vol. 9.7 fl (6.2-12.0); Monocyte# 0.79 X10^3/uL; Monocyte% 8.9 % (0-10); NRBC Flagged by Analyzer 0 % (0-5); Neutrophil # 5.99 X10^3/uL (2.7-7.7); Neutrophil % 67.5 % (47-70); Platelet Count 366 K/mm3 (150-450); RBC Distribution Width SD 50.4 fl (35.1-43.9); Red Blood Count 3.36 M/mm3 (4.2-5.4); White Blood Count 8.9 K/mm3 (4.4-11.0)
--- NOTE | 2021-09-27 15:15 | RAD_ITS ---
STUDY: XR Chest 1 View 09/27/2021 3:11 PM REASON FOR EXAM: Female, 75 years old. CHEST PAIN chest pain COMPARISON: 08/03/2021 TECHNIQUE: XR Chest 1 View FINDINGS: There is no demonstrated pleural abnormality. Right LASER TECHNICIAN shunt. Normal heart size. Normal mediastinum. Normal holden. Prominent appearing increased interstitial lung markings. Normal visualized pulmonary arteries. There is atherosclerotic calcification of the aortic arch with tortuosity. There are diffuse degenerative changes of the visualized thoracic spine. There is degenerative osteoarthritis of the bilateral shoulders. There is no demonstrated abnormality of the visualized soft tissue structures of the upper abdomen. RAD/Chest 1 View (Portable) IMPRESSION: There are no acute findings. Electronically Signed: Dragan López MD at 15:31 EDT ,
[2021-09-27 15:38] LABS: AST(SGOT) 12 U/L (15-37); Alanine Aminotransfer ALT/SGPT 18 U/L (13-56); Alkaline Phosphatase 35 U/L (45-117); Anion Gap 6 (5-15); BUN 28 mg/dL (7-18); BUN/Creat Ratio 19.6 RATIO (10-20); Calcium,Total 9.1 mg/dL (8.5-10.1); Chloride 107 mmol/L (98-107); Creatinine, Serum 1.43 mg/dL (0.55-1.02); EST Glomerular Filtration Rate 38 mL/min (>60); Est Glom Filt Rate - Afr Amer 46 mL/min (>60); Estimated Creatinine Clearance 27.69 ml/min; Glucose 108 mg/dL (74-106); Lipase 65 U/L (73-393); Potassium 4.1 mmol/L (3.5-5.1); Sodium Level 139 mmol/L (136-145); Troponin-I HS (w/2H Reflex) 8 pg/mL (3.0-54.0)
[2021-09-27 16:39] VITALS: BP 132/70; PULSE 61; RESP 13; O2SAT 97
[2021-09-27 17:05] VITALS: BP 153/75; PULSE 60; RESP 16; O2SAT 96
[2021-09-27 17:13] LABS: Reflex Troponin-HS? (from REC) Y
[2021-09-27 17:48] LABS: Troponin-I HS 8 pg/mL (3.0-54.0)
[2021-09-27 18:09] VITALS: BP 153/76; PULSE 62; RESP 18; O2SAT 100
== END 2021-09-27 18:35 | disposition home or self-care (01) ==
PROVIDERS: Emergency Provider Emergency Medicine; PCP Family Medicine Geriatric Medicine; Visit Provider Emergency Medicine
DX: R07.9 Chest pain, unspecified (principal); I11.0 Hypertensive heart disease with heart failure; I50.32 Chronic diastolic (congestive) heart failure; I48.91 Unspecified atrial fibrillation; E78.5 Hyperlipidemia, unspecified; I25.10 Atherosclerotic heart disease of native coronary artery without angina pectoris; R12 Heartburn; G47.33 Obstructive sleep apnea (adult) (pediatric); Z86.718 Personal history of other venous thrombosis and embolism; Z86.711 Personal history of pulmonary embolism; D50.9 Iron deficiency anemia, unspecified
CPT/HCPCS: 36430; 71045; 80053; 83690; 84484; 85025; 93005; 99283; J7030; P9016; A4216; J1940

== ENCOUNTER → 2021-09-27 | Outpatient (CLI) | payer MEDICARE, OTHER, SELFPAY ==
[2021-09-26 13:34] LABS: Absolute Lymphocyte Count 1.93 X10^3/uL (0.83-4.51); Basophil# 0.07 X10^3/uL; Basophil% 0.6 % (0-1); Eosinophil# 0.36 X10^3/uL; Hematocrit 23.7 % (37-47); Hemoglobin 7.1 g/dL (12.0-15.0); Lymphocyte # 1.93 X10^3/ul (0.83-4.51); Lymphocyte % 15.9 % (19-41); Mean Corpuscular Hgb 26.5 pg (27.0-32.0); Mean Corpuscular Volume 88.4 fL (81-99); Mean Platelet Vol. 9.5 fl (6.2-12.0); Monocyte# 0.75 X10^3/uL; Monocyte% 6.2 % (0-10); NRBC Flagged by Analyzer 0 % (0-5); Neutrophil # 8.98 X10^3/uL (2.7-7.7); Neutrophil % 73.6 % (47-70); Platelet Count 451 K/mm3 (150-450); RBC Distribution Width CV 17.6 % (11.6-14.6); RBC Distribution Width SD 57.2 fl (35.1-43.9); Red Blood Count 2.68 M/mm3 (4.2-5.4); White Blood Count 12.2 K/mm3 (4.4-11.0)
[2021-09-26 13:53] LABS: ALB/GLOB Ratio 1.1 RATIO (0.9-2.4); AST(SGOT) 13 U/L (15-37); Alanine Aminotransfer ALT/SGPT 21 U/L (13-56); Albumin, Serum 3.3 g/dL (3.2-5.0); Alkaline Phosphatase 35 U/L (45-117); Anion Gap 9 (5-15); BUN 32 mg/dL (7-18); BUN/Creat Ratio 17.7 RATIO (10-20); Calcium,Total 9.5 mg/dL (8.5-10.1); Chloride 105 mmol/L (98-107); Creatinine, Serum 1.81 mg/dL (0.55-1.02); EST Glomerular Filtration Rate 29 mL/min (>60); Est Glom Filt Rate - Afr Amer 35 mL/min (>60); Ferritin 16 ng/mL (8-252); Globulin 3.1 g/dL (2.2-4.2); Glucose 109 mg/dL (74-106); Iron 62 ug/dL (50-170); Iron Binding Capacity,Total 433 ug/dL (250-450); LDH 154 U/L (84-246); PERCENT IRON SATURATION 14.3 % (15.0-55.0); Potassium 4.7 mmol/L (3.5-5.1); Protein, Total 6.4 g/dL (6.4-8.2); Sodium Level 137 mmol/L (136-145)
[2021-09-27] VITALS (8 sets, daily range): BP systolic 105–120; BP diastolic 51–70; PULSE 59–73; RESP 14–16; TEMP 36.2–37.2; O2SAT 99–100
[2021-09-27] MEDS: 0.9% NaCl Peripheral Flush Adult/Peds IV ×3 (09:39→14:41)
[2021-09-27] MEDS: Furosemide 20 MG/2 ML VIAL IV (11:58)
--- NOTE | 2021-09-27 12:41 | NURSING ---
Pt reports chest pain 5/10 aching w/ pain in shoulder blades and throat. Pt states she woke up this am and had 8/10 chest pain and took 1 nitro that took most of pain away. Pt took 1 nitro from home at 1223 with resolution of chest pain but c/o mild pain still in shoulder blades and back. VSS. Pt now reports complete resolution of all pain/discomfort in back, chest, and throat. Will continue to monitor.
== END | disposition home or self-care (01) ==
LOC: MEDOUTP 09:12
PROVIDERS: Internal Medicine Medical Oncology; PCP Family Medicine Geriatric Medicine; Referring Provider Family Medicine Geriatric Medicine; Visit Provider Family Medicine Geriatric Medicine
DX: D64.9 Anemia, unspecified (principal)
CPT/HCPCS: 36415; 36430; 80053; 82728; 83540; 83550; 83615; 85025; 86850; 86900; 86901; 86920; 86922; J7030; P9016; A4216; J1940

== ENCOUNTER → 2021-09-28 | Outpatient (CLI) | payer MEDICARE, OTHER, SELFPAY ==
[2021-09-28 16:19] LABS: Absolute Lymphocyte Count 1.46 X10^3/uL (0.83-4.51); Absolute Neutrophil Count 6.6 X10^3/uL (2.0-7.7); Basophil# 0.06 X10^3/uL; Basophil% 0.6 % (0-1); Eosinophil# 0.35 X10^3/uL; Eosinophils% 3.7 % (0-5); Hematocrit 31.4 % (37-47); Hemoglobin 9.6 g/dL (12.0-15.0); Lymphocyte # 1.46 X10^3/ul (0.83-4.51); Lymphocyte % 15.4 % (19-41); Mean Corp Hgb Conc 30.6 g/dL (32-36); Mean Corpuscular Hgb 27.2 pg (27.0-32.0); Monocyte# 0.93 X10^3/uL; Monocyte% 9.8 % (0-10); NRBC Flagged by Analyzer 0.2 % (0-5); Neutrophil # 6.62 X10^3/uL (2.7-7.7); Platelet Count 398 K/mm3 (150-450); RBC Distribution Width CV 17.1 % (11.6-14.6); RBC Distribution Width SD 54.6 fl (35.1-43.9); Red Blood Count 3.53 M/mm3 (4.2-5.4); White Blood Count 9.5 K/mm3 (4.4-11.0)
== END | disposition home or self-care (01) ==
LOC: POLAB3 15:11
PROVIDERS: PCP Family Medicine Geriatric Medicine; Visit Provider Family Medicine Geriatric Medicine
DX: D64.9 Anemia, unspecified (principal)
CPT/HCPCS: 36415; 85025

== ENCOUNTER → 2021-10-25 | Outpatient (CLI) | payer MEDICARE, OTHER, SELFPAY ==
--- NOTE | 2021-10-25 15:15 | RAD_ITS ---
STUDY: XR Abdomen 1 View 10/25/2021 3:22 PM REASON FOR EXAM: Female, 75 years old. ABDOMINAL PAIN FECAL IMPACTION TECHNIQUE: XR Abdomen 1 View COMPARISON: None FINDINGS: Normal visualized lung bases. There is a moderate amount of colonic fecal material. There is no demonstrated free abdominal air. Spinal fixation hardware noted. Normal soft tissue structures. There are diffuse degenerative changes of the visualized lumbar spine. An IVC filter is in place. RAD/Abdomen Single View IMPRESSION: Constipation. Electronically Signed: Dragan López MD at 19:21 EDT ,
--- NOTE | 2021-10-25 15:15 | RAD_ITS ---
STUDY: XR Chest 2 Views 10/25/2021 3:22 PM REASON FOR EXAM: Female, 75 years old. CHEST PAIN SOB COMPARISON: None TECHNIQUE: XR Chest 2 Views FINDINGS: There is no demonstrated pleural abnormality. Right KITCHEN CLERK shunt. Normal heart size. Normal mediastinum. Normal holden. Prominent appearing increased interstitial lung markings. Normal visualized pulmonary arteries. There is atherosclerotic calcification of the aortic arch with tortuosity. There are diffuse degenerative changes of the visualized thoracic spine. There is degenerative osteoarthritis of the bilateral shoulders. There is no demonstrated abnormality of the visualized soft tissue structures of the upper abdomen. RAD/Chest PA and Lateral IMPRESSION: There are no acute findings. Electronically Signed: Dragan López MD at 19:22 EDT ,
[2021-10-25 16:20] LABS: Absolute Lymphocyte Count 1.52 X10^3/uL (0.83-4.51); Absolute Neutrophil Count 5.4 X10^3/uL (2.0-7.7); Basophil# 0.04 X10^3/uL; Basophil% 0.5 % (0-1); Eosinophil# 0.33 X10^3/uL; Eosinophils% 4.1 % (0-5); Hematocrit 21.9 % (37-47); Hemoglobin 6.3 g/dL (12.0-15.0); Lymphocyte # 1.52 X10^3/ul (0.83-4.51); Lymphocyte % 18.9 % (19-41); Mean Corp Hgb Conc 28.8 g/dL (32-36); Mean Corpuscular Hgb 24.7 pg (27.0-32.0); Mean Corpuscular Volume 85.9 fL (81-99); Mean Platelet Vol. 10.7 fl (6.2-12.0); Monocyte# 0.74 X10^3/uL; Monocyte% 9.2 % (0-10); NRBC Flagged by Analyzer 0 % (0-5); Neutrophil # 5.37 X10^3/uL (2.7-7.7); Neutrophil % 66.9 % (47-70); Platelet Count 372 K/mm3 (150-450); RBC Distribution Width CV 18.6 % (11.6-14.6); RBC Distribution Width SD 58.3 fl (35.1-43.9); Red Blood Count 2.55 M/mm3 (4.2-5.4)
[2021-10-25 16:39] LABS: AST(SGOT) 11 U/L (15-37); Alanine Aminotransfer ALT/SGPT 17 U/L (13-56); Albumin, Serum 3.2 g/dL (3.2-5.0); Alkaline Phosphatase 34 U/L (45-117); Anion Gap 6 (5-15); BUN 26 mg/dL (7-18); BUN/Creat Ratio 18.6 RATIO (10-20); Calcium,Total 9.2 mg/dL (8.5-10.1); Chloride 105 mmol/L (98-107); EST Glomerular Filtration Rate 39 mL/min (>60); Est Glom Filt Rate - Afr Amer 47 mL/min (>60); Globulin 3.1 g/dL (2.2-4.2); Glucose 92 mg/dL (74-106); Potassium 4.2 mmol/L (3.5-5.1); Protein, Total 6.3 g/dL (6.4-8.2); Sodium Level 136 mmol/L (136-145); Thyroid Stim Hormone (TSH) 1.43 uIU/mL (0.358-3.74)
[2021-10-25 16:45] LABS: BNP,B-Type NATRIURETIC PEPTIDE 17.7 pg/mL (0-100)
== END | disposition home or self-care (01) ==
LOC: POLAB3 13:57 → RAD 15:11
PROVIDERS: PCP Family Medicine Geriatric Medicine; Referring Provider Family Medicine Geriatric Medicine; Visit Provider Family Medicine Geriatric Medicine
DX: R06.02 Shortness of breath (principal); K56.41 Fecal impaction; N39.0 Urinary tract infection, site not specified; R53.1 Weakness
CPT/HCPCS: 36415; 71046; 74018; 80053; 83880; 84443; 85025; 87086; 87088

== ENCOUNTER → 2021-10-26 | Outpatient (CLI) | payer MEDICARE, OTHER, SELFPAY ==
[2021-10-26] VITALS (8 sets, daily range): BP systolic 93–118; BP diastolic 53–68; PULSE 56–66; RESP 12–16; TEMP 35.7–35.8; O2SAT 97–100; BMI 35.2
[2021-10-26] MEDS: 0.9% NaCl Peripheral Flush Adult/Peds IV (12:16)
[2021-10-26] MEDS: Furosemide 20 MG/2 ML VIAL IV (14:29)
== END | disposition home or self-care (01) ==
PROVIDERS: PCP Family Medicine Geriatric Medicine; Referring Provider Family Medicine Geriatric Medicine; Visit Provider Family Medicine Geriatric Medicine
DX: D64.9 Anemia, unspecified (principal)
CPT/HCPCS: 36430; 86850; 86900; 86901; 86920; 86922; J7040; P9016; A4216; J1940

== ENCOUNTER → 2021-10-27 | Outpatient (CLI) | payer MEDICARE, OTHER, SELFPAY ==
[2021-10-27 12:28] LABS: Hematocrit 31.1 % (37-47); Hemoglobin 9.6 g/dL (12.0-15.0)
== END | disposition home or self-care (01) ==
LOC: LAB 11:30
PROVIDERS: PCP Family Medicine Geriatric Medicine; Referring Provider Family Medicine Geriatric Medicine; Visit Provider Family Medicine Geriatric Medicine
DX: D64.9 Anemia, unspecified (principal)
CPT/HCPCS: 36415; 85014; 85018

== ENCOUNTER → 2021-11-15 | Outpatient (CLI) | payer MEDICARE, OTHER, SELFPAY ==
--- NOTE | 2021-11-15 12:35 | RAD_ITS ---
STUDY: X-RAY - LUMBAR SPINE REASON FOR EXAM: Female, 75 years old. Persistent radiating low back pain TECHNIQUE: 4 view(s) of the lumbar spine were obtained. COMPARISON: None FINDINGS: Normal lumbar lordosis. There is a mild levoscoliosis of the lumbar spine. The lateral view there is anatomic alignment of L1 and L2. There is 2 to 3 mm of anterior subluxation of L3 on L2. L3-S1 demonstrate anatomic alignment. Patient is undergone previous pedicle screw fusion surgery at L3 and L4. Hardware is intact and free of calcification. IVC filter noted. There is diffuse demineralization with multi-level endplate spondylosis. There is multi-level degenerative disc disease with multi-level disc space narrowing. There is no demonstrated fracture. There is atherosclerotic calcification of the abdominal aorta without a demonstrated aneurysm. RAD/L/S Spine Min 4 Views IMPRESSION: Multilevel degenerative and postsurgical changes, no acute fracture or hardware complication. Electronically Signed: Paulino Sandy MD at 8:25 EDT ,
== END | disposition home or self-care (01) ==
LOC: RAD 12:25
PROVIDERS: PCP Family Medicine Geriatric Medicine; Referring Provider Nurse Practitioner Family; Visit Provider Nurse Practitioner Family
DX: M51.37 Other intervertebral disc degeneration, lumbosacral region (principal); M48.061 Spinal stenosis, lumbar region without neurogenic claudication; M96.1 Postlaminectomy syndrome, not elsewhere classified; M47.817 Spondylosis without myelopathy or radiculopathy, lumbosacral region
CPT/HCPCS: 72110

== ENCOUNTER → 2022-01-04 | Outpatient (CLI) | payer MEDICARE, OTHER, SELFPAY ==
[2022-01-04 17:00] LABS: Absolute Neutrophil Count 10.6 X10^3/uL (2.0-7.7); Basophil# 0.02 X10^3/uL; Basophil% 0.2 % (0-1); Eosinophil# 0.01 X10^3/uL; Eosinophils% 0.1 % (0-5); Hematocrit 35.4 % (37-47); Hemoglobin 10.7 g/dL (12.0-15.0); Lymphocyte % 9.7 % (19-41); Mean Corp Hgb Conc 30.2 g/dL (32-36); Mean Corpuscular Hgb 26.2 pg (27.0-32.0); Mean Corpuscular Volume 86.6 fL (81-99); NRBC Flagged by Analyzer 0 % (0-5); Neutrophil # 10.57 X10^3/uL (2.7-7.7); Neutrophil % 85.6 % (47-70); POSITIVE MORPHOLOGY YES; Platelet Count 310 K/mm3 (150-450); RBC Distribution Width CV 20.8 % (11.6-14.6); RBC Distribution Width SD 66.4 fl (35.1-43.9); Red Blood Count 4.09 M/mm3 (4.2-5.4); White Blood Count 12.4 K/mm3 (4.4-11.0)
[2022-01-04 17:06] LABS: Differential Indicated SCAN CRITERIA MET; Vitamin D,25 Hydroxy 43.7 ng/mL
[2022-01-04 17:24] LABS: ALB/GLOB Ratio 0.9 RATIO (0.9-2.4); AST(SGOT) 12 U/L (15-37); Alanine Aminotransfer ALT/SGPT 21 U/L (13-56); Albumin, Serum 3.2 g/dL (3.2-5.0); Alkaline Phosphatase 47 U/L (45-117); Anion Gap 11 (5-15); BUN 20 mg/dL (7-18); BUN/Creat Ratio 19.4 RATIO (10-20); Calcium,Total 9.1 mg/dL (8.5-10.1); Chloride 110 mmol/L (98-107); Creatinine, Serum 1.03 mg/dL (0.55-1.02); EST Glomerular Filtration Rate 55 mL/min (>60); Est Glom Filt Rate - Afr Amer 67 mL/min (>60); Globulin 3.7 g/dL (2.2-4.2); Glucose 139 mg/dL (74-106); Protein, Total 6.9 g/dL (6.4-8.2); Sodium Level 143 mmol/L (136-145); Uric Acid 4.1 mg/dL (2.6-6.0)
[2022-01-04 17:28] LABS: Anisocytosis 2+; Differential Comment SCANNED; Microcytosis 1+
== END | disposition home or self-care (01) ==
LOC: POLAB3 12:44
PROVIDERS: PCP Family Medicine Geriatric Medicine; Visit Provider Family Medicine Geriatric Medicine
DX: I10 Essential (primary) hypertension (principal); M10.9 Gout, unspecified; E55.9 Vitamin D deficiency, unspecified
CPT/HCPCS: 36415; 80053; 82306; 84443; 84550; 85025

== ENCOUNTER 2022-01-25 17:15 | Emergency (ER) | payer MEDICARE, OTHER, SELFPAY ==
[2022-01-25 17:16] VITALS: BP 110/68; PULSE 66; RESP 16; TEMP 36.4; O2SAT 99; BMI 37.8
--- NOTE | 2022-01-25 17:20 | ED.RN ---
Unable to palpate pedal pulses on arrival to ED. Doppler pulses noted to right dorsalis pedis, marked for location, unable to find by doppler posterior tibial.
--- NOTE | 2022-01-25 17:24 | US_ITS ---
We are attempting to reach an attending provider to discuss findings. An addendum with communication details will be sent when the communication is complete. STUDY: VENOUS DOPPLER ULTRASOUND - BILATERAL LOWER EXTREMITIES REASON FOR EXAM: Female, 76 years old. BILATERAL LEG PAIN REDNESS RT and gt;LT TECHNIQUE: Ultrasound evaluation of the deep vein system to include richter-scale imaging and compression was performed. Richter-scale imaging and Doppler sonographic evaluation, including duplex spectral analysis and qualitative color flow sonography, was performed. COMPARISON: None. FINDINGS: RIGHT LEG There is diffuse extensive deep venous thrombosis involving the right common femoral, superficial femoral, popliteal and peroneal vein LEFT LEG Common Femoral Vein: Normal compression, spontaneity and augmentation. Normal color Doppler. Common Femoral Vein/Greater Saphenous Junction: Normal compression, spontaneity and augmentation. Normal color Doppler. Deep Femoral Vein: Normal compression, spontaneity and augmentation. Normal color Doppler. Femoral Proximal: Normal compression, spontaneity and augmentation. Normal color Doppler. Femoral Middle: Normal compression, spontaneity and augmentation. Normal color Doppler. Femoral Distal: Normal compression, spontaneity and augmentation. Normal color Doppler. Popliteal Vein: Normal compression, spontaneity and augmentation. Normal color Doppler. Posterior Tibial Vein: Normal compression, spontaneity and augmentation. Normal color Doppler. Peroneal Vein: Normal compression, spontaneity and augmentation. Normal color Doppler. US/Venous Duplex Imag/Contreras Extrem IMPRESSION: Extensive deep venous thrombosis involving the right lower extremity. Electronically Signed: Eugenio Barrera MD at 18:40 EDT ,
--- NOTE | 2022-01-25 17:31 | CT_ITS ---
STUDY: CTA OF THE ABDOMINAL AORTA AND BILATERAL LOWER EXTREMITIES REASON FOR EXAM: Female, 76 years old. Cool Leg, Pain RADIATION DOSAGE (If Supplied By Facility): CTDIvol = ( 9.39 ) mGy, DLP = ( 1614.79 ) mGycm TECHNIQUE: Axial CT angiography multi-detector data acquisition was obtained from the to the following intravenous administration of IV 100mL Isovue-370. Axial images and MIP images were reconstructed from the axial data set. Post-processing of the angiographic images was performed, with multiplanar reformation and 3D reconstruction. Individualized dose optimization techniques were used for this CT. TECHNICAL QUALITY: Good COMPARISON: None. Descriptors of Narrowing: None (0%) Mild (< 50%) Moderate (50-70%) Severe (70-90%) Subtotal/Total Occlusion (90-100%) Non-Evaluable (technically non-diagnostic FINDINGS: Abdominal aorta: Multifocal calcific plaquing but no demonstrated narrowing. Celiac and superior mesenteric arteries: No demonstrated narrowing. Inferior mesenteric artery: No demonstrated narrowing. Right renal artery(arteries): No demonstrated narrowing. Left renal artery(arteries): No demonstrated narrowing. Right common iliac artery: Mild calcific plaquing with no demonstrated narrowing. Right external iliac artery: No demonstrated narrowing. Right internal iliac artery: No demonstrated narrowing. Left common iliac artery: Mild calcific plaquing with no demonstrated narrowing. Left external iliac artery: No demonstrated narrowing. Left internal iliac artery: No demonstrated narrowing. RIGHT LOWER EXTREMITY Right common femoral artery: No demonstrated narrowing. Right profundus femoris: No demonstrated narrowing. Right superficial femoral: No demonstrated narrowing. Right popliteal artery: No demonstrated narrowing. Right tibioperoneal trunk: No demonstrated narrowing. Right anterior tibial artery: No demonstrated narrowing. Right posterior tibial artery: No demonstrated narrowing. Right peroneal artery: No demonstrated narrowing. LEFT LOWER EXTREMITY Left common femoral artery: No demonstrated narrowing. Left profundus femoris: No demonstrated narrowing. Left superficial femoral: No demonstrated narrowing. Left popliteal artery: Limited visualization due to the prosthesis placement however the visualized portion appears occluded Left tibioperoneal trunk: Occluded. Left anterior tibial artery: Occluded Left posterior tibial artery: Occluded Left peroneal artery: Occluded Pertinent incidental findings include cholelithiasis without evidence for acute cholecystitis, left renal cysts which will not require additional imaging inferior vena caval stent and postsurgical changes status post hysterectomy and lumbar spine fusion. CT/CTA Abd w/Runoff W/WO Contrast IMPRESSION: Mild to moderate atherosclerotic disease with multifocal calcific plaquing. Occluded left popliteal and calf arteries which appears to be noncalcified thrombus suggesting embolic origin. Clinical correlation recommended Electronically Signed: Eugenio Barrera MD at 19:28 EDT ,
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
[2022-01-25] MEDS: 0.9% Normal Saline 1,000 ML 1000 ML IV (17:52)
[2022-01-25 17:54] LABS: Absolute Lymphocyte Count 1.13 X10^3/uL (0.83-4.51); Absolute Neutrophil Count 9.5 X10^3/uL (2.0-7.7); Basophil# 0.03 X10^3/uL; Basophil% 0.3 % (0-1); Eosinophil# 0.12 X10^3/uL; Hematocrit 39.3 % (37-47); Hemoglobin 11.9 g/dL (12.0-15.0); Lymphocyte # 1.13 X10^3/ul (0.83-4.51); Lymphocyte % 9.8 % (19-41); Mean Corp Hgb Conc 30.3 g/dL (32-36); Mean Corpuscular Volume 89.1 fL (81-99); Mean Platelet Vol. 10.1 fl (6.2-12.0); Monocyte# 0.68 X10^3/uL; Monocyte% 5.9 % (0-10); NRBC Flagged by Analyzer 0 % (0-5); Neutrophil # 9.46 X10^3/uL (2.7-7.7); Neutrophil % 82.4 % (47-70); POSITIVE MORPHOLOGY YES; Platelet Count 169 K/mm3 (150-450); RBC Distribution Width CV 20.4 % (11.6-14.6); RBC Distribution Width SD 67.1 fl (35.1-43.9); Red Blood Count 4.41 M/mm3 (4.2-5.4); White Blood Count 11.5 K/mm3 (4.4-11.0)
[2022-01-25 18:16] LABS: ALB/GLOB Ratio 0.9 RATIO (0.9-2.4); AST(SGOT) 17 U/L (15-37); Alanine Aminotransfer ALT/SGPT 23 U/L (13-56); Albumin, Serum 3.7 g/dL (3.2-5.0); Alkaline Phosphatase 47 U/L (45-117); Anion Gap 12 (5-15); BUN 20 mg/dL (7-18); BUN/Creat Ratio 12.7 RATIO (10-20); Calcium,Total 9.9 mg/dL (8.5-10.1); Chloride 106 mmol/L (98-107); Creatinine, Serum 1.57 mg/dL (0.55-1.02); EST Glomerular Filtration Rate 34 mL/min (>60); Est Glom Filt Rate - Afr Amer 41 mL/min (>60); Estimated Creatinine Clearance 24.82 ml/min; Globulin 3.9 g/dL (2.2-4.2); Glucose 137 mg/dL (74-106); Protein, Total 7.6 g/dL (6.4-8.2); Sodium Level 139 mmol/L (136-145)
[2022-01-25 18:26] LABS: Differential Indicated SCAN CRITERIA MET
[2022-01-25 18:29] LABS: Anisocytosis RARE; Macrocytosis RARE; Platelet Estimate ADEQUATE (ADEQ); Red Cell Morphology N CHROM NORMAL (NORM C&C)
[2022-01-25 18:36] LABS: Lactic Acid 2.8 mmol/L (0.4-1.9)
[2022-01-25] MEDS: 0.9% Normal Saline 1,000 ML 999 ML IV (19:12)
[2022-01-25 19:13] VITALS: BP 154/63; PULSE 62; RESP 16; O2SAT 99
[2022-01-25 20:05] LABS: International Normalized Ratio 1.1; Prothrombin Time (Protime)PT. 14.2 SECONDS (11.7-14.9)
[2022-01-25 20:06] LABS: Partial Thromboplast Time 26.7 Seconds (24.1-36.2)
[2022-01-25] MEDS: Heparin Injection (Vial) 5,000 UNIT/ML VIAL 7500 UNIT IV (20:23)
[2022-01-25] MEDS: HEPARIN/D5w 25,000 UNITS 25,000 UNITS/250 ML IV.SOLN. 0.1 UNITS CONT INF (20:23)
[2022-01-25 20:35] VITALS: BP 135/76; PULSE 61; RESP 18; O2SAT 98
[2022-01-25 20:47] LABS: Mucous, Urine 0 SEEN /hpf (<or=2+); Red Blood Cells-Urine 0 SEEN /hpf (0-5)
[2022-01-25 20:48] LABS: Color, Urine Yellow (Yellow); Glucose, Dipstick Normal (Normal); Ketone-Dipstick 5 mg/dl (Negative); Leukocyte Esterase-Dipstick 25 /ul (Negative); Nitrite-Dipstick Negative (Negative); Occult Blood-Urine Negative /ul (Negative); Protein-Dipstick 30 mg/dl (Negative); Urine Bilirubin Dipstick Negative (Negative); Urine Clarity Clear (Clear); Urine Urobilinogen Normal (Normal)
[2022-01-25 21:32] VITALS: BP 142/66; PULSE 50; RESP 16; O2SAT 100
[2022-01-25 21:37] LABS: Bacteria 1+ /hpf (None Seen); Squamous Epithelial Cells - UA 0-5 SEEN /hpf (5-10); White Blood Cells 0-5 SEEN /hpf (0-5)
[2022-01-25 21:47] LABS: Reflex Lactate? Y
[2022-01-25 22:11] VITALS: BP 134/66; PULSE 58; RESP 18; O2SAT 100
--- NOTE | 2022-01-25 23:04 | EKG12_ITS ---
Test Reason : DYSRHYTHMIA Blood Pressure : / mmHG Vent. Rate : 061 BPM Atrial Rate : 061 BPM P-R Int : 268 ms QRS Dur : 122 ms QT Int : 462 ms P-R-T Axes : 036 -30 147 degrees QTc Int : 465 ms Sinus rhythm with 1st degree A-V block Left axis deviation Left ventricular hypertrophy with QRS widening and repolarization abnormality Abnormal ECG Confirmed by NURYS VILLALTA, YAZMIN ([id number]), research editor FORREST SALDAÑA ([id number]) on 01/29/2022 9:46:25 AM Referred By: DONELL Confirmed By:YAZMIN NUNO MD
[2022-01-26 00:05] VITALS: BP 139/90; PULSE 67; RESP 18; O2SAT 98
[2022-01-26 00:59] VITALS: BP 124/71; PULSE 69; RESP 16; O2SAT 98
[2022-01-26 01:44] VITALS: PULSE 59
--- NOTE | 2022-01-26 01:46 | NURSING ---
called physicians at 2310 for updated eta they said 90-2. called at 0145 and they gave a 40 min eta.
[2022-01-26 02:26] LABS: Partial Thromboplast Time > 200.0 Seconds (24.1-36.2)
== END 2022-01-26 02:57 | disposition short-term general hospital (02) ==
PROVIDERS: Emergency Medicine; Emergency Provider Emergency Medicine; PCP Family Medicine Geriatric Medicine; Visit Provider Emergency Medicine
DX: D64.9 Anemia, unspecified (principal); I11.0 Hypertensive heart disease with heart failure; I50.32 Chronic diastolic (congestive) heart failure; I82.401 Acute embolism and thrombosis of unspecified deep veins of right lower extremity; Z98.2 Presence of cerebrospinal fluid drainage device; E78.5 Hyperlipidemia, unspecified; I70.90 Unspecified atherosclerosis; M79.604 Pain in right leg
CPT/HCPCS: 75635; 80053; 81001; 83605; 85025; 85610; 85730; 93005; 93970; 99285; J7030; Q9967; A4216

== ENCOUNTER → 2022-02-05 | Outpatient (CLI) | payer MEDICARE, OTHER, SELFPAY | END | disposition home or self-care (01) | LOC: LAB.FUTURE 11:49 | PROVIDERS: PCP Family Medicine Geriatric Medicine; Visit Provider Internal Medicine Nephrology | DX: N18.32 Chronic kidney disease, stage 3b (principal) ==

== ENCOUNTER → 2022-02-05 | Outpatient (CLI) | payer MEDICARE, OTHER, SELFPAY ==
[2022-02-05 13:56] LABS: Absolute Lymphocyte Count 0.92 X10^3/uL (0.83-4.51); Basophil# 0.03 X10^3/uL; Basophil% 0.5 % (0-1); Eosinophil# 0.14 X10^3/uL; Eosinophils% 2.1 % (0-5); Hematocrit 30.9 % (37-47); Hemoglobin 9.7 g/dL (12.0-15.0); Lymphocyte # 0.92 X10^3/ul (0.83-4.51); Mean Corp Hgb Conc 31.4 g/dL (32-36); Mean Corpuscular Hgb 27.6 pg (27.0-32.0); Monocyte# 0.45 X10^3/uL; Monocyte% 6.8 % (0-10); NRBC Flagged by Analyzer 0 % (0-5); Neutrophil # 4.98 X10^3/uL (2.7-7.7); Neutrophil % 75.8 % (47-70); Platelet Count 409 K/mm3 (150-450); RBC Distribution Width CV 19.4 % (11.6-14.6); RBC Distribution Width SD 61.7 fl (35.1-43.9); Red Blood Count 3.51 M/mm3 (4.2-5.4); White Blood Count 6.6 K/mm3 (4.4-11.0)
== END | disposition home or self-care (01) ==
LOC: POLAB3 12:05
PROVIDERS: PCP Family Medicine Geriatric Medicine; Visit Provider Family Medicine Geriatric Medicine
DX: D64.9 Anemia, unspecified (principal)
CPT/HCPCS: 36415; 85025

== ENCOUNTER → 2022-02-26 | Outpatient (CLI) | payer MEDICARE, OTHER, SELFPAY ==
--- NOTE | 2022-02-26 15:49 | VDLE_ITS ---
Reason For Study: Edema RIGHT LEFT CFV is partiually compressible with minimal GSV is normal. venous flow noted. Known DVT as of CFV is compressible, spontaneous, phasic, 01/25/2022. competent, and demonstrates normal Procedure augmentation. This is a venous duplex using B-mode, color FV is compressible, spontaneous, phasic, flow and spectral Doppler. competent and demonstrates normal Exam performed in department. augmentation. A preliminary report was called and/or faxed POP V is compressible, spontaneous, phasic, to Norma. competent and demonstrates normal augmentation. T/P Trunk is compressible. LT PerV is compressible. Acute deep vein thrombosis is noted in the left posterior tibial vein. VL/Venous Duplex US, Unilateral Interpretation Summary Deep venous thrombosis left posterior tibial vein Patent, compressible left great saphenous vein. Minimal flow right common femoral vein, see study of 01/25/22 Ordering Physician: Jean Paul Bañuelos Chi Referring Physician: Jean Paul Bañuelos Chi Performed By: Maribel Ruggiero RVT
[2022-02-26 17:04] LABS: Absolute Lymphocyte Count 1.81 X10^3/uL (0.83-4.51); Absolute Neutrophil Count 5.9 X10^3/uL (2.0-7.7); Basophil# 0.05 X10^3/uL; Basophil% 0.6 % (0-1); Eosinophil# 0.42 X10^3/uL; Eosinophils% 4.7 % (0-5); Hematocrit 35.9 % (37-47); Hemoglobin 10.6 g/dL (12.0-15.0); Lymphocyte # 1.81 X10^3/ul (0.83-4.51); Lymphocyte % 20.3 % (19-41); Mean Corp Hgb Conc 29.5 g/dL (32-36); Mean Corpuscular Volume 91.6 fL (81-99); Mean Platelet Vol. 10.3 fl (6.2-12.0); Monocyte# 0.69 X10^3/uL; Monocyte% 7.7 % (0-10); NRBC Flagged by Analyzer 0 % (0-5); Neutrophil # 5.91 X10^3/uL (2.7-7.7); Neutrophil % 66.3 % (47-70); Platelet Count 336 K/mm3 (150-450); RBC Distribution Width CV 18.8 % (11.6-14.6); RBC Distribution Width SD 62.8 fl (35.1-43.9); Red Blood Count 3.92 M/mm3 (4.2-5.4); White Blood Count 8.9 K/mm3 (4.4-11.0)
== END | disposition home or self-care (01) ==
PROVIDERS: PCP Family Medicine Geriatric Medicine; Referring Provider Family Medicine Geriatric Medicine; Visit Provider Family Medicine Geriatric Medicine
DX: R60.0 Localized edema (principal); D64.9 Anemia, unspecified
CPT/HCPCS: 36415; 85025; 93971

== ENCOUNTER → 2022-02-27 | Outpatient (CLI) | payer MEDICARE, OTHER, SELFPAY ==
[2022-02-27 18:21] LABS: BUN 17 mg/dL (7-18); BUN/Creat Ratio 12.9 RATIO (10-20); Calcium,Total 9.1 mg/dL (8.5-10.1); Chloride 109 mmol/L (98-107); Creatinine, Serum 1.32 mg/dL (0.55-1.02); EST Glomerular Filtration Rate 41 mL/min (>60); Est Glom Filt Rate - Afr Amer 50 mL/min (>60); Glucose 102 mg/dL (74-106); Phosphorus 3.6 mg/dL (2.5-4.9); Sodium Level 141 mmol/L (136-145)
[2022-02-28 08:59] LABS: PTHIN 63.6 pg/mL (18.4-80.1)
== END | disposition home or self-care (01) ==
LOC: POLAB3 16:52
PROVIDERS: PCP Family Medicine Geriatric Medicine; Visit Provider Internal Medicine Nephrology
DX: N18.32 Chronic kidney disease, stage 3b (principal)
CPT/HCPCS: 36415; 80069; 83970

== ENCOUNTER → 2022-03-12 | Outpatient (CLI) | payer MEDICARE, OTHER, SELFPAY ==
[2022-03-12 17:14] LABS: Absolute Lymphocyte Count 1.16 X10^3/uL (0.83-4.51); Basophil# 0.06 X10^3/uL; Eosinophil# 0.36 X10^3/uL; Eosinophils% 5.8 % (0-5); Hematocrit 28.5 % (37-47); Hemoglobin 8.4 g/dL (12.0-15.0); Lymphocyte # 1.16 X10^3/ul (0.83-4.51); Lymphocyte % 18.6 % (19-41); Mean Corp Hgb Conc 29.5 g/dL (32-36); Mean Corpuscular Hgb 27.5 pg (27.0-32.0); Mean Corpuscular Volume 93.4 fL (81-99); Mean Platelet Vol. 10.3 fl (6.2-12.0); Monocyte# 0.64 X10^3/uL; Monocyte% 10.3 % (0-10); NRBC Flagged by Analyzer 0 % (0-5); Platelet Count 388 K/mm3 (150-450); RBC Distribution Width CV 17.4 % (11.6-14.6); RBC Distribution Width SD 59.9 fl (35.1-43.9); Red Blood Count 3.05 M/mm3 (4.2-5.4); White Blood Count 6.2 K/mm3 (4.4-11.0)
== END | disposition home or self-care (01) ==
LOC: POLAB3 14:50
PROVIDERS: PCP Family Medicine Geriatric Medicine; Visit Provider Family Medicine Geriatric Medicine
DX: D50.9 Iron deficiency anemia, unspecified (principal)
CPT/HCPCS: 36415; 85025

== ENCOUNTER → 2022-03-22 | Outpatient (CLI) | payer MEDICARE, OTHER, SELFPAY ==
[2022-03-22 12:40] LABS: Absolute Lymphocyte Count 1.19 X10^3/uL (0.83-4.51); Absolute Neutrophil Count 5.3 X10^3/uL (2.0-7.7); Basophil# 0.06 X10^3/uL; Basophil% 0.8 % (0-1); Eosinophil# 0.46 X10^3/uL; Hematocrit 28.5 % (37-47); Hemoglobin 8.1 g/dL (12.0-15.0); Lymphocyte # 1.19 X10^3/ul (0.83-4.51); Lymphocyte % 15.5 % (19-41); Mean Corp Hgb Conc 28.4 g/dL (32-36); Mean Corpuscular Hgb 26.7 pg (27.0-32.0); Mean Corpuscular Volume 94.1 fL (81-99); Mean Platelet Vol. 10.5 fl (6.2-12.0); Monocyte# 0.62 X10^3/uL; Monocyte% 8.1 % (0-10); NRBC Flagged by Analyzer 0 % (0-5); Neutrophil # 5.31 X10^3/uL (2.7-7.7); Neutrophil % 69.1 % (47-70); Platelet Count 329 K/mm3 (150-450); RBC Distribution Width CV 17.4 % (11.6-14.6); RBC Distribution Width SD 60.1 fl (35.1-43.9); Red Blood Count 3.03 M/mm3 (4.2-5.4); White Blood Count 7.7 K/mm3 (4.4-11.0)
== END | disposition home or self-care (01) ==
PROVIDERS: PCP Family Medicine Geriatric Medicine; Visit Provider Family Medicine Geriatric Medicine
DX: K92.1 Melena (principal)
CPT/HCPCS: 36415; 85025

== ENCOUNTER → 2022-04-18 | Outpatient (CLI) | payer MEDICARE, OTHER, SELFPAY ==
[2022-04-18 17:27] LABS: Absolute Lymphocyte Count 2.24 X10^3/uL (0.83-4.51); Absolute Neutrophil Count 5.5 X10^3/uL (2.0-7.7); Basophil# 0.05 X10^3/uL; Basophil% 0.6 % (0-1); Eosinophil# 0.49 X10^3/uL; Eosinophils% 5.4 % (0-5); Hematocrit 35.2 % (37-47); Hemoglobin 9.9 g/dL (12.0-15.0); Lymphocyte # 2.24 X10^3/ul (0.83-4.51); Lymphocyte % 24.7 % (19-41); Mean Corp Hgb Conc 28.1 g/dL (32-36); Mean Corpuscular Hgb 25.8 pg (27.0-32.0); Mean Corpuscular Volume 91.9 fL (81-99); Mean Platelet Vol. 11.4 fl (6.2-12.0); Monocyte# 0.78 X10^3/uL; Monocyte% 8.6 % (0-10); NRBC Flagged by Analyzer 0 % (0-5); Neutrophil # 5.48 X10^3/uL (2.7-7.7); Neutrophil % 60.4 % (47-70); Platelet Count 425 K/mm3 (150-450); RBC Distribution Width SD 53.7 fl (35.1-43.9); Red Blood Count 3.83 M/mm3 (4.2-5.4); White Blood Count 9.1 K/mm3 (4.4-11.0)
[2022-04-18 17:45] LABS: Vitamin D,25 Hydroxy 32.6 ng/mL
[2022-04-18 18:05] LABS: ALB/GLOB Ratio 0.9 RATIO (0.9-2.4); AST(SGOT) 20 U/L (15-37); Alanine Aminotransfer ALT/SGPT 30 U/L (13-56); Albumin, Serum 3.7 g/dL (3.2-5.0); Alkaline Phosphatase 51 U/L (45-117); Anion Gap 12 (5-15); BUN 24 mg/dL (7-18); BUN/Creat Ratio 16.6 RATIO (10-20); Chloride 106 mmol/L (98-107); Creatinine, Serum 1.45 mg/dL (0.55-1.02); EST Glomerular Filtration Rate 37 mL/min (>60); Est Glom Filt Rate - Afr Amer 45 mL/min (>60); Globulin 4.1 g/dL (2.2-4.2); Glucose 113 mg/dL (74-106); Protein, Total 7.8 g/dL (6.4-8.2); Sodium Level 141 mmol/L (136-145); Thyroid Stim Hormone (TSH) 4.57 uIU/mL (0.358-3.74)
== END | disposition home or self-care (01) ==
LOC: POLAB3 14:10
PROVIDERS: PCP Family Medicine Geriatric Medicine; Visit Provider Family Medicine Geriatric Medicine
DX: D64.9 Anemia, unspecified (principal); E11.65 Type 2 diabetes mellitus with hyperglycemia; E55.9 Vitamin D deficiency, unspecified; I10 Essential (primary) hypertension
CPT/HCPCS: 36415; 80053; 82306; 84443; 85025

== ENCOUNTER → 2022-05-04 | Outpatient (CLI) | payer MEDICARE, OTHER, SELFPAY ==
[2022-05-07 08:07] LABS: Endomysial Antibody IgA Negative (Negative)
[2022-05-07 10:08] LABS: Immunoglobulin A 114 mg/dL (64-422); t-Transglutaminase IgA <2 U/mL (0-3)
== END | disposition home or self-care (01) ==
PROVIDERS: PCP Family Medicine Geriatric Medicine; Visit Provider Internal Medicine Gastroenterology
DX: K92.2 Gastrointestinal hemorrhage, unspecified (principal)
CPT/HCPCS: 36415; 82784; 83516; 86255

== ENCOUNTER → 2022-05-09 | Outpatient (CLI) | payer MEDICARE, OTHER, SELFPAY ==
[2022-05-09 17:53] LABS: Absolute Neutrophil Count 5.5 X10^3/uL (2.0-7.7); Basophil# 0.06 X10^3/uL; Basophil% 0.7 % (0-1); Eosinophil# 0.61 X10^3/uL; Hemoglobin 8.2 g/dL (12.0-15.0); Lymphocyte % 19.4 % (19-41); Mean Corp Hgb Conc 29.3 g/dL (32-36); Mean Corpuscular Hgb 25.9 pg (27.0-32.0); Mean Corpuscular Volume 88.6 fL (81-99); Mean Platelet Vol. 11.3 fl (6.2-12.0); Monocyte# 0.82 X10^3/uL; Monocyte% 9.4 % (0-10); NRBC Flagged by Analyzer 0.2 % (0-5); Neutrophil # 5.54 X10^3/uL (2.7-7.7); Neutrophil % 63.2 % (47-70); Platelet Count 338 K/mm3 (150-450); RBC Distribution Width CV 15.9 % (11.6-14.6); Red Blood Count 3.16 M/mm3 (4.2-5.4); White Blood Count 8.8 K/mm3 (4.4-11.0)
[2022-05-09 18:04] LABS: ALB/GLOB Ratio 0.9 RATIO (0.9-2.4); AST(SGOT) 14 U/L (15-37); Alanine Aminotransfer ALT/SGPT 19 U/L (13-56); Albumin, Serum 3.3 g/dL (3.2-5.0); Alkaline Phosphatase 46 U/L (45-117); Anion Gap 8 (5-15); BUN 41 mg/dL (7-18); BUN/Creat Ratio 30.8 RATIO (10-20); Calcium,Total 9.3 mg/dL (8.5-10.1); Chloride 107 mmol/L (98-107); Creatinine, Serum 1.33 mg/dL (0.55-1.02); EST Glomerular Filtration Rate 41 mL/min (>60); Est Glom Filt Rate - Afr Amer 50 mL/min (>60); Globulin 3.5 g/dL (2.2-4.2); Glucose 112 mg/dL (74-106); Potassium 4.2 mmol/L (3.5-5.1); Protein, Total 6.8 g/dL (6.4-8.2); Sodium Level 139 mmol/L (136-145)
== END | disposition home or self-care (01) ==
LOC: POLAB3 14:22
PROVIDERS: PCP Family Medicine Geriatric Medicine; Visit Provider Family Medicine Geriatric Medicine
DX: R53.1 Weakness (principal); L03.115 Cellulitis of right lower limb; S81.801A Unspecified open wound, right lower leg, initial encounter
CPT/HCPCS: 36415; 80053; 85025; 87075; 87880

== ENCOUNTER → 2022-05-14 | Outpatient (CLI) | payer MEDICARE, OTHER, SELFPAY ==
[2022-05-14 17:03] LABS: Absolute Neutrophil Count 5.2 X10^3/uL (2.0-7.7); Basophil# 0.05 X10^3/uL; Basophil% 0.5 % (0-1); Eosinophil# 0.38 X10^3/uL; Eosinophils% 4.1 % (0-5); Hematocrit 26.6 % (37-47); Hemoglobin 7.8 g/dL (12.0-15.0); Mean Corp Hgb Conc 29.3 g/dL (32-36); Mean Corpuscular Hgb 25.2 pg (27.0-32.0); Mean Corpuscular Volume 86.1 fL (81-99); Mean Platelet Vol. 10.3 fl (6.2-12.0); Monocyte# 0.97 X10^3/uL; Monocyte% 10.5 % (0-10); NRBC Flagged by Analyzer 0 % (0-5); Neutrophil # 5.22 X10^3/uL (2.7-7.7); Neutrophil % 56.4 % (47-70); Platelet Count 371 K/mm3 (150-450); RBC Distribution Width CV 16.4 % (11.6-14.6); RBC Distribution Width SD 51.3 fl (35.1-43.9); Red Blood Count 3.09 M/mm3 (4.2-5.4); White Blood Count 9.3 K/mm3 (4.4-11.0)
== END | disposition home or self-care (01) ==
LOC: LAB 16:39
PROVIDERS: PCP Family Medicine Geriatric Medicine; Visit Provider Internal Medicine Gastroenterology
DX: E61.1 Iron deficiency (principal)
CPT/HCPCS: 36415; 85025

== ENCOUNTER 2022-05-15 13:36 | Day surgery (SDC) | payer MEDICARE, OTHER, SELFPAY ==
[2022-05-15 14:04] VITALS: BP 97/54; PULSE 70; RESP 16; TEMP 36.8; O2SAT 97; BMI 35.6
[2022-05-15] MEDS: Lactated Ringers 1,000 ML 15 ML IV (14:16)
--- NOTE | 2022-05-15 14:45 | EGD_PTH ---
PATIENT: BRICE LOMELI LOC: EN U#:[id number] AGE/SX: 76/F ROOM: RE05/15/[address]: Dr. Kirby Cheng DO : 1945 BED: DIS: 05/15/2022 SPEC #: [id number] RECD: 05/15/22 18:00 STATUS: GIBRAN CORNELIO #: [id number] JEFERSON: 05/15/22 14:[address]: Kirby Cheng DEPT: SURGICAL PATHOLOGY RECD BY: Aroldo Cardenas ENTERED: 05/16/22 08:49 SP TYPE: EGD BIOPSY OT DR: Dr. Jean Paul Bañuelos MD Tissues: Duodenum, NOS Procedures: Surgery Specimen Level IV HEADER OPERATION: EGD ([facility] [place]) with biopsies and electrohemostasis PRE-OP DIAGNOSIS: Gastric reflux, dysphagia, anemia TISSUE SUBMITTED: Duodenum biopsy MICROSCOPIC DIAGNOSIS Duodenum, biopsy: No pathologic change. AM:linda 05/17/2022 MICROSCOPIC DESCRIPTION Slides are reviewed. GROSS DESCRIPTION Received in fixative is one container labeled with the patient's name and designated duodenum biopsy. The specimen consists of multiple irregular fragments of light villanueva soft tissue that in aggregate measure 1 x 0.3 x 0.1 cm. The specimen is totally submitted in one cassette. / SJ:linda 05/16/2022 TC:5 CPT: 47801
--- NOTE | 2022-05-15 15:00 | PCM.HP.BLA ---
History and Physical Date of Admission: 05/15/22 75 F who presents to the office today for Follow up visit. Barbara established with this clinic 02.08.21 with referral from her PCP for anemia workup; RBC 3.6 and hgb 9.2 on 01.03.21. Additional difficulties with dysphagia; urgent diarrhea causing incontinence with mucous and blood present lasting 24 hours and dissipated for several days, stress is a trigger. Hematology follows for anemia: Dr. Longoria last seen 07.04.21 with use of PO iron and PRBC transfusions PRN. PO iron ineffective, proceed with iron infusion. EGD performed 02.28.22 finding candidiasis esophagitis; moderate Schatzki ring, dilated with Savary dilator to 54F; gastritis; erythematous duodenopathy. 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 Recommend iron studies and possible iron infusions. Plan last visit 08.14.20: Alternating constipation/Diarrhea ? Dysphagia restart PPI and Carafate. Likely r/t GERD or medications induced. Anemia ? monitor hemoglobin. Keep visit with hematology. Increased flatulence and belching for the last week and occurs intermittently. Thought it was related to almond milk but went back to cow?s milk and this has continued. She does not eat much canned or fermented foods. Drinks Coke several times a week. Reports BM two days a week with frequent movements on those days that are typically firm and log shaped but can be loose and on those days she has abdominal pain. Dysphagia has resolved. Protonix continues BID. Sucralfate continues as she has some difficulty remembering to take this. ROS Const Constitutional: No anorexia, fatigue, fever(s), weight change or sleep problems Eyes Eyes: No change in vision ENT ENT: No abnormal hearing, difficulty swallowing, mouth lesions, tongue swelling or throat swelling Resp Respiratory: No cough or shortness of breath Cardio Cardiology: No chest pain at rest, chest pain with exertion, shortness of breath or dyspnea on exertion Gastro GI: No difficulty swallowing Genitourinary-Female: No difficulty urinating or burning urination Musc Musculoskeletal: No joint pain, joint swelling, muscle weakness or decreased muscle mass Skin Skin: No hair loss in leg, yellowing of the eye, itchy eyes, rash, skin ulcer or skin swelling Neuro Neurology: No abnormal hearing, abnormal movements, confusion, unsteady gait/balance or memory loss Psych Psychiatric: No anxiety, No confusion and No memory loss Endo Endocrine: No fatigue or weight change Aller/Imm Allergy/Immunologic: No itchy eyes, throat swelling or tongue swelling Lokesh/Lymp Hematologic/Lymphatic: No easy bleeding, easy bruising or enlarged lymph nodes Exam Const General: cooperative and comfortable Nutritional Appearance: average body habitus and well nourished HENMT Head: normal to inspection Ears: hearing grossly normal bilaterally Nose: external nose normal Face and sinus: normal facial exam Mouth: oral mucosae normal Throat: posterior oropharynx normal Eyes General: appearance normal, both eyes and all related structures Neck Neck: normal visual inspection Chest Chest palpation & inspection: normal inspection of the chest and normal palpation of entire chest wall Resp Effort & Inspection: normal respiratory effort Auscultation: Bilateral: Clear to Auscultation Cardio Palpation: normal PMI Rate: regular rate Rhythm: regular rhythm GI Inspection: normal to inspection Auscultation: normal bowel sounds Percussion: normal to percussion Palpation: no hepatosplenomegaly Skin General: no rashes or lesions noted Neuro General: patient alert Extrem General: normal to inspection Psych Affect: normal affect Quality Reporting Tobacco Screening ([facility] 138) Smoking Status: Never smoker Assessment and Plan Assessment and Plan (1) Gastric reflux: ?Status:?Acute ?Plan: I will continue her pantoprazole 40 mg a day as it is controlling her reflux symptoms and some of the bloating.? However she is experiencing a lot of belching as I think is associated with gas production.? We talked about some diet modifications and regarding cutting down on greasy vegetables that are not cooked and has taken produce a lot of gas upper GI tract. (2) Dysphagia: ?Status:?Acute ?Plan: She had an esophageal ring which was dilated to a 15 mm balloon dilation.? She is not having any trouble swallowing and it has not returned since being on proton pump inhibitor therapy. 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 These were at 3 hours into the study.? She would like to be evaluated for deep enteroscopy versus octreotide therapy.? I will discuss this with hematology. ? ? ? Medications: New amoxicillin-pot clavulanate 500-125 mg (Augmentin) 1 TAB? PO BID 14 days 28 tabs 0RF ? ? metoclopramide HCl ?? administer 30 minutes before meals 5 mg? PO TID 21 tabs 0RF ? ? Discontinued sucralfate ?? Discontinued Reason:? Order Completed 1 g? PO QAC 90 tabs 0RF ? ? I have examined the patient and the H&P has been reviewed. There are no clinical changes since date of exam.
[2022-05-15 15:20] VITALS: BP 105/52; BP 97/54; PULSE 70; RESP 16; TEMP 36.9; O2SAT 98
--- NOTE | 2022-05-15 15:21 | OP.EGD_ITS ---
Patient Name: Barbara Lloyd Procedure Date: 05/15/2022 2:59 PM Date of : 1945 Age: 76 Procedure: Upper GI endoscopy Indications: Iron deficiency anemia, Melena Providers: Kirby Cheng DO Medicines: Monitored Anesthesia Care Patient Profile: This is a 76 year old female. Refer to note in patient chart for documentation of history and physical. Patient has symptoms of acute nausea. Complications: No immediate complications. Procedure: Pre-Anesthesia Assessment: - Prior to the procedure, a History and Physical was performed, and patient medications and allergies were reviewed. The patient is competent. The risks and benefits of the procedure and the sedation options and risks were discussed with the patient. All questions were answered and informed consent was obtained. Patient identification and proposed procedure were verified by the physician in the pre-procedure area. Mental Status Examination: alert and oriented. Airway Examination: normal oropharyngeal airway and neck mobility. Respiratory Examination: clear to auscultation. CV Examination: normal. Prophylactic Antibiotics: The patient does not require prophylactic antibiotics. Prior Anticoagulants: The patient has taken no previous anticoagulant or antiplatelet agents. ASA Grade Assessment: II - A patient with mild systemic disease. After reviewing the risks and benefits, the patient was deemed in satisfactory condition to undergo the procedure. The anesthesia plan was to use monitored anesthesia care (MAC). Immediately prior to administration of medications, the patient was re-assessed for adequacy to receive sedatives. The heart rate, respiratory rate, oxygen saturations, blood pressure, adequacy of pulmonary ventilation, and response to care were monitored throughout the procedure. The physical status of the patient was re-assessed after the procedure. After obtaining informed consent, the endoscope was passed under direct vision. Throughout the procedure, the patient's blood pressure, pulse, and oxygen saturations were monitored continuously. The gastroscope was introduced through the mouth, and advanced to the second part of duodenum. The upper GI endoscopy was accomplished without difficulty. The patient tolerated the procedure well. Scope In: 3:11:41 PM Scope Out: 3:16:08 PM Total Procedure Duration Time 0 hours 4 minutes 27 seconds Findings: The examined esophagus was normal. Red blood was found in the gastric body. Three 5 mm bleeding angiodysplastic lesions were found in the gastric body. Coagulation for hemostasis using heater probe was successful. Estimated blood loss was minimal. Two 5 mm angiodysplastic lesions with bleeding were found in the duodenal bulb. Coagulation for hemostasis using heater probe was successful. Estimated blood loss was minimal. Localized mild inflammation characterized by erosions and erythema was found in the duodenal bulb. Biopsies were taken with a cold forceps for histology. Verification of patient identification for the specimen was done. Estimated blood loss was minimal. Impression: - Normal esophagus. - Red blood in the gastric body. - Three bleeding angiodysplastic lesions in the stomach. Treated with a heater probe. - Two bleeding angiodysplastic lesions in the duodenum. Treated with a heater probe. - Duodenitis. Biopsied. Recommendation: - Discharge patient to home. - Resume previous diet. - Continue present medications. - Await pathology results. Procedure Code(s): --- Professional --- 15379, 59, Esophagogastroduodenoscopy, flexible, transoral; with control of bleeding, any method 58095, 51, Esophagogastroduodenoscopy, flexible, transoral; with biopsy, single or multiple CPT copyright 2017 [employer]. All rights reserved. The codes documented in this report are preliminary and upon underwriting support manager review may be revised to meet current compliance requirements. Kirby Cheng DO 05/15/2022 3:20:36 PM This report has been signed electronically. Number of Addenda: 0 Note Initiated On: 05/15/2022 2:59 PM
--- NOTE | 2022-05-15 15:22 | OP.CCLET_ITS ---
05/15/2022 Jean Paul Bañuelos MD [address] [place] [address] Re : Upper GI endoscopy procedure for Barbara Lloyd Dear Dr. Bañuelos This procedure was performed on Sunday, May 15, 2022. My impressions and recommendations are as follows: Impressions : - Normal esophagus. - Red blood in the gastric body. - Three bleeding angiodysplastic lesions in the stomach. Treated with a heater probe. - Two bleeding angiodysplastic lesions in the duodenum. Treated with a heater probe. - Duodenitis. Biopsied. Recommendations : - Discharge patient to home. - Resume previous diet. - Continue present medications. - Await pathology results. My findings are described in the full procedure note, which is enclosed. If I can be of further assistance, please feel free to contact me at . Sincerely, Kirby Cheng, 05/15/2022 3:20:36 PM This report has been signed electronically.
[2022-05-15 15:25] VITALS: BP 102/54; BP 97/54; PULSE 66; RESP 16; O2SAT 96
[2022-05-15 15:30] VITALS: BP 109/54; BP 97/54; PULSE 65; RESP 16; O2SAT 93
[2022-05-15 15:35] VITALS: BP 114/53; BP 97/54; PULSE 64; RESP 16; TEMP 36.7; O2SAT 95
[2022-05-15 16:22] VITALS: BP 97/54
== END 2022-05-15 16:26 | disposition home or self-care (01) ==
LOC: EN 13:38 → AC 13:38
PROVIDERS: PCP Family Medicine Geriatric Medicine; Referring Provider Family Medicine Geriatric Medicine; Visit Provider Internal Medicine Gastroenterology
PROC: 0DJ08ZZ Inspection of Upper Intestinal Tract, Via Natural or Artificial Opening Endoscopic (ICD-10-PCS; CPT 43235; principal; 2022-05-15 14:40)
DX: K31.811 Angiodysplasia of stomach and duodenum with bleeding (principal); K29.80 Duodenitis without bleeding; K21.9 Gastro-esophageal reflux disease without esophagitis; R13.10 Dysphagia, unspecified; R14.2 Eructation; R14.0 Abdominal distension (gaseous); D64.9 Anemia, unspecified
CPT/HCPCS: 43239; 43255; 88305; J7120; J2405

== ENCOUNTER → 2022-05-21 | Outpatient (CLI) | payer MEDICARE, OTHER, SELFPAY ==
[2022-05-21 17:04] LABS: Absolute Lymphocyte Count 1.23 X10^3/uL (0.83-4.51); Absolute Neutrophil Count 4.9 X10^3/uL (2.0-7.7); Basophil# 0.04 X10^3/uL; Basophil% 0.6 % (0-1); Eosinophil# 0.22 X10^3/uL; Eosinophils% 3.1 % (0-5); Hematocrit 25.5 % (37-47); Hemoglobin 7.4 g/dL (12.0-15.0); Lymphocyte # 1.23 X10^3/ul (0.83-4.51); Lymphocyte % 17.5 % (19-41); Mean Corpuscular Volume 86.1 fL (81-99); Mean Platelet Vol. 10.9 fl (6.2-12.0); Monocyte% 8.5 % (0-10); NRBC Flagged by Analyzer 0 % (0-5); Neutrophil # 4.91 X10^3/uL (2.7-7.7); Platelet Count 385 K/mm3 (150-450); RBC Distribution Width CV 16.3 % (11.6-14.6); RBC Distribution Width SD 51.4 fl (35.1-43.9); Red Blood Count 2.96 M/mm3 (4.2-5.4)
[2022-05-21 17:26] LABS: Ferritin 9 ng/mL (8-252); Iron 18 ug/dL (50-170); Iron Binding Capacity,Total 430 ug/dL (250-450); PERCENT IRON SATURATION 4.2 % (15.0-55.0)
== END | disposition home or self-care (01) ==
LOC: POLAB3 13:46
PROVIDERS: PCP Family Medicine Geriatric Medicine; Visit Provider Family Medicine Geriatric Medicine
DX: D64.9 Anemia, unspecified (principal)
CPT/HCPCS: 36415; 82728; 83540; 83550; 85025

== ENCOUNTER → 2022-05-24 | Outpatient (CLI) | payer MEDICARE, OTHER, SELFPAY ==
[2022-05-24] VITALS (7 sets, daily range): BP systolic 129–144; BP diastolic 51–64; PULSE 60–74; RESP 14–18; TEMP 36.1–36.4; O2SAT 98–100
[2022-05-24] MEDS: 0.9% NaCl Peripheral Flush Adult/Peds IV (09:36)
[2022-05-24] MEDS: Furosemide 20 MG/2 ML VIAL IV (11:52)
== END | disposition home or self-care (01) ==
LOC: MEDOUTP 09:24
PROVIDERS: PCP Family Medicine Geriatric Medicine; Referring Provider Family Medicine Geriatric Medicine; Visit Provider Family Medicine Geriatric Medicine
DX: D50.9 Iron deficiency anemia, unspecified (principal)
CPT/HCPCS: 96372; 36415; 36430; 86850; 86900; 86901; 86920; 86922; J7040; P9016; A4216; J1940

== ENCOUNTER 2022-05-31 08:45 | Outpatient (RCR) | payer MEDICARE, OTHER, SELFPAY ==
[2022-05-10 10:16] VITALS: BP 117/57; PULSE 84; RESP 16; TEMP 36.3; BMI 36.1
--- NOTE | 2022-05-10 12:58 | HP.PCM_ITS ---
History of Present Illness Date of Service: 05/10/22 Chief Complaint: Right Leg Ulcer History of Wound: Ms. Lloyd is a 76-year-old referred by her PCP due to nonhealing right lower extremity ulceration. Symptoms started about 2 weeks ago. Started with blistering. She has noted more blistering of the lower extremities lately. Subsequent opening with drainage. Was managed for cellulitis by her PCP. Currently on levofloxacin and Bactrim and also received a Rocephin injection. She denies chills, fever or feeling of unwell. No known history of diabetes mellitus. [facility] Medical History (Updated 05/10/22 @ 13:[address] Jared Donaldson MD) Afib Anemia Anemia Anemia due to chronic blood loss Anemia due to gastrointestinal blood loss Angina pectoris Aortic valve disorder Arthritis Asthma Atherosclerotic heart disease of [place] coronary artery without angina pectoris Atrial fibrillation Atrioventricular bloc first degree Back pain BiPAP (biphasic positive airway pressure) dependence Bronchitis CAD (coronary artery disease) Cardiology follow-up encounter Carotid bruit Chronic diastolic (congestive) heart failure Chronic GI bleeding Depression Difficulty balancing Dizziness DVT (deep venous thrombosis) Dysphagia Essential hypertension Fatigue Gastric reflux Glaucoma Hay fever Hemorrhoids History of atrial fibrillation History of DVT (deep vein thrombosis) History of echocardiogram History of edema History of IBS History of left heart catheterization (LHC) (~08/04/21) History of osteoarthritis History of pulmonary embolism History of stress test HLD (hyperlipidemia) Hydrocephalus Hypokalemia Incontinence Injury of head and neck Iron deficiency Iron deficiency anemia Iron refractory iron deficiency anemia Knee pain Leg cramps Limb weakness Neck pain Non-smoker Normal pressure hydrocephalus Obesities, morbid Obesity JONY (obstructive sleep apnea) Pharyngitis Presence of IVC filter Presence of IVC filter Presence of vena cava filter Pulmonary embolism Shortness of breath on exertion Shoulder pain Sleep apnea SOB (shortness of breath) Thromboembolic disorder Ulcer of right lower extremity with fat layer exposed unexpained bruising Unstable angina Upper respiratory infection Venous insufficiency of both lower extremities Wears glasses Wears hearing aid Home Medications gabapentin 600 mg tablet 600 mg PO QHS 05/04/15 [History Last Taken 08/02/21] dorzolamide 2 % eye drops 1 drp RIGHT EYE BID 02/24/21 [History Last Taken 08/03/21] benazepril 10 mg tablet 10 mg PO DAILY BP 08/03/21 [History Last Taken 08/03/21] duloxetine 20 mg capsule,delayed release 40 mg PO BID DEPRESSION 08/03/21 [History Last Taken 08/03/21] latanoprost 0.005 % eye drops 1 drp EACH EYE QHS GLUACOMA 08/03/21 [History Last Taken 08/02/21] polysaccharide iron complex 150 mg iron capsule (iFerex 150) 150 mg PO DAILY IRON 08/03/21 [History Last Taken Unknown] pantoprazole 40 mg tablet,delayed release 40 mg PO BID #60 tabs 08/14/21 [Rx Last Taken Unknown] spironolactone 50 mg tablet 50 mg PO DAILY 10/30/21 [History Last Taken Unknown] sennosides 8.6 mg tablet (Natural Senna Laxative) 17.2 mg PO DAILY 01/09/22 [History Last Taken Unknown] ascorbic acid (vitamin C) 500 mg capsule 500 mg PO DAILY 04/19/22 [History Last Taken Unknown] dabigatran etexilate 75 mg capsule (Pradaxa) 75 mg PO BID 04/19/22 [History Last Taken Unknown] levofloxacin 500 mg tablet 500 mg PO DAILY 05/10/22 [History Last Taken Unknown] levothyroxine 25 mcg tablet 25 mcg PO DAILY 05/10/22 [History Last Taken Unknown] multivitamin 1 tab PO DAILY 05/10/22 [History Last Taken Unknown] sulfamethoxazole 800 mg-trimethoprim 160 mg tablet (Bactrim DS) 1 tab PO Q12H 05/10/22 [History Last Taken Unknown] Allergy/AdvReac Type Severity Reaction Status Date / Time rivaroxaban [From Xarelto] Allergy Severe Unknown Verified 04/19/22 13:54 acetaminophen [From Percocet] Allergy Unknown hallucinati Verified 04/19/22 13:54 ons alprazolam [From Xanax] Allergy Unknown fatigue Verified 04/19/22 13:54 oxycodone [From Percocet] Allergy Unknown hallucinati Verified 04/19/22 13:54 ons carisoprodol [From Soma] Allergy Rash Verified 04/19/22 13:54 adhesive AdvReac blisters Verified 04/19/22 13:54 antihistamines AdvReac Other Uncoded 04/19/22 13:54 Family History Mother Cancer pancreatic Asthma Son Asthma Brother Heart disease Diabetes Hypertension Kidney disease Sister Heart disease Hypertension Diabetes Surgical History History of arthroscopy of right shoulder History of cardiac catheterization History of hernia repair History of hysterectomy History of laminectomy History of spinal fusion History of toe surgery History of total left knee replacement History of ventriculoperitoneal shunting (~06/16/14) Hx of appendectomy Hx of carpal tunnel repair Hx of cholecystectomy Intracranial shunt Presence of coronary angioplasty implant and graft (~06/08/20) Presence of stent in coronary artery (~06/08/20) Social History Smoking Status: Never smoker Electronic Cigarette Use: not used alcohol intake: never substance use type: does not use caffeine: Yes Type: tea Number of servings: 1 ROS Constitutional Constitutional: Denies anorexia, body ache(s), fatigue, increased appetite, lethargy, night sweats or poor appetite Eyes Eyes: Denies bloody eye, blurry vision, change in vision, discharge from eye(s), discongugate gaze, double vision or loss of peripheral vision ENT HEENT: Denies dental pain, disequillibrium, dysphagia, ear discharge, foreign body in nose, halitosis, headache(s), hearing loss, hoarseness, lip swelling or loss taste/smell Cardiovascular Cardiovascular: Denies chest pain with activity, claudication, clubbing, cold extremities, cyanosis, dyspnea at rest, easily tiring during activity, fatigue or flutter in chest Respiratory/Chest Respiratory/Chest: Denies difficulty clearing secretions, dry cough, dusky skin, dyspnea, dyspnea on exertion, excessive phlegm production, hemoptysis or hoarse ness Gastrointestinal Gastrointestinal: Denies bloating, change in bowel habits, chewing difficulty, coffee ground emesis, constipation, cramping, dry heaves, dyspepsia or excessive flatus Genitourinary Genitourinary: Denies abdominal discomfort, change in urinary stream, difficulty urinating, dysuria or flank pain Musculoskeletal Musculoskeletal: Reports back pain, difficulty walking and joint pain; Denies joint swelling, loss of height, muscle cramps, muscle spasms or muscle weakness Integumentary Integumentary: Denies erythema, furuncle, hirsutism, jaundice, lesions, nail changes, new lesions, non-healing lesions or photosensitivity Neurologic Neurologic: Denies behavior changes, disequilibrium, dizziness, focal weakness, frequent falls, headache(s) or lack of coordination Psychiatric Psychiatric: Denies cognitive impairment, confusion, depression, difficulty concentrating, hallucinations, homicidal ideation or hopelessness Endocrine Endocrinology: Denies deepening of the voice, excessive sweating, fatigue, heat intolerance, increase in ring/shoe/hat size, polydipsia, polyphagia or polyuria Hematologic/Lymphatic Hematologic/Lymphatic: Denies lymphadenopathy Allergic/Immunologic Allergic/Immunologic: Denies throat swelling, tongue swelling, hives, urticaria, eczemia or wheezing Vital Signs Vital Signs Vital Signs: 05/10/22 10:16 Temperature 97.3 F L Temperature Source Temporal Pulse Rate 84 Respiratory Rate 16 Blood Pressure 117/57 L Blood Pressure Mean 77 Blood Pressure Source Monitor Blood Pressure Position Sitting Blood Pressure Location Left Arm Oxygen Delivery Method Room Air Weight Weight: 204 lb Body Mass Index (BMI) 36.1 Physical Exam Const alert, oriented x3, no apparent distress and average body habitus General Appearance: cooperative, comfortable and well kempt HEENT normocephalic, head/scalp atraumatic and hearing grossly normal bilaterally Eyes EOMs intact bilaterally Neck full ROM General: normal visual inspection Resp normal respiratory effort and normal air movement Effort and Inspection: able to speak in complete sentences Cardio regular rate, regular rhythm, S1 normal heart sound and S2 normal heart sound GI soft to palpation and non-tender Extremity General Extremity: edema Skin Wounds: wounds noted Neuro oriented x3, CN's II-XII intact bilaterally, moves all extremities and no focal motor deficits Psych mental status grossly normal, thought process normal, cooperative and affect normal Debridement Note Debridement Note Wound debrided: Right Lower Extremity Type of Debridement: Excisional debridement Anesthesia Used: 4% Lidocaine Solution Depth: Down to and including healthy tissue and in the subcutaneous layer Percentage of wound debrided: 100 Instrument Used: 5mm curette Tissue Removed: Slough and devitalized tissue Severity: Fat Layer Exposed Amount of bleeding with debridement: Mild Bleeding Controlled with: Pressure Patient tolerated procedure: Patient tolerated procedure well Post-Debridement Measurements and Additional Note: Post-Debridement Measurements/Treatment WC - Nurse 1 - General Ulcer Assessment Start: 05/10/22 08:00 Freq: Status: Active Protocol: MENDY.LOWEXT Activity Type Activity Date Activity User E-sign Co-sign Detail Recorded Client Recorded Date Recorded By Document 05/10/22 10:16 [facility] [id number] 05/10/22 10:36 [facility] 05/10/22 10:16 - Today's Visit Information Type of service Initial Visit Arrival Mode Ambulatory,Cane Transfer Assistance None Patient Identification Verified (Name & Yes ) Patient Requires Transmission-Based No Precautions Height and Weight Height 5 ft 3 in Weight 204 lb Weight in Pounds 204.0 lbs Weight Measurement Method Stated by Patient Body Mass Index (BMI) 36.1 BMI Classification Obese BSA - Taj 1.95 Vital Signs Temperature (97.8 F-99.1 F) 97.3 F L Temperature Source Temporal Pulse Rate (60-100) 84 Pulse Location Monitor Respiratory Rate (12-18) 16 Respiratory rate source Observation Oxygen Delivery Method Room Air Blood Pressure (90/60-120/80) 117/57 L Blood Pressure Mean 77 Source Monitor Position Sitting Blood Pressure Location Left Arm History Since Last Visit- (Skip if this is Patient's initial visit) Left Footwear Regular Shoe Right Footwear Regular Shoe Pain Scale: 0-10 Numeric Is Patient Pain Free? Yes Lower Extremity Assessment/ Foot Assessment/ Toe Nail Assessment Right -Posterior Tibial Palpable No -Posterior Tibial Doppler Monophasic -Dorsalis Pedis Doppler Multiphasic -Extremity Color Pale -Hair Growth on Legs No -Hair Growth on Toes No -Temperature of Extremity Cool -Other Deformity No -Prior Foot Ulcer No -Charcot Joint No -Prior Amputation No -Thick No -Discolored No -Deformed No -Improper Length & Hygeine No Left -Posterior Tibial Palpable No -Posterior Tibial Doppler Monophasic -Dorsalis Pedis Doppler Multiphasic -Extremity Color Pale -Hair Growth on Legs No -Hair Growth on Toes No -Temperature of Extremity Cool -Capillary Refill Less than 3 Seconds -Other Deformity No -Prior Foot Ulcer No -Charcot Joint No -Prior Amputation No -Thick No -Discolored No -Deformed No -Improper Length & Hygeine No Neuropathy Assessment Feet - Top Side and Bottom <Entered> (a) Communication Assessment Preferred language Latvian Quality Control Analyst Required No Able to Read Yes Able to Write Yes Communication Tools None Right Hearing Abillity Normal Left Hearing Abillity Normal Visual Assistive Devices Glasses Teaching Assessment Preferences Verbal,Written, Audio/Visual, Demonstration Barriers to Learning None Readiness To Learn Excellent Willingness to Engage in Self Management High Activies Readiness to Engage in Self Management High Activities Anxiety Level Calm Cooperation Cooperative Perception Coherent Interest in Health Problem Asks Questions Education Importance Acknowledges Need Does Patient Smoke tobacco or other No substances Functional Assessment Recent Decline in Ability to Perform Denies Any Declines 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 Senior Cultural/Latter Day Needs that may affect No Treatment Plan Teaching: Wound Center *Welcome to the Wound Center -Person Taught Patient -Teaching Method Discussion -Response to teaching Verbalize understanding Welcome to the Wound Care Center Latvian (a) 1 - + WC - Nurse 1 - General Ulcer Measurement Start: 05/10/22 08:00 Freq: Status: Active Protocol: Activity Type Activity Date Activity User E-sign Co-sign Detail Recorded Client Recorded Date Recorded By Document 05/10/22 10:16 [facility] [id number] 05/10/22 10:36 [facility] 05/10/22 10:16 Wound Center Nurse 1 #1- R LEVINE -Combined with other wound No -Current Size (cm) - Length 2.7 -Current Size (cm) - Width 3.5 -Current Size (cm) - Depth 0.1 -Total Square Cm 9.45 -Date of Last Picture (Recall this 05/10/22 field) -Photo Taken Yes -Epithelialization None Present -Tunneling No -Undermining/Tunneling No -Circular Undermining No -Exudate Amt Small -Exudate Type Serosanguineous -Wound Margin Flat & Intact -Granulation Amt Medium (34-66%) -Granulation Quality Red -Slough/Fibrin Yes -Necrosis Amt Medium (34-66%) -Necrotic Tissue Type Adherent Slough -Texture (Elzbieta-wound Skin Appearance) Assessed, Scarring -Moisture (Elzbieta-wound Skin Appearance) Assessed,Dry/ Scaly -Color (Elzbieta-wound Skin Appearance) Assessed -Temperature (Elzbieta-wound Skin No Abnormality Appearance) (Pt Warm) -Tenderness on Palpation (Elzbieta-wound No Skin Appearance) -Ulcer Cleansing Rinsed/ Irrigated with Saline -Foul Odor after Cleansing No -Anesthetic Used 5% Lidocaine Gel Lower Limb Edema Present Yes Point of measurement (cm from the medial 40 instep) Point of Measurement (cm from the medial 23.2 instep) Point of measurement (cm from the medial 39.7 instep) Point of Measurement (cm from the medial 23 instep) MENDY - Nurse 2 - General Ulcer CM Notes Start: 05/10/22 08:00 Freq: Status: Active Protocol: Activity Type Activity Date Activity User E-sign Co-sign Detail Recorded Client Recorded Date Recorded By Document 05/10/22 10:55 MW [id number] 05/10/22 11:06 MW 05/10/22 10:55 Wound Center Nurse 2 #1- R LEVINE -Time 10:57 -Correct Patient Yes -Correct Side, Site, Position Yes -Correct Procedure Yes -Procedure Performed Yes -Type of Procedure Debridement -Clinical Debridement Subcutaneous -Tissue Removed Subcutaneous -Post Debridement (cm) - Length 3.0 -Post Debridement (cm) - Width 3.0 -Post Debridement (cm) - Depth 1.0 -Total Square (Post) (cm) 9.00 -Area of Debridement (cm) - Length 3.0 -Area of Debridement (cm) - Width 3.0 -Total Square (Area) (cm) 9.00 -Tunneling No -Undermining/Tunneling No -Circular Undermining No -Wound/Ulcer Outcome Not Healed -Ulcer Cleansing Rinsed/ Irrigated with Saline -Foul Odor after Cleansing No -Bioengineered Tissue No -Bleeding Controlled with Pressure -Treatment Response Procedure Tolerated Well -Offloading No -Debridement - Subq, 1st 20sq cm Yes Pain Scale: 0-10 Numeric Is Patient Pain Free? Yes MENDY - Nurse 3 - General Ulcer D/C NN Start: 05/10/22 08:00 Freq: Status: Active Protocol: Activity Type Activity Date Activity User E-sign Co-sign Detail Recorded Client Recorded Date Recorded By Document 05/10/22 11:12 [facility] [id number] 05/10/22 11:13 [facility] 05/10/22 11:12 Wound Care Center Nurse 3 #1- R LEVINE -Ulcer Cleansing Rinsed/ Irrigated with Saline -Foul Odor after Cleansing No -Primary Dressing Applied Aquacel Extra, NonAdherent Contact Layer -Other Dressing DRSG PER DL PEDIATRIC SPEECH THERAPIST -Primary Dressing Covered/Secured with Dry Gauze & Roll Gauze, Secured with Tape -Aquacel Extra 1 BLE -Tubular Bandage Double Layer -Size of Tubigrip Used Size E -Size E ($) 2 Treatment Response Procedure Tolerated Well Pain Scale: 0-10 Numeric Is Patient Pain Free? Yes WC - Visit Discharge Discharge Condition Stable Ambulatory Status Ambulatory,Cane Transportation Private Auto Charges/Coding Visit Charges Office Visits / Consults: 76169 OV L3 Est Procedures Integumentary 111xxx-113xx: 03992 Christy subq tissue 20 sq cm/< Assessment/Plan Assessment/Plan (1) Ulcer of right lower extremity with fat layer exposed: CODE(S): L97.912 - Non-pressure chronic ulcer of unspecified part of right lower leg with fat layer exposed (2) Venous insufficiency of both lower extremities: CODE(S): I87.2 - Venous insufficiency (chronic) (peripheral) (3) History of DVT (deep vein thrombosis): CODE(S): Z86.718 - Personal history of other venous thrombosis and embolism PLAN: Plan Debridement done as documented above, procedure was well-tolerated. Very lengthy discussion had with patient on management of lower extremity edema. Prescription for compression garments sent. She voiced understanding. Aquacel extra daily to right lower extremity ulcer, cover with Adaptic and gauze. Double layer Tubigrip for edema management for now. Exercise and leg elevation also discussed. Increase protein intake, vitamin C, D and zinc. Her questions were answered and she was advised to call with any further questions or concerns. This note was generated with [employer] software. It may contain incorrect words, spelling, and punctuation that were not noted in checking the note before signing.
[2022-05-17 08:34] VITALS: BP 121/62; PULSE 68; RESP 16; TEMP 35.7; BMI 36.1
--- NOTE | 2022-05-17 08:54 | PN.PCM_ITS ---
History of Present Illness Date of Service: 05/17/22 Chief Complaint: Right Leg Ulcer History of Wound: Ms. Lloyd is a 76-year-old referred by her PCP due to nonhealing right lower extremity ulceration. Symptoms started about 2 weeks ago. Started with blistering. She has noted more blistering of the lower extremities lately. Subsequent opening with drainage. Was managed for cellulitis by her PCP. Currently on levofloxacin and Bactrim and also received a Rocephin injection. She denies chills, fever or feeling of unwell. No known history of diabetes mellitus. Progress of Wound: No new concerns at this time. Right lower extremity ulceration is improving. Approved for CircAid's to her right and not her left. Objective Data Objective Data Vital Signs: Vital Signs Temp Pulse Resp BP O2 Del Method 96.3 F L 68 16 121/62 H Room Air 05/17/22 08:34 05/17/22 08:34 05/17/22 08:34 05/17/22 08:34 05/17/22 08:34 Oxygen Delivery Method Room Air Weight: 204 lb Body Mass Index (BMI) 36.1 Charges/Coding Procedures Integumentary 111xxx-113xx: 17674 Christy subq tissue 20 sq cm/< Physical Exam Const alert, oriented x3 and no apparent distress General Appearance: cooperative, comfortable and well kempt HEENT normocephalic, head/scalp atraumatic and hearing grossly normal bilaterally Eyes EOMs intact bilaterally Neck full ROM General: normal visual inspection Resp normal respiratory effort Effort and Inspection: able to speak in complete sentences Extremity General Extremity: edema Skin Wounds: wounds noted Neuro oriented x3, CN's II-XII intact bilaterally, moves all extremities and no focal motor deficits Psych mental status grossly normal, thought process normal, cooperative and affect normal Debridement Note Debridement Note Wound debrided: Right Lower Extremity Type of Debridement: Excisional debridement Anesthesia Used: 5% Lidocaine Gel Depth: Down to and including healthy tissue and in the subcutaneous layer Percentage of wound debrided: 100 Instrument Used: 3mm curette Tissue Removed: Slough and devitalized tissue Severity: Fat Layer Exposed Amount of bleeding with debridement: Mild Bleeding Controlled with: Pressure Patient tolerated procedure: Patient tolerated procedure well Post-Debridement Measurements and Additional Note: Post-Debridement Measurements/Treatment WC - Nurse 1 - General Ulcer Assessment Start: 05/10/22 08:00 Freq: Status: Active Protocol: WC.LOWEXT Activity Type Activity Date Activity User E-sign Co-sign Detail Recorded Client Recorded Date Recorded By Document 05/10/22 10:16 [facility] [id number] 05/10/22 10:36 [facility] Document 05/17/22 08:34 [facility] [id number] 05/17/22 08:41 [facility] 05/10/22 05/17/22 10:16 08:34 - Today's Visit Information Type of service Initial Visit Follow-up Visit (Physician/COAL WHEELER ) Arrival Mode Ambulatory,Cane Ambulatory,Cane Transfer Assistance None None Patient Identification Verified (Name & Yes Yes ) Patient Requires Transmission-Based No No Precautions Height and Weight Height 5 ft 3 in Weight 204 lb Weight in Pounds 204.0 lbs Weight Measurement Method Stated by Patient Body Mass Index (BMI) 36.1 36.1 BMI Classification Obese Obese BSA - Taj 1.95 Vital Signs Temperature (97.8 F-99.1 F) 97.3 F L 96.3 F L Temperature Source Temporal Temporal Pulse Rate (60-100) 84 68 Pulse Location Monitor Monitor Respiratory Rate (12-18) 16 16 Respiratory rate source Observation Observation Oxygen Delivery Method Room Air Room Air Blood Pressure (90/60-120/80) 117/57 L 121/62 H Blood Pressure Mean (mm Hg) 77 81 Source Monitor Monitor Position Sitting Sitting Blood Pressure Location Left Arm History Since Last Visit- (Skip if this is Patient's initial visit) Have you changed medications since your No last visit? Any new allergies or adverse reactions No Had a fall/change in ADL's that may No increase risk of falls Signs or symptoms of abuse and/or No neglect since last visit Have you been in the hospital since your No last visit? Has dressing in place as prescribed Yes Has compression in place as prescribed Yes Has offloadiing in place as prescribed N/A Experienced any changes in pain level or No management Left Footwear Regular Shoe Regular Shoe Right Footwear Regular Shoe Regular Shoe Pain Scale: 0-10 Numeric Is Patient Pain Free? Yes Yes Lower Extremity Assessment/ Foot Assessment/ Toe Nail Assessment Right -Posterior Tibial Palpable No -Posterior Tibial Doppler Monophasic -Dorsalis Pedis Doppler Multiphasic -Extremity Color Pale -Hair Growth on Legs No -Hair Growth on Toes No -Temperature of Extremity Cool -Other Deformity No -Prior Foot Ulcer No -Charcot Joint No -Prior Amputation No -Thick No -Discolored No -Deformed No -Improper Length & Hygeine No Left -Posterior Tibial Palpable No -Posterior Tibial Doppler Monophasic -Dorsalis Pedis Doppler Multiphasic -Extremity Color Pale -Hair Growth on Legs No -Hair Growth on Toes No -Temperature of Extremity Cool -Capillary Refill Less than 3 Seconds -Other Deformity No -Prior Foot Ulcer No -Charcot Joint No -Prior Amputation No -Thick No -Discolored No -Deformed No -Improper Length & Hygeine No Neuropathy Assessment Feet - Top Side and Bottom <Entered> (a) Communication Assessment Preferred language [place] Diversional Therapist Required No Able to Read Yes Able to Write Yes Communication Tools None Right Hearing Abillity Normal Left Hearing Abillity Normal Visual Assistive Devices Glasses Teaching Assessment Preferences Verbal,Written, Audio/Visual, Demonstration Barriers to Learning None Readiness To Learn Excellent Willingness to Engage in Self Management High Activies Readiness to Engage in Self Management High Activities Anxiety Level Calm Cooperation Cooperative Perception Coherent Interest in Health Problem Asks Questions Education Importance Acknowledges Need Does Patient Smoke tobacco or other No substances Functional Assessment Recent Decline in Ability to Perform Denies Any Declines Culture/Zoroastrianism/[place] Cultural/Zoroastrianism Needs that may affect No Treatment Plan Teaching: Wound Center *Welcome to the Wound Center -Person Taught Patient -Teaching Method Discussion -Response to teaching Verbalize understanding Welcome to the Wound Care Center [place]ian (a) 1 - + WC - Nurse 1 - General Ulcer Measurement Start: 05/10/22 08:00 Freq: Status: Active Protocol: Activity Type Activity Date Activity User E-sign Co-sign Detail Recorded Client Recorded Date Recorded By Document 05/10/22 10:16 [facility] [id number] 05/10/22 10:36 [facility] Document 05/17/22 08:34 [facility] [id number] 05/17/22 08:41 [facility] 05/10/22 05/17/22 10:16 08:34 Wound Center Nurse 1 #1- R LEVINE -Combined with other wound No No -Current Size (cm) - Length 2.7 1.2 -Current Size (cm) - Width 3.5 1.4 -Current Size (cm) - Depth 0.1 0.1 -Total Square Cm 9.45 1.68 -Date of Last Picture (Recall this 05/10/22 05/17/22 field) -Photo Taken Yes Yes -Epithelialization None Present Small 1-33% -Tunneling No No -Undermining/Tunneling No No -Circular Undermining No No -Exudate Amt Small Small -Exudate Type Serosanguineous Serosanguineous -Wound Margin Flat & Intact Flat & Intact -Granulation Amt Medium (34-66%) Large (67-100%) -Granulation Quality Red Red -Slough/Fibrin Yes No -Necrosis Amt Medium (34-66%) None Present (0 %) -Necrotic Tissue Type Adherent Slough -Texture (Elzbieta-wound Skin Appearance) Assessed, Assessed, Scarring Scarring -Moisture (Elzbieta-wound Skin Appearance) Assessed,Dry/ Assessed Scaly -Color (Elzbieta-wound Skin Appearance) Assessed Assessed -Temperature (Elzbieta-wound Skin No Abnormality No Abnormality Appearance) (Pt Warm) (Pt Warm) -Tenderness on Palpation (Elzbieta-wound No Yes Skin Appearance) -Ulcer Cleansing Rinsed/ Soap and Water Irrigated with Saline -Foul Odor after Cleansing No No -Anesthetic Used 5% Lidocaine 5% Lidocaine Gel Gel Lower Limb Edema Present Yes Yes Right Calf (cm) 37.5 Point of measurement (cm from the medial 40 instep) Right Ankle (cm) 22.5 Point of Measurement (cm from the medial 23.2 instep) Point of measurement (cm from the medial 39.7 instep) Point of Measurement (cm from the medial 23 instep) WC - Nurse 2 - General Ulcer CM Notes Start: 05/10/22 08:00 Freq: Status: Active Protocol: Activity Type Activity Date Activity User E-sign Co-sign Detail Recorded Client Recorded Date Recorded By Document 05/10/22 10:55 MW [id number] 05/10/22 11:06 MW 05/10/22 10:55 Wound Center Nurse 2 #1- R LEVINE -Time 10:57 -Correct Patient Yes -Correct Side, Site, Position Yes -Correct Procedure Yes -Procedure Performed Yes -Type of Procedure Debridement -Clinical Debridement Subcutaneous -Tissue Removed Subcutaneous -Post Debridement (cm) - Length 3.0 -Post Debridement (cm) - Width 3.0 -Post Debridement (cm) - Depth 1.0 -Total Square (Post) (cm) 9.00 -Area of Debridement (cm) - Length 3.0 -Area of Debridement (cm) - Width 3.0 -Total Square (Area) (cm) 9.00 -Tunneling No -Undermining/Tunneling No -Circular Undermining No -Wound/Ulcer Outcome Not Healed -Ulcer Cleansing Rinsed/ Irrigated with Saline -Foul Odor after Cleansing No -Bioengineered Tissue No -Bleeding Controlled with Pressure -Treatment Response Procedure Tolerated Well -Offloading No -Debridement - Subq, 1st 20sq cm Yes Pain Scale: 0-10 Numeric Is Patient Pain Free? Yes - Nurse 3 - General Ulcer D/C NN Start: 05/10/22 08:00 Freq: Status: Active Protocol: Activity Type Activity Date Activity User E-sign Co-sign Detail Recorded Client Recorded Date Recorded By Document 05/10/22 11:12 [facility] [id number] 05/10/22 11:13 [facility] 05/10/22 11:12 Wound Care Center Nurse 3 #1- R LEVINE -Ulcer Cleansing Rinsed/ Irrigated with Saline -Foul Odor after Cleansing No -Primary Dressing Applied Aquacel Extra, NonAdherent Contact Layer -Other Dressing DRSG PER DL GROUNDWATER MONITORING TECHNICIAN -Primary Dressing Covered/Secured with Dry Gauze & Roll Gauze, Secured with Tape -Aquacel Extra 1 BLE -Tubular Bandage Double Layer -Size of Tubigrip Used Size E -Size E ($) 2 Treatment Response Procedure Tolerated Well Pain Scale: 0-10 Numeric Is Patient Pain Free? Yes - Visit Discharge Discharge Condition Stable Ambulatory Status Ambulatory,Cane Transportation Private Auto Assessment/Plan Assessment/Plan (1) Ulcer of right lower extremity with fat layer exposed: CODE(S): L97.912 - Non-pressure chronic ulcer of unspecified part of right lower leg with fat layer exposed (2) Venous insufficiency of both lower extremities: CODE(S): I87.2 - Venous insufficiency (chronic) (peripheral) (3) History of DVT (deep vein thrombosis): CODE(S): Z86.718 - Personal history of other venous thrombosis and embolism PLAN: Plan Debridement done as documented above, procedure was well-tolerated. Improving. Continue Aquacel extra daily to right lower extremity ulcer, cover with Adaptic and gauze. CircAid to right lower extremity at 20 to 30 mmHg. Continue double layer Tubigrip to the left. Exercise and leg elevation also discussed. Increase protein intake, vitamin C, D and zinc. Her questions were answered and she was advised to call with any further questions or concerns. This note was generated with [employer]ation software. It may contain incorrect words, spelling, and punctuation that were not noted in checking the note before signing.
[2022-05-31 08:52] VITALS: BP 117/57; PULSE 73; RESP 18; TEMP 36.6; BMI 36.1
--- NOTE | 2022-05-31 09:42 | PCM.WC.PN ---
History of Present Illness Date of Service: 05/31/22 Chief Complaint: Right Leg Ulcer History of Wound: Ms. Lloyd is a 76-year-old referred by her PCP due to nonhealing right lower extremity ulceration. Symptoms started about 2 weeks ago. Started with blistering. She has noted more blistering of the lower extremities lately. Subsequent opening with drainage. Was managed for cellulitis by her PCP. Currently on levofloxacin and Bactrim and also received a Rocephin injection. She denies chills, fever or feeling of unwell. No known history of diabetes mellitus. Progress of Wound: Healed. No new concerns at this time. Objective Data Objective Data Vital Signs: Vital Signs Temp Pulse Resp BP O2 Del Method 98 F 73 18 117/57 L Room Air 05/31/22 08:52 05/31/22 08:52 05/31/22 08:52 05/31/22 08:52 05/17/22 08:34 Oxygen Delivery Method Room Air Weight: 204 lb Body Mass Index (BMI) 36.1 Charges/Coding Visit Charges Office Visits / Consults: [id number] OV L3 Est Physical Exam Const alert, oriented x3 and no apparent distress General Appearance: cooperative, comfortable and well kempt HEENT normocephalic, head/scalp atraumatic and hearing grossly normal bilaterally Eyes EOMs intact bilaterally Neck full ROM General: normal visual inspection Resp normal respiratory effort Effort and Inspection: able to speak in complete sentences Extremity General Extremity: edema Skin Wounds: wounds noted Neuro oriented x3, CN's II-XII intact bilaterally, moves all extremities and no focal motor deficits Psych mental status grossly normal, thought process normal, cooperative and affect normal Debridement Note Debridement Note Post-Debridement Measurements and Additional Note: Post-Debridement Measurements/Treatment WC - Nurse 1 - General Ulcer Assessment Start: 05/10/22 08:00 Freq: Status: Active Protocol: WC.LOWJESSICAT Activity Type Activity Date Activity User E-sign Co-sign Detail Recorded Client Recorded Date Recorded By Document 05/10/22 10:16 BMF [id number] 05/10/22 10:36 BMF Document 05/17/22 08:34 BMF [id number] 05/17/22 08:41 BMF Document 05/31/22 08:52 DL [id number] 05/31/22 08:54 DL 05/10/22 05/17/22 05/31/22 10:16 08:34 08:52 WC - Today's Visit Information Type of service Initial Visit Follow-up Visit Follow-up Visit (Physician/ARCHITECTURAL PROJECT CAPTAIN (Physician/ARCHITECTURAL PROJECT CAPTAIN ) ) Arrival Mode Ambulatory,Cane Ambulatory,Cane Ambulatory Transfer Assistance None None None Patient Identification Verified (Name & Yes Yes Yes ) Patient Requires Transmission-Based No No No Precautions Height and Weight Height 5 ft 3 in Weight 204 lb Weight in Pounds 204.0 lbs Weight Measurement Method Stated by Patient Body Mass Index (BMI) 36.1 36.1 36.1 BMI Classification Obese Obese Obese BSA - Taj 1.95 Vital Signs Temperature (97.8 F-99.1 F) 97.3 F L 96.3 F L 98 F Temperature Source Temporal Temporal Temporal Pulse Rate (60-100) 84 68 73 Pulse Location Monitor Monitor Monitor Respiratory Rate (12-18) 16 16 18 Respiratory rate source Observation Observation Observation Oxygen Delivery Method Room Air Room Air Blood Pressure (90/60-120/80) 117/57 L 121/62 H 117/57 L Blood Pressure Mean (mm Hg) 77 81 77 Source Monitor Monitor Monitor Position Sitting Sitting Blood Pressure Location Left Arm History Since Last Visit- (Skip if this is Patient's initial visit) Have you changed medications since your No No last visit? Any new allergies or adverse reactions No No Had a fall/change in ADL's that may No No increase risk of falls Signs or symptoms of abuse and/or No No neglect since last visit Have you been in the hospital since your No No last visit? Has dressing in place as prescribed Yes Yes Has compression in place as prescribed Yes Yes Has offloadiing in place as prescribed N/A N/A Experienced any changes in pain level or No No management Left Footwear Regular Shoe Regular Shoe Right Footwear Regular Shoe Regular Shoe Pain Scale: 0-10 Numeric Is Patient Pain Free? Yes Yes Yes Lower Extremity Assessment/ Foot Assessment/ Toe Nail Assessment Right -Posterior Tibial Palpable No -Posterior Tibial Doppler Monophasic -Dorsalis Pedis Doppler Multiphasic -Extremity Color Pale -Hair Growth on Legs No -Hair Growth on Toes No -Temperature of Extremity Cool -Other Deformity No -Prior Foot Ulcer No -Charcot Joint No -Prior Amputation No -Thick No -Discolored No -Deformed No -Improper Length & Hygeine No Left -Posterior Tibial Palpable No -Posterior Tibial Doppler Monophasic -Dorsalis Pedis Doppler Multiphasic -Extremity Color Pale -Hair Growth on Legs No -Hair Growth on Toes No -Temperature of Extremity Cool -Capillary Refill Less than 3 Seconds -Other Deformity No -Prior Foot Ulcer No -Charcot Joint No -Prior Amputation No -Thick No -Discolored No -Deformed No -Improper Length & Hygeine No Neuropathy Assessment Feet - Top Side and Bottom <Entered> (a) Communication Assessment Preferred language [place] Electronic Sales And Service Technician Required No Able to Read Yes Able to Write Yes Communication Tools None Right Hearing Abillity Normal Left Hearing Abillity Normal Visual Assistive Devices Glasses Teaching Assessment Preferences Verbal,Written, Audio/Visual, Demonstration Barriers to Learning None Readiness To Learn Excellent Willingness to Engage in Self Management High Activies Readiness to Engage in Self Management High Activities Anxiety Level Calm Cooperation Cooperative Perception Coherent Interest in Health Problem Asks Questions Education Importance Acknowledges Need Does Patient Smoke tobacco or other No substances Functional Assessment Recent Decline in Ability to Perform Denies Any Declines 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 Cultural/Roman Catholic Needs that may affect No Treatment Plan Teaching: Wound Center *Welcome to the Wound Center -Person Taught Patient -Teaching Method Discussion -Response to teaching Verbalize understanding Welcome to the Wound Care Center [place] (a) 1 - + WC - Nurse 1 - General Ulcer Measurement Start: 05/10/22 08:00 Freq: Status: Active Protocol: Activity Type Activity Date Activity User E-sign Co-sign Detail Recorded Client Recorded Date Recorded By Document 05/10/22 10:16 [facility] [id number] 05/10/22 10:36 [facility] Document 05/17/22 08:34 [facility] [id number] 05/17/22 08:41 [facility] Document 05/31/22 08:52 DL [id number] 05/31/22 08:54 DL 05/10/22 05/17/22 05/31/22 10:16 08:34 08:52 Wound Center Nurse 1 #1- R LEVINE -Combined with other wound No No -Current Size (cm) - Length 2.7 1.2 0.1 -Current Size (cm) - Width 3.5 1.4 0.1 -Current Size (cm) - Depth 0.1 0.1 0.1 -Total Square Cm 9.45 1.68 0.01 -Date of Last Picture (Recall this 05/10/22 05/17/22 field) -Photo Taken Yes Yes No -Epithelialization None Present Small 1-33% -Tunneling No No -Undermining/Tunneling No No -Circular Undermining No No -Exudate Amt Small Small None Present -Exudate Type Serosanguineous Serosanguineous Serosanguineous -Wound Margin Flat & Intact Flat & Intact Distinct, Outline Attached -Granulation Amt Medium (34-66%) Large (67-100%) Large (67-100%) -Granulation Quality Red Red [place] -Slough/Fibrin Yes No -Necrosis Amt Medium (34-66%) None Present (0 None Present (0 %) %) -Necrotic Tissue Type Adherent Slough -Structure Exposed N/A -Texture ([place]-wound Skin Appearance) Assessed, Assessed, Scarring Scarring Scarring -Moisture ([place]-wound Skin Appearance) Assessed,Dry/ Assessed No Abnormality Scaly -Color ([place]-wound Skin Appearance) Assessed Assessed No Abnormality -Temperature ([place]-wound Skin No Abnormality No Abnormality No Abnormality Appearance) (Pt Warm) (Pt Warm) (Pt Warm) -Tenderness on Palpation ([place]-wound No Yes No Skin Appearance) -Ulcer Cleansing Rinsed/ Soap and Water Rinsed/ Irrigated with Irrigated with Saline Saline -Foul Odor after Cleansing No No -Anesthetic Used 5% Lidocaine 5% Lidocaine 5% Lidocaine Gel Gel Gel Lower Limb Edema Present Yes Yes Right Calf (cm) 37.5 36.2 Point of measurement (cm from the medial 40 instep) Right Ankle (cm) 22.5 22.5 Point of Measurement (cm from the medial 23.2 instep) Point of measurement (cm from the medial 39.7 instep) Point of Measurement (cm from the medial 23 instep) WC - Nurse 2 - General Ulcer CM Notes Start: 05/10/22 08:00 Freq: Status: Active Protocol: Activity Type Activity Date Activity User E-sign Co-sign Detail Recorded Client Recorded Date Recorded By Document 05/10/22 10:55 MW [id number] 05/10/22 11:06 MW Document 05/17/22 08:54 MW [id number] 05/17/22 08:55 MW Document 05/31/22 09:23 MW [id number] 05/31/22 09:27 MW 05/10/22 05/17/22 05/31/22 10:55 08:54 09:23 Wound Center Nurse 2 #1- R LEVINE -Time 10:57 08:54 09:24 -Correct Patient Yes Yes Yes -Correct Side, Site, Position Yes Yes Yes -Correct Procedure Yes Yes Yes -Procedure Performed Yes Yes No -Type of Procedure Debridement Debridement -Clinical Debridement Subcutaneous Subcutaneous -Tissue Removed Subcutaneous Subcutaneous -Post Debridement (cm) - Length 3.0 2.0 0 -Post Debridement (cm) - Width 3.0 1.2 0 -Post Debridement (cm) - Depth 1.0 0.1 0 -Total Square (Post) (cm) 9.00 2.40 0 -Area of Debridement (cm) - Length 3.0 2.0 -Area of Debridement (cm) - Width 3.0 1.2 -Total Square (Area) (cm) 9.00 2.40 -Tunneling No No -Undermining/Tunneling No No -Circular Undermining No No -Wound/Ulcer Outcome Not Healed Not Healed Healed- Epithelialized -Ulcer Cleansing Rinsed/ Rinsed/ Irrigated with Irrigated with Saline Saline -Foul Odor after Cleansing No No -Bioengineered Tissue No No -Bleeding Controlled with Pressure Pressure -Treatment Response Procedure Procedure Tolerated Well Tolerated Well -Offloading No No -Debridement - Subq, 1st 20sq cm Yes Yes Pain Scale: 0-10 Numeric Is Patient Pain Free? Yes Yes Yes WC - Nurse 3 - General Ulcer D/C NN Start: 05/10/22 08:00 Freq: Status: Active Protocol: Activity Type Activity Date Activity User E-sign Co-sign Detail Recorded Client Recorded Date Recorded By Document 05/10/22 11:12 [facility] [id number] 05/10/22 11:13 [facility] Document 05/17/22 09:00 BMF [id number] 05/17/22 09:01 BMF Document 05/31/22 09:30 DL [id number] 05/31/22 09:32 DL 05/10/22 05/17/22 05/31/22 11:12 09:00 09:30 Wound Care Center Nurse 3 #1- R LEVINE -Ulcer Cleansing Rinsed/ Rinsed/ Irrigated with Irrigated with Saline Saline -Foul Odor after Cleansing No No -Primary Dressing Applied Aquacel Extra, Aquacel Extra, NonAdherent NonAdherent Contact Layer Contact Layer -Other Dressing DRSG PER DL RAILCAR BRAKE OPERATOR -Primary Dressing Covered/Secured with Dry Gauze & Dry Gauze & Roll Gauze, Roll Gauze, Secured with Secured with Tape Tape -Aquacel Extra 1 1 BLE -Tubular Bandage Double Layer -Size of Tubigrip Used Size E -Size E ($) 2 -Other single layer left on, on left; educated/ applied new juxtalite to R Treatment Response Procedure Procedure Tolerated Well Tolerated Well Pain Scale: 0-10 Numeric Is Patient Pain Free? Yes Yes Yes WC - Visit Discharge Discharge Condition Stable Stable Stable Ambulatory Status Ambulatory,Cane Ambulatory Ambulatory Transportation Private Auto Private Auto Private Auto Notes: Pt healed, adaptic and gauze only applied today. Pt to do this for 2 weeks and continue her Circ Aids. Discharged. Assessment/Plan Assessment/Plan (1) Ulcer of right lower extremity with fat layer exposed: CODE(S): L97.912 - Non-pressure chronic ulcer of unspecified part of right lower leg with fat layer exposed (2) Venous insufficiency of both lower extremities: CODE(S): I87.2 - Venous insufficiency (chronic) (peripheral) (3) History of DVT (deep vein thrombosis): CODE(S): Z86.718 - Personal history of other venous thrombosis and embolism PLAN: Plan Healed, no new concerns at this time. Adaptic and gauze for 2 weeks. Moisturize adequately. Continue CircAid to right lower extremity at 20 to 30 mmHg. Compression stockings at 20 to 30 mmHg to the left as well.. Exercise and leg elevation also discussed. Her questions were answered and she was advised to call with any further questions or concerns. Discharge from the wound clinic. This note was generated with VoiceGem[employer] software. It may contain incorrect words, spelling, and punctuation that were not noted in checking the note before signing.
== END 2022-06-05 11:01 | disposition home or self-care (01) ==
LOC: WC 08:45
PROVIDERS: PCP Family Medicine Geriatric Medicine; Visit Provider Internal Medicine
DX: L97.912 Non-pressure chronic ulcer of unspecified part of right lower leg with fat layer exposed (principal); I11.0 Hypertensive heart disease with heart failure; I50.32 Chronic diastolic (congestive) heart failure; Z79.01 Long term (current) use of anticoagulants; I25.10 Atherosclerotic heart disease of native coronary artery without angina pectoris; I87.2 Venous insufficiency (chronic) (peripheral); E78.5 Hyperlipidemia, unspecified; Z86.718 Personal history of other venous thrombosis and embolism
CPT/HCPCS: 11042; 99213; G0463

== ENCOUNTER 2022-05-31 09:58 | Outpatient (CLI) | payer MEDICARE, OTHER, SELFPAY ==
[2022-05-31 12:46] LABS: Hematocrit 29.8 % (37-47); Hemoglobin 8.8 g/dL (12.0-15.0)
[2022-05-31 12:52] LABS: Thyroid Stim Hormone (TSH) 1.29 uIU/mL (0.358-3.74)
== END 2022-05-31 23:59 | disposition home or self-care (01) ==
PROVIDERS: PCP Family Medicine Geriatric Medicine; Visit Provider Family Medicine Geriatric Medicine
DX: E03.9 Hypothyroidism, unspecified (principal); L97.912 Non-pressure chronic ulcer of unspecified part of right lower leg with fat layer exposed; I11.0 Hypertensive heart disease with heart failure; I50.32 Chronic diastolic (congestive) heart failure; D64.9 Anemia, unspecified; Z79.01 Long term (current) use of anticoagulants; I25.10 Atherosclerotic heart disease of native coronary artery without angina pectoris; I87.2 Venous insufficiency (chronic) (peripheral); E78.5 Hyperlipidemia, unspecified; Z86.718 Personal history of other venous thrombosis and embolism
CPT/HCPCS: 36415; 84443; 85014; 85018; 99213; G0463

== ENCOUNTER → 2022-06-13 | Outpatient (CLI) | payer MEDICARE, OTHER, SELFPAY ==
[2022-06-13 16:38] LABS: Absolute Neutrophil Count 4.3 X10^3/uL (2.0-7.7); Basophil# 0.04 X10^3/uL; Basophil% 0.6 % (0-1); Eosinophil# 0.29 X10^3/uL; Hematocrit 25.8 % (37-47); Hemoglobin 7.7 g/dL (12.0-15.0); Lymphocyte % 23.6 % (19-41); Mean Corp Hgb Conc 29.8 g/dL (32-36); Mean Corpuscular Hgb 25.3 pg (27.0-32.0); Mean Corpuscular Volume 84.9 fL (81-99); Mean Platelet Vol. 10.7 fl (6.2-12.0); Monocyte# 0.74 X10^3/uL; Monocyte% 10.3 % (0-10); NRBC Flagged by Analyzer 0 % (0-5); Neutrophil # 4.32 X10^3/uL (2.7-7.7); Platelet Count 369 K/mm3 (150-450); RBC Distribution Width CV 16.9 % (11.6-14.6); RBC Distribution Width SD 52.8 fl (35.1-43.9); Red Blood Count 3.04 M/mm3 (4.2-5.4); White Blood Count 7.2 K/mm3 (4.4-11.0)
[2022-06-13 16:54] LABS: Erythrocyte Sedimentation Rate 35 mm/hr (0-30)
[2022-06-13 17:33] LABS: CRP < 2.90 mg/L (0.0-3.0)
== END | disposition home or self-care (01) ==
LOC: LAB 15:58
PROVIDERS: PCP Family Medicine Geriatric Medicine; Visit Provider Orthopaedic Surgery
DX: M25.462 Effusion, left knee (principal); Z96.652 Presence of left artificial knee joint
CPT/HCPCS: 36415; 85025; 85652; 86140

== ENCOUNTER → 2022-06-20 | Outpatient (CLI) | payer MEDICARE, OTHER, SELFPAY ==
--- NOTE | 2022-06-20 12:20 | RAD_ITS ---
STUDY: X-RAY - LEFT SHOULDER REASON FOR EXAM: Female, 76 years old. Pain. TECHNIQUE: 4 view(s) of the shoulder. COMPARISON: None. FINDINGS: Osteopenia. Mild arthrosis of the glenohumeral joint. Mild arthrosis of the AC joint. Large subacromial spur. Normal humeral head and visualized proximal humerus. The soft tissue structures are unremarkable. Normal visualized pulmonary apex. RAD/Shoulder min 2 Views IMPRESSION: Osteopenia with large subacromial spur. Mild arthrosis of the glenohumeral and acromioclavicular joints. No acute abnormality or erosive changes. Electronically Signed: Fabian Addison, at 12:52 EDT ,
== END | disposition home or self-care (01) ==
LOC: RAD 12:04
PROVIDERS: PCP Family Medicine Geriatric Medicine; Visit Provider Nurse Practitioner Acute Care
DX: M25.519 Pain in unspecified shoulder (principal)
CPT/HCPCS: 73030

== ENCOUNTER → 2022-06-25 | Outpatient (CLI) | payer MEDICARE, OTHER, SELFPAY ==
[2022-06-25 17:03] LABS: Absolute Lymphocyte Count 1.73 X10^3/uL (0.83-4.51); Basophil# 0.05 X10^3/uL; Basophil% 0.6 % (0-1); Eosinophil# 0.24 X10^3/uL; Eosinophils% 2.8 % (0-5); Hematocrit 23.2 % (37-47); Hemoglobin 6.7 g/dL (12.0-15.0); Lymphocyte # 1.73 X10^3/ul (0.83-4.51); Lymphocyte % 19.9 % (19-41); Mean Corp Hgb Conc 28.9 g/dL (32-36); Mean Corpuscular Hgb 24.4 pg (27.0-32.0); Mean Corpuscular Volume 84.4 fL (81-99); Mean Platelet Vol. 10.8 fl (6.2-12.0); Monocyte# 0.67 X10^3/uL; Monocyte% 7.7 % (0-10); NRBC Flagged by Analyzer 0 % (0-5); Neutrophil # 5.97 X10^3/uL (2.7-7.7); Neutrophil % 68.8 % (47-70); Platelet Count 402 K/mm3 (150-450); RBC Distribution Width CV 16.8 % (11.6-14.6); RBC Distribution Width SD 51.7 fl (35.1-43.9); Red Blood Count 2.75 M/mm3 (4.2-5.4); White Blood Count 8.7 K/mm3 (4.4-11.0)
[2022-06-25 17:42] LABS: Vitamin B12 458 pg/mL (211-911)
[2022-06-25 18:37] LABS: AST(SGOT) 11 U/L (15-37); Alanine Aminotransfer ALT/SGPT 19 U/L (13-56); Albumin, Serum 3.5 g/dL (3.2-5.0); Alkaline Phosphatase 49 U/L (45-117); Anion Gap 6 (5-15); BUN 33 mg/dL (7-18); BUN/Creat Ratio 24.6 RATIO (10-20); Calcium,Total 9.4 mg/dL (8.5-10.1); Chloride 110 mmol/L (98-107); Creatinine, Serum 1.34 mg/dL (0.55-1.02); EST Glomerular Filtration Rate 41 mL/min (>60); Est Glom Filt Rate - Afr Amer 49 mL/min (>60); Ferritin 6 ng/mL (8-252); Globulin 3.5 g/dL (2.2-4.2); Glucose 100 mg/dL (74-106); Iron 19 ug/dL (50-170); Iron Binding Capacity,Total 474 ug/dL (250-450); LDH 153 U/L (84-246); Magnesium 2.3 mg/dL (1.6-2.6); Phosphorus 3.5 mg/dL (2.5-4.9); Potassium 4.3 mmol/L (3.5-5.1); Sodium Level 140 mmol/L (136-145); Thyroid Stim Hormone (TSH) 1.68 uIU/mL (0.358-3.74)
== END | disposition home or self-care (01) ==
LOC: POLAB3 15:39
PROVIDERS: Internal Medicine Medical Oncology; PCP Family Medicine Geriatric Medicine; Visit Provider Family Medicine Geriatric Medicine
DX: I10 Essential (primary) hypertension (principal); D50.0 Iron deficiency anemia secondary to blood loss (chronic); K92.2 Gastrointestinal hemorrhage, unspecified
CPT/HCPCS: 80053; 82607; 82728; 82746; 83540; 83550; 83615; 83735; 84100; 84443; 85025

== ENCOUNTER → 2022-06-27 | Outpatient (CLI) | payer MEDICARE, OTHER, SELFPAY ==
[2022-06-27 11:35] VITALS: BP 142/64; PULSE 66; RESP 16; TEMP 36.7; O2SAT 99
[2022-06-27] MEDS: 0.9% NaCl Peripheral Flush Adult/Peds IV (11:35)
[2022-06-27 11:53] VITALS: BP 147/61; PULSE 68; RESP 16; TEMP 37.1; O2SAT 100
[2022-06-27 12:50] VITALS: BP 143/63; PULSE 68; RESP 16; TEMP 36.9
[2022-06-27] MEDS: Furosemide 20 MG/2 ML VIAL IV (13:45)
[2022-06-27 14:10] VITALS: BP 135/61; PULSE 65; RESP 17; TEMP 36.4; O2SAT 97
[2022-06-27 15:10] VITALS: BP 129/57; PULSE 67; RESP 16; TEMP 36.2; O2SAT 100
[2022-06-27 15:30] VITALS: BP 134/66; PULSE 64; RESP 17; TEMP 36.3; O2SAT 98
== END | disposition home or self-care (01) ==
LOC: MEDOUTP 09:35
PROVIDERS: PCP Family Medicine Geriatric Medicine; Referring Provider Family Medicine Geriatric Medicine; Visit Provider Family Medicine Geriatric Medicine
DX: D50.9 Iron deficiency anemia, unspecified (principal)
CPT/HCPCS: 96372; 36415; 36430; 86644; 86850; 86900; 86901; 86920; 86922; J7040; P9040; A4216; J1940

== ENCOUNTER 2022-07-05 11:17 | Emergency (ER) | payer MEDICARE, OTHER, SELFPAY ==
[2022-07-05 11:18] VITALS: BP 136/56; PULSE 66; RESP 18; TEMP 37.1; O2SAT 100; BMI 34.5
--- NOTE | 2022-07-05 11:43 | ED.VIS.GI ---
HPI <GABRIELA Escalera - Last Filed: 07/05/22 14:22> HPI - GI History of Present Illness Chief Complaint: GI Bleed Narrative Narrative: Patient presenting today after she presented to her GI appointment this morning and was sent down to the emergency department for admission for EGD. Patient last had an EGD in May 2022 which did show several bleeding lesions and is supposed to have another one in 2 weeks. Patient states that she had several days at her sister's house this week who smokes, she states that this will seem to really irritate her stomach and she had several bouts of diarrhea on Saturday as well as sharp epigastric abdominal pain over the course of this week. Patient also reports that she has been noticing dark/green stools this past week, has been passing a lot of gas, has had shortness of breath on exertion, and feels fatigued. She last had a blood transfusion 06/27. PMH includes hypertension, asthma, iron deficiency anemia, atrial fibrillation, GERD. Patient is on a blood thinner. PFSH <GABRIELA Escalera - Last Filed: 07/05/22 14:22> PFS Medical History Anemia due to chronic blood loss Anemia due to gastrointestinal blood loss Angina pectoris Aortic valve disorder Arthritis Asthma Atherosclerotic heart disease of [place] coronary artery without angina pectoris Atrial fibrillation Atrioventricular bloc first degree Back pain BiPAP (biphasic positive airway pressure) dependence Bronchitis CAD (coronary artery disease) Cardiology follow-up encounter Carotid bruit Chronic diastolic (congestive) heart failure Depression Difficulty balancing Dizziness DVT (deep venous thrombosis) Dysphagia Essential hypertension Fatigue Gastric reflux Glaucoma Hay fever Hemorrhoids History of atrial fibrillation History of echocardiogram History of edema History of GI bleed History of IBS History of left heart catheterization (LHC) (~08/04/21) History of osteoarthritis History of pulmonary embolism History of stress test HLD (hyperlipidemia) Hydrocephalus Hypokalemia Incontinence Injury of head and neck Iron deficiency Iron deficiency anemia Iron deficiency anemia due to chronic blood loss Iron refractory iron deficiency anemia Knee pain Leg cramps Limb weakness Neck pain Non-smoker Normal pressure hydrocephalus Obesity Open wound JONY (obstructive sleep apnea) Pharyngitis Presence of IVC filter Pulmonary embolism Shortness of breath on exertion Shoulder pain Sleep apnea SOB (shortness of breath) Thromboembolic disorder Ulcer of right lower extremity with fat layer exposed unexpained bruising Unstable angina Upper respiratory infection Venous insufficiency of both lower extremities Wears glasses Wears hearing aid Home Medications gabapentin 600 mg tablet 600 mg PO QHS Check with primary doctor 05/04/15 [History Last Taken 08/02/21] dorzolamide 2 % eye drops 1 drp RIGHT EYE BID Check with primary doctor 02/24/21 [History Last Taken 08/03/21] duloxetine 20 mg capsule,delayed release 40 mg PO DAILY DEPRESSION 08/03/21 [History Last Taken 08/03/21] latanoprost 0.005 % eye drops 1 drp EACH EYE QHS GLUACOMA 08/03/21 [History Last Taken 08/02/21] polysaccharide iron complex 150 mg iron capsule (iFerex 150) 150 mg PO DAILY IRON 08/03/21 [History Last Taken Unknown] spironolactone 50 mg tablet 50 mg PO DAILY Check with primary doctor 10/30/21 [History Last Taken Unknown] sennosides 8.6 mg tablet (Natural Senna Laxative) 17.2 mg PO DAILY Check with primary doctor 01/09/22 [History Last Taken Unknown] ascorbic acid (vitamin C) 500 mg capsule 500 mg PO DAILY Check with primary doctor 04/19/22 [History Last Taken Unknown] dabigatran etexilate 75 mg capsule (Pradaxa) 75 mg PO BID Check with primary doctor 04/19/22 [History Last Taken 05/11/22] levothyroxine 25 mcg tablet 25 mcg PO DAILY Check with primary doctor 05/10/22 [History Last Taken 05/15/22] multivitamin 1 tab PO DAILY Check with primary doctor 05/10/22 [History Last Taken Unknown] sulfamethoxazole 800 mg-trimethoprim 160 mg tablet (Bactrim DS) 1 tab PO Q12H Check with primary doctor 05/10/22 [History Last Taken Unknown] pantoprazole 40 mg tablet,delayed release 40 mg PO BID Check with primary doctor 07/05/22 [History Last Taken Unknown] Allergy/AdvReac Type Severity Reaction Status Date / Time rivaroxaban [From Xarelto] Allergy Severe Unknown Verified 07/05/22 10:28 acetaminophen [From Percocet] Allergy Unknown hallucinati Verified 07/05/22 10:28 ons alprazolam [From Xanax] Allergy Unknown fatigue Verified 07/05/22 10:28 oxycodone [From Percocet] Allergy Unknown hallucinati Verified 07/05/22 10:28 ons carisoprodol [From Soma] Allergy Rash Verified 07/05/22 10:28 adhesive AdvReac blisters Verified 07/05/22 10:28 apixaban [From Eliquis] AdvReac Other Verified 07/05/22 10:28 diphenhydramine AdvReac Other Verified 07/05/22 11:21 [From Benadryl] Family History Mother Cancer pancreatic Asthma Son Asthma Brother Heart disease Diabetes Hypertension Kidney disease Sister Heart disease Hypertension Diabetes Surgical History History of arthroscopy of right shoulder History of cardiac catheterization History of hernia repair History of hysterectomy History of laminectomy History of spinal fusion History of toe surgery History of total left knee replacement History of ventriculoperitoneal shunting (~06/16/14) Hx of appendectomy Hx of carpal tunnel repair Hx of cholecystectomy Intracranial shunt Presence of coronary angioplasty implant and graft (~06/08/20) Presence of stent in coronary artery (~06/08/20) Social History Smoking Status: Never smoker Electronic Cigarette Use: not used alcohol intake: never substance use type: does not use caffeine: Yes Type: tea Number of servings: 1 ROS <GABRIELA Escalera - Last Filed: 07/05/22 14:22> ROS ED Constitutional Constitutional ED: Denies chills, fever(s) or sweats Eyes Eyes: Denies blurry vision or diplopia Cardiovascular Cardiovascular: Denies chest pain or palpitations Respiratory/Chest Respiratory/Chest: Reports dyspnea on exertion; Denies cough or dyspnea Gastrointestinal Gastrointestinal: Reports abdominal pain; Denies constipation, diarrhea, nausea or vomiting Genitourinary Genitourinary ED: Denies dysuria, hematuria or urinary urgency Musculoskeletal Musculoskeletal: Denies arthralgias, back pain, myalgias or neck pain Integumentary Denies abscess, Abrasions or rash Neurologic Neurologic: Denies confusion, dizziness or paresthesias Psychiatric Psychiatric: Denies anxiety, depression, suicidal ideation or suicidal thoughts EXAM <GABRIELA Escalera - Last Filed: 07/05/22 14:22> Physical Exam Const Vital Signs: 07/05/22 11:18 07/05/22 13:28 07/05/22 13:33 Temperature 98.8 F 98 F Temperature Source Temporal Temporal Pulse Rate 66 66 68 Respiratory Rate 18 18 18 Blood Pressure 136/56 H 130/58 H 124/64 H Blood Pressure Mean 82 82 84 Pulse Ox 100 96 96 Oxygen Delivery Method Room Air Room Air Room Air 07/05/22 14:02 Temperature Temperature Source Pulse Rate 72 Respiratory Rate 16 Blood Pressure 122/60 H Blood Pressure Mean Pulse Ox 98 Oxygen Delivery Method Positive well nourished, well developed and no apparent distress General Appearance ED: well developed HEENT Reports normocephalic and head/scalp atraumatic Mouth ED: Yes moist mucous membranes normal Eyes PERRL and EOMs intact bilaterally Neck full ROM and supple Chest Wall inspection of chest normal Resp normal respiratory effort and clear to auscultation bilaterally Cardio regular rate and regular rhythm GI soft to palpation, non-tender, non-distended and no masses GI Narrative: Rectal exam did not show any bright red blood, dark stool was noted. Back/Spine normal ROM and normal to inspection Extremity normal to inspection and full ROM Neuro oriented x3, CN's II-XII intact bilaterally, moves all extremities, no focal motor deficits and no sensory deficits noted Sensorium / Orientation: awake and alert Psych mental status grossly normal and thought process normal Skin no rashes or lesions noted and no wounds <Dr. Sameer No MD - Last Filed: 07/05/22 13:25> Physical Exam Const Vital Signs: 07/05/22 11:18 07/05/22 13:28 07/05/22 13:33 Temperature 98.8 F 98 F Temperature Source Temporal Temporal Pulse Rate 66 66 68 Respiratory Rate 18 18 18 Blood Pressure 136/56 H 130/58 H 124/64 H Blood Pressure Mean 82 82 84 Pulse Ox 100 96 96 Oxygen Delivery Method Room Air Room Air Room Air 07/05/22 14:02 Temperature Temperature Source Pulse Rate 72 Respiratory Rate 16 Blood Pressure 122/60 H Blood Pressure Mean Pulse Ox 98 Oxygen Delivery Method MDM <GABRIELA Escalera - Last Filed: 07/05/22 14:22> MDM MDM Narrative Medical decision making narrative: Patient presenting today after having an appointment with her GI provider this morning who referred her to come to the emergency department for admission for an EGD. She is well-appearing and in no acute distress. She is not hypotensive or tachycardic. Patient had an EGD in May 2022 which did show 3 bleeding ulcers in the stomach and 2 in the duodenum she was supposed to have a follow-up appointment that month but did not make it. She has another EGD scheduled for 2 weeks from now. She had a blood transfusion 06/27/2022 to address the hemoglobin of 6.7 on 06/25/22. Hgb on 06/28/22 was 8.8 following 2 units PRBCs on 06/27/22. H&H today are 7.9 and 27.8. I have talked with the hospitalist regarding admission for patient so that she can have an EGD sooner with Dr. Cheng. Hospitalist went to talk with patient and told her that Dr. Cheng will not be able to perform an EGD today, she states that she does not want to stay in the hospital overnight if she is not going to have the EGD performed and would rather go home. She states she feels stable and does not feel like she needs any blood at this time. Hospitalist has called patient in [place] to her pharmacy. Patient will be discharged home in stable condition and will be given close follow-up with Dr. Cheng. She has been given strict return precautions and is comfortable with plan. I have personally performed a face to face assessment of the patient and have reviewed the LAURENT Note. I performed a substantive portion of the visit including all aspects of the following. My rivas findings include: History is [76-year-old female that I am evaluate with our physician occupational therapist assistant. Patient with history of chronic GI bleeds. On chronic anticoagulation. Presents with dark stool. Today was seen in GI office by the nurse practitioner and sent to the emergency department for further evaluation and admission for possible scope.] Exam is [H EENT exam unremarkable. Lungs are clear. Heart regular rhythm. Abdomen soft nontender. Per my PAs exam she has black stool. Moving all 4 extremities. Neurologically she is awake and alert.] Medical Decision Making [76-year-old with chronic GI bleeds with recent transfusion. Hemoglobin 7.9. Spoke to the hospitalist she will be admitted and they will consult GI. Patient's been typed and crossed. We have not transfused her as of yet.] Other additions or changes: [None] Lab Data Attestation: I reviewed the patient's lab results. Labs: Laboratory Results - last 24 hr 07/05/22 07/05/22 07/05/22 12:15 12:20 12:20 Hgb 7.9 L Hct 27.8 L PT INR Sodium 142 Potassium 3.7 Chloride 110 H Carbon Dioxide 23.0 Anion Gap 9 BUN 22 H Creatinine 1.27 H Estim Creat Clear Calc 30.69 Est GFR (MDRD) Af Amer 52 L Est GFR (MDRD) Non-Af 43 L BUN/Creatinine Ratio 17.3 Glucose 107 H Calcium 9.3 Total Bilirubin 0.20 AST 15 ALT 21 Alkaline Phosphatase 53 Total Protein 6.8 Albumin 3.3 Globulin 3.5 Albumin/Globulin Ratio 0.9 Blood Type Antibody Screen Crossmatch See Detail 07/05/22 07/05/22 12:20 12:20 Hgb Hct PT 16.8 H INR 1.4 Sodium Potassium Chloride Carbon Dioxide Anion Gap BUN Creatinine Estim Creat Clear Calc Est GFR (MDRD) Af Amer Est GFR (MDRD) Non-Af BUN/Creatinine Ratio Glucose Calcium Total Bilirubin AST ALT Alkaline Phosphatase Total Protein Albumin Globulin Albumin/Globulin Ratio Blood Type A POSITIVE Antibody Screen NEGATIVE Crossmatch <Dr. Sameer No MD - Last Filed: 07/05/22 13:25> MDM MDM Narrative Medical decision making narrative: Patient presenting today after having an appointment with her GI provider this morning who referred her to come to the emergency department for admission for an EGD. Patient had an EGD in May 2022 which did show 3 bleeding ulcers in the stomach and 2 in the duodenum she was supposed to have a follow-up appointment that month but did not make it. She had a blood transfusion 06/27/2022 to address the hemoglobin of 6.7 on 06/25/22. Hgb on 06/28/22 was 8.8 following 2 units PRBCs on 06/27/22. H&H today are 7.9 and 27.8. I have personally performed a face to face assessment of the patient and have reviewed the LAURENT Note. I performed a substantive portion of the visit including all aspects of the following. My rivas findings include: History is [76-year-old female that I am evaluate with our physician occupational therapist assistant. Patient with history of chronic GI bleeds. On chronic anticoagulation. Presents with dark stool. Today was seen in GI office by the nurse practitioner and sent to the emergency department for further evaluation and admission for possible scope.] Exam is [H EENT exam unremarkable. Lungs are clear. Heart regular rhythm. Abdomen soft nontender. Per my PAs exam she has black stool. Moving all 4 extremities. Neurologically she is awake and alert.] Medical Decision Making [76-year-old with chronic GI bleeds with recent transfusion. Hemoglobin 7.9. Spoke to the hospitalist she will be admitted and they will consult GI. Patient's been typed and crossed. We have not transfused her as of yet.] Other additions or changes: [None] Lab Data Labs: Laboratory Results - last 24 hr 07/05/22 07/05/22 07/05/22 12:15 12:20 12:20 Hgb 7.9 L Hct 27.8 L PT INR Sodium 142 Potassium 3.7 Chloride 110 H Carbon Dioxide 23.0 Anion Gap 9 BUN 22 H Creatinine 1.27 H Estim Creat Clear Calc 30.69 Est GFR (MDRD) Af Amer 52 L Est GFR (MDRD) Non-Af 43 L BUN/Creatinine Ratio 17.3 Glucose 107 H Calcium 9.3 Total Bilirubin 0.20 AST 15 ALT 21 Alkaline Phosphatase 53 Total Protein 6.8 Albumin 3.3 Globulin 3.5 Albumin/Globulin Ratio 0.9 Blood Type Antibody Screen Crossmatch See Detail 07/05/22 07/05/22 12:20 12:20 Hgb Hct PT 16.8 H INR 1.4 Sodium Potassium Chloride Carbon Dioxide Anion Gap BUN Creatinine Estim Creat Clear Calc Est GFR (MDRD) Af Amer Est GFR (MDRD) Non-Af BUN/Creatinine Ratio Glucose Calcium Total Bilirubin AST ALT Alkaline Phosphatase Total Protein Albumin Globulin Albumin/Globulin Ratio Blood Type A POSITIVE Antibody Screen NEGATIVE Crossmatch Discharge Plan Triage Chief Complaint: GI Bleed ED Midlevel Provider: Belkis Castillo ED Provider: Sameer No Dx/Rx/DC Orders Clinical Impression: Chronic GI bleeding, Anemia, Atrial fibrillation, Chronic anticoagulation Prescriptions: No Action spironolactone 50 mg tablet 50 mg PO DAILY sennosides [Natural Senna Laxative] 8.6 mg tablet 17.2 mg PO DAILY dabigatran etexilate [Pradaxa] 75 mg capsule 75 mg PO BID ascorbic acid (vitamin C) 500 mg capsule 500 mg PO DAILY gabapentin 600 MG tablet 600 mg PO QHS Label Comments: nerve pain dorzolamide 2 % Drops 1 drp RIGHT EYE BID latanoprost 0.005 % drops 1 drp EACH EYE QHS Label Comments: INSTILL 1 DROP INTO BOTH EYES NIGHTLY polysaccharide iron complex [iFerex 150] 150 mg iron capsule 150 mg PO DAILY Label Comments: PT STOPPED TAKING WHILE RECEIVING IRON INFUSIONS. PT IS NO LONGER GET INFUSIONS HAS NOT STARTED IFERREX AGAIN. duloxetine 20 mg capsule,delayed release(DR/EC) 40 mg PO DAILY Label Comments: TAKE 2 CAPSULES ORALLY ONCE PER DAY FOR 90 DAYS multivitamin Tablet 1 tab PO DAILY sulfamethoxazole-trimethoprim [Bactrim DS] 800-160 mg Tablet 1 tab PO Q12H Rx Instructions: HASNT STARTED YET levothyroxine 25 mcg Tablet 25 mcg PO DAILY pantoprazole 40 mg tablet,delayed release (DR/EC) 40 mg PO BID Primary Care Provider: Jean Paul Bañuelos Chi Referrals: Kirby Cheng DO [Med Staff - Active Staff] - 07/09/22 (Please follow-up with Dr. Cheng as soon as he can get you in.) Jean Paul Bañuelos Chi, MD [Primary Care Provider] - Activity Restrictions/Additional Instructions: Take the Carafate 4 times a day. Follow-up with Dr. Cheng return for any worsening of your symptoms. Disposition Disposition: Home, Self Care Discharge Date/Time: 07/05/22 14:03
[2022-07-05 12:29] LABS: Hematocrit 27.8 % (37-47); Hemoglobin 7.9 g/dL (12.0-15.0)
[2022-07-05 12:43] LABS: ALB/GLOB Ratio 0.9 RATIO (0.9-2.4); AST(SGOT) 15 U/L (15-37); Alanine Aminotransfer ALT/SGPT 21 U/L (13-56); Albumin, Serum 3.3 g/dL (3.2-5.0); Alkaline Phosphatase 53 U/L (45-117); Anion Gap 9 (5-15); BUN 22 mg/dL (7-18); BUN/Creat Ratio 17.3 RATIO (10-20); Calcium,Total 9.3 mg/dL (8.5-10.1); Chloride 110 mmol/L (98-107); Creatinine, Serum 1.27 mg/dL (0.55-1.02); EST Glomerular Filtration Rate 43 mL/min (>60); Est Glom Filt Rate - Afr Amer 52 mL/min (>60); Estimated Creatinine Clearance 30.69 ml/min; Globulin 3.5 g/dL (2.2-4.2); Glucose 107 mg/dL (74-106); Potassium 3.7 mmol/L (3.5-5.1); Protein, Total 6.8 g/dL (6.4-8.2); Sodium Level 142 mmol/L (136-145)
[2022-07-05 12:47] LABS: International Normalized Ratio 1.4; Prothrombin Time (Protime)PT. 16.8 SECONDS (11.7-14.9)
[2022-07-05 13:28] VITALS: BP 130/58; PULSE 66; RESP 18; TEMP 36.6; O2SAT 96
[2022-07-05 13:33] VITALS: BP 124/64; PULSE 68; RESP 18; O2SAT 96
[2022-07-05 14:02] VITALS: BP 122/60; PULSE 72; RESP 16; O2SAT 98
== END 2022-07-05 14:03 | disposition home or self-care (01) ==
LOC: ED 13:23 → PCU 13:47
PROVIDERS: Physician Assistant; Emergency Provider Emergency Medicine; PCP Family Medicine Geriatric Medicine; Visit Provider Emergency Medicine
DX: K92.2 Gastrointestinal hemorrhage, unspecified (principal); I11.0 Hypertensive heart disease with heart failure; I50.32 Chronic diastolic (congestive) heart failure; I48.91 Unspecified atrial fibrillation; D64.9 Anemia, unspecified; E78.5 Hyperlipidemia, unspecified; I25.10 Atherosclerotic heart disease of native coronary artery without angina pectoris; Z79.01 Long term (current) use of anticoagulants; Z79.899 Other long term (current) drug therapy; H40.9 Unspecified glaucoma; F32.A Depression, unspecified; Z86.718 Personal history of other venous thrombosis and embolism; K21.9 Gastro-esophageal reflux disease without esophagitis; Z95.5 Presence of coronary angioplasty implant and graft
CPT/HCPCS: 36415; 80053; 82274; 85014; 85018; 85025; 85610; 86850; 86900; 86901; 86920; 99285; A4216

== ENCOUNTER → 2022-07-17 | Outpatient (CLI) | payer MEDICARE, OTHER, SELFPAY | END | disposition home or self-care (01) | LOC: PSN 07:15 | PROVIDERS: PCP Family Medicine Geriatric Medicine; Referring Provider Family Medicine Geriatric Medicine; Visit Provider Family Medicine Geriatric Medicine | DX: R68.83 Chills (without fever) (principal) | CPT/HCPCS: 87635; 87804; 87807; U0003; U0005 ==

== ENCOUNTER 2022-07-25 11:50 | Day surgery (SDC) | payer MEDICARE, OTHER, SELFPAY ==
[2022-07-25] MEDS: Lactated Ringers 1,000 ML 15 ML IV (12:24)
[2022-07-25 12:25] VITALS: BP 103/56; PULSE 64; RESP 18; TEMP 37.1; O2SAT 100; BMI 32.4
--- NOTE | 2022-07-25 12:55 | HP.PCM_ITS ---
History and Physical Date of Admission: 07/25/22 76 F who presents to the office today for acute GI complaints after spending 4 days with her sister who smokes. Pt thinks the second hand smoke bothered her stomach. Has nausea, sharp intermittent pains in epigastrium. Says she never vomits. Having black-green stools. Lots of gas. She has iron deficiency anemia due to chronic blood loss. Her EGD last month showed red blood in stomach, 3 bleeding lesions in stomach, 2 bleeding lesions in duodenum. She didn't make it? to her scheduled f/u appt in 05/2022, but is?scheduled for repeat EGD on 07/17/22. Denies dizziness, lightheadedness. Says she is SOB, and feels weak in her legs. Per hematology visit on 06/28/22: Supported with 2 units PRBCs on 06/27/22 to address Hgb of 6.7 on 06/25/22.? Hgb today reflects transfusion. Per patient self report, no longer experiencing black stools.? Repeat CBC in 1 week. Continue oral iron/vitamin C in addition to venofer 300 mg IV weekly x 3 doses.? Hgb on 06/28/22 was 8.8 following 2 units PRBCs on 06/27/22. Today's hgb is 8. ROS Const Constitutional: Positive for fatigue ENT ENT: No difficulty swallowing Gastro GI: Positive for bloating, change in bowel habits, constipation, diarrhea, heartburn, excessive flatus, Blood in stool and nausea/dyspepsia; No abdominal pain, belching, change in stool character, coffee ground emesis, cramping, difficulty swallowing, feeling full early, incontinent of stools, Vomiting blood/hematemesis, loose stools, Black,tarry stools, pain with swallowing, vomiting or other Musc Musculoskeletal: Positive for back pain, muscle cramps, muscle weakness and Arthritis; No joint pain Skin Skin: No yellowing of the eye or itchy eyes Psych Psychiatric: No anxiety and No depression Endo Endocrine: Positive for fatigue Aller/Imm Allergy/Immunologic: No itchy eyes Lokesh/Lymp Hematologic/Lymphatic: Positive for easy bruising; No easy bleeding Exam Const General: cooperative and comfortable Orientation: alert, awake and oriented x3 Other: uses a cane Eyes Conjunctivae: conjunctival abnormality (pale) Sclera: sclerae normal Resp Effort & Inspection: normal respiratory effort GI Inspection: normal to inspection Palpation: soft, no masses and tender in the epigastrum Quality Reporting Tobacco Screening (CMS 138) Smoking Status: Never smoker Assessment and Plan Assessment and Plan (1) Iron deficiency anemia due to chronic blood loss: ?Status:?Chronic ?Plan: 76 yo female with upper GI bleeding, decreasing hemoglobin despite recent blood transfusion and IV iron. Symptomatic with SOB and weakness. Will have pt go to ED for admission in order to have Dr Prosper do EGD to treat the active bleeding. (2) Chronic GI bleeding: ?Status:?Chronic ?Plan: see above I have examined the patient and the H&P has been reviewed. There are no clinical changes since date of exam.
[2022-07-25 13:11] VITALS: BP 103/46; BP 103/56; PULSE 64; RESP 18; TEMP 36.8; O2SAT 94
--- NOTE | 2022-07-25 13:11 | OP.EGD_ITS ---
Patient Name: Barbara Lloyd Procedure Date: 07/25/2022 12:55 PM Date of : 1945 Age: 76 Procedure: Upper GI endoscopy Indications: Iron deficiency anemia Providers: Kirby Cheng DO Referring MD: Kirby Cheng DO Medicines: Monitored Anesthesia Care Patient Profile: This is a 76 year old female. Refer to note in patient chart for documentation of history and physical. Patient has symptoms of acute epigastric abdominal pain and acute nausea. Complications: No immediate complications. Procedure: Pre-Anesthesia Assessment: - Prior to the procedure, a History and Physical was performed, and patient medications and allergies were reviewed. The risks and benefits of the procedure and the sedation options and risks were discussed with the patient. All questions were answered and informed consent was obtained. Patient identification and proposed procedure were verified by the physician. Mental Status Examination: normal. CV Examination: normal. Prophylactic Antibiotics: The patient does not require prophylactic antibiotics. Prior Anticoagulants: The patient has taken no previous anticoagulant or antiplatelet agents. After reviewing the risks and benefits, the patient was deemed in satisfactory condition to undergo the procedure. The anesthesia plan was to use monitored anesthesia care (MAC). Immediately prior to administration of medications, the patient was re-assessed for adequacy to receive sedatives. The heart rate, respiratory rate, oxygen saturations, blood pressure, adequacy of pulmonary ventilation, and response to care were monitored throughout the procedure. The physical status of the patient was re-assessed after the procedure. After obtaining informed consent, the endoscope was passed under direct vision. Throughout the procedure, the patient's blood pressure, pulse, and oxygen saturations were monitored continuously. The Endoscope was introduced through the mouth, and advanced to the second part of duodenum. The upper GI endoscopy was accomplished without difficulty. The patient tolerated the procedure well. Scope In: 1:05:57 PM Scope Out: 1:07:52 PM Total Procedure Duration Time 0 hours 1 minute 55 seconds Findings: The examined esophagus was normal. A small hiatal hernia was present. The exam of the stomach was otherwise normal. No gross lesions were noted in the second portion of the duodenum. Impression: - Normal esophagus. - Small hiatal hernia. - No gross lesions in the second portion of the duodenum. - No specimens collected. Recommendation: - Discharge patient to home. - Resume previous diet. - Continue present medications. Procedure Code(s): --- Professional --- 64551, Esophagogastroduodenoscopy, flexible, transoral; diagnostic, including collection of specimen(s) by brushing or washing, when performed (separate procedure) CPT copyright 2017 [employer]. All rights reserved. The codes documented in this report are preliminary and upon progress man review may be revised to meet current compliance requirements. Kirby Cheng DO 07/25/2022 1:11:16 PM This report has been signed electronically. Number of Addenda: 0 Note Initiated On: 07/25/2022 12:55 PM
--- NOTE | 2022-07-25 13:12 | OP.CCLET_ITS ---
07/25/2022 Jean Paul Bañuelos MD [address] [place] [address] Re : Upper GI endoscopy procedure for Barbara Lloyd Dear Dr. Bañuelos This procedure was performed on Monday, July 25, 2022. My impressions and recommendations are as follows: Impressions : - Normal esophagus. - Small hiatal hernia. - No gross lesions in the second portion of the duodenum. - No specimens collected. Recommendations : - Discharge patient to home. - Resume previous diet. - Continue present medications. My findings are described in the full procedure note, which is enclosed. If I can be of further assistance, please feel free to contact me at . Sincerely, Kirby Cheng, 07/25/2022 1:11:16 PM This report has been signed electronically.
[2022-07-25 13:15] VITALS: BP 102/42; BP 103/56; PULSE 65; RESP 18; O2SAT 92
[2022-07-25 13:20] VITALS: BP 103/56; BP 92/44; PULSE 65; RESP 18; O2SAT 93
[2022-07-25 13:25] VITALS: BP 103/56; BP 96/48; PULSE 65; RESP 18; O2SAT 95
[2022-07-25 13:30] VITALS: BP 103/56; BP 99/47; PULSE 63; RESP 18; TEMP 36.9; O2SAT 96
== END 2022-07-25 14:13 | disposition home or self-care (01) ==
LOC: EN 11:51 → AC 11:52
PROVIDERS: PCP Family Medicine Geriatric Medicine; Referring Provider Internal Medicine Gastroenterology; Visit Provider Internal Medicine Gastroenterology
PROC: 0DJ08ZZ Inspection of Upper Intestinal Tract, Via Natural or Artificial Opening Endoscopic (ICD-10-PCS; CPT 43235; principal; 2022-07-25 12:55)
DX: K92.2 Gastrointestinal hemorrhage, unspecified (principal); R53.1 Weakness; K44.9 Diaphragmatic hernia without obstruction or gangrene; R06.02 Shortness of breath; D50.0 Iron deficiency anemia secondary to blood loss (chronic)
CPT/HCPCS: 43235; J7120; J2405

== ENCOUNTER → 2022-07-30 | Outpatient (CLI) | payer MEDICARE, OTHER, SELFPAY ==
[2022-07-30 16:41] LABS: Absolute Neutrophil Count 7.6 X10^3/uL (2.0-7.7); Basophil# 0.05 X10^3/uL; Basophil% 0.5 % (0-1); Eosinophil# 0.29 X10^3/uL; Eosinophils% 2.7 % (0-5); Hematocrit 25.3 % (37-47); Hemoglobin 7.3 g/dL (12.0-15.0); Lymphocyte % 16.9 % (19-41); Mean Corp Hgb Conc 28.9 g/dL (32-36); Mean Corpuscular Hgb 30.2 pg (27.0-32.0); Mean Corpuscular Volume 104.5 fL (81-99); Mean Platelet Vol. 10.8 fl (6.2-12.0); Monocyte# 0.83 X10^3/uL; Monocyte% 7.8 % (0-10); NRBC Flagged by Analyzer 0 % (0-5); Neutrophil % 71.5 % (47-70); POSITIVE MORPHOLOGY YES; Platelet Count 305 K/mm3 (150-450); RBC Distribution Width CV 25.3 % (11.6-14.6); RBC Distribution Width SD 93.9 fl (35.1-43.9); Red Blood Count 2.42 M/mm3 (4.2-5.4); White Blood Count 10.6 K/mm3 (4.4-11.0)
[2022-07-30 16:44] LABS: Differential Indicated SCAN CRITERIA MET
[2022-07-30 17:05] LABS: Vitamin D,25 Hydroxy 39.3 ng/mL
[2022-07-30 17:08] LABS: ALB/GLOB Ratio 0.9 RATIO (0.9-2.4); AST(SGOT) 17 U/L (15-37); Alanine Aminotransfer ALT/SGPT 22 U/L (13-56); Alkaline Phosphatase 38 U/L (45-117); Anion Gap 4 (5-15); BUN 31 mg/dL (7-18); BUN/Creat Ratio 24.6 RATIO (10-20); Calcium,Total 8.6 mg/dL (8.5-10.1); Chloride 113 mmol/L (98-107); Creatinine, Serum 1.26 mg/dL (0.55-1.02); EST Glomerular Filtration Rate 44 mL/min (>60); Est Glom Filt Rate - Afr Amer 53 mL/min (>60); Ferritin 159 ng/mL (8-252); Globulin 3.2 g/dL (2.2-4.2); Glucose 114 mg/dL (74-106); Iron 53 ug/dL (50-170); Iron Binding Capacity,Total 353 ug/dL (250-450); Potassium 3.8 mmol/L (3.5-5.1); Protein, Total 6.2 g/dL (6.4-8.2); Sodium Level 141 mmol/L (136-145); Thyroid Stim Hormone (TSH) 1.13 uIU/mL (0.358-3.74)
[2022-07-30 17:31] LABS: Anisocytosis 2+; Differential Comment SCANNED
== END | disposition home or self-care (01) ==
LOC: POLAB3 10:47
PROVIDERS: Nurse Practitioner Family; PCP Family Medicine Geriatric Medicine; Visit Provider Family Medicine Geriatric Medicine
DX: D50.9 Iron deficiency anemia, unspecified (principal); E11.65 Type 2 diabetes mellitus with hyperglycemia; E55.9 Vitamin D deficiency, unspecified; I10 Essential (primary) hypertension
CPT/HCPCS: 80053; 82306; 82728; 83540; 83550; 84443; 85025

== ENCOUNTER → 2022-08-06 | Outpatient (CLI) | payer MEDICARE, OTHER, SELFPAY ==
[2022-08-06 13:45] LABS: Hematocrit 29.6 % (37-47); Hemoglobin 8.4 g/dL (12.0-15.0); Mean Corp Hgb Conc 28.4 g/dL (32-36); Mean Corpuscular Hgb 29.5 pg (27.0-32.0); Mean Corpuscular Volume 103.9 fL (81-99); POSITIVE MORPHOLOGY YES; Platelet Count 320 K/mm3 (150-450); RBC Distribution Width CV 21.7 % (11.6-14.6); RBC Distribution Width SD 81.5 fl (35.1-43.9); Red Blood Count 2.85 M/mm3 (4.2-5.4); White Blood Count 6.9 K/mm3 (4.4-11.0)
[2022-08-06 13:54] LABS: Scan Indicated on CBC? Y/N YES- FLAGS NOTED
[2022-08-06 14:14] LABS: Differential Comment SCANNED
== END | disposition home or self-care (01) ==
LOC: LAB 13:24
PROVIDERS: PCP Family Medicine Geriatric Medicine; Referring Provider Family Medicine Geriatric Medicine; Visit Provider Family Medicine Geriatric Medicine
DX: D50.9 Iron deficiency anemia, unspecified (principal)
CPT/HCPCS: 36415; 85027

== ENCOUNTER → 2022-10-22 | Outpatient (CLI) | payer MEDICARE, OTHER, SELFPAY ==
[2022-10-22 12:24] LABS: Absolute Lymphocyte Count 0.85 X10^3/uL (0.83-4.51); Absolute Neutrophil Count 5.5 X10^3/uL (2.0-7.7); Basophil# 0.04 X10^3/uL; Basophil% 0.6 % (0-1); Eosinophil# 0.26 X10^3/uL; Eosinophils% 3.7 % (0-5); Hemoglobin 10.8 g/dL (12.0-15.0); Lymphocyte # 0.85 X10^3/ul (0.83-4.51); Mean Platelet Vol. 9.9 fl (6.2-12.0); Monocyte# 0.46 X10^3/uL; Monocyte% 6.5 % (0-10); NRBC Flagged by Analyzer 0 % (0-5); Neutrophil # 5.46 X10^3/uL (2.7-7.7); Neutrophil % 76.9 % (47-70); Platelet Count 307 K/mm3 (150-450); RBC Distribution Width CV 15.8 % (11.6-14.6); RBC Distribution Width SD 57.4 fl (35.1-43.9); White Blood Count 7.1 K/mm3 (4.4-11.0)
[2022-10-22 12:44] LABS: ALB/GLOB Ratio 0.9 RATIO (0.9-2.4); AST(SGOT) 14 U/L (15-37); Alanine Aminotransfer ALT/SGPT 21 U/L (13-56); Albumin, Serum 3.3 g/dL (3.2-5.0); Alkaline Phosphatase 53 U/L (45-117); Anion Gap 6 (5-15); BUN 21 mg/dL (7-18); BUN/Creat Ratio 16.3 RATIO (10-20); Chloride 110 mmol/L (98-107); Creatinine, Serum 1.29 mg/dL (0.55-1.02); EST Glomerular Filtration Rate 43 mL/min (>60); Est Glom Filt Rate - Afr Amer 51 mL/min (>60); Ferritin 64 ng/mL (8-252); Globulin 3.5 g/dL (2.2-4.2); Glucose 131 mg/dL (74-106); Iron 50 ug/dL (50-170); Iron Binding Capacity,Total 379 ug/dL (250-450); Potassium 4.3 mmol/L (3.5-5.1); Protein, Total 6.8 g/dL (6.4-8.2); Sodium Level 140 mmol/L (136-145); Thyroid Stim Hormone (TSH) 1.87 uIU/mL (0.358-3.74)
== END | disposition home or self-care (01) ==
LOC: POLAB3 11:04
PROVIDERS: PCP Family Medicine Geriatric Medicine; Visit Provider Family Medicine Geriatric Medicine
DX: D64.9 Anemia, unspecified (principal); E87.6 Hypokalemia
CPT/HCPCS: 36415; 80053; 82728; 83540; 83550; 84443; 85025

== ENCOUNTER → 2022-10-30 | Outpatient (CLI) | payer MEDICARE, OTHER, SELFPAY ==
[2022-10-30 12:32] LABS: Absolute Lymphocyte Count 1.31 X10^3/uL (0.83-4.51); Basophil# 0.06 X10^3/uL; Basophil% 0.8 % (0-1); Eosinophil# 0.36 X10^3/uL; Eosinophils% 4.8 % (0-5); Hematocrit 35.9 % (37-47); Hemoglobin 10.8 g/dL (12.0-15.0); Lymphocyte # 1.31 X10^3/ul (0.83-4.51); Lymphocyte % 17.6 % (19-41); Mean Corp Hgb Conc 30.1 g/dL (32-36); Mean Corpuscular Hgb 29.9 pg (27.0-32.0); Mean Corpuscular Volume 99.4 fL (81-99); Monocyte# 0.72 X10^3/uL; Monocyte% 9.7 % (0-10); NRBC Flagged by Analyzer 0 % (0-5); Neutrophil # 4.97 X10^3/uL (2.7-7.7); Neutrophil % 66.7 % (47-70); Platelet Count 407 K/mm3 (150-450); RBC Distribution Width CV 15.6 % (11.6-14.6); Red Blood Count 3.61 M/mm3 (4.2-5.4); White Blood Count 7.5 K/mm3 (4.4-11.0)
[2022-10-30 12:45] LABS: Vitamin D,25 Hydroxy 30.1 ng/mL
[2022-10-30 12:52] LABS: AST(SGOT) 9 U/L (15-37); Alanine Aminotransfer ALT/SGPT 21 U/L (13-56); Albumin, Serum 3.6 g/dL (3.2-5.0); Alkaline Phosphatase 54 U/L (45-117); Anion Gap 6 (5-15); BUN 24 mg/dL (7-18); BUN/Creat Ratio 17.3 RATIO (10-20); Calcium,Total 9.3 mg/dL (8.5-10.1); Chloride 108 mmol/L (98-107); Creatinine, Serum 1.39 mg/dL (0.55-1.02); EST Glomerular Filtration Rate 39 mL/min (>60); Est Glom Filt Rate - Afr Amer 47 mL/min (>60); Globulin 3.7 g/dL (2.2-4.2); Glucose 78 mg/dL (74-106); Potassium 4.3 mmol/L (3.5-5.1); Protein, Total 7.3 g/dL (6.4-8.2); Sodium Level 139 mmol/L (136-145)
== END | disposition home or self-care (01) ==
PROVIDERS: PCP Family Medicine Geriatric Medicine; Visit Provider Family Medicine Geriatric Medicine
DX: E11.65 Type 2 diabetes mellitus with hyperglycemia (principal); I10 Essential (primary) hypertension; E55.9 Vitamin D deficiency, unspecified
CPT/HCPCS: 36415; 80053; 82306; 84443; 85025

== ENCOUNTER → 2022-11-07 | Outpatient (CLI) | payer MEDICARE, OTHER, SELFPAY ==
--- NOTE | 2022-11-07 12:53 | MRI_ITS ---
ACR Level 3 findings have been noted. An addendum which confirms receipt of the report will follow. STUDY: MRI CERVICAL SPINE WITHOUT CONTRAST REASON FOR EXAM: Female, 76 years old. pain IN NECK AND UPPER BACK, H/O DDD TECHNIQUE: Standardized fat and water weighted pulse sequences were obtained in the sagittal and axial planes. COMPARISON: November 05, 2022 cervical spine radiograph FINDINGS: Normal foramen magnum and brainstem-cervical cord junction. Normal craniovertebral junction. Normal anterior atlantoaxial articulation. Normal odontoid process. Normal cervical lordosis. Normal vertebral bodies and posterior osseous elements. C2-3: Normal endplates. Normal disc height, signal and morphology. Normal central canal and intervertebral neural foramina. C3-4: Normal endplates. Normal disc height, signal and morphology. Normal central canal and hypertrophic facets and uncinate spondylosis causing moderate narrowing of the neural foramina bilaterally. C4-5: Normal endplates. Normal disc height, signal and morphology. Normal central canal and hypertrophic facets and uncinate spondylosis causing moderate narrowing of the neural foramina bilaterally. C5-6: Moderately large posterior disc marginal osteophyte deforms the cord. Central canal is narrowed to 5 mm at this level. Moderate narrowing of the neural foramina bilaterally. C6-7: Broad-based posterior disc marginal osteophyte narrows the central canal and cord to 5 mm in the midline. Uncinate spondylosis causing severe narrowing of the neural foramina bilaterally. C7-T1: Normal endplates. Normal disc height, signal and morphology. Normal central canal and intervertebral neural foramina. Small posterior paracentral disc marginal osteophyte impinges the ventral cord on the left. Normal cervical cord. Normal visualized soft tissue structures. MRI/Spine Cervical (Routine) IMPRESSION: Severe spinal stenosis C5-6 and C6-7 as above. Cord impingement noted at C5-6 in particular due to a moderately large posterior disc marginal osteophyte. Neurosurgical consultation recommended. Electronically Signed: Jagdeep Roche MD at 17:19 EDT ,
== END | disposition home or self-care (01) ==
PROVIDERS: PCP Family Medicine Geriatric Medicine; Referring Provider Orthopaedic Surgery; Visit Provider Orthopaedic Surgery
DX: M50.20 Other cervical disc displacement, unspecified cervical region (principal)
CPT/HCPCS: 72141

== ENCOUNTER → 2022-12-27 | Outpatient (CLI) | payer MEDICARE, OTHER, SELFPAY ==
[2022-12-27 17:17] LABS: Absolute Neutrophil Count 4.8 X10^3/uL (2.0-7.7); Basophil# 0.06 X10^3/uL; Basophil% 0.9 % (0-1); Eosinophil# 0.34 X10^3/uL; Hematocrit 32.9 % (37-47); Hemoglobin 9.8 g/dL (12.0-15.0); Lymphocyte % 13.2 % (19-41); Mean Corp Hgb Conc 29.8 g/dL (32-36); Mean Corpuscular Hgb 28.8 pg (27.0-32.0); Mean Corpuscular Volume 96.8 fL (81-99); Mean Platelet Vol. 10.1 fl (6.2-12.0); Monocyte# 0.72 X10^3/uL; Monocyte% 10.5 % (0-10); NRBC Flagged by Analyzer 0 % (0-5); Neutrophil % 70.3 % (47-70); Platelet Count 379 K/mm3 (150-450); RBC Distribution Width CV 15.2 % (11.6-14.6); RBC Distribution Width SD 54.2 fl (35.1-43.9); White Blood Count 6.8 K/mm3 (4.4-11.0)
== END | disposition home or self-care (01) ==
LOC: POLAB3 15:44
PROVIDERS: PCP Family Medicine Geriatric Medicine; Visit Provider Family Medicine Geriatric Medicine
DX: D50.9 Iron deficiency anemia, unspecified (principal)
CPT/HCPCS: 36415; 85025

== ENCOUNTER → 2023-01-07 | Outpatient (CLI) | payer MEDICARE, OTHER, SELFPAY ==
[2023-01-07 11:57] LABS: Hematocrit 30.5 % (37-47); Hemoglobin 8.9 g/dL (12.0-15.0); Mean Corp Hgb Conc 29.2 g/dL (32-36); Mean Corpuscular Hgb 27.5 pg (27.0-32.0); Mean Corpuscular Volume 94.1 fL (81-99); Platelet Count 425 K/mm3 (150-450); RBC Distribution Width SD 51.4 fl (35.1-43.9); Red Blood Count 3.24 M/mm3 (4.2-5.4); White Blood Count 8.4 K/mm3 (4.4-11.0)
[2023-01-07 12:10] LABS: Albumin, Serum 3.4 g/dL (3.2-5.0); BUN 25 mg/dL (7-18); BUN/Creat Ratio 19.1 RATIO (10-20); Chloride 111 mmol/L (98-107); Creatinine, Serum 1.31 mg/dL (0.55-1.02); EST Glomerular Filtration Rate 42 mL/min (>60); Est Glom Filt Rate - Afr Amer 51 mL/min (>60); Glucose 117 mg/dL (74-106); Phosphorus 2.9 mg/dL (2.5-4.9); Potassium 3.9 mmol/L (3.5-5.1); Sodium Level 141 mmol/L (136-145)
[2023-01-07 12:20] LABS: PTHIN 84.4 pg/mL (18.4-80.1)
== END | disposition home or self-care (01) ==
LOC: POLAB3 11:01
PROVIDERS: PCP Family Medicine Geriatric Medicine; Visit Provider Internal Medicine Nephrology
DX: N18.32 Chronic kidney disease, stage 3b (principal); D50.9 Iron deficiency anemia, unspecified
CPT/HCPCS: 36415; 80069; 83970; 85027

== ENCOUNTER → 2023-01-10 | Outpatient (CLI) | payer MEDICARE, OTHER, SELFPAY ==
[2023-01-10 10:19] LABS: Absolute Lymphocyte Count 0.71 X10^3/uL (0.83-4.51); Absolute Neutrophil Count 9.4 X10^3/uL (2.0-7.7); Basophil# 0.01 X10^3/uL; Basophil% 0.1 % (0-1); Hematocrit 30.8 % (37-47); Hemoglobin 8.9 g/dL (12.0-15.0); Lymphocyte # 0.71 X10^3/ul (0.83-4.51); Lymphocyte % 6.9 % (19-41); Mean Corp Hgb Conc 28.9 g/dL (32-36); Mean Corpuscular Hgb 27.3 pg (27.0-32.0); Mean Corpuscular Volume 94.5 fL (81-99); Mean Platelet Vol. 10.4 fl (6.2-12.0); Monocyte# 0.07 X10^3/uL; Monocyte% 0.7 % (0-10); NRBC Flagged by Analyzer 0 % (0-5); Neutrophil # 9.39 X10^3/uL (2.7-7.7); Neutrophil % 91.9 % (47-70); Platelet Count 428 K/mm3 (150-450); RBC Distribution Width CV 14.7 % (11.6-14.6); RBC Distribution Width SD 50.7 fl (35.1-43.9); Red Blood Count 3.26 M/mm3 (4.2-5.4); White Blood Count 10.2 K/mm3 (4.4-11.0)
[2023-01-10 10:30] LABS: Vitamin D,25 Hydroxy 37.8 ng/mL
[2023-01-10 10:46] LABS: ALB/GLOB Ratio 0.9 RATIO (0.9-2.4); AST(SGOT) 5 U/L (15-37); Alanine Aminotransfer ALT/SGPT 18 U/L (13-56); Albumin, Serum 3.4 g/dL (3.2-5.0); Alkaline Phosphatase 47 U/L (45-117); Anion Gap 8 (5-15); BUN 34 mg/dL (7-18); BUN/Creat Ratio 28.6 RATIO (10-20); Calcium,Total 9.4 mg/dL (8.5-10.1); Chloride 112 mmol/L (98-107); Creatinine, Serum 1.19 mg/dL (0.55-1.02); EST Glomerular Filtration Rate 47 mL/min (>60); Est Glom Filt Rate - Afr Amer 56 mL/min (>60); Ferritin 8 ng/mL (8-252); Globulin 3.8 g/dL (2.2-4.2); Glucose 202 mg/dL (74-106); Iron 25 ug/dL (50-170); Iron Binding Capacity,Total 456 ug/dL (250-450); Potassium 4.1 mmol/L (3.5-5.1); Protein, Total 7.2 g/dL (6.4-8.2); Sodium Level 139 mmol/L (136-145); Thyroid Stim Hormone (TSH) 0.63 uIU/mL (0.358-3.74)
== END | disposition home or self-care (01) ==
PROVIDERS: PCP Family Medicine Geriatric Medicine; Visit Provider Family Medicine Geriatric Medicine
DX: D50.9 Iron deficiency anemia, unspecified (principal); E11.65 Type 2 diabetes mellitus with hyperglycemia; E55.9 Vitamin D deficiency, unspecified
CPT/HCPCS: 36415; 80053; 82306; 82728; 83540; 83550; 84443; 85025

== ENCOUNTER → 2023-01-29 | Outpatient (CLI) | payer MEDICARE, OTHER, SELFPAY | END | disposition home or self-care (01) | LOC: LABSPEC 15:40 | PROVIDERS: PCP Family Medicine Geriatric Medicine; Visit Provider Family Medicine Geriatric Medicine | DX: N39.0 Urinary tract infection, site not specified (principal) | CPT/HCPCS: 87086; 87088; 87186 ==

== ENCOUNTER 2023-02-05 05:18 | Day surgery (SDC) | payer MEDICARE, OTHER, SELFPAY ==
--- NOTE | 2023-02-04 06:30 | EGD_PTH ---
PATIENT: BRICE LOMELI LOC: EN U#:[id number] AGE/SX: 77/F ROOM: RE02/05/[address]: Dr. Kirby Cheng DO : 1945 BED: DIS: 02/05/2023 SPEC #: [id number] RECD: 02/05/23 10:26 STATUS: GIBRAN CORNELIO #: [id number] JEFERSON: 02/04/23 06:[address]: Kirby Cheng DEPT: SURGICAL PATHOLOGY RECD BY: Faith Toribio ENTERED: 02/05/23 10:56 SP TYPE: EGD BIOPSY OTHR DR: Dr. Jean Paul Bañuelos MD Tissues: Gastric mucous membrane Procedures: Surgery Specimen Level IV HEADER OPERATION: EGD with biopsy and electrohemostasis PRE-OP DIAGNOSIS: Iron deficiency anemia due to chronic blood loss, chronic GI bleeding TISSUE SUBMITTED: Gastric body biopsy MICROSCOPIC DIAGNOSIS Gastric body, biopsy: Mild chronic gastritis. See comment. AM:linda 02/06/2023 COMMENT The results of immunohistochemistry for Helicobacter pylori will be reported separately ([id number]). MICROSCOPIC DESCRIPTION Slides are reviewed. GROSS DESCRIPTION Received in fixative is one container labeled with the patient's name and designated gastric body biopsy. The specimen consists of multiple irregular fragments of light villanueva soft tissue that in aggregate measure 1.0 x 0.5 x 0.1 cm. The specimen is totally submitted in one cassette. / SJ:linda 02/05/2023 TC:3 CPT: 81302
[2023-02-05 05:48] VITALS: BP 126/62; PULSE 69; RESP 18; TEMP 36; O2SAT 100; BMI 34.7
[2023-02-05] MEDS: Lactated Ringers 1,000 ML 15 ML IV (05:58)
--- NOTE | 2023-02-05 06:30 | IMM_PTH ---
PATIENT: BRICE LOMELI LOC: EN U#:[id number] AGE/SX: 77/F ROOM: RE02/05/[address]: Dr. Kirby Cheng DO : 1945 BED: DIS: 02/05/2023 SPEC #: [id number] RECD: 02/05/23 13:38 STATUS: GIBRAN REQ #: [id number] JEFERSON: 02/05/23 06:[address]: Kirby Cheng DEPT: IMMUNOHISTOCHEMISTRY RECD BY: Radha Weston ENTERED: 02/05/23 13:39 SP TYPE: IMMUNO OTHR DR: Dr. Jean Paul Bañuelos MD Tissues: Stomach, NOS Procedures: H Pylori (initial) PHYSICIAN & INSTITUTION [place] [address] SPECIMEN INFORMATION: Tissue Source: Gastric body Clinical Info: Iron deficiency anemia due to chronic blood loss, GI bleeding Specimen Number: [id number] CPT code: 94841 METHODOLOGY: Deparaffinized sections of prefer/formalin-fixed tissue or PAP/DQ stained slides are incubated with monoclonal/polyclonal antibodies/oligonucleotide probes. Localization is made via biotin free immunoperoxidase method. Appropriate controls are performed and reacted as expected. Results on target cell population are indicated in the following table: RESULTS: ANTIBODY / CLONE RESULT H Pylori (polyclonal) negative These tests were developed and their performance characteristics determined by [facility]. They may not have been cleared or approved by the U.S. Food and Drug Administration. The FDA has determined that such clearance or approval is not necessary. The above immunohistochemical/dualISH markers are ordered and reviewed by the Pathologist. INTERPRETATION: Gastric body, biopsy: Negative for Helicobacter pylori organisms. AM:linda 02/06/2023
--- NOTE | 2023-02-05 06:39 | HP.PCM_ITS ---
History and Physical Date of Admission: 02/05/23 76 F who presents to the office today for acute GI complaints after spending 4 days with her sister who smokes. Pt thinks the second hand smoke bothered her stomach. Has nausea, sharp intermittent pains in epigastrium. Says she never vomits. Having black-green stools. Lots of gas. She has iron deficiency anemia due to chronic blood loss. Her EGD last month showed red blood in stomach, 3 bleeding lesions in stomach, 2 bleeding lesions in duodenum. She didn't make it? to her scheduled f/u appt in 05/2022, but is?scheduled for repeat EGD on 07/17/22. Denies dizziness, lightheadedness. Says she is SOB, and feels weak in her legs. Per hematology visit on 06/28/22: Supported with 2 units PRBCs on 06/27/22 to address Hgb of 6.7 on 06/25/22.? Hgb today reflects transfusion. Per patient self report, no longer experiencing black stools.? Repeat CBC in 1 week. Continue oral iron/vitamin C in addition to venofer 300 mg IV weekly x 3 doses.? Hgb on 06/28/22 was 8.8 following 2 units PRBCs on 06/27/22. Today's hgb is 8. ROS Const Constitutional: Positive for fatigue ENT ENT: No difficulty swallowing Gastro GI: Positive for bloating, change in bowel habits, constipation, diarrhea, heartburn, excessive flatus, Blood in stool and nausea/dyspepsia; No abdominal pain, belching, change in stool character, coffee ground emesis, cramping, difficulty swallowing, feeling full early, incontinent of stools, Vomiting blood/hematemesis, loose stools, Black,tarry stools, pain with swallowing, vomiting or other Musc Musculoskeletal: Positive for back pain, muscle cramps, muscle weakness and Arthritis; No joint pain Skin Skin: No yellowing of the eye or itchy eyes Psych Psychiatric: No anxiety and No depression Endo Endocrine: Positive for fatigue Aller/Imm Allergy/Immunologic: No itchy eyes Lokesh/Lymp Hematologic/Lymphatic: Positive for easy bruising; No easy bleeding Exam Const General: cooperative and comfortable Orientation: alert, awake and oriented x3 Other: uses a cane Eyes Conjunctivae: conjunctival abnormality (pale) Sclera: sclerae normal Resp Effort & Inspection: normal respiratory effort GI Inspection: normal to inspection Palpation: soft, no masses and tender in the epigastrum Quality Reporting Tobacco Screening (CMS 138) Smoking Status: Never smoker Assessment and Plan Assessment and Plan (1) Iron deficiency anemia due to chronic blood loss: ?Status:?Chronic ?Plan: 76 yo female with upper GI bleeding, decreasing hemoglobin despite recent blood transfusion and IV iron. Symptomatic with SOB and weakness. Will have pt go to ED for admission in order to have Dr Prosper do EGD to treat the active bleeding. (2) Chronic GI bleeding: ?Status:?Chronic ?Plan: see above I have examined the patient and the H&P has been reviewed. There are no clinical changes since date of exam. I have examined the patient and the H&P has been reviewed. There are no clinical changes since date of exam.
[2023-02-05 07:00] VITALS: BP 126/62; BP 96/51; PULSE 58; RESP 18; TEMP 36.2; O2SAT 96
--- NOTE | 2023-02-05 07:04 | OP.EGD_ITS ---
Patient Name: Barbara Lloyd Procedure Date: 02/05/2023 6:17 AM Date of : 1945 Age: 77 Procedure: Upper GI endoscopy Indications: Iron deficiency anemia Providers: DO Rogelio Rivas MD: Jean Paul Bañuelos MD Medicines: Monitored Anesthesia Care Patient Profile: This is a 77 year old female. Refer to note in patient chart for documentation of history and physical. Patient has symptoms of chronic dyspepsia. Complications: No immediate complications. Procedure: Pre-Anesthesia Assessment: - Prior to the procedure, a History and Physical was performed, and patient medications and allergies were reviewed. The patient is competent. The risks and benefits of the procedure and the sedation options and risks were discussed with the patient. All questions were answered and informed consent was obtained. Patient identification and proposed procedure were verified by the physician in the pre-procedure area. Mental Status Examination: alert and oriented. Airway Examination: normal oropharyngeal airway and neck mobility. Respiratory Examination: clear to auscultation. CV Examination: normal. Prophylactic Antibiotics: The patient does not require prophylactic antibiotics. Prior Anticoagulants: The patient has taken no anticoagulant or antiplatelet agents. ASA Grade Assessment: II - A patient with mild systemic disease. After reviewing the risks and benefits, the patient was deemed in satisfactory condition to undergo the procedure. The anesthesia plan was to use monitored anesthesia care (MAC). Immediately prior to administration of medications, the patient was re-assessed for adequacy to receive sedatives. The heart rate, respiratory rate, oxygen saturations, blood pressure, adequacy of pulmonary ventilation, and response to care were monitored throughout the procedure. The physical status of the patient was re-assessed after the procedure. After obtaining informed consent, the endoscope was passed under direct vision. Throughout the procedure, the patient's blood pressure, pulse, and oxygen saturations were monitored continuously. The Endoscope was introduced through the mouth, and advanced to the second part of duodenum. The upper GI endoscopy was accomplished without difficulty. The patient tolerated the procedure well. Scope In: 6:43:38 AM Scope Out: 6:53:59 AM Total Procedure Duration Time 0 hours 10 minutes 21 seconds Findings: The examined esophagus was normal. Localized mild inflammation characterized by erosions, erythema and friability was found in the gastric body. Biopsies were taken with a cold forceps for histology. Verification of patient identification for the specimen was done. Estimated blood loss was minimal. Biopsies were taken with a cold forceps for Helicobacter pylori testing. Verification of patient identification for the specimen was done. Estimated blood loss was minimal. A single 5 mm angiodysplastic lesion with no bleeding was found in the gastric antrum. Coagulation for bleeding prevention using heater probe was successful. Estimated blood loss was minimal. The second portion of the duodenum was normal. Impression: - Normal esophagus. - Chronic gastritis. Biopsied. 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 Treated with a heater probe. - Normal second portion of the duodenum. Recommendation: - Discharge patient to home. - Resume previous diet. - Continue present medications. - Await pathology results. Procedure Code(s): --- Professional --- 49707, 59, Esophagogastroduodenoscopy, flexible, transoral; with control of bleeding, any method 43638, 51, Esophagogastroduodenoscopy, flexible, transoral; with biopsy, single or multiple CPT copyright 2021 [employer]. All rights reserved. The codes documented in this report are preliminary and upon computer forensic specialist review may be revised to meet current compliance requirements. Kirby Cheng DO 02/05/2023 7:03:45 AM This report has been signed electronically. Number of Addenda: 0 Note Initiated On: 02/05/2023 6:17 AM
[2023-02-05 07:05] VITALS: BP 105/56; BP 126/62; PULSE 58; RESP 18; O2SAT 97
--- NOTE | 2023-02-05 07:05 | OP.CCLET_ITS ---
02/05/2023 Jean Paul Bañuelos MD [address] [place] [address] Re : Upper GI endoscopy procedure for Barbara Lloyd Dear Dr. Bañuelos This procedure was performed on Sunday, February 05, 2023. My impressions and recommendations are as follows: Impressions : - Normal esophagus. - Chronic gastritis. Biopsied. 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 Treated with a heater probe. - Normal second portion of the duodenum. Recommendations : - Discharge patient to home. - Resume previous diet. - Continue present medications. - Await pathology results. My findings are described in the full procedure note, which is enclosed. If I can be of further assistance, please feel free to contact me at . Sincerely, Kirby Cheng, 02/05/2023 7:03:45 AM This report has been signed electronically.
[2023-02-05 07:10] VITALS: BP 107/51; BP 126/62; BP 93/77; PULSE 56; PULSE 60; RESP 18; TEMP 36.6; O2SAT 100; O2SAT 97
[2023-02-05 07:32] VITALS: BP 126/62
== END 2023-02-05 07:43 | disposition home or self-care (01) ==
LOC: EN 05:18 → AC 05:19
PROVIDERS: PCP Family Medicine Geriatric Medicine; Referring Provider Family Medicine Geriatric Medicine; Visit Provider Internal Medicine Gastroenterology
PROC: 0DJ08ZZ Inspection of Upper Intestinal Tract, Via Natural or Artificial Opening Endoscopic (ICD-10-PCS; CPT 43235; principal; 2023-02-05 06:25)
DX: K29.50 Unspecified chronic gastritis without bleeding (principal); D50.0 Iron deficiency anemia secondary to blood loss (chronic); K92.2 Gastrointestinal hemorrhage, unspecified
CPT/HCPCS: 43239; 43255; 88305; 88342; J7120; J2405

== ENCOUNTER → 2023-02-12 | Outpatient (CLI) | payer MEDICARE, OTHER, SELFPAY ==
--- NOTE | 2023-02-12 12:26 | MRI_ITS ---
HISTORY: pain -- spinal stenosis L2/3 TECHNIQUE: Multiplanar and multisequence MR images of the lumbar spine were obtained without intravenous contrast. 174 images. COMPARISON: XR 01/11/2023. FINDINGS: VERTEBRAE: Vertebral body heights maintained. Degenerative bone marrow endplate changes at multiple levels. Artifact from posterior spinal fusion hardware at L3-4. ALIGNMENT: Chronic mild retrolisthesis of L1-2 and L2-3. Mild lumbar levocurvature. CONUS: Normal morphology and position of the conus medullaris at L1. Mild tortuosity and redundancy of cauda equina nerve root secondary to spinal canal stenosis. INTERVERTEBRAL DISCS: T12-L1: No significant posterior disc protrusion, central canal stenosis, or foraminal narrowing based on the sagittal images. L1-2: Moderate posterior disc bulge osteophyte complex eccentric to the right with facet arthropathy resulting in right L2 nerve root impingement, moderate central canal stenosis, and moderate bilateral foraminal narrowing. Superimposed left paracentral disc extrusion with inferior migration resulting in left L3 nerve root abutment or impingement in the thecal sac. L2-3: Moderate posterior disc bulge osteophyte complex with facet arthropathy resulting in moderate-severe central canal stenosis and bilateral foraminal narrowing with mild right L2 nerve root impingement. L3-4: Decompressive laminectomy. Residual degenerative changes with osteophytes. No significant central canal stenosis. Mild-moderate left and moderate right foraminal narrowing. L4-5: Partial fusion across the intervertebral disc space with posterior osteophytes. Decompressive laminectomy. Facet arthropathy. No significant central canal stenosis. Mild bilateral foraminal narrowing. L5-S1: Residual degenerative change with posterior osteophytes and facet arthropathy. Decompressive laminectomy. No significant central canal stenosis. Mild bilateral foraminal narrowing. SOFT TISSUES: Mild posterior subcutaneous edema. 6 mm postoperative seroma at the left aspect of the decompressive laminectomy site. Posterior fatty muscular atrophy. Left renal cysts. MRI/Spine Lumbar (Routine) IMPRESSION: Postoperative changes of L3-4 to L5-S1 with degenerative disc disease above the level of fusion. Moderate spinal canal stenosis, bilateral foraminal narrowing, right nerve root impingement, and possible left nerve root impingement at L1-2. Moderate-severe spinal canal stenosis and bilateral foraminal narrowing with right nerve root impingement at L2-3. Electronically Signed: Mahogany Delgadillo MD at 13:03 EST ,
== END | disposition home or self-care (01) ==
LOC: MRI 12:24
PROVIDERS: PCP Family Medicine Geriatric Medicine; Referring Provider Orthopaedic Surgery; Visit Provider Orthopaedic Surgery
DX: M48.061 Spinal stenosis, lumbar region without neurogenic claudication (principal)
CPT/HCPCS: 72148

== ENCOUNTER → 2023-03-04 | Outpatient (CLI) | payer MEDICARE, OTHER, SELFPAY ==
[2023-03-04 17:21] LABS: Hematocrit 35.6 % (37-47); Hemoglobin 10.6 g/dL (12.0-15.0); Mean Corp Hgb Conc 29.8 g/dL (32-36); Mean Corpuscular Hgb 29.5 pg (27.0-32.0); Mean Corpuscular Volume 99.2 fL (81-99); Mean Platelet Vol. 10.5 fl (6.2-12.0); POSITIVE MORPHOLOGY YES; Platelet Count 281 K/mm3 (150-450); RBC Distribution Width CV 18.5 % (11.6-14.6); RBC Distribution Width SD 67.5 fl (35.1-43.9); Red Blood Count 3.59 M/mm3 (4.2-5.4); White Blood Count 7.8 K/mm3 (4.4-11.0)
[2023-03-04 17:26] LABS: Scan Indicated on CBC? Y/N YES- FLAGS NOTED
[2023-03-04 17:43] LABS: ALB/GLOB Ratio 1.1 RATIO (0.9-2.4); AST(SGOT) 15 U/L (15-37); Alanine Aminotransfer ALT/SGPT 22 U/L (13-56); Albumin, Serum 3.5 g/dL (3.2-5.0); Alkaline Phosphatase 48 U/L (45-117); Anion Gap 8 (5-15); BUN 28 mg/dL (7-18); BUN/Creat Ratio 21.2 RATIO (10-20); Calcium,Total 8.6 mg/dL (8.5-10.1); Chloride 110 mmol/L (98-107); Creatinine, Serum 1.32 mg/dL (0.55-1.02); EST Glomerular Filtration Rate 41 mL/min (>60); Est Glom Filt Rate - Afr Amer 50 mL/min (>60); Globulin 3.3 g/dL (2.2-4.2); Glucose 124 mg/dL (74-106); Potassium 3.8 mmol/L (3.5-5.1); Protein, Total 6.8 g/dL (6.4-8.2); Sodium Level 143 mmol/L (136-145)
[2023-03-04 17:44] LABS: Differential Comment SCANNED
[2023-03-04 17:49] LABS: BNP,B-Type NATRIURETIC PEPTIDE 3.5 pg/mL (0-100)
== END | disposition home or self-care (01) ==
LOC: POLAB3 14:50
PROVIDERS: PCP Family Medicine Geriatric Medicine; Visit Provider Family Medicine Geriatric Medicine
DX: N18.31 Chronic kidney disease, stage 3a (principal); D50.0 Iron deficiency anemia secondary to blood loss (chronic); Z86.718 Personal history of other venous thrombosis and embolism; K92.2 Gastrointestinal hemorrhage, unspecified
CPT/HCPCS: 36415; 80053; 83880; 85027

== ENCOUNTER → 2023-03-25 | Outpatient (CLI) | payer MEDICARE, OTHER, SELFPAY ==
[2023-03-25 16:59] LABS: Absolute Lymphocyte Count 1.74 X10^3/uL (0.83-4.51); Absolute Neutrophil Count 4.4 X10^3/uL (2.0-7.7); Basophil# 0.05 X10^3/uL; Basophil% 0.7 % (0-1); Eosinophil# 0.26 X10^3/uL; Eosinophils% 3.4 % (0-5); Hematocrit 32.8 % (37-47); Lymphocyte # 1.74 X10^3/ul (0.83-4.51); Lymphocyte % 22.8 % (19-41); Mean Corp Hgb Conc 30.5 g/dL (32-36); Mean Corpuscular Volume 101.5 fL (81-99); Mean Platelet Vol. 10.6 fl (6.2-12.0); Monocyte# 1.14 X10^3/uL; Monocyte% 14.9 % (0-10); NRBC Flagged by Analyzer 0 % (0-5); Neutrophil # 4.41 X10^3/uL (2.7-7.7); Neutrophil % 57.7 % (47-70); POSITIVE MORPHOLOGY YES; Platelet Count 311 K/mm3 (150-450); RBC Distribution Width CV 17.4 % (11.6-14.6); RBC Distribution Width SD 66.1 fl (35.1-43.9); Red Blood Count 3.23 M/mm3 (4.2-5.4); White Blood Count 7.6 K/mm3 (4.4-11.0)
[2023-03-25 17:17] LABS: Albumin, Serum 3.3 g/dL (3.2-5.0); BUN 27 mg/dL (7-18); Calcium,Total 8.3 mg/dL (8.5-10.1); Chloride 110 mmol/L (98-107); Creatinine, Serum 1.59 mg/dL (0.55-1.02); EST Glomerular Filtration Rate 33 mL/min (>60); Est Glom Filt Rate - Afr Amer 40 mL/min (>60); Glucose 147 mg/dL (74-106); Magnesium 2.4 mg/dL (1.6-2.6); Phosphorus 2.8 mg/dL (2.5-4.9); Potassium 3.9 mmol/L (3.5-5.1); Sodium Level 143 mmol/L (136-145)
[2023-03-25 17:18] LABS: Differential Indicated SCAN CRITERIA MET
[2023-03-25 17:24] LABS: Anisocytosis 1+; Hypochromasia RARE; Macrocytosis 1+; Ovalocyte RARE; Platelet Estimate ADEQUATE (ADEQ); Red Cell Morphology N CHROM NORMAL (NORM C&C); Toxic Granulation 1+
== END | disposition home or self-care (01) ==
LOC: POLAB3 15:06
PROVIDERS: PCP Family Medicine Geriatric Medicine; Visit Provider Family Medicine Geriatric Medicine
DX: N18.31 Chronic kidney disease, stage 3a (principal); D50.9 Iron deficiency anemia, unspecified
CPT/HCPCS: 36415; 80069; 83735; 85025

== ENCOUNTER → 2023-03-26 | Outpatient (CLI) | payer MEDICARE, OTHER, SELFPAY | END | disposition home or self-care (01) | LOC: PSN 08:44 | PROVIDERS: PCP Family Medicine Geriatric Medicine; Referring Provider Family Medicine Geriatric Medicine; Visit Provider Family Medicine Geriatric Medicine | DX: R68.83 Chills (without fever) (principal) | CPT/HCPCS: 87635; 87804; 87807; C9803 ==

== ENCOUNTER → 2023-04-18 | Outpatient (CLI) | payer MEDICARE, OTHER, SELFPAY ==
[2023-04-18 16:28] LABS: Absolute Lymphocyte Count 1.29 X10^3/uL (0.83-4.51); Absolute Neutrophil Count 6.7 X10^3/uL (2.0-7.7); Basophil# 0.03 X10^3/uL; Basophil% 0.3 % (0-1); Eosinophil# 0.17 X10^3/uL; Eosinophils% 1.9 % (0-5); Hematocrit 33.6 % (37-47); Hemoglobin 10.5 g/dL (12.0-15.0); Lymphocyte # 1.29 X10^3/ul (0.83-4.51); Lymphocyte % 14.6 % (19-41); Mean Corp Hgb Conc 31.3 g/dL (32-36); Mean Corpuscular Hgb 30.5 pg (27.0-32.0); Mean Corpuscular Volume 97.7 fL (81-99); Mean Platelet Vol. 10.6 fl (6.2-12.0); Monocyte# 0.63 X10^3/uL; Monocyte% 7.1 % (0-10); NRBC Flagged by Analyzer 0 % (0-5); Neutrophil # 6.67 X10^3/uL (2.7-7.7); Neutrophil % 75.6 % (47-70); Platelet Count 329 K/mm3 (150-450); RBC Distribution Width CV 14.8 % (11.6-14.6); RBC Distribution Width SD 52.6 fl (35.1-43.9); Red Blood Count 3.44 M/mm3 (4.2-5.4); White Blood Count 8.8 K/mm3 (4.4-11.0)
[2023-04-18 16:43] LABS: Vitamin D,25 Hydroxy 44.7 ng/mL
[2023-04-18 16:55] LABS: ALB/GLOB Ratio 1.1 RATIO (0.9-2.4); AST(SGOT) 16 U/L (15-37); Alanine Aminotransfer ALT/SGPT 20 U/L (13-56); Albumin, Serum 3.5 g/dL (3.2-5.0); Alkaline Phosphatase 46 U/L (45-117); Anion Gap 5 (5-15); BUN 27 mg/dL (7-18); Calcium,Total 9.1 mg/dL (8.5-10.1); Chloride 110 mmol/L (98-107); Creatinine, Serum 1.23 mg/dL (0.55-1.02); EST Glomerular Filtration Rate 45 mL/min (>60); Est Glom Filt Rate - Afr Amer 54 mL/min (>60); Globulin 3.3 g/dL (2.2-4.2); Glucose 123 mg/dL (74-106); Protein, Total 6.8 g/dL (6.4-8.2); Sodium Level 139 mmol/L (136-145); Thyroid Stim Hormone (TSH) 1.34 uIU/mL (0.358-3.74)
== END | disposition home or self-care (01) ==
LOC: POLAB3 14:22
PROVIDERS: PCP Family Medicine Geriatric Medicine; Visit Provider Family Medicine Geriatric Medicine
DX: E11.65 Type 2 diabetes mellitus with hyperglycemia (principal); I10 Essential (primary) hypertension; E55.9 Vitamin D deficiency, unspecified
CPT/HCPCS: 36415; 80053; 82306; 84443; 85025

== ENCOUNTER → 2023-05-21 | Outpatient (CLI) | payer MEDICARE, OTHER, SELFPAY ==
[2023-05-21 16:52] LABS: BNP,B-Type NATRIURETIC PEPTIDE 40.8 pg/mL (0-100)
== END | disposition home or self-care (01) ==
LOC: LAB 15:29
PROVIDERS: PCP Family Medicine Geriatric Medicine; Referring Provider Physician Assistant Medical; Visit Provider Physician Assistant Medical
DX: R06.09 Other forms of dyspnea (principal)
CPT/HCPCS: 36415; 83880

== ENCOUNTER → 2023-06-24 | Outpatient (CLI) | payer MEDICARE, OTHER, SELFPAY ==
--- NOTE | 2023-06-24 06:19 | ECHOD_ITS ---
Reason For Study: CAD, Fatigue, JARRETT Procedure This was a 2D Doppler, Color Flow transthoracic echocardiogram. Exam performed in department. Left Ventricle Normal LV size. Mild concentric left ventricular hypertrophy. Left ventricular systolic function is normal. The estimated ejection fraction is 55 %. Stage 1 diastolic dysfunction. No regional wall motion abnormalities noted. Right Ventricle Normal RV size. Normal systolic function. Atria Normal left atrium. Normal right atrium. Mitral Valve There is mild mitral annular calcification. Mild (1+) mitral valve insufficiency. Tricuspid Valve Normal tricuspid valve. Mild tricuspid valve insufficiency. Pulmonary artery systolic pressure is 24 mmHg. Aortic Valve Trisinus/trileaflet aortic valve. Mild focal aortic valve calcification. Peak aortic valve gradient 22 mmHg. Mean aortic valve gradient 11 mmHg. Mild aortic stenosis. Pulmonic Valve Normal pulmonic valve. Great Vessels Normal aortic root. The pulmonary artery is normal size. Inferior vena cava collapse with respiration. Pericardium/Pleural No pericardial effusion. MMode/2D Measurements & Calculations LVIDd: 4.3 cm IVSd: 1.4 cm LVOT diam: 2.0 cm LVIDs: 3.1 cm LVPWd: 1.2 cm LVOT area: 3.3 cm2 RVDd: 4.0 cm FS: 27.9 % Ao root diam: 3.3 cm LAV(MOD-bp): 59.5 ml LVAd ap4: 26.3 cm2 LA dimension: 3.6 cm LAV(MOD-bp) Indexed: 30.9 ml/m2 LVLd ap4: 7.5 cm LAV(MOD-sp2): 60.4 ml EDV(MOD-sp4): 75.9 ml LAV(MOD-sp4): 52.0 ml EDV(sp4-el): 78.7 ml LVAs ap4: 16.4 cm2 LVLs ap4: 6.5 cm ESV(MOD-sp4): 36.4 ml ESV(sp4-el): 35.0 ml EF(MOD-sp4): 52.1 % EF(sp4-el): 55.5 % SV(MOD-sp4): 39.5 ml SV(sp4-el): 43.6 ml Aortic Valve Planimetry: 1.2 cm2 LA A4 area: 19.0 cm2 RA A4 area: 15.3 cm2 TAPSE: 2.0 cm Time Measurements MV dec time: 0.49 sec Doppler Measurements & Calculations MV E max froylan: 42.7 cm/sec Lat Peak E' Froylan: 6.9 cm/sec Med Peak E' Froylan: 5.2 cm/sec MV A max froylan: 77.0 cm/sec E/E' lat: 6.2 E/E' med: 8.2 MV E/A: 0.55 MV V2 max: 99.0 cm/sec MV P1/2t max froylan: 56.1 cm/sec Ao V2 max: 235.4 cm/sec MV max P.9 mmHg MV P1/2t: 147.7 msec Ao max P.2 mmHg MV V2 mean: 41.8 cm/sec Ao V2 mean: 152.8 cm/sec MV mean P.87 mmHg MV dec slope: 111.3 cm/sec2 Ao mean P.9 mmHg MV V2 VTI: 28.8 cm MVA(P1/2t): 1.5 cm2 Ao V2 VTI: 55.0 cm AV (velocity ratio): 0.39 MVA(VTI): 2.4 cm2 SARA(I,D): 1.3 cm2 SARA(V,D): 1.2 cm2 LV V1 max: 85.7 cm/sec MR max froylan: 546.3 cm/sec SV(LVOT): 69.5 ml LV V1 max P.9 mmHg MR max P.4 mmHg LV V1 mean P.6 mmHg LV V1 mean: 58.4 cm/sec LV V1 VTI: 21.3 cm PA V2 max: 126.0 cm/sec TR max froylan: 227.2 cm/sec PA V2 mean: 75.8 cm/sec TR max P.7 mmHg ECHO/Echo Complete Interpretation Summary Normal LV size. Mild concentric left ventricular hypertrophy. Left ventricular systolic function is normal. The estimated ejection fraction is 55 %. Stage 1 diastolic dysfunction. Mild focal aortic valve calcification. Mean aortic valve gradient 11 mmHg. Mild aortic stenosis. Ordering Physician: Tali Lenz Referring Physician: Jean Paul Bañuelos Chi Performed By: Rahat Gagnon RCS
--- NOTE | 2023-06-24 10:09 | STRESSREP ---
Stress Test Report Pharmacologic myocardial perfusion stress test. 77-year-old lady with a history of chest pain Resting EKG demonstrates sinus bradycardia with a rate of 52 bpm. Resting blood pressure is 118/64 mmHg. 0.4 mg of regadenoson was infused per usual protocol followed by rapid intravenous saline flush injection. Continuous EKG monitoring was performed. The maximum heart rate was 62 bpm which was 43% of max impacted heart rate the maximum workload was 1 metabolic equivalent. At rest there were no ST or T wave changes noted to suggest ischemia and at peak infusion nonspecific ST changes were noted which did not meet the criteria for ischemia. No clinical angina is noted. The final blood pressure was 120/62 mmHg. Myocardial perfusion protocol. 11.6 mCi of technetium 99m sestamibi was injected at rest. 0.4 mg of regadenoson was infused per usual protocol. At peak infusion 33 point mCi of technetium 99m sestamibi was injected stress images were obtained stress and rest images were reconstructed and compared in the short axis vertical long and horizontal long axis. Gated images were also obtained. Perfusion SPECT analysis: Review of the stress images demonstrate normal uptake of tracer noted in all areas of the myocardium. The resting images similar demonstrated normal uptake of tracer noted in all areas of the myocardium. No areas of reversibility are noted to suggest ischemia and no previous infarct is noted. Gated SPECT analysis: The gated ejection fraction is 81%. Conclusion: Normal pharmacologic myocardial perfusion stress test. Preserved ejection fraction.
== END | disposition home or self-care (01) ==
LOC: CVS 06:19
PROVIDERS: PCP Family Medicine Geriatric Medicine; Referring Provider Physician Assistant Medical; Visit Provider Physician Assistant Medical
DX: R06.09 Other forms of dyspnea (principal); I25.10 Atherosclerotic heart disease of native coronary artery without angina pectoris; R53.83 Other fatigue
CPT/HCPCS: 78452; 93017; 93306; A9500; A4216; J2785

== ENCOUNTER → 2023-07-09 | Outpatient (CLI) | payer MEDICARE, OTHER, SELFPAY ==
[2023-07-09 12:39] LABS: Absolute Lymphocyte Count 0.97 X10^3/uL (0.83-4.51); Absolute Neutrophil Count 4.1 X10^3/uL (2.0-7.7); Basophil# 0.05 X10^3/uL; Basophil% 0.8 % (0-1); Eosinophil# 0.44 X10^3/uL; Eosinophils% 7.1 % (0-5); Hematocrit 31.4 % (37-47); Hemoglobin 9.5 g/dL (12.0-15.0); Lymphocyte # 0.97 X10^3/ul (0.83-4.51); Lymphocyte % 15.6 % (19-41); Mean Corp Hgb Conc 30.3 g/dL (32-36); Mean Corpuscular Hgb 29.4 pg (27.0-32.0); Mean Corpuscular Volume 97.2 fL (81-99); Mean Platelet Vol. 10.3 fl (6.2-12.0); Monocyte# 0.62 X10^3/uL; NRBC Flagged by Analyzer 0 % (0-5); Neutrophil # 4.12 X10^3/uL (2.7-7.7); Neutrophil % 66.2 % (47-70); Platelet Count 293 K/mm3 (150-450); RBC Distribution Width SD 50.6 fl (35.1-43.9); Red Blood Count 3.23 M/mm3 (4.2-5.4); White Blood Count 6.2 K/mm3 (4.4-11.0)
[2023-07-09 13:25] LABS: AST(SGOT) 14 U/L (15-37); Alanine Aminotransfer ALT/SGPT 20 U/L (13-56); Albumin, Serum 3.1 g/dL (3.2-5.0); Alkaline Phosphatase 43 U/L (45-117); Anion Gap 5 (5-15); BUN 19 mg/dL (7-18); BUN/Creat Ratio 16.7 RATIO (10-20); Calcium,Total 9.1 mg/dL (8.5-10.1); Chloride 111 mmol/L (98-107); Creatinine, Serum 1.14 mg/dL (0.55-1.02); EST Glomerular Filtration Rate 49 mL/min (>60); Est Glom Filt Rate - Afr Amer 59 mL/min (>60); Ferritin 12 ng/mL (8-252); Globulin 3.2 g/dL (2.2-4.2); Glucose 113 mg/dL (74-106); Iron 101 ug/dL (50-170); Iron Binding Capacity,Total 396 ug/dL (250-450); PERCENT IRON SATURATION 25.5 % (15.0-55.0); Potassium 4.7 mmol/L (3.5-5.1); Protein, Total 6.3 g/dL (6.4-8.2); Sodium Level 141 mmol/L (136-145)
[2023-07-10 12:16] LABS: Cholesterol 236 mg/dL (200); High Density Lipoprotein 43 mg/dL; Thyroid Stim Hormone (TSH) 1.64 uIU/mL (0.358-3.74); Triglycerides 225 mg/dL; Very Low Density Lipoprotein 45 mg/dL (5-40)
== END | disposition home or self-care (01) ==
LOC: POLAB3 11:53
PROVIDERS: PCP Family Medicine Geriatric Medicine; Visit Provider Family Medicine Geriatric Medicine
DX: N39.0 Urinary tract infection, site not specified (principal); E11.65 Type 2 diabetes mellitus with hyperglycemia; I10 Essential (primary) hypertension; E55.9 Vitamin D deficiency, unspecified; E78.5 Hyperlipidemia, unspecified
CPT/HCPCS: 36415; 80053; 80061; 82728; 83540; 83550; 84443; 85025; 87086; 87088

== ENCOUNTER → 2023-07-15 | Outpatient (CLI) | payer MEDICARE, OTHER, SELFPAY ==
--- NOTE | 2023-07-15 09:00 | MRI_ITS ---
EXAM: MR CERVICAL SPINE WITHOUT INTRAVENOUS CONTRAST CLINICAL INDICATION: cervical spinal stenosis TECHNIQUE: Multiplanar and multisequence MR images of the cervical spine without intravenous contrast were performed. COMPARISON: No relevant prior studies available. FINDINGS: VERTEBRAE: Alignment of the cervical vertebral bodies is normal. Normal vertebral body height. No bone marrow edema. SPINAL CORD: Unremarkable in signal and morphology. SOFT TISSUES: Normal. No prevertebral soft tissue swelling. LYMPH NODES: Normal. There is no cervical adenopathy. DISCS/SPINAL CANAL/NEURAL FORAMINA: C2-C3: Normal. Normal disc height and morphology. Normal spinal canal. Normal neuroforamina. C3-C4: Intact disc space. Mild right central disc protrusion without spinal stenosis. Moderate bilateral neural foraminal narrowing related to uncinate joint hypertrophy and facet arthropathy. C4-C5: Mild disc space narrowing. Mild right central disc protrusion causing mild compression of the thecal sac mild to moderate narrowing of the neural foramina related to bony hypertrophy. C5-C6: Mild to moderate disc space narrowing. 7 mm right paracentral disc extrusion and posterior ligamentous redundancy results in moderate spinal stenosis and prominent narrowing of the right neural foramen related to the disc protrusion and uncinate joint hypertrophy. C6-C7: Prominent disc space narrowing. Prominent broad-based disc osteophyte complex results in moderate spinal stenosis. Prominent bilateral neural foraminal narrowing related to uncinate joint hypertrophy. C7-T1: Mild to moderate disc space narrowing. Left central disc protrusion causes mild narrowing of the spinal canal. Intact neural foramina. MRI/Spine Cervical (Routine) IMPRESSION: 1. Significant spinal stenosis at C5-6 and C6-7 related to disc extrusion at C5-6 and broad-based disc osteophyte complex at C6-7. 2. Multilevel neural foraminal narrowing as described. Electronically Signed: Rodolfo Salazar MD at 11:26 EDT ,
== END | disposition home or self-care (01) ==
LOC: MRI 08:47
PROVIDERS: PCP Family Medicine Geriatric Medicine; Referring Provider Orthopaedic Surgery; Visit Provider Orthopaedic Surgery
DX: M48.02 Spinal stenosis, cervical region (principal)
CPT/HCPCS: 72141

== ENCOUNTER → 2023-07-23 | Outpatient (CLI) | payer MEDICARE, OTHER, SELFPAY ==
--- NOTE | 2023-07-23 07:47 | CT_ITS ---
STUDY: CT ABDOMEN AND PELVIS WITH CONTRAST REASON FOR EXAM: Female, 77 years old. Intermittent left flank pain. History of diverticulitis. RADIATION DOSAGE (If Supplied By Facility): CTDIvol = ( 21.21 ) mGy, DLP = ( 1378.15 ) mGycm TECHNIQUE: Transaxial images were obtained from the dome of the diaphragm to the symphysis pubis with oral contrast. Oral and amp; IV Readi-CAT and amp; 100mL Isovue-300 was administered. Sagittal and coronal images were reconstructed. Individualized dose optimization techniques were used for this CT. COMPARISON: Comparison is made with prior study dated October 14, 2017. FINDINGS: The visualized lung bases are unremarkable. Coronary artery calcification. A left-sided ventriculoperitoneal shunt is seen with the tip in the left hemipelvis. There is decreased attenuation of the liver consistent with steatosis. The gallbladder is contracted. Questionable gallstone within the gallbladder lumen. Normal spleen. There is diffuse atrophy of the pancreas. Normal bilateral adrenal glands. Normal right kidney. There is a 2.7 cm cyst in the lateral aspect of the left kidney. Normal visualized stomach. Normal small intestine. Normal colon. The patient is status post appendectomy. There is diffuse atherosclerotic calcification of the abdominal aorta, without a demonstrated aneurysm. There is an IVC filter in place. Normal retroperitoneum. The urinary bladder is empty although there is diffuse thickening of the wall more prominent along its anterior aspect. Cystitis should BE ruled out. There is absence of the uterus consistent with a prior hysterectomy. There is evidence of prior anterior abdominal wall hernia repair with a mesh. The patient is status post fusion at the L3-L4 level. Multilevel degenerative changes. CT/Abdomen/Pelvis WITH Contrast IMPRESSION: Fatty infiltration of the liver. Findings suggestive of a partially contracted gallbladder with possible small calculus within it. Diffusely thickened urinary bladder wall more prominent anteriorly. Cystitis should BE ruled out. Electronically Signed: Jose M Malave MD at 11:08 EDT ,
== END | disposition home or self-care (01) ==
LOC: CT 07:46
PROVIDERS: PCP Family Medicine Geriatric Medicine; Referring Provider Family Medicine Geriatric Medicine; Visit Provider Family Medicine Geriatric Medicine
DX: R10.9 Unspecified abdominal pain (principal)
CPT/HCPCS: 74177; Q9967

== ENCOUNTER → 2023-07-25 | Outpatient (CLI) | payer MEDICARE, OTHER, SELFPAY | END | disposition home or self-care (01) | PROVIDERS: PCP Family Medicine Geriatric Medicine; Visit Provider Family Medicine Geriatric Medicine | DX: N30.00 Acute cystitis without hematuria (principal); K80.20 Calculus of gallbladder without cholecystitis without obstruction | CPT/HCPCS: 87086; 87088 ==

== ENCOUNTER → 2023-07-30 | Outpatient (CLI) | payer MEDICARE, OTHER, SELFPAY ==
--- NOTE | 2023-07-30 12:00 | RAD_ITS ---
INDICATION: Unilateral primary osteoarthritis, right hip EXAMINATION/TECHNIQUE: X-RAY - XR Hips Bilateral with Pelvis when performed; Min 5 Views COMPARISON: Pelvis and bilateral hip radiographs dated 01/03/2021 FINDINGS: PELVIC BONES: No displaced fracture, destructive or sclerotic lesions. Note that overlapping bowel shadows may however obscure fine detail. Sacroiliac joints are unremarkable. No widening of the pubic symphysis. There is bilateral fusion hardware in the upper lumbar spine. HIPS: There is unchanged moderate degenerative arthrosis of the hip joints bilaterally with moderate joint space narrowing and marginal osteophyte formation. No displaced fracture. SOFT TISSUES: No soft tissue swelling or gas. RAD/Hips B/L min 2 views w/ Pelvis IMPRESSION: Unchanged moderate degenerative arthrosis of the hip joints bilaterally. No displaced fracture. Electronically Signed: Doug Perez MD at 14:24 EDT ,
== END | disposition home or self-care (01) ==
LOC: RAD 11:57
PROVIDERS: PCP Family Medicine Geriatric Medicine; Referring Provider Anesthesiology Pain Medicine; Visit Provider Anesthesiology Pain Medicine
DX: M16.11 Unilateral primary osteoarthritis, right hip (principal)
CPT/HCPCS: 73521

== ENCOUNTER → 2023-08-02 | Outpatient (CLI) | payer MEDICARE, OTHER, SELFPAY ==
--- NOTE | 2023-08-02 07:28 | US_ITS ---
STUDY: ABDOMINAL ULTRASOUND - RIGHT UPPER QUADRANT REASON FOR VISIT: Female, 77 years old CHOLELLTHIASIS TECHNIQUE: Ultrasound evaluation of the right upper quadrant was performed with real-time and static barakat-scale imaging. TECHNICAL QUALITY: Adequate. COMPARISON: Comparison is made with prior study dated November 22, 2013. Comparison is also made to prior CT scan and pelvis dated July 23, 2023. FINDINGS: Liver: The liver measures 14.4 cm. There is increased echogenicity consistent with fatty infiltration. The bile ducts are within normal limits. There is hepatic color flow. The direction of portal flow is hepatopetal. There is no demonstrated mass lesion. Gallbladder: The patient claims to have a prior cholecystectomy. In the gallbladder fossa, there is a fluid collection with a gallstone. The gallbladder wall measures 2 mm. There is a negative sonographic Spencer''s sign. There is no pericholecystic fluid. There is a solitary echogenic gallstone within the gallbladder. This measures 2.8 cm x 2.2 cm x 2 cm. Common Bile Duct (C.B.D.): The common bile duct measures 7 mm. Pancreas: Normal size of the head, body and tail of the pancreas. There is normal echogenicity of the pancreas. There is no demonstrated pancreatic mass or cyst. Right Kidney: Normal size of the right kidney. The right kidney measures 10.7 cm x 5.2 cm x 4.9 cm. Normal renal cortex. The right cortex measures 1.3 cm. There is no demonstrated renal mass or cyst. There is no right hydronephrosis. US/Abdomen Limited IMPRESSION: Fatty infiltration of the liver. The patient claims to have had a prior cholecystectomy although the gallbladder fossa, there is a well-circumscribed fluid collection with a gallstone. Electronically Signed: Jose M Malave MD at 13:22 EDT ,
== END | disposition home or self-care (01) ==
LOC: US 07:28
PROVIDERS: PCP Family Medicine Geriatric Medicine; Referring Provider Family Medicine Geriatric Medicine; Visit Provider Family Medicine Geriatric Medicine
DX: K80.20 Calculus of gallbladder without cholecystitis without obstruction (principal)
CPT/HCPCS: 76705

== ENCOUNTER → 2023-08-29 | Outpatient (CLI) | payer MEDICARE, OTHER, SELFPAY ==
--- NOTE | 2023-08-29 12:29 | BD_ITS ---
STUDY: DUAL ENERGY X-RAY ABSORPTIOMETRY / DXA REASON FOR EXAM: Female, 77 years old. osteoporosis TECHNIQUE: Bone Mineral Density (BMD) measurements of lumbar spine and bilateral hips were obtained. COMPARISON: Comparison is made with prior study dated December 29, 2015. FINDINGS: Lumbar Spine (L1-L4): g/cm2 (1.469) / T-score (4.5) / Z-score (6.9) Findings are suggestive of normal bone density with a low fracture risk. Left Femur Total: g/cm2 (0.967) / T-score (0.2) / Z-score (2.2) Left Femoral Neck: g/cm2 (0.630) / T-score (-2.0) / Z-score (0.3) Right Femur Total: g/cm2 (0.963) / T-score (0.2) / Z-score (2.2) Right Femoral Neck: g/cm2 (0.839) / T-score (-0.1) / Z-score (2.) The T-Scores on the most recent prior examination were: Lumbar Spine (L1-L4): There has been improvement of bone density since the previous examination. Left Femur Total: which represents a worsening of 5.4%. Right Femur Total: which represents a worsening of 12.1%. BD/Dexa Bone Density Study IMPRESSION: The patient is considered as outlined below according to World Kevin Organization (WHO) criteria with a moderate fracture risk. There has been worsening of bone density since the previous examination. Reference Information: The T-score is the number of standard deviations above or below the standard which is normal for young adults at their peak bone mineral density. The World Health Organization (WHO) interprets the T-scores as follows: Above -1 Normal bone density Between -1 and -2.5 Osteopenia Equal to / or below -2.5 Osteoporosis As a practical clinical guideline, osteopenia may be graded as follows: Mild -1 through -1.5 Moderate -1.6 through -2.0 Severe -2.1 through -2.4 The Z-score is the number of standard deviations above or below age-matched controls. A Z-score of less than -1.5 would be considered abnormal. References: 1. NIH Osteoporosis and Related Bone Diseases www osteo.org 2. International Society for Clinical Densitometry www iscd.org 3. National Osteoporosis Foundation www nof.org Electronically Signed: Jose M Malave MD at 11:15 EDT ,
== END | disposition home or self-care (01) ==
LOC: OPBD 12:22
PROVIDERS: PCP Family Medicine Geriatric Medicine; Referring Provider Orthopaedic Surgery; Visit Provider Orthopaedic Surgery
DX: M81.0 Age-related osteoporosis without current pathological fracture (principal)
CPT/HCPCS: 77080

== ENCOUNTER → 2023-10-02 | Outpatient (CLI) | payer MEDICARE, OTHER, SELFPAY ==
[2023-10-02 17:21] LABS: Absolute Lymphocyte Count 2.77 X10^3/uL (0.83-4.51); Absolute Neutrophil Count 5.5 X10^3/uL (2.0-7.7); Basophil# 0.05 X10^3/uL; Basophil% 0.5 % (0-1); Eosinophil# 0.24 X10^3/uL; Eosinophils% 2.5 % (0-5); Hematocrit 35.7 % (37-47); Hemoglobin 10.8 g/dL (12.0-15.0); Lymphocyte # 2.77 X10^3/ul (0.83-4.51); Mean Corp Hgb Conc 30.3 g/dL (32-36); Mean Corpuscular Hgb 28.6 pg (27.0-32.0); Mean Corpuscular Volume 94.7 fL (81-99); Monocyte# 0.94 X10^3/uL; Monocyte% 9.8 % (0-10); NRBC Flagged by Analyzer 0 % (0-5); Neutrophil # 5.54 X10^3/uL (2.7-7.7); Platelet Count 342 K/mm3 (150-450); RBC Distribution Width CV 15.5 % (11.6-14.6); Red Blood Count 3.77 M/mm3 (4.2-5.4); White Blood Count 9.6 K/mm3 (4.4-11.0)
== END | disposition home or self-care (01) ==
LOC: LAB 16:57
PROVIDERS: PCP Family Medicine Geriatric Medicine; Visit Provider Family Medicine Geriatric Medicine
DX: E78.5 Hyperlipidemia, unspecified (principal)
CPT/HCPCS: 36415; 85025

== ENCOUNTER → 2023-10-03 | Outpatient (CLI) | payer MEDICARE, OTHER, SELFPAY | END | disposition home or self-care (01) | LOC: PSN 09:06 | PROVIDERS: PCP Family Medicine Geriatric Medicine; Referring Provider Family Medicine Geriatric Medicine; Visit Provider Family Medicine Geriatric Medicine | DX: R68.83 Chills (without fever) (principal) | CPT/HCPCS: 87631 ==

== ENCOUNTER → 2023-10-17 | Outpatient (CLI) | payer MEDICARE, OTHER, SELFPAY ==
[2023-10-17 10:17] LABS: Absolute Lymphocyte Count 1.68 X10^3/uL (0.83-4.51); Absolute Neutrophil Count 7.2 X10^3/uL (2.0-7.7); Basophil# 0.06 X10^3/uL; Basophil% 0.6 % (0-1); Eosinophil# 0.45 X10^3/uL; Eosinophils% 4.4 % (0-5); Hematocrit 35.3 % (37-47); Hemoglobin 10.5 g/dL (12.0-15.0); Lymphocyte # 1.68 X10^3/ul (0.83-4.51); Lymphocyte % 16.3 % (19-41); Mean Corp Hgb Conc 29.7 g/dL (32-36); Mean Corpuscular Hgb 27.9 pg (27.0-32.0); Mean Corpuscular Volume 93.6 fL (81-99); Mean Platelet Vol. 10.1 fl (6.2-12.0); Monocyte% 8.7 % (0-10); NRBC Flagged by Analyzer 0 % (0-5); Neutrophil % 69.7 % (47-70); Platelet Count 381 K/mm3 (150-450); RBC Distribution Width CV 15.2 % (11.6-14.6); RBC Distribution Width SD 52.6 fl (35.1-43.9); Red Blood Count 3.77 M/mm3 (4.2-5.4); White Blood Count 10.3 K/mm3 (4.4-11.0)
[2023-10-17 10:53] LABS: Vitamin D,25 Hydroxy 34.5 ng/mL
[2023-10-17 11:06] LABS: AST(SGOT) 17 U/L (15-37); Alanine Aminotransfer ALT/SGPT 20 U/L (13-56); Albumin, Serum 3.6 g/dL (3.2-5.0); Alkaline Phosphatase 48 U/L (45-117); Anion Gap 9 (5-15); BUN 31 mg/dL (7-18); BUN/Creat Ratio 21.1 RATIO (10-20); Calcium,Total 9.7 mg/dL (8.5-10.1); Chloride 105 mmol/L (98-107); Creatinine, Serum 1.47 mg/dL (0.55-1.02); EST Glomerular Filtration Rate 37 mL/min (>60); Est Glom Filt Rate - Afr Amer 44 mL/min (>60); Globulin 3.6 g/dL (2.2-4.2); Glucose 117 mg/dL (74-106); Potassium 4.3 mmol/L (3.5-5.1); Protein, Total 7.2 g/dL (6.4-8.2); Sodium Level 136 mmol/L (136-145); Thyroid Stim Hormone (TSH) 1.19 uIU/mL (0.358-3.74)
== END | disposition home or self-care (01) ==
LOC: POLAB3 09:59
PROVIDERS: PCP Family Medicine Geriatric Medicine; Visit Provider Family Medicine Geriatric Medicine
DX: E11.65 Type 2 diabetes mellitus with hyperglycemia (principal); I10 Essential (primary) hypertension; E55.9 Vitamin D deficiency, unspecified
CPT/HCPCS: 36415; 80053; 82306; 84443; 85025

== ENCOUNTER → 2023-11-04 | Outpatient (CLI) | payer MEDICARE, OTHER, SELFPAY ==
[2023-11-04 17:13] LABS: Absolute Lymphocyte Count 1.24 X10^3/uL (0.83-4.51); Absolute Neutrophil Count 5.2 X10^3/uL (2.0-7.7); Basophil# 0.03 X10^3/uL; Basophil% 0.4 % (0-1); Eosinophil# 0.36 X10^3/uL; Eosinophils% 4.8 % (0-5); Hemoglobin 8.1 g/dL (12.0-15.0); Lymphocyte # 1.24 X10^3/ul (0.83-4.51); Lymphocyte % 16.6 % (19-41); Mean Corpuscular Hgb 26.6 pg (27.0-32.0); Mean Corpuscular Volume 88.5 fL (81-99); Mean Platelet Vol. 10.3 fl (6.2-12.0); Monocyte# 0.59 X10^3/uL; Monocyte% 7.9 % (0-10); NRBC Flagged by Analyzer 0 % (0-5); Neutrophil # 5.23 X10^3/uL (2.7-7.7); Platelet Count 342 K/mm3 (150-450); RBC Distribution Width CV 15.3 % (11.6-14.6); RBC Distribution Width SD 49.4 fl (35.1-43.9); Red Blood Count 3.05 M/mm3 (4.2-5.4); White Blood Count 7.5 K/mm3 (4.4-11.0)
[2023-11-04 17:46] LABS: Erythrocyte Sedimentation Rate 17 mm/hr (0-30)
[2023-11-04 18:08] LABS: AST(SGOT) 22 U/L (15-37); Alanine Aminotransfer ALT/SGPT 19 U/L (13-56); Albumin, Serum 3.2 g/dL (3.2-5.0); Alkaline Phosphatase 44 U/L (45-117); Anion Gap 7 (5-15); BUN 28 mg/dL (7-18); BUN/Creat Ratio 23.5 RATIO (10-20); CRP < 2.90 mg/L (0.0-3.0); Calcium,Total 8.8 mg/dL (8.5-10.1); Chloride 109 mmol/L (98-107); Creatinine, Serum 1.19 mg/dL (0.55-1.02); EST Glomerular Filtration Rate 47 mL/min (>60); Est Glom Filt Rate - Afr Amer 56 mL/min (>60); Ferritin 10 ng/mL (8-252); Globulin 3.2 g/dL (2.2-4.2); Glucose 145 mg/dL (74-106); Iron 24 ug/dL (50-170); Iron Binding Capacity,Total 411 ug/dL (250-450); PERCENT IRON SATURATION 5.8 % (15.0-55.0); Potassium 3.8 mmol/L (3.5-5.1); Protein, Total 6.4 g/dL (6.4-8.2); Sodium Level 139 mmol/L (136-145)
== END | disposition home or self-care (01) ==
LOC: POLAB3 16:37
PROVIDERS: PCP Family Medicine Geriatric Medicine; Visit Provider Family Medicine Geriatric Medicine
DX: R68.83 Chills (without fever) (principal); I10 Essential (primary) hypertension; M35.3 Polymyalgia rheumatica; D50.9 Iron deficiency anemia, unspecified
CPT/HCPCS: 36415; 80053; 82728; 83540; 83550; 85025; 85652; 86140; 87631

== ENCOUNTER → 2023-11-06 | Outpatient (CLI) | payer MEDICARE, OTHER, SELFPAY ==
[2023-11-12 15:09] LABS: Pancreatic Elastase, Fecal > 800 (>200)
== END | disposition home or self-care (01) ==
PROVIDERS: Internal Medicine Gastroenterology; PCP Family Medicine Geriatric Medicine; Referring Provider Family Medicine Geriatric Medicine; Visit Provider Family Medicine Geriatric Medicine
DX: K92.1 Melena (principal)
CPT/HCPCS: 82274; 82653; 87177; 87209; 87493

== ENCOUNTER → 2024-01-13 | Outpatient (CLI) | payer MEDICARE, OTHER, SELFPAY ==
[2024-01-13 11:35] LABS: Absolute Lymphocyte Count 1.07 X10^3/uL (0.83-4.51); Absolute Neutrophil Count 6.2 X10^3/uL (2.0-7.7); Basophil# 0.06 X10^3/uL; Basophil% 0.7 % (0-1); Eosinophil# 0.22 X10^3/uL; Eosinophils% 2.7 % (0-5); Hematocrit 34.6 % (37-47); Hemoglobin 10.2 g/dL (12.0-15.0); Lymphocyte # 1.07 X10^3/ul (0.83-4.51); Mean Corp Hgb Conc 29.5 g/dL (32-36); Mean Corpuscular Hgb 29.5 pg (27.0-32.0); Mean Platelet Vol. 10.5 fl (6.2-12.0); Monocyte# 0.68 X10^3/uL; Monocyte% 8.3 % (0-10); NRBC Flagged by Analyzer 0 % (0-5); Neutrophil # 6.16 X10^3/uL (2.7-7.7); Neutrophil % 74.9 % (47-70); Platelet Count 355 K/mm3 (150-450); RBC Distribution Width CV 16.9 % (11.6-14.6); RBC Distribution Width SD 61.6 fl (35.1-43.9); Red Blood Count 3.46 M/mm3 (4.2-5.4); White Blood Count 8.2 K/mm3 (4.4-11.0)
[2024-01-13 12:03] LABS: Phosphorus 3.5 mg/dL (2.5-4.9)
[2024-01-13 12:04] LABS: PTHIN 114.1 pg/mL (18.4-80.1)
[2024-01-13 12:08] LABS: Vitamin D,25 Hydroxy 36.4 ng/mL
[2024-01-13 12:16] LABS: ALB/GLOB Ratio 0.9 RATIO (0.9-2.4); AST(SGOT) 12 U/L (15-37); Alanine Aminotransfer ALT/SGPT 15 U/L (13-56); Albumin, Serum 3.4 g/dL (3.2-5.0); Alkaline Phosphatase 48 U/L (45-117); Anion Gap 4 (5-15); BUN 21 mg/dL (7-18); BUN/Creat Ratio 16.7 RATIO (10-20); Calcium,Total 9.7 mg/dL (8.5-10.1); Chloride 110 mmol/L (98-107); Creatinine, Serum 1.26 mg/dL (0.55-1.02); EST Glomerular Filtration Rate 44 mL/min (>60); Est Glom Filt Rate - Afr Amer 53 mL/min (>60); Globulin 3.7 g/dL (2.2-4.2); Glucose 103 mg/dL (74-106); Potassium 4.3 mmol/L (3.5-5.1); Protein, Total 7.1 g/dL (6.4-8.2); Sodium Level 142 mmol/L (136-145)
== END | disposition home or self-care (01) ==
LOC: POLAB3 10:58
PROVIDERS: PCP Family Medicine Geriatric Medicine; Visit Provider Internal Medicine Nephrology
DX: I12.9 Hypertensive chronic kidney disease with stage 1 through stage 4 chronic kidney disease, or unspecified chronic kidney disease (principal); E11.65 Type 2 diabetes mellitus with hyperglycemia; N18.32 Chronic kidney disease, stage 3b; D50.9 Iron deficiency anemia, unspecified; E55.9 Vitamin D deficiency, unspecified
CPT/HCPCS: 36415; 80053; 82306; 83970; 84100; 84443; 85025

== ENCOUNTER 2024-02-12 14:19 | Outpatient (CLI) | payer MEDICARE, OTHER, SELFPAY | END 2024-02-12 23:59 | disposition home or self-care (01) | LOC: POLAB3 14:20 | PROVIDERS: PCP Family Medicine Geriatric Medicine; Visit Provider Family Medicine Geriatric Medicine | DX: R68.83 Chills (without fever) (principal) | CPT/HCPCS: 87631 ==

== ENCOUNTER → 2024-02-21 | Outpatient (CLI) | payer MEDICARE, OTHER, SELFPAY | END | disposition home or self-care (01) | LOC: LAB 15:17 → LABSPEC 15:22 | PROVIDERS: PCP Family Medicine Geriatric Medicine; Referring Provider Internal Medicine Medical Oncology; Visit Provider Internal Medicine Medical Oncology | DX: D50.8 Other iron deficiency anemias (principal) | CPT/HCPCS: 82274 ==

== ENCOUNTER → 2024-03-25 | Outpatient (CLI) | payer MEDICARE, OTHER, SELFPAY ==
--- NOTE | 2024-03-25 16:56 | CT_ITS ---
STUDY: CTA ABDOMEN AND PELVIS WITH CONTRAST REASON FOR EXAM: Female, 78 years old. Chronic GI bleed RADIATION DOSAGE (If Supplied By Facility): CTDIvol = ( 25.04 ) mGy, DLP = ( 1071.60 ) mGycm TECHNIQUE: Transaxial images were obtained from the dome of the diaphragm to the symphysis pubis without oral contrast. IV 100mL Isovue-370 was administered. Sagittal and coronal images were reconstructed. 3-D images were reconstructed. Individualized dose optimization techniques were used for this CT. COMPARISON: Comparison is made with prior study July 23, 2023. FINDINGS: The visualized lung bases are unremarkable. Coronary artery calcification. A left-sided ventriculoperitoneal shunt tube is seen with the tip in the left lower quadrant. There is decreased attenuation of the liver consistent with steatosis. There is a solitary gallstone. Normal spleen. Normal pancreas. Normal bilateral adrenal glands. Normal right kidney. There is a 2.8 cm cyst in the lateral portion of the left kidney. There is a small hiatal hernia. Normal small intestine. There are multiple colonic diverticula consistent with diverticulosis. The patient is status post appendectomy. Normal abdominal aorta. There is an IVC filter in place. There is borderline retroperitoneal lymphadenopathy with enlarged nodes no greater than 10mm in the short axis diameter. The bladder is partially filled. There is absence of the uterus consistent with a prior hysterectomy. Prior anterior ventral hernia repair utilizing a mesh. There are degenerative changes of the visualized lumbar spine. Prior fusion at the L3-L4 level. CT/CTA Abd/Pelvis W/WO Contrast IMPRESSION: Fatty infiltration of the liver. Solitary gallstone. Stable left renal cyst. Sigmoid diverticulosis. Electronically Signed: Jose M Malave MD at 13:14 EST ,
[2024-03-25 17:22] LABS: CREATININE FINGERSTICK < 1.0 mg/dL (0.55-1.02); EGFR FINGERSTICK > 60.0000 mL/min (>60)
== END | disposition home or self-care (01) ==
LOC: CT 16:55
PROVIDERS: PCP Family Medicine Geriatric Medicine; Referring Provider Internal Medicine Gastroenterology; Visit Provider Internal Medicine Gastroenterology
DX: Z01.812 Encounter for preprocedural laboratory examination (principal); K92.2 Gastrointestinal hemorrhage, unspecified
CPT/HCPCS: 74174; Q9967

== ENCOUNTER → 2024-04-21 | Outpatient (CLI) | payer MEDICARE, OTHER, SELFPAY ==
[2024-04-21 10:43] LABS: Absolute Lymphocyte Count 1.36 X10^3/uL (0.83-4.51); Absolute Neutrophil Count 5.1 X10^3/uL (2.0-7.7); Basophil# 0.05 X10^3/uL; Basophil% 0.7 % (0-1); Eosinophil# 0.27 X10^3/uL; Eosinophils% 3.7 % (0-5); Hematocrit 41.4 % (37-47); Hemoglobin 12.8 g/dL (12.0-15.0); Lymphocyte # 1.36 X10^3/ul (0.83-4.51); Lymphocyte % 18.6 % (19-41); Mean Corp Hgb Conc 30.9 g/dL (32-36); Mean Corpuscular Hgb 29.9 pg (27.0-32.0); Mean Corpuscular Volume 96.7 fL (81-99); Mean Platelet Vol. 10.3 fl (6.2-12.0); Monocyte# 0.55 X10^3/uL; Monocyte% 7.5 % (0-10); NRBC Flagged by Analyzer 0 % (0-5); Neutrophil # 5.05 X10^3/uL (2.7-7.7); Neutrophil % 69.1 % (47-70); POSITIVE MORPHOLOGY YES; Platelet Count 328 K/mm3 (150-450); RBC Distribution Width CV 18.6 % (11.6-14.6); Red Blood Count 4.28 M/mm3 (4.2-5.4); White Blood Count 7.3 K/mm3 (4.4-11.0)
[2024-04-21 10:49] LABS: Differential Indicated SCAN CRITERIA MET
[2024-04-21 11:08] LABS: Vitamin D,25 Hydroxy 41.2 ng/mL
[2024-04-21 11:17] LABS: AST(SGOT) 14 U/L (15-37); Alanine Aminotransfer ALT/SGPT 18 U/L (13-56); Albumin, Serum 3.7 g/dL (3.2-5.0); Alkaline Phosphatase 55 U/L (45-117); Anion Gap 4 (5-15); BUN 16 mg/dL (7-18); BUN/Creat Ratio 14.2 RATIO (10-20); Calcium,Total 9.5 mg/dL (8.5-10.1); Chloride 110 mmol/L (98-107); Creatinine, Serum 1.13 mg/dL (0.55-1.02); EST Glomerular Filtration Rate 49 mL/min (>60); Est Glom Filt Rate - Afr Amer 60 mL/min (>60); Globulin 3.7 g/dL (2.2-4.2); Glucose 114 mg/dL (74-106); Potassium 3.8 mmol/L (3.5-5.1); Protein, Total 7.4 g/dL (6.4-8.2); Sodium Level 142 mmol/L (136-145)
[2024-04-21 11:32] LABS: Anisocytosis 1+; Ovalocyte 1+; Platelet Estimate A (ADEQ)
== END | disposition home or self-care (01) ==
LOC: POLAB3 09:50
PROVIDERS: PCP Family Medicine Geriatric Medicine; Visit Provider Family Medicine Geriatric Medicine
DX: E11.65 Type 2 diabetes mellitus with hyperglycemia (principal); I10 Essential (primary) hypertension; E55.9 Vitamin D deficiency, unspecified
CPT/HCPCS: 36415; 80053; 82306; 84443; 85025

== ENCOUNTER → 2024-05-28 | Outpatient (CLI) | payer MEDICARE, OTHER, SELFPAY ==
--- NOTE | 2024-05-28 17:05 | RAD_ITS ---
PROCEDURE: PA and lateral chest radiographs, two views REASON FOR EXAM: Chronic sinusitis, wheezing TECHNIQUE: PA and lateral chest radiographs were obtained. COMPARISON: 10/2021 FINDINGS: The cardiomediastinal silhouette is stable. Bones are osteopenic with mild degenerative changes in the spine. No focal airspace consolidation, pneumothorax, pleural effusion. 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 RAD/Chest PA and Lateral IMPRESSION: No acute cardiopulmonary process or significant change. [facility]
[2024-05-28 17:39] LABS: Absolute Lymphocyte Count 2.01 X10^3/uL (0.83-4.51); Basophil# 0.06 X10^3/uL; Basophil% 0.7 % (0-1); Eosinophil# 0.28 X10^3/uL; Hematocrit 36.5 % (37-47); Lymphocyte # 2.01 X10^3/ul (0.83-4.51); Lymphocyte % 21.8 % (19-41); Mean Corp Hgb Conc 30.1 g/dL (32-36); Mean Corpuscular Hgb 28.8 pg (27.0-32.0); Mean Corpuscular Volume 95.5 fL (81-99); Mean Platelet Vol. 9.8 fl (6.2-12.0); Monocyte# 0.79 X10^3/uL; Monocyte% 8.6 % (0-10); NRBC Flagged by Analyzer 0 % (0-5); Neutrophil % 65.1 % (47-70); Platelet Count 300 K/mm3 (150-450); RBC Distribution Width CV 16.7 % (11.6-14.6); RBC Distribution Width SD 58.8 fl (35.1-43.9); Red Blood Count 3.82 M/mm3 (4.2-5.4); White Blood Count 9.2 K/mm3 (4.4-11.0)
[2024-05-28 18:22] LABS: Anion Gap 6 (5-15); BUN 24 mg/dL (7-18); BUN/Creat Ratio 18.9 RATIO (10-20); Calcium,Total 9.1 mg/dL (8.5-10.1); Chloride 107 mmol/L (98-107); Creatinine, Serum 1.27 mg/dL (0.55-1.02); EST Glomerular Filtration Rate 43 mL/min (>60); Est Glom Filt Rate - Afr Amer 52 mL/min (>60); Glucose 121 mg/dL (74-106); Potassium 3.7 mmol/L (3.5-5.1); Sodium Level 138 mmol/L (136-145)
== END | disposition home or self-care (01) ==
LOC: RAD 17:01
PROVIDERS: PCP Family Medicine Geriatric Medicine; Referring Provider Family Medicine Geriatric Medicine; Visit Provider Family Medicine Geriatric Medicine
DX: R06.2 Wheezing (principal); J32.9 Chronic sinusitis, unspecified
CPT/HCPCS: 36415; 71046; 80048; 85025

== ENCOUNTER → 2024-06-01 | Outpatient (CLI) | payer MEDICARE, OTHER, SELFPAY | END | disposition home or self-care (01) | PROVIDERS: PCP Family Medicine Geriatric Medicine; Referring Provider Family Medicine Geriatric Medicine; Visit Provider Family Medicine Geriatric Medicine | DX: R68.83 Chills (without fever) (principal) | CPT/HCPCS: 87631 ==

== ENCOUNTER → 2024-07-21 | Outpatient (CLI) | payer MEDICARE, OTHER, SELFPAY ==
[2024-07-21 12:47] LABS: Absolute Neutrophil Count 5.6 X10^3/uL (2.0-7.7); Basophil# 0.04 X10^3/uL; Basophil% 0.5 % (0-1); Eosinophil# 0.21 X10^3/uL; Eosinophils% 2.7 % (0-5); Hemoglobin 11.2 g/dL (12.0-15.0); Lymphocyte % 12.9 % (19-41); Mean Corp Hgb Conc 31.1 g/dL (32-36); Mean Corpuscular Hgb 29.9 pg (27.0-32.0); Mean Platelet Vol. 10.7 fl (6.2-12.0); Monocyte# 0.88 X10^3/uL; Monocyte% 11.3 % (0-10); NRBC Flagged by Analyzer 0 % (0-5); Neutrophil # 5.58 X10^3/uL (2.7-7.7); Platelet Count 285 K/mm3 (150-450); RBC Distribution Width SD 59.7 fl (35.1-43.9); Red Blood Count 3.75 M/mm3 (4.2-5.4); White Blood Count 7.8 K/mm3 (4.4-11.0)
[2024-07-21 13:53] LABS: ALB/GLOB Ratio 1.5 RATIO (0.9-2.4); AST(SGOT) 17 U/L (<=31); Alanine Aminotransfer ALT/SGPT 14 U/L (<=34); Albumin, Serum 4.1 g/dL (3.4-4.8); Alkaline Phosphatase 43 U/L (35-104); Anion Gap 10 (5-15); BUN 26 mg/dL (4-19); Calcium,Total 9.5 mg/dL (7.6-11.0); Carbon Dioxide 24.9 mmol/L (21.0-32.0); Chloride 105 mmol/L (98-108); Creatinine, Serum 1.11 mg/dL (0.70-1.20); EST Glomerular Filtration Rate 51 (>60); Globulin 2.7 g/dL (2.2-4.2); Glucose 86 mg/dL (70-99); Potassium 4.5 mmol/L (3.3-5.1); Protein, Total 6.7 g/dL (5.9-8.4); Sodium Level 140 mmol/L (133-145); Vitamin D,25 Hydroxy 30.4 ng/mL (30-100)
== END | disposition home or self-care (01) ==
LOC: LAB 11:35
PROVIDERS: PCP Family Medicine Geriatric Medicine; Referring Provider Family Medicine Geriatric Medicine; Visit Provider Family Medicine Geriatric Medicine
DX: E11.65 Type 2 diabetes mellitus with hyperglycemia (principal); I10 Essential (primary) hypertension; E55.9 Vitamin D deficiency, unspecified
CPT/HCPCS: 36415; 80053; 82306; 84443; 85025

== ENCOUNTER 2024-07-30 05:09 | Day surgery (SDC) | payer MEDICARE, OTHER, SELFPAY ==
--- NOTE | 2024-07-28 18:05 | PAT.ANESEVAL ---
Pre-Assessment Diagnosis/Proposed Procedure Planned Operative Procedure(s): EGD, COLONOSCOPY Anesthesia History Anesthesia History - parts administrator: Anesthesia History - parts administrator Hx Hospitalization No 07/28/24 10:03 Any Problems With Anesthesia No 07/28/24 10:03 Cholinesterase deficiency No 07/28/24 10:03 You/Your Family Experience No 07/28/24 10:03 fever (hyperthermia) with Relationship Recent Exposure to Contagious No 02/05/23 05:46 Disease Does patient have nerve No 07/28/24 10:03 stimulator Patient instructed to have device shut off --Does patient have Pacemaker or ICD? When Was Last Pacemaker Check QUESTION #4 FULL TEXT: You/Your Family Experience fever (hyperthermia) with Anesthesia Last Oral Intake Last Oral intake: Last Oral Intake NPO since Meds taken in AM with sips of water? Meds patient instructed to take am of surgery PONV PONV - parts administrator: PONV - parts administrator Female Yes 07/28/24 10:03 HX of Motion Sickness No 07/28/24 10:03 HX of N/V After Surgery No 07/28/24 10:03 Non-Smoker Yes 07/28/24 10:03 Duration of Surgery greater No 07/28/24 10:03 than 60 minutes Number of Risk Factors 2 07/28/24 10:03 PONV Score Moderate Risk 07/28/24 10:03 Height & Weight Height & Weight: Anesthesia: Height & Weight Height 5 ft 3 in 04/13/24 10:13 Respiratory Assessment Respiratory Assessment - parts administrator: Respiratory Tract Infection Hx - parts administrator Hx Respiratory Tract Infection No 07/28/24 10:03 STOP Sleep Apnea STOP Sleep Apnea - parts administrator: STOP Sleep Apnea - parts administrator Hx Hypertension Yes 07/28/24 10:03 Hx Sleep Apnea Yes 07/28/24 10:03 CPAP No 07/28/24 10:03 BIPAP Yes 07/28/24 10:03 Do you snore loudly (louder than talking or can be heard Do you often feel tired/ fatigued/ sleepy during daytime? Has anyone observed you stop breathing during sleep? STOP Results Positive 07/28/24 10:03 QUESTION #5 FULL TEXT : Do you snore loudly (louder than talking or can be heard through closed doors)? 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 Specify any problems Hx of Preganancy in last 3 No 07/28/24 10:03 Months Nurse Filling Out Transfusion [facility] 07/28/24 10:03 & Questions: Date: 07/28/24 07/28/24 10:03 Time: 10:12 07/28/24 10:03 Patient unable to answer at this time (ie. confused, unrespo /Reproduction History /Reproductive History - parts administrator: /Reproductive Hx- parts administrator Hx Now No 07/28/24 10:03 Gestational Age (in weeks): EDC: Hx Hx Para Hx Section [facility] Medical History (Updated 07/28/24 @ 10:11 by Shreya Akbar) Bruising Gout Low iron Excessive bleeding History of pain when walking Hypertension History of cardiac monitoring Post-menopausal Skin tear Thyroid disease Ambulates with cane Bladder disease Syncope Gastric reflux Degenerative disc disease Bursitis halfway current use of anticoagulant Iron deficiency anemia due to chronic blood loss History of GI bleed Venous insufficiency of both lower extremities Ulcer of right lower extremity with fat layer exposed Iron deficiency Anemia due to chronic blood loss Anemia due to gastrointestinal blood loss History of left heart catheterization (LHC) (~08/04/21) Unstable angina Hydrocephalus CAD (coronary artery disease) Iron refractory iron deficiency anemia Iron deficiency anemia Atrial fibrillation Aortic valve disorder Angina pectoris Carotid bruit Thromboembolic disorder HLD (hyperlipidemia) Presence of IVC filter Atherosclerotic heart disease of [place] coronary artery without angina pectoris Dysphagia Wears hearing aid Wears glasses Depression DVT (deep venous thrombosis) Pulmonary embolism Injury of head and neck History of IBS Gastric reflux Non-smoker BiPAP (biphasic positive airway pressure) dependence Shortness of breath on exertion Leg cramps History of edema History of echocardiogram History of stress test Cardiology follow-up encounter History of atrial fibrillation Incontinence Back pain Neck pain Limb weakness Difficulty balancing unexpained bruising Glaucoma Hay fever Fatigue Shoulder pain Hemorrhoids Arthritis Asthma Obesity Hypokalemia Atrioventricular bloc first degree Chronic diastolic (congestive) heart failure Dizziness Pharyngitis Bronchitis Upper respiratory infection Normal pressure hydrocephalus History of pulmonary embolism History of osteoarthritis Essential hypertension Home Medications ?Medication ?Instructions ?Recorded ?Last Taken ?Type gabapentin 600 mg tablet 600 mg PO QHS Check with primary 05/04/15 02/24/24 History doctor duloxetine 20 mg capsule,delayed 40 mg PO DAILY DEPRESSION 08/03/21 02/25/24 History release latanoprost 0.005 % eye drops 1 drp EACH EYE QHS GLUACOMA 08/03/21 02/24/24 History spironolactone 50 mg tablet 50 mg PO DAILY Check with primary 10/30/21 02/25/24 History doctor dabigatran etexilate 75 mg capsule 75 mg PO BID Check with primary 04/19/22 07/27/24 History (Pradaxa) doctor levothyroxine 25 mcg tablet 25 mcg PO DAILY Check with primary 05/10/22 02/25/24 History doctor multivitamin 1 tab PO DAILY Check with primary 05/10/22 02/25/24 History doctor pantoprazole 40 mg tablet,delayed 40 mg PO BID Check with primary 07/05/22 02/25/24 History release doctor benazepril 10 mg tablet 10 mg PO DAILY 07/11/22 02/25/24 History polysaccharide iron complex 150 mg 150 mg PO DAILY #90 caps 09/27/22 02/25/24 Rx iron capsule (Ferrex) albuterol sulfate 90 mcg/actuation 2 puff inhalation Q4H PRN 01/07/23 Unknown Rx aerosol inhaler shortness of breath or wheezing #8.5 grams timolol maleate 0.5 % eye drops 1 drp ophthalmic (eye) BID Glaucoma 06/17/23 02/25/24 History rosuvastatin 20 mg tablet 20 mg PO DAILY #90 tabs 08/09/23 02/25/24 Rx ipratropium bromide 42 mcg (0.06 2 spray intranasal DAILY PRN 01/16/24 Unknown History %) nasal spray Allergy/AdvReac Type Severity Reaction Status Date / Time rivaroxaban (From Xarelto) Allergy Severe Unknown Verified 07/28/24 09:59 acetaminophen (From Percocet) Allergy Unknown hallucinati Verified 07/28/24 09:59 ons alprazolam (From Xanax) Allergy Unknown fatigue Verified 07/28/24 09:59 oxycodone (From Percocet) Allergy Unknown hallucinati Verified 07/28/24 09:59 ons carisoprodol (From Soma) Allergy Rash Verified 07/28/24 09:59 adhesive AdvReac blisters Verified 07/28/24 09:59 apixaban (From Eliquis) AdvReac Other Verified 07/28/24 09:59 diphenhydramine (From AdvReac Other Verified 07/28/24 09:59 Benadryl) Family History Mother Cancer pancreatic Asthma Hypertension Son Asthma Brother Heart disease Diabetes Hypertension Kidney disease Sister Heart disease Hypertension Diabetes Surgical History History of esophagogastroduodenoscopy (EGD) Intracranial shunt Presence of coronary angioplasty implant and graft (~06/08/20) Presence of stent in coronary artery (~06/08/20) History of ventriculoperitoneal shunting (~06/16/14) History of cardiac catheterization Hx of carpal tunnel repair Hx of appendectomy Hx of cholecystectomy History of total left knee replacement History of spinal fusion History of toe surgery History of arthroscopy of right shoulder History of hernia repair History of hysterectomy History of laminectomy Social History Smoking Status: Never smoker Electronic Cigarette Use: not used second hand exposure: Yes alcohol intake: never substance use type: does not use caffeine: Yes Type: tea Number of servings: 1 do you feel safe at home: Yes Audit: Pertinent Findings Pertinent Findings EKG Perinent findings: 05/21/2023. Sinus bradycardia. LVH without ST-T wave abnormality may be normal. Negative precordial T waves. Stress test pertinent findings: June 24, 2023. Ejection fraction 81%. No areas of reversibility to suggest ischemia. No previous infarct. Echo (EF%) pertinent findings: June 24, 2023. Ejection fraction 55%. PA systolic pressure is 24 mmHg. Mild aortic stenosis. Heart catheterization pertinent findings: 08/04/2021. Ejection fraction 55%. [place] multivessel coronary artery disease. LAD has a stent which is patent. Consult pertinent findings: February 13, 2024. [place] [facility]I. 1. Stent in the LAD-PCI/DONNIE x 2 in the mid LAD on 06/08/2020. She does complain of increased fatigue and shortness of breath at this time. To make sure this is not angina related will obtain a stress test. 2. Atrial [id number] on Pradaxa. No recurrence. 3. Aortic valve disorder?stable?will continue to monitor. 4. Hypertension?controlled. 5. 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 Hemoglobin is being followed closely. She does have an IVC filter in place as well. Recommendation Anesthesia Recommendation Anesthesia recommendation: F/U recommended (The February cardiology note recommended a stress test. Was this done?)
--- NOTE | 2024-07-29 10:50 | PAT.ANE_ITS ---
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 When Was Last Pacemaker Check QUESTION #4 FULL TEXT: You/Your Family Experience fever (hyperthermia) with Anesthesia Last Oral Intake Last Oral intake: Last Oral Intake NPO since Meds taken in AM with sips of water? Meds patient instructed to take am of surgery PONV PONV - clinical sciences professor: PONV - clinical sciences professor Female Yes 07/28/24 10:03 HX of Motion Sickness No 07/28/24 10:03 HX of N/V After Surgery No 07/28/24 10:03 Non-Smoker Yes 07/28/24 10:03 Duration of Surgery greater No 07/28/24 10:03 than 60 minutes Number of Risk Factors 2 07/28/24 10:03 PONV Score Moderate Risk 07/28/24 10:03 Height & Weight Height & Weight: Anesthesia: Height & Weight Height 5 ft 3 in 04/13/24 10:13 Respiratory Assessment Respiratory Assessment - clinical sciences professor: Respiratory Tract Infection Hx - clinical sciences professor Hx Respiratory Tract Infection No 07/28/24 10:03 STOP Sleep Apnea STOP Sleep Apnea - clinical sciences professor: STOP Sleep Apnea - clinical sciences professor Hx Hypertension Yes 07/28/24 10:03 Hx Sleep Apnea Yes 07/28/24 10:03 CPAP No 07/28/24 10:03 BIPAP Yes 07/28/24 10:03 Do you snore loudly (louder than talking or can be heard Do you often feel tired/ fatigued/ sleepy during daytime? Has anyone observed you stop breathing during sleep? STOP Results Positive 07/28/24 10:03 QUESTION #5 FULL TEXT : Do you snore loudly (louder than talking or can be heard through closed doors)? 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 Specify any problems Hx of Preganancy in last 3 No 07/28/24 10:03 Months Nurse Filling Out Transfusion EHBETHESDA 07/28/24 10:03 & Questions: Date: 07/28/24 07/28/24 10:03 Time: 10:12 07/28/24 10:03 Patient unable to answer at this time (ie. confused, unrespo /Reproduction History /Reproductive History - clinical sciences professor: /Reproductive Hx- clinical sciences professor Hx Now No 07/28/24 10:03 Gestational Age (in weeks): EDC: Hx Hx Para Hx Section SAB [facility] Medical History (Updated 07/28/24 @ 10:11 by Shreya Akbar) Bruising Gout Low iron Excessive bleeding History of pain when walking Hypertension History of cardiac monitoring Post-menopausal Skin tear Thyroid disease Ambulates with cane Bladder disease Syncope Gastric reflux Degenerative disc disease Bursitis FCI current use of anticoagulant Iron deficiency anemia due to chronic blood loss History of GI bleed Venous insufficiency of both lower extremities Ulcer of right lower extremity with fat layer exposed Iron deficiency Anemia due to chronic blood loss Anemia due to gastrointestinal blood loss History of left heart catheterization (LHC) (~08/04/21) Unstable angina Hydrocephalus CAD (coronary artery disease) Iron refractory iron deficiency anemia Iron deficiency anemia Atrial fibrillation Aortic valve disorder Angina pectoris Carotid bruit Thromboembolic disorder HLD (hyperlipidemia) Presence of IVC filter Atherosclerotic heart disease of [place] coronary artery without angina pectoris Dysphagia Wears hearing aid Wears glasses Depression DVT (deep venous thrombosis) Pulmonary embolism Injury of head and neck History of IBS Gastric reflux Non-smoker BiPAP (biphasic positive airway pressure) dependence Shortness of breath on exertion Leg cramps History of edema History of echocardiogram History of stress test Cardiology follow-up encounter History of atrial fibrillation Incontinence Back pain Neck pain Limb weakness Difficulty balancing unexpained bruising Glaucoma Hay fever Fatigue Shoulder pain Hemorrhoids Arthritis Asthma Obesity Hypokalemia Atrioventricular bloc first degree Chronic diastolic (congestive) heart failure Dizziness Pharyngitis Bronchitis Upper respiratory infection Normal pressure hydrocephalus History of pulmonary embolism History of osteoarthritis Essential hypertension Home Medications ?Medication ?Instructions ?Recorded ?Last Taken ?Type gabapentin 600 mg tablet 600 mg PO QHS Check with thad barrera 05/04/15 02/24/24 History doctor duloxetine 20 mg capsule,delayed 40 mg PO DAILY JAZ PARISI 08/03/21 02/25/24 History release latanoprost 0.005 % eye drops 1 drp EACH EYE QHS GLUAC RE 08/03/21 02/24/24 History spironolactone 50 mg tablet 50 mg PO DAILY Check with primary 10/30/21 02/25/24 History doctor dabigatran etexilate 75 mg capsule 75 mg PO BID Check with primary 04/19/22 07/27/24 History (Pradaxa) doctor levothyroxine 25 mcg tablet 25 mcg PO DAILY Check with primary 05/10/22 02/25/24 History doctor multivitamin 1 tab PO DAILY Check with pr imary 05/10/22 02/25/24 History doctor pantoprazole 40 mg tablet,delayed 40 mg PO BID Check w ith primary 07/05/22 02/25/24 History release doctor benazepril 10 mg tablet 10 mg PO DAILY 07/11/2202/06 History polysaccharide iron complex 150 mg 150 mg PO DAILY #90 caps 09/27/22 02/25/24 Rx iron capsule (Ferrex) albuterol sulfate 90 mcg/actuation 2 puff inhalation Q 4H PRN 01/07/23 Unknown Rx aerosol inhaler shortness of breath or wheez ing #8.5 grams timolol maleate 0.5 % eye drops 1 drp ophthalmic (eye) BID Glaucoma 06/17/23 02/25/24 History rosuvastatin 20 mg tablet 20 mg PO DAILY #90 tabs 05/0 06/2902/25/24 Rx ipratropium bromide 42 mcg (0.06 2 spray intranasal DA GREGORIA PRN 01/16/24 Unknown History %) nasal spray Allergy/AdvReac Type Severity Reaction Status Date / Time rivaroxaban (From Xarelto) Allergy Severe Unknown Verified 07/28/24 09:59 acetaminophen (From Percocet) Allergy Unknown hallucinati Verified 07/28/24 09:59 ons alprazolam (From Xanax) Allergy Unknown fatigue Verified 07/28/24 09:59 oxycodone (From Percocet) Allergy Unknown hallucinati Verified 07/28/24 09:59 ons carisoprodol (From Soma) Allergy Rash Verified 07/28/24 09:59 adhesive AdvReac blisters Verified 07/28/24 09:59 apixaban (From Eliquis) AdvReac Other Verified 07/28/24 09:59 diphenhydramine (From AdvReac Other Verified 07/28/24 09:59 Benadryl) Family History Mother Cancer pancreatic Asthma Hypertension Son Asthma Brother Heart disease Diabetes Hypertension Kidney disease Sister Heart disease Hypertension Diabetes Surgical History History of esophagogastroduodenoscopy (EGD) Intracranial shunt Presence of coronary angioplasty implant and graft (~06/08/20) Presence of stent in coronary artery (~06/08/20) History of ventriculoperitoneal shunting (~06/16/14) History of cardiac catheterization Hx of carpal tunnel repair Hx of appendectomy Hx of cholecystectomy History of total left knee replacement History of spinal fusion History of toe surgery History of arthroscopy of right shoulder History of hernia repair History of hysterectomy History of laminectomy Social History Smoking Status: Never smoker Electronic Cigarette Use: not used second hand exposure: Yes alcohol intake: never substance use type: does not use caffeine: Yes Type: tea Number of servings: 1 do you feel safe at home: Yes Audit: Pertinent Findings HISTORY of Pertinent Findings History of Pertinent Findings: EKG Pertinent Findings EKG Perinent findings 05/21/2023. Sinus 07/28/24 18:[address]cardia. LVH without ST -T wave abnormality may be normal. Negative precordial T waves. Stress Test Pertinent Findings Stress test pertinent findings June 24, 2023. Ejection 07/28/24 18:11 fraction 81%. No areas of reversibility to suggest ischemia. No previous infarct. Echo Pertinent Findings Echo (EF%) pertinent findings June 24, 2023. Ejection 07/28/24 18:11 fraction 55%. PA systolic pressure is 24 mmHg. Mild aortic stenosis. Heart Catheterization Pertinent Findings Heart catheterization 08/04/2021. Ejection 07/28/24 18:13 pertinent findings fraction 55%. [place] multivessel coronary artery disease. LAD has a stent which is patent. Consult Pertinent Findings Consult pertinent findings February 13, 2024. 07/28/24 18:18 [place] SHI. 1. Stent in the LAD-PCI/DONNIE x 2 in the mid LAD on 2020. She does complain of increased fatigue and shortness of breath at this time. To make sure this is not angina related will obtain a stress test. 2. Atrial fibrillation- acute-patient on Pradaxa. No recurrence. 3. Aortic valve disorder? stable?will continue to monitor. 4. Hypertension?controlled. 5. 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 Hemoglobin is being followed closely. She does have an IVC filter in place as well. Current Visit Impressions Current Visit Impressions: Patient did not have stress test after prior cardiology visit. If patient not having any symptoms she should be okay from MAC for endoscopy. If she is experiencing ongoing symptoms however may have to delay surgery if needed. Will decide on day of procedure. Recommendation Anesthesia Recommendation Anesthesia recommendation: OPTIMIZED for anesthesia
[2024-07-30] VITALS (7 sets, daily range): BP systolic 120–168; BP diastolic 58–80; PULSE 52–63; RESP 16–18; TEMP 36.4–36.9; O2SAT 96–100; BMI 35.4
[2024-07-30] MEDS: Lactated Ringers 1,000 ML 15 ML IV (05:56)
--- NOTE | 2024-07-30 06:18 | PRE.ANES_ITS ---
ASA Classification* ASA Classification ASA Classification: 3 Assessment & Plan Anesthesia* Anesthesia Assessment Anesthesia Assessment: Discussed sedation and/or anesthesia options, risks, benefits, and alternatives with patient/parents/legal guardian/POA. Questions invited. The patient/parents/legal guardian/POA seems to understand and agrees to proceed with anesthesia plan. Reviewed the physical assessment, medical history, allergy history and patient home medications list prior to surgery/procedure/anesthetic and documented any changes. Performed airway and anesthesia risk assessments. Anesthesia Type Anesthesia Type: MAC (Mild aortic stenosis. Avoid high heart rates and low blood pressures. Phenylephrine is drug of choice.) History Source History Obtained from:: Patient and Chart Anesthesia Focused Assessment* Temperature: 98.4 F Pulse Rate: 52 Blood Pressure: 168/68 Respiratory Rate: 18 Pulse Ox: 99 Oxygen Delivery Method: Room Air Airway Assessment Mouth opens: >3 cm Mallampati Score: III Teeth Condition: Chipped/Broken (Patient has a chipped tooth #8.) Neck Range of motion (ROM): Limited ROM (Somewhat ) Focused Labs Anesthesia Preop lab: CBC WBC 7.8 K/mm3 (4.4-11.0) 07/21/24 11:37 07/21/24 RBC 3.75 M/mm3 (4.2-5.4) L 07/21/24 11:37 07/21/24 Hgb 11.2 g/dL (12.0-15.0) L 07/21/24 11:37 5 Hct 36.0 % (37-47) L 07/21/24 11:37 07/21/24 Plt Count 285 K/mm3 (150-450) 07/21/24 11:37 07/21/24 CHEMISTRY Potassium 4.5 mmol/L (3.3-5.1) 07/21/24 11:37 07/21/24 Sodium 140 mmol/L (133-145) 07/21/24 11:37 07/21/24 Magnesium 2.0 mg/dL (1.5-2.2) 07/06/24 10:04 07/06/24 Phosphorus 3.3 mg/dL (2.7-4.5) 07/06/24 10:04 07/06/24 BUN 26 mg/dL (4-19) H 07/21/24 11:37 07/21/24 Creatinine 1.11 mg/dL (0.70-1.20) 07/21/24 11:37 07/21/24 Glucose 86 mg/dL (70-99) 07/21/24 11:37 07/21/24 POC Glucose 118 mg/dL (70-110) H 09/26/15 23:10 09/26/15 TSH 1.590 uIU/mL (0.300-4.200) 07/21/24 11:37 07/07 08/30 COAG PT 16.8 SECONDS (11.7-14.9) H 07/05/22 12:20 06/08 Pre-Assessment Diagnosis/Proposed Procedure Planned Operative Procedure(s): EGD, COLONOSCOPY Anesthesia History 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 When Was Last Pacemaker Check QUESTION #4 FULL TEXT: You/Your Family Experience fever (hyperthermia) with Anesthesia Last Oral Intake Last Oral intake: Last Oral Intake NPO since 03:15 07/30/24 05:40 Meds taken in AM with sips of Yes 07/30/24 05:40 water? Meds patient instructed to levothyroxine 07/30/24 05:40 take am of surgery Any additional information?: Yes Meds taken in AM with sips of water?: Yes PONV PONV - retail link analyst: PONV - retail link analyst Female Yes 07/28/24 10:03 HX of Motion Sickness No 07/28/24 10:03 HX of N/V After Surgery No 07/28/24 10:03 Non-Smoker Yes 07/28/24 10:03 Duration of Surgery greater No 07/28/24 10:03 than 60 minutes Number of Risk Factors 2 07/28/24 10:03 PONV Score Moderate Risk 07/28/24 10:03 Height & Weight Height & Weight: Anesthesia: Height & Weight Height 5 ft 3 in 07/30/24 05:40 Weight: 90.8 kg 07/30/24 05:40 Body Mass Index (BMI) 35.4 07/30/24 05:40 Respiratory Assessment Respiratory Assessment - retail link analyst: Respiratory Tract Infection Hx - retail link analyst Hx Respiratory Tract Infection No 07/28/24 10:03 STOP Sleep Apnea STOP Sleep Apnea - retail link analyst: STOP Sleep Apnea - retail link analyst Hx Hypertension Yes 07/28/24 10:03 Hx Sleep Apnea Yes 07/28/24 10:03 CPAP No 07/28/24 10:03 BIPAP Yes 07/28/24 10:03 Do you snore loudly (louder than talking or can be heard Do you often feel tired/ fatigued/ sleepy during daytime? Has anyone observed you stop breathing during sleep? STOP Results Positive 07/28/24 10:03 QUESTION #5 FULL TEXT : Do you snore loudly (louder than talking or can be heard through closed doors)? 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 Specify any problems Hx of Preganancy in last 3 No 07/28/24 10:03 Months Nurse Filling Out Transfusion EHNUNN 07/28/24 10:03 & Questions: Date: 07/28/24 07/28/24 10:03 Time: 10:12 07/28/24 10:03 Patient unable to answer at this time (ie. confused, unrespo /Reproduction History /Reproductive History - retail link analyst: /Reproductive Hx- retail link analyst Hx Now No 07/28/24 10:03 Gestational Age (in weeks): EDC: Hx Hx Para Hx Section SAB Active Medications Active Medications: Current Medications Generic Name Dose Route Start Last Admin Trade Name Bing PRN Reason Stop Dose Admin Lactated Ringer's 1,000 mls @ 15 mls/hr 07/30/24 05:30 07/30/24 05:56 IV 15 mls/hr .Q48H MIKEY Administration PFSH Medical History Bruising Gout Low iron Excessive bleeding History of pain when walking Hypertension History of cardiac monitoring Post-menopausal Skin tear Thyroid disease Ambulates with cane Bladder disease Syncope Gastric reflux Degenerative disc disease Bursitis 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 Iron deficiency anemia due to chronic blood loss History of GI bleed Venous insufficiency of both lower extremities Ulcer of right lower extremity with fat layer exposed Iron deficiency Anemia due to chronic blood loss Anemia due to gastrointestinal blood loss History of left heart catheterization (LHC) (~08/04/21) Unstable angina Hydrocephalus CAD (coronary artery disease) Iron refractory iron deficiency anemia Iron deficiency anemia Atrial fibrillation Aortic valve disorder Angina pectoris Carotid bruit Thromboembolic disorder HLD (hyperlipidemia) Presence of IVC filter Atherosclerotic heart disease of [place] coronary artery without angina pectoris Dysphagia Wears hearing aid Wears glasses Depression DVT (deep venous thrombosis) Pulmonary embolism Injury of head and neck History of IBS Gastric reflux Non-smoker BiPAP (biphasic positive airway pressure) dependence Shortness of breath on exertion Leg cramps History of edema History of echocardiogram History of stress test Cardiology follow-up encounter History of atrial fibrillation Incontinence Back pain Neck pain Limb weakness Difficulty balancing unexpained bruising Glaucoma Hay fever Fatigue Shoulder pain Hemorrhoids Arthritis Asthma Obesity Hypokalemia Atrioventricular bloc first degree Chronic diastolic (congestive) heart failure Dizziness Pharyngitis Bronchitis Upper respiratory infection Normal pressure hydrocephalus History of pulmonary embolism History of osteoarthritis Essential hypertension Home Medications ?Medication ?Instructions ?Recorded ?Last Taken ?Type gabapentin 600 mg tablet 600 mg PO QHS Check with thad barrera 05/04/15 02/24/24 History doctor duloxetine 20 mg capsule,delayed 40 mg PO DAILY JAZ PARISI 08/03/21 02/25/24 His tory release latanoprost 0.005 % eye drops 1 drp EACH EYE QHS GLUAC RE 08/03/21 02/24/24 History spironolactone 50 mg tablet 50 mg PO DAILY Check with primary 10/30/21 02/25/24 History doctor dabigatran etexilate 75 mg capsule 75 mg PO BID Check with primary 04/19/22 07/27/24 History (Pradaxa) doctor levothyroxine 25 mcg tablet 25 mcg PO DAILY Check with primary 05/10/22 07/30/24 03:15 History doctor multivitamin 1 tab PO DAILY Check with pr imary 05/10/22 02/25/24 History doctor pantoprazole 40 mg tablet,delayed 40 mg PO BID Check w ith primary 07/05/22 02/25/24 History release doctor benazepril 10 mg tablet 10 mg PO DAILY 07/11/2202/06 History polysaccharide iron complex 150 mg 150 mg PO DAILY #90 caps 09/27/22 02/25/24 Rx iron capsule (Ferrex) albuterol sulfate 90 mcg/actuation 2 puff inhalation Q 4H PRN 01/07/23 Unknown Rx aerosol inhaler shortness of breath or wheez ing #8.5 grams timolol maleate 0.5 % eye drops 1 drp ophthalmic (eye) BID Glaucoma 06/17/23 02/25/24 History rosuvastatin 20 mg tablet 20 mg PO DAILY #90 tabs 05/0 06/2902/25/24 Rx ipratropium bromide 42 mcg (0.06 2 spray intranasal DA GREGORIA PRN 01/16/24 Unknown History %) nasal spray Allergy/AdvReac Type Severity Reaction Status Date / Time rivaroxaban (From Xarelto) Allergy Severe Unknown Verified 07/30/24 05:50 acetaminophen (From Percocet) Allergy Unknown hallucinati Verified 07/30/24 05:50 ons alprazolam (From Xanax) Allergy Unknown fatigue Verified 07/30/24 05:50 oxycodone (From Percocet) Allergy Unknown hallucinati Verified 07/30/24 05:50 ons carisoprodol (From Soma) Allergy Rash Verified 07/30/24 05:50 adhesive AdvReac blisters Verified 07/30/24 05:50 apixaban (From Eliquis) AdvReac Other Verified 07/30/24 05:50 diphenhydramine (From AdvReac Other Verified 07/30/24 05:50 Benadryl) Family History Mother Cancer pancreatic Asthma Hypertension Son Asthma Brother Heart disease Diabetes Hypertension Kidney disease Sister Heart disease Hypertension Diabetes Surgical History History of esophagogastroduodenoscopy (EGD) Intracranial shunt Presence of coronary angioplasty implant and graft (~06/08/20) Presence of stent in coronary artery (~06/08/20) History of ventriculoperitoneal shunting (~06/16/14) History of cardiac catheterization Hx of carpal tunnel repair Hx of appendectomy Hx of cholecystectomy History of total left knee replacement History of spinal fusion History of toe surgery History of arthroscopy of right shoulder History of hernia repair History of hysterectomy History of laminectomy Social History Smoking Status: Never smoker Electronic Cigarette Use: not used second hand exposure: Yes alcohol intake: never substance use type: does not use caffeine: Yes Type: tea Number of servings: 1 do you feel safe at home: Yes Review of Systems (Anesthesia) ROS Narrative System reviewed and no additional complaints, except as documented.
--- NOTE | 2024-07-30 06:30 | COLBX_PTH ---
PATIENT: BRICE LOMELI LOC: EN U#:[id number] AGE/SX: 78/F ROOM: RE07/30/[address]: Dr. Kirby Cheng DO : 1945 BED: DIS: 07/30/2024 SPEC #: [id number] RECD: 07/30/24 13:46 STATUS: GIBRAN REYobani #: [id number] JEFERSON: 07/30/24 06:[address]: Kirby Cheng DEPT: SURGICAL PATHOLOGY RECD BY: Tato Muller ENTERED: 07/30/24 13:47 SP TYPE: COLON BX OTHR DR: Dr. Jean Paul Bañuelos MD Tissues: A - Esophagus, NOS B - Transverse colon C - Transverse colon Procedures: Surgery Specimen Level IV HEADER OPERATION: Colonoscopy with biopsy and polypectomy and tattoo marking PRE-OP DIAGNOSIS: Chronic GI bleeding, anemia, iron refractory iron deficiency anemia TISSUE SUBMITTED: A- Distal esophagus biopsy, B- Transverse colon polyp, C- Transverse colon mass biopsy MICROSCOPIC DIAGNOSIS A. Esophagus, distal, biopsy: * Squamous mucosa with mild reactive change. * Columnar mucosa negative for goblet cell metaplasia. B. Transverse colon, polyp, biopsy: * Tubular adenoma. C. Transverse colon, mass, biopsy: * Adenocarcinoma. * IHC for mismatch repair proteins (MMR) is pending and the results will be reported in an addendum. MICROSCOPIC DESCRIPTION Slides are reviewed. These tests were developed and their performance characteristics determined by [facility]. They may not have been cleared or approved by the U.S. Food and Drug Administration. The FDA has determined that such clearance or approval is not necessary. The above immunohistochemical/dualISH markers are ordered and reviewed by the Pathologist. GROSS DESCRIPTION A. Received in formalin in a container labeled with the patient's name, date of , and distal esophagus biopsy are 2 villanueva-pink fragments of mucosal tissue each measuring 0.4 x 0.3 x 0.2 cm. Submitted in toto in A1. B. Received in formalin in a container labeled with the patient's name, date of , and transverse colon polyp is a 0.5 x 0.4 x 0.4 cm fragment of villanueva-pink mucosal tissue. Submitted in toto in B1. C. Received in formalin in a container labeled with the patient's name, date of , and transverse colon mass biopsy are multiple villanueva-pink fragments of mucosal tissue measuring 1.0 x 1.0 x 0.3 cm in aggregate. Submitted in toto in C1. SMB 08/11/2024 CPT:[id number] ADDENDUM ADDENDUM ADDENDUM ADDENDUM ADDENDUM ADDENDUM ADDENDUM ADDENDUM ADDENDUM ADDENDUM ADDENDUM ADDENDUM ADDENDUM ADDENDUM ADDENDUM ADDENDUM ADDENDUM ADDENDUM ADDENDUM ADDENDUM ADDENDUM ADDENDUM ADDENDUM ADDENDUM ADDENDUM ADDENDUM ADDENDUM ADDENDUM ADDENDUM ADDENDUM ADDENDUM ADDENDUM ADDENDUM ADDENDUM ADDENDUM ADDENDUM ADDENDUM ADDENDUM ADDENDUM ADDENDUM ADDENDUM ADDENDUM ADDENDUM ADDENDUM ADDENDUM ADDENDUM ADDENDUM ADDENDUM ADDENDUM ADDENDUM ADDENDUM ADDENDUM ADDENDUM ADDENDUM ADDENDUM ADDENDUM ADDENDUM ADDENDUM 08/11/2024 14:57 ADDENDUM 08/27/2024 13:42 ADDENDUM 08/11/2024 14:57 ADDENDUM 08/11/2024 14:57 ADDENDUM 08/11/2024 14:57 ADDENDUM 08/11/2024 14:57 This addendum is to report the results of the IHC for MMR (mismatch repair proteins) on part C (performed at [facility]): Mismatch Repair Protein (MMR) Nuclear Expression by IHC: ? MLH1: ?absent/lost ? PMS2: ?absent/lost ? MSH2: ?present/intact ? MSH6: ?present/intact IHC Interpretation: ___No loss of nuclear expression of MMR proteins: low probability of microsatellite instability-high (MSI-H)# _X_ Loss of nuclear expression of MLH1 and PMS2: testing for methylation of the MLH1 promoter and/or mutation of BRAF is indicated (the presence of a BRAF V600E mutation and/or MLH1 methylation suggests that the tumor is sporadic and germline evaluation is probably not indicated; absence of both MLH1 methylation and of BRAF V600E mutation suggests the possibility of [place] syndrome, and sequencing and/or large deletion/duplication testing of germline MLH1 may be indicated)# ___ Loss of nuclear expression of MSH2 and MSH6: high probability of [place] syndrome (sequencing and/or large deletion/duplication testing of germline MSH2 may be indicated, and, if negative, sequencing and/or large deletion/duplication testing of germline MSH6 may be indicated)# ___ Loss of nuclear expression of MSH6 only: high probability of [place] syndrome (sequencing and/or large deletion/duplication testing of germline MSH6 may be indicated)# ___ Loss of nuclear expression of PMS2 only: high probability of [place] syndrome (sequencing and/or large deletion/duplication testing of germline PMS2 may be indicated)# # There are exceptions to the above IHC interpretations. These results should not be considered in isolation, and clinical correlation with genetic counseling is recommended to assess the need for germline testing. Molecular Pathology testing at [facility] for methylation of the MLH1 promoter is PENDING and will be reported in a subsequent addendum. All controls show appropriate reactivity. All immunohistochemistry, in situ hybridization, and histochemical tests were developed by and are performed at the [facility], [address] [place] [address], [facility] [address], [place] [address]. All Immunofluorescent (IF) ?tests were developed by and are performed at the [facility], [address] [place] [address], [place], [place] ?[address]. All tests reported here, except those addressing HER2 overexpression as a predictive marker, have not been cleared by or approved by the US Food and Drug Administration (FDA). The laboratory is regulated under CLIA as qualified to perform high-complexity testing. The tests are used for clinical purposes. They should not be regarded as investigational or for research. The mismatch repair proteins are evaluated by immunohistochemistry on formalin-fixed, paraffin-embedded tissue, using clone [id number] for MLH1, clone [id number] for PMS2, clone RED2 for MSH2, and clone [id number] for MSH6, and Tissue Good Genie? Pro Detection Kit, DAB on the [employer] Tissue Good Genie Advanced Staining System. Convincing nuclear staining in > 1% of tumor cells that is as strong as internal control is considered present/intact. Complete absence of nuclear staining in tumor cells in the presence of nuclear expression in internal control cells is considered absent/lost. Rarely a discrete area of a tumor can show loss of staining with retained nuclear expression in the adjacent tumor cells and internal control cells, which is regarded as subclonal loss and can also be of clinical significance C) Molecular Pathology at [facility] for methylation of MLH1 promoter: MLH1 METHYLATION STATUS: HYPERMETHYLATED MLH1 INTERPRETATION: The presence of hypermethylation of the MLH1 promoter in a tumor sample with loss of MLH1 expression by immunohistochemistry suggests a MLH1 germline mismatch repair gene mutation is NOT present. No further MLH1 testing is indicated unless evaluation for constitutional MLH1 promoter hypermethylation is warranted. The following pattern was observed for each of the tested MLH1 promoter sites: CpG1: Methylated, CpG2: Methylated, CpG3: Methylated, CpG4: Methylated. Run and sample controls meet acceptable criteria.\ Please see complete above mentioned consultation report in EMR
--- NOTE | 2024-07-30 06:41 | HP.PCM_ITS ---
HPI - General General Date of Admission: 07/30/24 Date of Service: 07/30/24 Chief Complaint: Anemia HPI Narrative BRICE LOMELI, is a 78 F who presents the endoscopic evaluation of anemia. PMH unstable angina, DVT, A.Fib, venous insufficiency BLE, RLE wound, PE, iron deficiency anemia. *BGI established 02.08.21 with referral from PCP. Anemia has been a difficulty: RBC 3.6 and hgb 9.2 on 01.03.21. Follows with hematology also. Dysphagia, nocturnal, is also a difficulty. Loose, urgent stools with incontinence and presence of blood/mucous have been a difficulty with stress noted as a trigger. EGD 02.28. finding candidiasis esophagitis; moderate Schatzki ring, dilated with Savary dilator to 54F; gastritis; erythematous duodenopathy. OV 12.8.21 dysphagia, diarrhea, anemia ? Start Carafate, doxycycline. Capsule endoscopy 3. finding telangiectasia and small nonbleeding AVM mid/distal jejunum without active bleeding seen. Recommend iron studies and possible iron infusions. OV 5.9.22 anemia, alternating constipation/diarrhea, dysphagia, gastric reflux. Start PPI and sucralfate. Biochemical workup. ? Capsule endoscopy 6..22 noting cholesterol cysts and delayed passage into duodenum. ? GET OV 7.27.22 gastric reflux, dysphagia, anemia ? start augmentin and reglan. PCP OV with bloodwork performed and concern for dropping hemoglobin 7.8. Recommend EGD and monitoring of hgb. ? EGD 2.7.23 red blood in gastric body, three bleeding AVM in stomach and two in duodenum, heater probe; duodenitis without pathologic changes. OV 330.23 with nausea and sharp intermittent epigastric pain following four days of secondhand smoke exposure. ? EGD 4..23 small hiatal hernia. ? EGD 02.05.23 gastritis; single non-bleeding AVM of stomach, heater probe. H.pylori negative. OV 11.21.23 reports recent bloating and weight gain 10lbs in 3months. Reports poor diet particularly with birthdays and weddings in November; she has been eating out a lot because she doesn?t cook for herself. Constipation is also a difficulty with BM each day but difficulty with motility. OV 5.20.24 pt reports that last week she began having stools that are a reddish orange color. Pt reports that she was on vacation last week and was not restricting her diet and was having a formed bm every day; she reports normally having a bm every 4-5 days, then will have diarrhea, then normal stools for 2-3 days, and then the cycle will repeat again. Pt continues with pantoprazole. OV 11..24 Pt reports continued bowel movements every 4-5 days; pt denies seeing blood in her stool, but has had several positive fecal occult tests. Pt states that if she eats a big meal with a sweet she can have more frequent bowel movements. Pt reports continued dull ache in RLQ; comes and goes, but is frequent. Pt reports that she is receiving two iron infusions, had one last week and will have her second one next week. [facility] Medical History Bruising Gout Low iron Excessive bleeding History of pain when walking Hypertension History of cardiac monitoring Post-menopausal Skin tear Thyroid disease Ambulates with cane Bladder disease Syncope Gastric reflux Degenerative disc disease Bursitis FPC current use of anticoagulant Iron deficiency anemia due to chronic blood loss History of GI bleed Venous insufficiency of both lower extremities Ulcer of right lower extremity with fat layer exposed Iron deficiency Anemia due to chronic blood loss Anemia due to gastrointestinal blood loss History of left heart catheterization (LHC) (~08/04/21) Unstable angina Hydrocephalus CAD (coronary artery disease) Iron refractory iron deficiency anemia Iron deficiency anemia Atrial fibrillation Aortic valve disorder Angina pectoris Carotid bruit Thromboembolic disorder HLD (hyperlipidemia) Presence of IVC filter Atherosclerotic heart disease of [place] coronary artery without angina pectoris Dysphagia Wears hearing aid Wears glasses Depression DVT (deep venous thrombosis) Pulmonary embolism Injury of head and neck History of IBS Gastric reflux Non-smoker BiPAP (biphasic positive airway pressure) dependence Shortness of breath on exertion Leg cramps History of edema History of echocardiogram History of stress test Cardiology follow-up encounter History of atrial fibrillation Incontinence Back pain Neck pain Limb weakness Difficulty balancing unexpained bruising Glaucoma Hay fever Fatigue Shoulder pain Hemorrhoids Arthritis Asthma Obesity Hypokalemia Atrioventricular bloc first degree Chronic diastolic (congestive) heart failure Dizziness Pharyngitis Bronchitis Upper respiratory infection Normal pressure hydrocephalus History of pulmonary embolism History of osteoarthritis Essential hypertension Home Medications ?Medication ?Instructions ?Recorded ?Last Taken ?Type gabapentin 600 mg tablet 600 mg PO QHS Check with thad holly 05/04/15 02/24/24 History doctor duloxetine 20 mg capsule,delayed 40 mg PO DAILY JAZ PARISI 08/03/21 02/25/24 History release latanoprost 0.005 % eye drops 1 drp EACH EYE QHS GLUAC RE 08/03/21 02/24/24 History spironolactone 50 mg tablet 50 mg PO DAILY Check with primary 10/30/21 02/25/24 History doctor dabigatran etexilate 75 mg capsule 75 mg PO BID Check with primary 04/19/22 07/27/24 History (Pradaxa) doctor levothyroxine 25 mcg tablet 25 mcg PO DAILY Check with primary 05/10/22 07/30/24 03:15 History doctor multivitamin 1 tab PO DAILY Check with pr imary 05/10/22 02/25/24 History doctor pantoprazole 40 mg tablet,delayed 40 mg PO BID Check w ith primary 07/05/22 02/25/24 History release doctor benazepril 10 mg tablet 10 mg PO DAILY 07/11/2202/06 History polysaccharide iron complex 150 mg 150 mg PO DAILY #90 caps 09/27/22 02/25/24 Rx iron capsule (Ferrex) albuterol sulfate 90 mcg/actuation 2 puff inhalation Q 4H PRN 01/07/23 Unknown Rx aerosol inhaler shortness of breath or wheez ing #8.5 grams timolol maleate 0.5 % eye drops 1 drp ophthalmic (eye) BID Glaucoma 06/17/23 02/25/24 History rosuvastatin 20 mg tablet 20 mg PO DAILY #90 tabs 05/06/2902/25/24 Rx ipratropium bromide 42 mcg (0.06 2 spray intranasal DA GREGORIA PRN 01/16/24 Unknown History %) nasal spray Allergy/AdvReac Type Severity Reaction Status Date / Time rivaroxaban (From Xarelto) Allergy Severe Unknown Verified 07/30/24 05:50 acetaminophen (From Percocet) Allergy Unknown hallucinati Verified 07/30/24 05:50 ons alprazolam (From Xanax) Allergy Unknown fatigue Verified 07/30/24 05:50 oxycodone (From Percocet) Allergy Unknown hallucinati Verified 07/30/24 05:50 ons carisoprodol (From Soma) Allergy Rash Verified 07/30/24 05:50 adhesive AdvReac blisters Verified 07/30/24 05:50 apixaban (From Eliquis) AdvReac Other Verified 07/30/24 05:50 diphenhydramine (From AdvReac Other Verified 07/30/24 05:50 Benadryl) Family History Mother Cancer pancreatic Asthma Hypertension Son Asthma Brother Heart disease Diabetes Hypertension Kidney disease Sister Heart disease Hypertension Diabetes Surgical History History of esophagogastroduodenoscopy (EGD) Intracranial shunt Presence of coronary angioplasty implant and graft (~06/08/20) Presence of stent in coronary artery (~06/08/20) History of ventriculoperitoneal shunting (~06/16/14) History of cardiac catheterization Hx of carpal tunnel repair Hx of appendectomy Hx of cholecystectomy History of total left knee replacement History of spinal fusion History of toe surgery History of arthroscopy of right shoulder History of hernia repair History of hysterectomy History of laminectomy Social History Smoking Status: Never smoker Electronic Cigarette Use: not used second hand exposure: Yes alcohol intake: never substance use type: does not use caffeine: Yes Type: tea Number of servings: 1 do you feel safe at home: Yes ROS Constitutional Constitutional: Denies fatigue, fever(s), poor appetite, weight gain or weight loss Gastrointestinal Gastrointestinal: Denies belching, bloating, change in bowel habits, change in stool character, chewing difficulty, coffee ground emesis, constipation, cramping, diarrhea, dyspepsia, dysphagia, early satiety, excessive flatus, fecal incontinence, heartburn, hematemesis, hematochezia, hemorrhoids, loose stools, melena, nausea, odynophagia, rectal bleeding, tenesmus, vomiting or weight changes Vital Signs Vital Signs Vital Signs: 07/30/24 05:40 07/30/24 05:40 07/30/24 06:25 Temperature 98.4 F 98.4 F Temperature Source Temporal Pulse Rate 52 L 52 L Respiratory Rate 18 18 Respiratory Pattern Normal Blood Pressure 168/68 H 168/68 H Blood Pressure Mean 101 Blood Pressure Source Monitor Blood Pressure Position Supine Blood Pressure Location Left Arm Pulse Ox 99 99 Oxygen Delivery Method Room Air Room Air Weight Weight: 200 lb 2.876 oz Body Mass Index (BMI) 35.4 Physical Exam Const alert, oriented x3, no apparent distress and healthy appearing General Appearance: cooperative GI normal to inspection, nondistended, normoactive bowel sounds, soft to palpation, non-tender and non-distended Percussion: normal to percussion Rectal Exam: deferred Assessment & Plan Assessment/Plan (1) Chronic GI bleeding: (2) Anemia: QUALIFIERS: Anemia type: iron deficiency Iron deficiency anemia type: chronic blood loss Qualified Code(s): D50.0 - Iron deficiency anemia secondary to blood loss (chronic) (3) Iron refractory iron deficiency anemia: PLAN: Plan Assessment and Plan Assessment and Plan (1) Chronic GI bleeding: Status: Chronic Plan: We will get a CT angiography of the abdomen pelvis. (2) Weight gain: Status: Chronic Plan: We will put her on white diet. Most of the calories that she is consuming on a daily basis is mostly carbohydrates and is causing a lot of bloating and gas distention along with weight gain. We talked about eliminating or reducing the amount of coffee that she takes on a daily basis as that also contributes to a lot of her symptoms. She will eliminate white containing foods for 1 month she will reintroduce one of the best that we gave her 30-week and tried her responses. (3) Gastric reflux: Status: Acute Plan: I will continue her pantoprazole 40 mg a day as it is controlling her reflux symptoms and some of the bloating. However she is experiencing a lot of belching as I think is associated with gas production. We talked about some diet modifications and regarding cutting down on greasy vegetables that are not cooked and has taken produce a lot of gas upper GI tract. (4) Dysphagia: Status: Acute Plan: She had an esophageal ring which was dilated to a 15 mm balloon dilation. She is not having any trouble swallowing and it has not returned since being on proton pump inhibitor therapy. (5) Anemia: Status: Chronic Qualifiers: Anemia type: iron deficiency Iron deficiency anemia type: chronic blood loss Qualified Code(s): D50.0 - Iron deficiency anemia secondary to blood loss (chronic) Comment: This is managed by Dr. Longoria. The patient has been tolerating the Pradaxa. Plan: Acute blood loss anemia likely secondary to anticoagulation in the setting of arteriovenous malformations that were seen in the small bowel during capsule endoscopy. These were at 3 hours into the study. She would like to be evaluated for deep enteroscopy versus octreotide therapy. I will discuss this with hematology.
--- NOTE | 2024-07-30 07:32 | PCM.POST.ANE ---
Anesthesia: Postop Eval I Current Vital Signs Temperature: 97.5 F Pulse Rate: 62 Blood Pressure: 120/80 Respiratory Rate: 16 Pulse Ox: 99 Oxygen Delivery Method: Room Air Assessment Airway patent: Yes Spontaneous unlabored respirations: Yes Mental status: Awake and Calm nausea: No Vomiting: No Anesthesia Complication: No Fluid Hydration Crystalloid volume administer (ml): 500 Total IV fluid infused: 500 Progress Note Anesthesia document: Postop Eval 1 completed: Yes
--- NOTE | 2024-07-30 07:35 | OP.EGD_ITS ---
Patient Name: Barbara Lloyd Procedure Date: 07/30/2024 6:34 AM Date of : 1945 Age: 78 Procedure: Upper GI endoscopy Indications: Iron deficiency anemia Providers: Kirby Cheng DO Referring MD: Jean Paul Bañuelos MD Medicines: Monitored Anesthesia Care Patient Profile: This is a 78 year old female. Refer to note in patient chart for documentation of history and physical. Patient has symptoms of chronic right lower quadrant abdominal pain. Complications: No immediate complications. Procedure: Pre-Anesthesia Assessment: - Prior to the procedure, a History and Physical was performed, and patient medications and allergies were reviewed. The patient is competent. The risks and benefits of the procedure and the sedation options and risks were discussed with the patient. All questions were answered and informed consent was obtained. Patient identification and proposed procedure were verified by the physician in the pre-procedure area. Mental Status Examination: alert and oriented. Airway Examination: normal oropharyngeal airway and neck mobility. Respiratory Examination: clear to auscultation. CV Examination: normal. Prophylactic Antibiotics: The patient does not require prophylactic antibiotics. Prior Anticoagulants: The patient has taken no anticoagulant or antiplatelet agents except for NSAID medication. ASA Grade Assessment: II - A patient with mild systemic disease. After reviewing the risks and benefits, the patient was deemed in satisfactory condition to undergo the procedure. The anesthesia plan was to use monitored anesthesia care (MAC). Immediately prior to administration of medications, the patient was re-assessed for adequacy to receive sedatives. The heart rate, respiratory rate, oxygen saturations, blood pressure, adequacy of pulmonary ventilation, and response to care were monitored throughout the procedure. The physical status of the patient was re-assessed after the procedure. After obtaining informed consent, the endoscope was passed under direct vision. Throughout the procedure, the patient's blood pressure, pulse, and oxygen saturations were monitored continuously. The Colonoscope was introduced through the mouth, and advanced to the third part of the duodenum. Small bowel enteroscopy was deemed necessary. The upper GI endoscopy was accomplished without difficulty. The patient tolerated the procedure well. Scope In: 6:53:45 AM Scope Out: 7:00:45 AM Total Procedure Duration Time 0 hours 7 minutes 0 seconds Findings: The examined esophagus was normal. The Z-line was irregular and was found 40 cm from the incisors. No gross lesions were noted in the entire examined stomach. The examined duodenum was normal. Impression: - Normal esophagus. - Z-line irregular, 40 cm from the incisors. - No gross lesions in the entire stomach. - Normal examined duodenum. - No specimens collected. Recommendation: - Discharge patient to home. - Resume previous diet. - Continue present medications. - Await pathology results. Procedure Code(s): --- Professional --- 94565, Small intestinal endoscopy, enteroscopy beyond second portion of duodenum, not including ileum; diagnostic, including collection of specimen(s) by brushing or washing, when performed (separate procedure) CPT copyright 2021 [employer]. All rights reserved. The codes documented in this report are preliminary and upon hospital coder review may be revised to meet current compliance requirements. Kirby Cheng DO 07/30/2024 7:34:42 AM This report has been signed electronically. Number of Addenda: 0 Note Initiated On: 07/30/2024 6:34 AM
--- NOTE | 2024-07-30 07:35 | OP.CCLET_ITS ---
07/30/2024 Jean Paul Bañuelos MD [address] [place] [address] Re : Upper GI endoscopy procedure for Barbara Lloyd Dear Dr. Bañuelos This procedure was performed on July. My impressions and recommendations are as follows: Impressions : - Normal esophagus. - Z-line irregular, 40 cm from the incisors. - No gross lesions in the entire stomach. - Normal examined duodenum. - No specimens collected. Recommendations : - Discharge patient to home. - Resume previous diet. - Continue present medications. - Await pathology results. My findings are described in the full procedure note, which is enclosed. If I can be of further assistance, please feel free to contact me at . Sincerely, Kirby Cheng, 07/30/2024 7:34:42 AM This report has been signed electronically.
--- NOTE | 2024-07-30 07:39 | OP.CCLET_ITS ---
07/30/2024 Jean Paul Bañuelos MD [address] [place] [address] Re : Colonoscopy procedure for Barbara Lloyd Dear Dr. Bañuelos This procedure was performed on July. My impressions and recommendations are as follows: Impressions : - One 7 mm polyp in the transverse colon, removed with a hot snare. Resected and retrieved. - Diverticulosis in the recto-sigmoid colon and in the sigmoid colon. - Likely malignant partially obstructing tumor in the proximal transverse colon and at the hepatic flexure. Biopsied. Tattooed. - Malignant-appearing tumor in the colon. Tissue was removed. Biopsied. Tattooed. Recommendations : - Discharge patient to home. - Resume previous diet. - Continue present medications. - Await pathology results. - Repeat colonoscopy for surveillance based on pathology results. My findings are described in the full procedure note, which is enclosed. If I can be of further assistance, please feel free to contact me at . Sincerely, Kirby Cheng DO 07/30/2024 7:39:15 AM This report has been signed electronically.
--- NOTE | 2024-07-30 07:39 | OP.COLON_ITS ---
Patient Name: Barbara Lloyd Procedure Date: 07/30/2024 7:00 AM Date of : 1945 Age: 78 Procedure: Colonoscopy Indications: Iron deficiency anemia Providers: Kirby Cheng DO Referring MD: Jean Paul Bañuelos MD Medicines: Monitored Anesthesia Care Patient Profile: This is a 78 year old female. Refer to note in patient chart for documentation of history and physical. Patient has symptoms of chronic right lower quadrant abdominal pain. Last Colonoscopy: several years ago. Complications: No immediate complications. Procedure: Pre-Anesthesia Assessment: - Prior to the procedure, a History and Physical was performed, and patient medications and allergies were reviewed. The patient is competent. The risks and benefits of the procedure and the sedation options and risks were discussed with the patient. All questions were answered and informed consent was obtained. Patient identification and proposed procedure were verified by the physician in the pre-procedure area. Mental Status Examination: alert and oriented. Airway Examination: normal oropharyngeal airway and neck mobility. Respiratory Examination: clear to auscultation. CV Examination: normal. Prophylactic Antibiotics: The patient does not require prophylactic antibiotics. Prior Anticoagulants: The patient has taken no anticoagulant or antiplatelet agents except for NSAID medication. ASA Grade Assessment: II - A patient with mild systemic disease. After reviewing the risks and benefits, the patient was deemed in satisfactory condition to undergo the procedure. The anesthesia plan was to use monitored anesthesia care (MAC). Immediately prior to administration of medications, the patient was re-assessed for adequacy to receive sedatives. The heart rate, respiratory rate, oxygen saturations, blood pressure, adequacy of pulmonary ventilation, and response to care were monitored throughout the procedure. The physical status of the patient was re-assessed after the procedure. After I obtained informed consent, the scope was passed under direct vision. Throughout the procedure, the patient's blood pressure, pulse, and oxygen saturations were monitored continuously. The Colonoscope was introduced through the anus and advanced to the hepatic flexure. The colonoscopy was performed without difficulty. The patient tolerated the procedure well. The quality of the bowel preparation was adequate. Anatomical landmarks were photographed. Scope In: 7:02:04 AM Scope Out: 7:21:20 AM Total Procedure Duration Time 0 hours 19 minutes 16 seconds Findings: The perianal and digital rectal examinations were normal. A 7 mm polyp was found in the transverse colon. The polyp was sessile. The polyp was removed with a hot snare. Resection and retrieval were complete. Verification of patient identification for the specimen was done. Estimated blood loss was minimal. Many small and large-mouthed diverticula were found in the recto-sigmoid colon and sigmoid colon. An ulcerated partially obstructing large mass was found in the proximal transverse colon and at the hepatic flexure. The mass was circumferential. In addition, its diameter measured five mm. No bleeding was present. This was biopsied with a cold forceps for histology. Verification of patient identification for the specimen was done. Area was tattooed with an injection of 5 mL of Mackenzie ink. Impression: - One 7 mm polyp in the transverse colon, removed with a hot snare. Resected and retrieved. - Diverticulosis in the recto-sigmoid colon and in the sigmoid colon. - Likely malignant partially obstructing tumor in the proximal transverse colon and at the hepatic flexure. Biopsied. Tattooed. - Malignant-appearing tumor in the colon. Tissue was removed. Biopsied. Tattooed. Recommendation: - Discharge patient to home. - Resume previous diet. - Continue present medications. - Await pathology results. - Repeat colonoscopy for surveillance based on pathology results. Procedure Code(s): --- Professional --- 04536, 52, Colonoscopy, flexible; with removal of tumor(s), polyp(s), or other lesion(s) by snare technique 83608, 59,52, Colonoscopy, flexible; with biopsy, single or multiple 28421, 52, Colonoscopy, flexible; with directed submucosal injection(s), any substance CPT copyright 2021 [employer]. All rights reserved. The codes documented in this report are preliminary and upon returns supervisor review may be revised to meet current compliance requirements. Kirby Cheng DO 07/30/2024 7:39:15 AM This report has been signed electronically. Number of Addenda: 0 Note Initiated On: 07/30/2024 7:00 AM
--- NOTE | 2024-07-30 14:19 | PCM.POSTANE2 ---
Anesthesia Postop Eval I Sum Postop Eval Completion status Anesthesia document: Postop Eval 1 completed: Yes Anesthesia Postop Eval I Summary Anesthesia Postop Eval I Summary: Anesthesia Postop Eval I: Assessment Summary Airway patent Yes 07/30/24 07:33 [email or web address] Spontaneous unlabored Yes 07/30/24 07:33 [email or web address] respirations Mental status Awake,Calm 07/30/24 07:33 [email or web address] nausea No 07/30/24 07:33 [email or web address] Vomiting No 07/30/24 07:33 [email or web address] Anesthesia Postop Eval I: Fluid Summary Crystalloid volume administer 500 07/30/24 07:33 [email or web address] (ml) Colloids volume administered ( ml) Blood Product volume administered (ml) Total IV fluid infused 500 07/30/24 07:33 [email or web address] Anesthesia Postop Eval I: Summary Notes Anesthesia Complication No 07/30/24 07:33 [email or web address] Anesthesia Complication Comment: Post-operative progress note Anesthesia: Postop Eval II Evaluation Mental status: Awake and Calm Pain Level: 0 nausea: No Vomiting: No Complications Anesthesia Complication: No
== END 2024-07-30 08:21 | disposition home or self-care (01) ==
LOC: EN 05:09 → AC 05:10
PROVIDERS: PCP Family Medicine Geriatric Medicine; Referring Provider Family Medicine Geriatric Medicine; Visit Provider Internal Medicine Gastroenterology
PROC: 0DJD8ZZ Inspection of Lower Intestinal Tract, Via Natural or Artificial Opening Endoscopic (ICD-10-PCS; CPT 45378; principal; 2024-07-30 06:25)
DX: D50.0 Iron deficiency anemia secondary to blood loss (chronic) (principal); I11.0 Hypertensive heart disease with heart failure; I50.32 Chronic diastolic (congestive) heart failure; I25.10 Atherosclerotic heart disease of native coronary artery without angina pectoris; E78.5 Hyperlipidemia, unspecified; K21.9 Gastro-esophageal reflux disease without esophagitis; K57.30 Diverticulosis of large intestine without perforation or abscess without bleeding; Z90.710 Acquired absence of both cervix and uterus; Z79.01 Long term (current) use of anticoagulants; R63.5 Abnormal weight gain; Z86.718 Personal history of other venous thrombosis and embolism; Z95.5 Presence of coronary angioplasty implant and graft; Z90.49 Acquired absence of other specified parts of digestive tract; Z68.35 Body mass index [BMI] 35.0-35.9, adult; D12.3 Benign neoplasm of transverse colon
CPT/HCPCS: 45380; 45385; 45381; 44360; 88305; 88341; 88342; A4648; J2405

== ENCOUNTER → 2024-07-30 | Outpatient (CLI) | payer MEDICARE, OTHER, SELFPAY ==
--- NOTE | 2024-07-30 10:30 | CT_ITS ---
PROCEDURE: ABDOMEN/PELVIS WITH CONTRAST 07/30/2024 REASON FOR EXAM: SUSPECTED COLON CANCER S/P COLONOSCOPY Right lower quadrant pain. TECHNIQUE: Abdomen and pelvis CT with intravenous contrast. Coronal and Sagittal reconstruction series were provided. PATIENT PREPARATION: Per protocol ORAL CONTRAST TYPE: Given CONTRAST: Isovue-300 VOLUME: 100 mL One or more dose reduction techniques were used (e.g., Automated exposure control, adjustment of the mA and/or kV according to patient size, use of iterative reconstruction technique. RADIATION DOSE SUMMARY: CTDlvol: 15.5 mGy DLP: 1161.01 mGycm COMPARISON: None FINDINGS: Lung bases: Unremarkable Liver: Normal size. No mass. Gallbladder: Small gallstone within the gallbladder lumen. Spleen: Normal size. Pancreas: Diffuse fatty atrophy. Adrenals: Unremarkable Kidneys: 2.3 cm cyst in the lateral aspect of the mid right kidney. There is evidence of left renal atrophy. Bladder: Findings suggestive of a cystocele. The bladder is only partially filled. Reproductive Organs: Prior hysterectomy. Adnexal regions are unremarkable. Bowel: Circumferential wall thickening in the distal portion of the transverse colon and splenic flexure. Appendix: Status post appendectomy. Lymph nodes: Unremarkable. Vasculature: Mild diffuse atherosclerotic calcifications are noted. A filter is seen within the inferior vena cava. Peritoneum / Retroperitoneum: Prior anterior abdominal wall ventral hernia repair with a mesh. Bones: Degenerative changes of the spine. Prior fusion at the L4-L5 level. CT/Abdomen/Pelvis WITH Contrast IMPRESSION: Circumferential wall thickening of the distal portion of the transverse colon a nd splenic flexure. Left renal cyst. Small gallstone. Diffuse fatty atrophy of the pancreas. Reading Location: [facility]
== END | disposition home or self-care (01) ==
LOC: CT 08:33
PROVIDERS: PCP Family Medicine Geriatric Medicine; Referring Provider Internal Medicine Gastroenterology; Visit Provider Internal Medicine Gastroenterology
DX: K63.9 Disease of intestine, unspecified (principal)
CPT/HCPCS: 74177; Q9967; A4216

== ENCOUNTER → 2024-08-19 | Outpatient (CLI) | payer MEDICARE, OTHER, SELFPAY ==
--- NOTE | 2024-08-19 12:54 | NEURO ---
NCS and/or EMG Patient Report Ordering Doctor: Wali Quinones DATE OF SERVICE: 08/19/24 Barbara presents for electrodiagnostic testing of the lower limbs. She reports numbness in both feet, worse on the left side. Electrodiagnostic findings: Left peroneal motor nerve demonstrates prolonged latency with reduced amplitude and reduced conduction velocity. Right peroneal motor nerve demonstrates normal distal latency with reduced amplitude and normal conduction velocity. Tibial motor amplitude is decreased on the left side. Normal right tibial motor response. Sensory responses are within normal limits. Prolonged right tibial H reflex. Left peroneal F-wave was not obtained. Needle EMG testing was performed in the lower limbs. 1+ fibrillations were noted in the right tibialis anterior. Motor unit action potentials are of normal amplitude and duration. Electrodiagnostic impression: This is an abnormal study in the lower limbs 1. Electrodiagnostic findings suggestive of peripheral polyneuropathy, motor greater than sensory, with evidence of axonal loss. 2. No electrodiagnostic evidence for lumbosacral radiculopathy. Multi Select Codes Neurology Neurology Interp Codes: 53554-09 Musc test done w/n test comp (interp) (2) and 72570-24 Nrv cndj test 9-10 studies (interp)
== END | disposition home or self-care (01) ==
LOC: PSN 07:02
PROVIDERS: PCP Family Medicine Geriatric Medicine; Referring Provider Podiatrist; Visit Provider Podiatrist
DX: R20.2 Paresthesia of skin (principal)
CPT/HCPCS: 95886; 95911

== ENCOUNTER 2024-08-26 10:00 | Outpatient (RCR) | payer MEDICARE, OTHER, SELFPAY ==
--- NOTE | 2024-08-03 08:55 | HP.PTEVAL_ITS ---
Patient's Visit Information Visit Information Visit Information: BRICE LOMELI is a 78 year old F referred to Physical Therapy by Dr. Jean Paul Bañuelos MD with a diagnosis of Generalized weakness. Date of Evaluation: 07/24/24 Physical Therapist: Denton Vuong DPT Visit Plan Frequency: 2x /Week Duration: 6 Weeks Plan: 1) BLE strengthening 2) dynamic and static balance 3) add in gait progression to least restrictive device. Subjective Subjective: Pt. is here today for her initial evaluation with diagnosis of generalized weakness. Pt. reports having an underlying balance issue. Pt. having hydrocephalus with shunt placement. Pt. did fall this morning, but has been ~2 years since she had fallen previously. pt. does walk with a cane. Pt. reports repeated having to catch her self. She does have iron infusions. History of L knee replacement as well. Pt. is sleeping well. She does have some B knee pain and feels like she needs to be stronger as well as peripheral neuropathy in BLEs, L worse than R. Pt.is hopeful to increase her strength and balance. Pain l leg: Pain Intensity (Out of 10): 1 R knee: Pain Intensity (Out of 10): 2 Pain Intensity Range: 0 and 4 L knee: Pain Intensity (Out of 10): 1 Pain Intensity Range: 4 Objective Objective: POSTURE: PT. has slight FH posture and wide HARPREET. PALPATION: pt. has a small bruise at R distal ponce (from fall this morning). Pt. has no pain with all rest of palpation. NEURO: Normal DTR of BLEs. Pt. does have decreased sensation in LLE slightly distally. ROM: Pt. has normal B knee and hip ROM. Tigthness in B calves and HS. MMT: RLE: ankle 5/5 throughout, knee: ext 27.5#, flex 21.3#; hip: flex 14.6# LLE: ankle 5/5, knee: ext 30#, flex 20.2#; hip: flex 22.0# GAIT: Pt. ambulates with SPC with decreased step length and guarded posture. Balance/Special Test Scores Functional Gait Assessment Score: 15 % Disability: 50.0000 Lower Extremity Functional Score: 24 TUG Test Time Seconds: 21.3 30 Second Chair Rise Test Seconds: 8 Goals Goal 1:: LTG: Pt. to be I with HEP. Goal Time Frame: 4-6 Weeks Goal 2:: LTG: Pt. to have improved TUG time to less than 10seconds without AD. Goal Time Frame: 4-6 Weeks Goal 3:: LTG: Pt. to have increased FGA score to greater than 23/30 indicating improved balance. Goal Time Frame: 4-6 Weeks Goal 4:: LTG: Pt. to have increased BLE strength by 10# throughout. Goal Time Frame: 4-6 Weeks Rehabilitation Potential Physical Therapy Diagnosis: Pt. has signs and symptoms consistent with generalized weakness. Pt. has had some episodes of falls and has marked LE weakness and imbalance. pt. would benefit from PT to address the above limitations progressing back to all previous levels of function. Rehabilitation Potential: Good Anticipated Interventions Patient/Client Instruction: Educate patient on: Condition, Plan of Care, Risk Factors and Benefits of Fitness Program For the Purpose of:: To foster healthy habits, To improve decision making, To facilitate caregiver knowledge, To improve self management, To prevent re-injury and To improve ability to perform tasks related to life management Text: Thank you for the opportunity to evaluate your patient. For Medicare and Medicare HMO plans, please review the plan of care and approve it. It will need to be FAXED BACK to us at [phone] for Medicare purposes. For Medicare only, by signing this I certify the plan of care. Please let me know if there are questions or concerns regarding this plan of care. Physician Signature: Date:
--- NOTE | 2024-08-26 11:02 | HP.PTREVAL_ITS ---
Re-Evaluation Intro: Dr. Jean Paul Bañuelos MD, It has been my pleasure to treat BRICE LOMELI over the last 9 visits for Generalized weakness. Please see the progress note below for an update on the physical therapy plan of care! Subjective Subjective: Pt. repots being 50% better overall. She is still having issues with walking over longer distances, stairs and heavy chores around the house. Pt. felt like she hurt her R HS with kicking her shoes off last night. Objective Objective/Function: MMT: LLE: knee ext 36.8#, flex 27.7#; hip: flex: 16.5# RLE: knee ext 28.5#, flex: DNT due to recent pain from last night.; hip: flex 23.3# PREVIOUSLT: MMT: RLE: ankle 5/5 throughout, knee: ext 27.5#, flex 21.3#; hip: flex 14.6# LLE: ankle 5/5, knee: ext 30#, flex 20.2#; hip: flex 22.0# TU.3sec without Ad GAIT: Pt. is ambulating well. Great with cane Plan Plan Plan: Pt. is having surgery for her colon CA. I am putting her chart on hold un til she recovers from this and gets cleared to return and if she feels like she needs to. Balance/Gait/Functional tests Balance/Special Test Scores Functional Gait Assessment Score: 17 % Disability: 43.3400 Lower Extremity Functional Score: 35 TUG Test Time Seconds: 18.33 Tug Test: <20 sec.=mostly independent 30 Second Chair Rise Test Seconds: 8 Goals Goals Goal 1:: LTG: Pt. to be I with HEP. Goal Time Frame: 4-6 Weeks Goal Progress: Goal Met Goal 2:: LTG: Pt. to have improved TUG time to less than 10seconds without AD. Goal Time Frame: 4-6 Weeks Goal 3:: LTG: Pt. to have increased FGA score to greater than 23/30 indicating improved balance. Goal Time Frame: 4-6 Weeks Goal 4:: LTG: Pt. to have increased BLE strength by 10# throughout. Goal Time Frame: 4-6 Weeks Anticipated Interventions Anticipated Interventions Patient/Client Instruction: Educate patient on: Condition, Plan of Care, Risk Factors and Benefits of Fitness Program For the Purpose of:: To foster healthy habits, To improve decision making, To facilitate caregiver knowledge, To improve self management, To prevent re-injury and To improve ability to perform tasks related to life management Re-Evaluation Ending Re-evaluation ending: Please do not hesitate to contact me at [phone] by phone or if you have questions or concerns regarding this new plan of care! Sincerely, CHARITY WardT
== END 2024-08-26 19:00 | disposition home or self-care (01) ==
LOC: PT 10:00
PROVIDERS: PCP Family Medicine Geriatric Medicine; Referring Provider Family Medicine Geriatric Medicine; Visit Provider Family Medicine Geriatric Medicine
DX: M62.81 Muscle weakness (generalized) (principal)
CPT/HCPCS: 97110; 97161; 97530

== ENCOUNTER 2024-08-27 10:44 | Observation (INO) | payer MEDICARE, OTHER, SELFPAY ==
--- NOTE | 2024-08-25 16:54 | PAT.ANE_ITS ---
Pre-Assessment Diagnosis/Proposed Procedure Planned Operative Procedure(s): ERAS LAP LEFT KIRA COLECTOMY Anesthesia History Anesthesia History - promotions representative: Anesthesia History - promotions representative Hx Hospitalization No: JAN 2022 BLOOD CLOT 08/25/24 16:19 Any Problems With Anesthesia No 08/25/24 16:19 Cholinesterase deficiency No 08/25/24 16:19 You/Your Family Experience No 08/25/24 16:19 fever (hyperthermia) with Relationship Recent Exposure to Contagious No 07/30/24 05:40 Disease Does patient have nerve No 08/25/24 16:19 stimulator Patient instructed to have device shut off --Does patient have Pacemaker or ICD? When Was Last Pacemaker Check QUESTION #4 FULL TEXT: You/Your Family Experience fever (hyperthermia) with Anesthesia Last Oral Intake Last Oral intake: Last Oral Intake NPO since Meds taken in AM with sips of water? Meds patient instructed to take am of surgery PONV PONV - promotions representative: PONV - promotions representative Female Yes 08/25/24 16:19 HX of Motion Sickness No 08/25/24 16:19 HX of N/V After Surgery No 08/25/24 16:19 Non-Smoker Yes 08/25/24 16:19 Duration of Surgery greater Yes 08/25/24 16:19 than 60 minutes Number of Risk Factors 3 08/25/24 16:19 PONV Score Moderate Risk 08/25/24 16:19 Height & Weight Height & Weight: Anesthesia: Height & Weight Height 5 ft 3 in 08/20/24 13:46 Respiratory Assessment Respiratory Assessment - promotions representative: Respiratory Tract Infection Hx - promotions representative Hx Respiratory Tract Infection No 08/25/24 16:19 STOP Sleep Apnea STOP Sleep Apnea - promotions representative: STOP Sleep Apnea - promotions representative Hx Hypertension Yes: CONTROLLED WITH MED 08/25/24 16:19 Hx Sleep Apnea Yes 08/25/24 16:19 CPAP No 08/25/24 16:19 BIPAP Yes 08/25/24 16:19 Do you snore loudly (louder than talking or can be heard Do you often feel tired/ fatigued/ sleepy during daytime? Has anyone observed you stop breathing during sleep? STOP Results Positive 08/25/24 16:19 QUESTION #5 FULL TEXT : Do you snore loudly (louder than talking or can be heard through closed doors)? Tobacco Use History Tobacco Use History - promotions representative: Tobacco Use History - promotions representative Tobacco Use Non-smoker 07/05/22 10:16 Smoking Status Never smoker 08/25/24 16:19 Hx Tobacco Use No 08/25/24 16:19 Years Smoking Packs Smoked per Day Smoking Cessation Date was within the last 15 years Hx Smoking Cessation Date Hx Smoking Cessation Counseling Hematologic Medial History Hematologic Hx - promotions representative: Hematologic Medical Hx - clinical documentation specialist Hx of Blood Transfusion Yes 08/25/24 16:19 Hx of Transfusion in last 3 No 08/25/24 16:19 Months Date of Last Transfusion (if within last 3 months) Ever experience any problems No 08/25/24 16:19 with transfusion(s)? Specify any problems Hx of Preganancy in last 3 No 08/25/24 16:19 Months Nurse Filling Out Transfusion VCHRISTIN 08/25/24 16:19 & Questions: Date: 08/25/24 08/25/24 16:19 Time: 16:21 08/25/24 16:19 Patient unable to answer at this time (ie. confused, unrespo /Reproduction History /Reproductive History - promotions representative: /Reproductive Hx- promotions representative Hx Now No 08/25/24 16:19 Gestational Age (in weeks): EDC: Hx Hx Para Hx Section SAB No 08/25/24 16:19 PFSH Medical History Bruising Gout Low iron Excessive bleeding History of pain when walking Hypertension History of cardiac monitoring Post-menopausal Skin tear Thyroid disease Ambulates with cane Bladder disease Syncope Gastric reflux Degenerative disc disease Bursitis FPC current use of anticoagulant Iron deficiency anemia due to chronic blood loss History of GI bleed Venous insufficiency of both lower extremities Ulcer of right lower extremity with fat layer exposed Iron deficiency Anemia due to chronic blood loss Anemia due to gastrointestinal blood loss History of left heart catheterization (LHC) (~08/04/21) Unstable angina Hydrocephalus CAD (coronary artery disease) Iron refractory iron deficiency anemia Iron deficiency anemia Atrial fibrillation Aortic valve disorder Angina pectoris Carotid bruit Thromboembolic disorder HLD (hyperlipidemia) Presence of IVC filter Atherosclerotic heart disease of [place] coronary artery without angina pectoris Dysphagia Wears hearing aid Wears glasses Depression DVT (deep venous thrombosis) Pulmonary embolism Injury of head and neck History of IBS Gastric reflux Non-smoker BiPAP (biphasic positive airway pressure) dependence Shortness of breath on exertion Leg cramps History of edema History of echocardiogram History of stress test Cardiology follow-up encounter History of atrial fibrillation Incontinence Back pain Neck pain Limb weakness Difficulty balancing unexpained bruising Glaucoma Hay fever Fatigue Shoulder pain Hemorrhoids Arthritis Asthma Obesity Hypokalemia Atrioventricular bloc first degree Chronic diastolic (congestive) heart failure Dizziness Pharyngitis Bronchitis Upper respiratory infection Normal pressure hydrocephalus History of pulmonary embolism History of osteoarthritis Essential hypertension Home Medications ?Medication ?Instructions ?Recorded ?Last Taken ?Type gabapentin 600 mg tablet 600 mg PO QHS Check with thad barrera 05/04/15 02/24/24 History doctor duloxetine 20 mg capsule,delayed 40 mg PO DAILY DEPRES ISAK 08/03/21 02/25/24 History release latanoprost 0.005 % eye drops 1 drp EACH EYE QHS GLUAC RE 08/03/21 02/24/24 History spironolactone 50 mg tablet 50 mg PO DAILY Check with primary 10/30/21 02/25/24 History doctor dabigatran etexilate 75 mg capsule 75 mg PO BID Check with primary 04/19/22 08/24/24 History (Pradaxa) doctor levothyroxine 25 mcg tablet 25 mcg PO DAILY Check with primary 05/10/22 07/30/24 03:15 History doctor multivitamin 1 tab PO DAILY Check with pr imary 05/10/22 02/25/24 History doctor pantoprazole 40 mg tablet,delayed 40 mg PO BID Check w ith primary 07/05/22 02/25/24 History release doctor benazepril 10 mg tablet 10 mg PO DAILY BP 07/11/22 1 04/26/23 History polysaccharide iron complex 150 mg 150 mg PO DAILY SUP PLEMENT #90 caps 09/27/22 02/25/24 Rx iron capsule (Ferrex) albuterol sulfate 90 mcg/actuation 2 puff inhalation Q 4H PRN 01/07/23 Unknown Rx aerosol inhaler shortness of breath or wheez ing #8.5 grams timolol maleate 0.5 % eye drops 1 drp ophthalmic (eye) BID Glaucoma 06/17/23 02/25/24 History rosuvastatin 20 mg tablet 20 mg PO DAILY CHOLESTEROL # 90 tabs 08/09/23 02/25/24 Rx ipratropium bromide 42 mcg (0.06 2 spray intranasal DA GREGORIA PRN 01/16/24 Unknown History %) nasal spray ALLERGIES metronidazole 500 mg tablet 500 mg PO .COMPLEX ANTIBIO TIC 08/24/24 Unknown Rx PRE-OP #6 tabs neomycin 500 mg tablet 500 mg PO .COMPLEX pre-op Unknown Rx antibiotics #6 tabs Allergy/AdvReac Type Severity Reaction Status Date / Time rivaroxaban (From Xarelto) Allergy Severe Unknown Verified 08/25/24 16:06 acetaminophen (From Percocet) Allergy Unknown hallucinati Verified 08/25/24 16:06 ons alprazolam (From Xanax) Allergy Unknown fatigue Verified 08/25/24 16:06 oxycodone (From Percocet) Allergy Unknown hallucinati Verified 08/25/24 16:06 ons carisoprodol (From Soma) Allergy Rash Verified 08/25/24 16:06 adhesive AdvReac blisters Verified 08/25/24 16:06 apixaban (From Eliquis) AdvReac Other Verified 08/25/24 16:06 diphenhydramine (From AdvReac Other Verified 08/25/24 16:06 Benadryl) Family History Mother Cancer pancreatic Asthma Hypertension Son Asthma Brother Heart disease Diabetes Hypertension Kidney disease Sister Heart disease Hypertension Diabetes Surgical History (Updated 08/25/24 @ 16:27 by Namita Vazquez) Hx of surgical procedure Hx of surgical procedure Hx of colonoscopy History of esophagogastroduodenoscopy (EGD) Intracranial shunt Presence of coronary angioplasty implant and graft (~06/08/20) Presence of stent in coronary artery (~06/08/20) History of ventriculoperitoneal shunting (~06/16/14) History of cardiac catheterization Hx of carpal tunnel repair Hx of appendectomy Hx of cholecystectomy History of total left knee replacement History of spinal fusion History of toe surgery History of arthroscopy of right shoulder History of hernia repair History of hysterectomy History of laminectomy Social History Smoking Status: Never smoker Electronic Cigarette Use: not used second hand exposure: Yes alcohol intake: never substance use type: does not use caffeine: Yes Type: tea Number of servings: 1 do you feel safe at home: Yes Audit: Pertinent Findings Pertinent Findings EKG Perinent findings: 05/21/2023. Sinus bradycardia. Negative precordial T waves. Abnormality may be normal per read. Stress test pertinent findings: 06/24/2023. Normal perfusion stress test. EF 81%. Consult pertinent findings: Cardiology 02/13/2024. Coronary artery disease. Stent PCI/DONNIE x 2. Mid LAD. 2020. Consider stress test. Due to fatigue and shortness of breath. Atrial fibrillation. Paroxysmal. Aortic valve disorder. Continue to monitor. Hypertension. Controlled. Recommendation Anesthesia Recommendation Anesthesia recommendation: OPTIMIZED for anesthesia
[2024-08-27] VITALS (9 sets, daily range): BP systolic 130–149; BP diastolic 70–110; PULSE 66–85; RESP 14–18; TEMP 36.1–37.2; O2SAT 97–100; BMI 36.5
--- NOTE | 2024-08-27 07:12 | PCM.HP.BLA ---
History and Physical Date of Admission: 08/27/24 Date of Service: 08/20/24 MR#: [id number] Acct: [id number] Name: BRICE LOMELI Rep #: [id number] : 1945 Provider: Dr. May Monroy MD Age/Sex: 78/F Location: [facility] Status: Signed Intake Vital Signs 08/10/2509:27 08/20/2512:46 Height 5 ft 3 in 5 ft 3 in Weight: 207 lb 4 oz 209 lb 8 oz BMI 36.7 37.0 BP 125/73 H 134/83 H Blood Pressure Location Lt brachial Rt brachial Position Sitting Sitting Respiration 18 18 Pulse 59 L 72 Pulse Source Monitor Monitor Temp 98 F 97.3 F L Temp Source Temporal Pulse Oximetry (%) 96 96 Oxygen Delivery Method room air room air Intake Visit Reasons: DISCUSS COLON CANCER SURGERY Chief Complaint: discuss colon cancer surgery Is patient in pain?: No Allergies rivaroxaban (From Xarelto) Allergy (Severe, Verified 08/20/24 13:46) Unknownacetaminophen (From Percocet) Allergy (Unknown, Verified 08/20/24 13:46) hallucinationsalprazolam (From Xanax) Allergy (Unknown, Verified 08/20/24 13:46) fatigueoxycodone (From Percocet) Allergy (Unknown, Verified 08/20/24 13:46) hallucinationscarisoprodol (From Soma) Allergy (Verified 08/20/24 13:46) Rashadhesive Adverse Reaction (Verified 08/20/24 13:46) blistersapixaban (From Eliquis) Adverse Reaction (Verified 08/20/24 13:46) Otherdiphenhydramine (From Benadryl) Adverse Reaction (Verified 08/20/24 13:46) Other Medications ?Medication ?Instructions ?Recorded ?Confirmed ?Type gabapentin 600 mg tablet 600 mg PO QHS Check with primary 05/04/15 08/20/24 History doctor duloxetine 20 mg capsule,delayed 40 mg PO DAILY DEPRESSION 08/03/21 08/20/24 History release latanoprost 0.005 % eye drops 1 drp EACH EYE QHS GLUACOMA 08/03/21 08/20/24 History spironolactone 50 mg tablet 50 mg PO DAILY Check with primary 10/30/21 08/20/24 History doctor dabigatran etexilate 75 mg capsule 75 mg PO BID Check with primary 04/19/22 08/20/24 History (Pradaxa) doctor levothyroxine 25 mcg tablet 25 mcg PO DAILY Check with primary 05/10/22 08/20/24 History doctor multivitamin 1 tab PO DAILY Check with primary 05/10/22 08/20/24 History doctor pantoprazole 40 mg tablet,delayed 40 mg PO BID Check with primary 07/05/22 08/20/24 History release doctor benazepril 10 mg tablet 10 mg PO DAILY 07/11/22 08/20/24 History polysaccharide iron complex 150 mg 150 mg PO DAILY #90 caps 09/27/22 08/20/24 Rx iron capsule (Ferrex) albuterol sulfate 90 mcg/actuation 2 puff inhalation Q4H PRN 01/07/23 08/20/24 Rx aerosol inhaler shortness of breath or wheezing #8.5 grams timolol maleate 0.5 % eye drops 1 drp ophthalmic (eye) BID Glaucoma 06/17/23 08/20/24 History rosuvastatin 20 mg tablet 20 mg PO DAILY #90 tabs 08/09/23 08/20/24 Rx ipratropium bromide 42 mcg (0.06 2 spray intranasal DAILY PRN 01/16/24 08/20/24 History %) nasal spray Have you fallen in the past year?: No PFSH Medical History (Updated 08/20/24 @ 14:[address] May Monroy MD) Bruising Gout Low iron Excessive bleeding History of pain when walking Hypertension History of cardiac monitoring Post-menopausal Skin tear Thyroid disease Ambulates with cane Bladder disease Syncope Gastric reflux Degenerative disc disease Bursitis penitentiary current use of anticoagulant Iron deficiency anemia due to chronic blood loss History of GI bleed Venous insufficiency of both lower extremities Ulcer of right lower extremity with fat layer exposed Iron deficiency Anemia due to chronic blood loss Anemia due to gastrointestinal blood loss History of left heart catheterization (LHC) (~08/04/21) Unstable angina Hydrocephalus CAD (coronary artery disease) Iron refractory iron deficiency anemia Iron deficiency anemia Atrial fibrillation Aortic valve disorder Angina pectoris Carotid bruit Thromboembolic disorder HLD (hyperlipidemia) Presence of IVC filter Atherosclerotic heart disease of [place] coronary artery without angina pectoris Dysphagia Wears hearing aid Wears glasses Depression DVT (deep venous thrombosis) Pulmonary embolism Injury of head and neck History of IBS Gastric reflux Non-smoker BiPAP (biphasic positive airway pressure) dependence Shortness of breath on exertion Leg cramps History of edema History of echocardiogram History of stress test Cardiology follow-up encounter History of atrial fibrillation Incontinence Back pain Neck pain Limb weakness Difficulty balancing unexpained bruising Glaucoma Hay fever Fatigue Shoulder pain Hemorrhoids Arthritis Asthma Obesity Hypokalemia Atrioventricular bloc first degree Chronic diastolic (congestive) heart failure Dizziness Pharyngitis Bronchitis Upper respiratory infection Normal pressure hydrocephalus History of pulmonary embolism History of osteoarthritis Essential hypertension Surgical History (Updated 08/20/24 @ 14:[address] May Monroy MD) Hx of cholecystectomy History of esophagogastroduodenoscopy (EGD) Intracranial shunt Presence of coronary angioplasty implant and graft (~06/08/20) Presence of stent in coronary artery (~06/08/20) History of ventriculoperitoneal shunting (~06/16/14) History of cardiac catheterization Hx of carpal tunnel repair Hx of appendectomy History of total left knee replacement History of spinal fusion History of toe surgery History of arthroscopy of right shoulder History of hernia repair History of hysterectomy History of laminectomy Family History Mother Cancer pancreatic Asthma HypertensionSon AsthmaBrother Heart disease Diabetes Hypertension Kidney diseaseSister Heart disease Hypertension Diabetes Social History Smoking Status: Never smoker Electronic Cigarette Use: not used second hand exposure: Yes alcohol intake: never substance use type: does not use caffeine: Yes Type: tea Number of servings: 1 do you feel safe at home: Yes HPI HPI HPI: 78-year-old female presents to discuss surgery for colon cancer. Patient was recently diagnosed with upper endoscopy transverse proximal colon however on CAT scan shows to be in the distal transverse colon. This was not able to be transversed with the scope as stated 5 mm size of diameter per Dr. Cheng?GI. Patient has had iron deficiency anemia and seeing oncology for years?treated with iron supplementation/infusion. 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 Patient's current hemoglobin is 12 on 08/10/2024 previous it was 11.2 on 07/21/2024. Patient had significant past medical history for blood clots and A-fib which she is currently on Pradaxa for. Patient also does have an IVC filter in place. Previous abdominal surgeries include laparoscopic ventral hernia repair with mesh about 15 years ago, 2014 laparoscopic converted to open cholecystectomy?recent CT abdomen pelvis as well as ultrasound done July 2023 show gallstone and a small gallbladder remnant. Patient does states she does have right upper quadrant pain and twinges fairly often as that is why she also had that ultrasound done a year ago. ROS General General: Yes weight change (gain), fatigue and colon cancer; No appetite, breast cancer or weakness HEENT HEENT: No difficulty swallowing, eye injury, eye surgery, swollen glands or hoarseness Endo Endocrine: Yes thyroid disease; No diabetes mellitus, thyroid cancer, Hair loss, heat intolerance or cold intolerance Skin Skin: No rash or changing moles Musc Musculoskeletal: Yes back problems, arthritis and gout; No rheumatoid arthritis or joint pain Cardio Cardiovascular: Yes atrial fibrillation, high blood pressure and heart stent; No murmur, pacemaker, heart disease, heart attack, palpitations, shortness of breath with exertion or chest pain Psych Psychiatric: No depression, anxiety or hearing voices Resp Respiratory: Yes shortness of breath, Yes sleep apnea, No cough, No COPD, Yes asthma, No emphysema and No wheezing Gastro Gastrointestinal: Yes abdominal pain, No nausea or vomiting, No diarrhea, No constipation, Yes blood in stool, No acid reflux, Yes hemorrhoids, No ulcers, No gallbladder problem and Yes black,tarry stools [place] Hematologic: Yes blood thinners, No blood disorders, No bleeding, Yes anemia and Yes blood clots Neuro Neurologic: Yes numbness, Yes tingling and No weakness Exam Const General: cooperative, healthy appearing, comfortable and no acute distress [facility] Head: normocephalic and atraumatic Neck Neck: supple Resp Effort & Inspection: normal respiratory effort Cardio Rate: regular rate GI Inspection: non-distended, incision (Well-healed right subcostal, laparoscopic incisions) and obesity Palpation: soft, no guarding, no hernias and tender in the epigastrum and in the RUQ; with no rebound tenderness Skin General: no rashes or lesions noted Neuro General: CN's II-XI intact bilaterally Extrem General: normal to inspection Psych Mental Status: mental status grossly normal Attitude: cooperative Assessment and Plan Assessment and Plan (1) Colon cancer: Status: Acute Qualifiers: Colon location: overlapping sites Qualified Code(s): C18.8 - Malignant neoplasm of overlapping sites of colon Comment: Mass in Hepatic flexure and transverse colon. Biopsy shows adenocarcinoma. CT on 07/30/2024 showed no evidence of abdominal metastases. Discussed disease status, surgical management. (2) Cholelithiases: Status: Acute Comment: Gallbladder remnant seen on ultrasound and CAT scan with gallstone. (3) Hx of cholecystectomy: Status: Chronic Comment: Lap converted to open due to inflammation/adhesions in 2013 (4) History of DVT (deep vein thrombosis): Status: Acute Comment: On Pradaxa therapy (5) Presence of IVC filter: Status: Chronic Comment: CT images reviewed, compared to 2021 CTA: bilateral iliac veins now atretic, on prior imaging normal caliber/moderately enlarged (6) penitentiary current use of anticoagulant: Status: Acute Comment: The patient is on Pradaxa managed through Dr. Bañuelos's office Orders: Referrals Oncology C18.8 - Malignant neoplasm of overlapping sites of colon, D50.0 - Iron deficiency anemia secondary to blood loss (chronic), K92.2 - Gastrointestinal hemorrhage, unspecified, Z90.49 - Acquired absence of other specified parts of digestive tract Plan Did you review patient's CT abdomen pelvis and ultrasound with the patient. Did point out that her colon cancer is in the distal transverse colon near the splenic flexure. She did have an CAT scan in March 2020 for which even in hindsight unable to identify thickening of the colon in this area. Patient still having symptomatic right upper quadrant pain due to her gallbladder remnant and stone. Discussed with patient may refer to specialist to remove the gallbladder and stone at the same time as colon cancer as she has been symptomatic for over a year from the gallbladder and on exam she is pretty tender in the epigastric and right upper quadrant-that could possibly be due to colon obstruction as well recommend patient stay away from fibrous foods or high fiber. Patient states she had been seen at [facility] previously and was agreeable to have a referral to her surgical oncologist there. Addendum [facility] would not be able to do the 2 surgeries together or guarantee she could be able to get in urgently and she is already partially obstructed- 5mm lumen from colonoscopy 07/30/24. Discussed with patient patient was agreeable to stay here for the surgery knowing that she may need additional surgery in the future for the gallbladder. Did discuss the anatomy and procedure: ERAS laparoscopic left/extended left colectomy, possible open with the patient. Including risks, but not limited to, bleeding, infection (superficial or intraabdominal), injury to another organ (small bowel, colon, ureter, etc.) requiring additional procedures, and blood clots. Also, discussed the pre-op, colon prep and antibiotics. All questions were answered. May Monroy M.D. Pager: [phone] [facility] [address] [place] [address], [address] [place] [address] Office: [phone] Coding Level of Care Code Off vis,new,level 4 Diagnoses Overlapping malignant neoplasm of colon C18.8 Colon location: overlapping sites Cholelithiases K80.20 Hx of cholecystectomy Z90.49 History of DVT (deep vein thrombosis) Z86.718 Presence of IVC filter Z95.828 penitentiary current use of anticoagulant Z79.01 Clinical Quality Measures Falls Risk Screening/Assistive Devices Have you fallen in the past year?: No 08/20/24 1454 <Electronically signed by May Monroy MD> Date May Monroy MD
--- NOTE | 2024-08-27 08:40 | EKG12_ITS ---
Test Reason : PRE OP Blood Pressure : */* mmHG Vent. Rate : 77 BPM Atrial Rate : 77 BPM P-R Int : 242 ms QRS Dur : 186 ms QT Int : 436 ms P-R-T Axes : 53 -55 101 degrees QTcB Int : 493 ms Sinus rhythm with 1st degree A-V block Left axis deviation Left bundle branch block Abnormal ECG When compared with ECG of 25-Jan-2022 23:11, Left bundle branch block is now Present Confirmed by KEDAR VILLALTA, ROBERTO ([id number]), photographic editor FORREST SALDAÑA ([id number]) on 09/01/2024 6:56:03 AM Referred By: May Monroy Confirmed By: ROBERTO THACKER MD
--- NOTE | 2024-08-27 08:59 | PCM.PRE.AN2 ---
ASA Classification* ASA Classification ASA Classification: 3 Assessment & Plan Anesthesia* Anesthesia Assessment Anesthesia Assessment: Discussed sedation and/or anesthesia options, risks, benefits, and alternatives with patient/parents/legal guardian/POA. Questions invited. The patient/parents/legal guardian/POA seems to understand and agrees to proceed with anesthesia plan. Reviewed the physical assessment, medical history, allergy history and patient home medications list prior to surgery/procedure/anesthetic and documented any changes. Performed airway and anesthesia risk assessments. Anesthesia Type Anesthesia Type: General Anesthesia Focused Assessment* Airway Assessment Mouth opens: >3 cm Mallampati Score: II Focused Labs Anesthesia Preop lab: CBC WBC 8.1 K/mm3 (4.4-11.0) 08/10/24 11:56 08/10/24 RBC 3.93 M/mm3 (4.2-5.4) L 08/10/24 11:56 08/10/24 Hgb 12.0 g/dL (12.0-15.0) 08/10/24 11:56 08/10/24 Hct 38.0 % (37-47) 08/10/24 11:56 08/10/24 Plt Count 277 K/mm3 (150-450) 08/10/24 11:56 08/10/24 CHEMISTRY Potassium 3.8 mmol/L (3.3-5.1) 08/10/24 11:56 08/10/24 Sodium 143 mmol/L (133-145) 08/10/24 11:56 08/10/24 Magnesium 2.0 mg/dL (1.5-2.2) 07/06/24 10:04 07/06/24 Phosphorus 3.3 mg/dL (2.7-4.5) 07/06/24 10:04 07/06/24 BUN 17 mg/dL (4-19) 08/10/24 11:56 08/10/24 Creatinine 0.95 mg/dL (0.70-1.20) 08/10/24 11:56 08/10/24 Glucose 97 mg/dL (70-99) 08/10/24 11:56 08/10/24 POC Glucose 118 mg/dL (70-110) H 09/26/15 23:10 09/26/15 TSH 1.590 uIU/mL (0.300-4.200) 07/21/24 11:37 07/21/24 COAG PT 16.8 SECONDS (11.7-14.9) H 07/05/22 12:20 07/05/22 Pre-Assessment Diagnosis/Proposed Procedure Planned Operative Procedure(s): ERAS LAP LEFT KIRA COLECTOMY Anesthesia History Anesthesia History - valet runner: Anesthesia History - valet runner Hx Hospitalization No: JAN 2022 BLOOD CLOT 08/25/24 16:19 Any Problems With Anesthesia No 08/25/24 16:19 Cholinesterase deficiency No 08/25/24 16:19 You/Your Family Experience No 08/25/24 16:19 fever (hyperthermia) with Relationship Recent Exposure to Contagious No 07/30/24 05:40 Disease Does patient have nerve No 08/25/24 16:19 stimulator Patient instructed to have device shut off --Does patient have Pacemaker or ICD? When Was Last Pacemaker Check QUESTION #4 FULL TEXT: You/Your Family Experience fever (hyperthermia) with Anesthesia Last Oral Intake Last Oral intake: Last Oral Intake NPO since Meds taken in AM with sips of water? Meds patient instructed to take am of surgery PONV PONV - valet runner: PONV - valet runner Female Yes 08/25/24 16:19 HX of Motion Sickness No 08/25/24 16:19 HX of N/V After Surgery No 08/25/24 16:19 Non-Smoker Yes 08/25/24 16:19 Duration of Surgery greater Yes 08/25/24 16:19 than 60 minutes Number of Risk Factors 3 08/25/24 16:19 PONV Score Moderate Risk 08/25/24 16:19 Height & Weight Height & Weight: Anesthesia: Height & Weight Height 5 ft 3 in 08/20/24 13:46 Respiratory Assessment Respiratory Assessment - valet runner: Respiratory Tract Infection Hx - valet runner Hx Respiratory Tract Infection No 08/25/24 16:19 STOP Sleep Apnea STOP Sleep Apnea - valet runner: STOP Sleep Apnea - valet runner Hx Hypertension Yes: CONTROLLED WITH MED 08/25/24 16:19 Hx Sleep Apnea Yes 08/25/24 16:19 CPAP No 08/25/24 16:19 BIPAP Yes 08/25/24 16:19 Do you snore loudly (louder than talking or can be heard Do you often feel tired/ fatigued/ sleepy during daytime? Has anyone observed you stop breathing during sleep? STOP Results Positive 08/25/24 16:19 QUESTION #5 FULL TEXT : Do you snore loudly (louder than talking or can be heard through closed doors)? 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 Specify any problems Hx of Preganancy in last 3 No 08/25/24 16:19 Months Nurse Filling Out Transfusion VCHRISTIN 08/25/24 16:19 & Questions: Date: 08/25/24 08/25/24 16:19 Time: 16:21 08/25/24 16:19 Patient unable to answer at this time (ie. confused, unrespo /Reproduction History /Reproductive History - valet runner: /Reproductive Hx- valet runner Hx Now No 08/25/24 16:19 Gestational Age (in weeks): EDC: Hx Hx Para Hx Section SAB No 08/25/24 16:19 Active Medications Active Medications: Current Medications Generic Name Dose Route Start Last Admin Trade Name Freq PRN Reason Stop Dose Admin Acetaminophen 1,000 mg 08/27/24 10:35 Acetaminophen 500 Mg Tablet PO 08/27/24 10:36 PREOP ONE Gabapentin 600 mg 08/27/24 10:35 Gabapentin 600 Mg Tablet PO 08/27/24 10:36 PREOP ONE Cefotetan Disodium 2 gm/ 100 mls @ 200 mls/hr 08/27/24 10:35 Sodium Chloride IV 08/27/24 11:04 INTRAOP ONE Lactated Ringer's 1,000 mls @ 40 mls/hr 08/27/24 10:35 IV 08/28/24 11:34 .Q25H ONE Lactated Ringer's 1,000 mls @ 40 mls/hr 08/27/24 10:35 IV .Q25H MIKEY Lactated Ringer's 1,000 mls @ 15 mls/hr 08/27/24 08:45 IV .Q48H MIKEY Insulin Human Lispro 0 unit 08/27/24 10:35 Insulin Lispro 100 Unit/Ml Insuln.Pen SC Q4H PRN PRN BG >/= 180, SEE PROTOCOL Protocol PFSH Medical History Bruising Gout Low iron Excessive bleeding History of pain when walking Hypertension History of cardiac monitoring Post-menopausal Skin tear Thyroid disease Ambulates with cane Bladder disease Syncope Gastric reflux Degenerative disc disease Bursitis 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 Iron deficiency anemia due to chronic blood loss History of GI bleed Venous insufficiency of both lower extremities Ulcer of right lower extremity with fat layer exposed Iron deficiency Anemia due to chronic blood loss Anemia due to gastrointestinal blood loss History of left heart catheterization (LHC) (~08/04/21) Unstable angina Hydrocephalus CAD (coronary artery disease) Iron refractory iron deficiency anemia Iron deficiency anemia Atrial fibrillation Aortic valve disorder Angina pectoris Carotid bruit Thromboembolic disorder HLD (hyperlipidemia) Presence of IVC filter Atherosclerotic heart disease of [place] coronary artery without angina pectoris Dysphagia Wears hearing aid Wears glasses Depression DVT (deep venous thrombosis) Pulmonary embolism Injury of head and neck History of IBS Gastric reflux Non-smoker BiPAP (biphasic positive airway pressure) dependence Shortness of breath on exertion Leg cramps History of edema History of echocardiogram History of stress test Cardiology follow-up encounter History of atrial fibrillation Incontinence Back pain Neck pain Limb weakness Difficulty balancing unexpained bruising Glaucoma Hay fever Fatigue Shoulder pain Hemorrhoids Arthritis Asthma Obesity Hypokalemia Atrioventricular bloc first degree Chronic diastolic (congestive) heart failure Dizziness Pharyngitis Bronchitis Upper respiratory infection Normal pressure hydrocephalus History of pulmonary embolism History of osteoarthritis Essential hypertension Home Medications ?Medication ?Instructions ?Recorded ?Last Taken ?Type gabapentin 600 mg tablet 600 mg PO QHS Check with primary 05/04/15 02/24/24 History doctor duloxetine 20 mg capsule,delayed 40 mg PO DAILY DEPRESSION 08/03/21 02/25/24 History release latanoprost 0.005 % eye drops 1 drp EACH EYE QHS GLUACOMA 08/03/21 02/24/24 History spironolactone 50 mg tablet 50 mg PO DAILY Check with primary 10/30/21 02/25/24 History doctor dabigatran etexilate 75 mg capsule 75 mg PO BID Check with primary 04/19/22 08/24/24 History (Pradaxa) doctor levothyroxine 25 mcg tablet 25 mcg PO DAILY Check with primary 05/10/22 07/30/24 03:15 History doctor multivitamin 1 tab PO DAILY Check with primary 05/10/22 02/25/24 History doctor pantoprazole 40 mg tablet,delayed 40 mg PO BID Check with primary 07/05/22 02/25/24 History release doctor benazepril 10 mg tablet 10 mg PO DAILY BP 07/11/22 02/25/24 History polysaccharide iron complex 150 mg 150 mg PO DAILY SUPPLEMENT #90 caps 09/27/22 02/25/24 Rx iron capsule (Ferrex) albuterol sulfate 90 mcg/actuation 2 puff inhalation Q4H PRN 01/07/23 Unknown Rx aerosol inhaler shortness of breath or wheezing #8.5 grams timolol maleate 0.5 % eye drops 1 drp ophthalmic (eye) BID Glaucoma 06/17/23 02/25/24 History rosuvastatin 20 mg tablet 20 mg PO DAILY CHOLESTEROL #90 tabs 08/09/23 02/25/24 Rx ipratropium bromide 42 mcg (0.06 2 spray intranasal DAILY PRN 01/16/24 Unknown History %) nasal spray ALLERGIES metronidazole 500 mg tablet 500 mg PO .COMPLEX ANTIBIOTIC 08/24/24 Unknown Rx PRE-OP #6 tabs neomycin 500 mg tablet 500 mg PO .COMPLEX pre-op 08/24/24 Unknown Rx antibiotics #6 tabs Allergy/AdvReac Type Severity Reaction Status Date / Time rivaroxaban (From Xarelto) Allergy Severe Unknown Verified 08/25/24 16:06 acetaminophen (From Percocet) Allergy Unknown hallucinati Verified 08/25/24 16:06 ons alprazolam (From Xanax) Allergy Unknown fatigue Verified 08/25/24 16:06 oxycodone (From Percocet) Allergy Unknown hallucinati Verified 08/25/24 16:06 ons carisoprodol (From Soma) Allergy Rash Verified 08/25/24 16:06 adhesive AdvReac blisters Verified 08/25/24 16:06 apixaban (From Eliquis) AdvReac Other Verified 08/25/24 16:06 diphenhydramine (From AdvReac Other Verified 08/25/24 16:06 Benadryl) Family History Mother Cancer pancreatic Asthma Hypertension Son Asthma Brother Heart disease Diabetes Hypertension Kidney disease Sister Heart disease Hypertension Diabetes Surgical History Hx of surgical procedure Hx of surgical procedure Hx of colonoscopy History of esophagogastroduodenoscopy (EGD) Intracranial shunt Presence of coronary angioplasty implant and graft (~06/08/20) Presence of stent in coronary artery (~06/08/20) History of ventriculoperitoneal shunting (~06/16/14) History of cardiac catheterization Hx of carpal tunnel repair Hx of appendectomy Hx of cholecystectomy History of total left knee replacement History of spinal fusion History of toe surgery History of arthroscopy of right shoulder History of hernia repair History of hysterectomy History of laminectomy Social History Smoking Status: Never smoker Electronic Cigarette Use: not used second hand exposure: Yes alcohol intake: never substance use type: does not use caffeine: Yes Type: tea Number of servings: 1 do you feel safe at home: Yes Review of Systems (Anesthesia) ROS Narrative System reviewed and no additional complaints, except as documented.
[2024-08-27] MEDS: Lactated Ringers 1,000 ML 40 ML IV (09:19)
[2024-08-27 09:32] LABS: Bedside Glucose 150 mg/dL (74-106)
[2024-08-27] MEDS: Ipratropium/Albuterol Sulfate 3 ML AMPUL.NEB INHALATION (09:37)
[2024-08-27 09:45] LABS: Magnesium 1.8 mg/dL (1.5-2.2)
[2024-08-27 10:03] LABS: Anion Gap 14 (5-15); BUN 9 mg/dL (4-19); BUN/Creat Ratio 9.6 RATIO (10-20); Calcium,Total 9.4 mg/dL (7.6-11.0); Carbon Dioxide 18.3 mmol/L (21.0-32.0); Chloride 107 mmol/L (98-108); Creatinine, Serum 0.97 mg/dL (0.70-1.20); EST Glomerular Filtration Rate 60 (>60); Estimated Creatinine Clearance 51.14 ml/min (50-250); Glucose 157 mg/dL (70-99); Potassium 3.4 mmol/L (3.3-5.1); Sodium Level 139 mmol/L (133-145)
[2024-08-27] MEDS: Magnesium 2 GM for ERAS IV (10:23)
--- NOTE | 2024-08-27 10:23 | ECHOD_ITS ---
Reason For Study Reason For Study: New LBBB Procedure This was a 2D Doppler, Color Flow transthoracic echocardiogram. Done portable in PACU. Left Ventricle Normal LV size. Mild concentric left ventricular hypertrophy. The left ventricular ejection fraction is 55 %. Stage 1 diastolic dysfunction. No regional wall motion abnormalities noted. Right Ventricle Normal RV size. Normal systolic function. Atria Normal left atrium. Normal right atrium. Mitral Valve There is mild to moderate mitral annular calcification. Mild (1+) eccentric mitral valve insufficiency. Tricuspid Valve Normal tricuspid valve. Aortic Valve Trisinus/trileaflet aortic valve. Moderate focal aortic valve calcification. Peak aortic valve gradient 23 mmHg. Mean aortic valve gradient 13 mmHg. Mild aortic stenosis. Pulmonic Valve Normal pulmonic valve. Great Vessels Normal aortic root. The pulmonary artery is normal size. Normal inferior vena cava. Pericardium/Pleural No pericardial effusion. MMode/2D Measurements & Calculations LVIDd: 4.0 cm IVSd: 1.2 cm LVOT diam: 2.0 cm LVIDs: 2.7 cm LVPWd: 1.2 cm LVOT area: 3.1 cm2 RVDd: 4.0 cm FS: 31.9 % Ao root diam: 3.0 cm LAV(MOD-bp): 46.4 ml LVAd ap4: 26.9 cm2 LAV(MOD-bp) Indexed: 23.3 ml/m2 LVLd ap4: 7.8 cm LAV(MOD-sp2): 37.3 ml EDV(MOD-sp4): 77.5 ml LAV(MOD-sp4): 43.3 ml EDV(sp4-el): 78.8 ml LVAs ap4: 16.9 cm2 LVLs ap4: 6.9 cm ESV(MOD-sp4): 36.6 ml ESV(sp4-el): 34.8 ml EF(MOD-sp4): 52.7 % EF(sp4-el): 55.8 % LVAd ap2: 23.4 cm2 SV(MOD-sp4): 40.9 ml SV(MOD-sp2): 35.1 ml LVLd ap2: 8.0 cm SI(MOD-sp4): 20.5 ml/m2 SI(MOD-sp2): 17.6 ml/m2 EDV(MOD-sp2): 60.4 ml EDV(sp2-el): 57.6 ml LVAs ap2: 14.0 cm2 LVLs ap2: 6.9 cm ESV(MOD-sp2): 25.3 ml ESV(sp2-el): 24.1 ml EF(MOD-sp2): 58.2 % SV(sp4-el): 44.0 ml LA dimension(2D): 2.6 cm LA A4 area: 18.6 cm2 RA A4 area: 13.3 cm2 TAPSE: 2.1 cm Doppler Measurements & Calculations MV E max froylan: 44.1 cm/sec Lat Peak E' Froylan: 8.2 cm/sec Med Peak E' Froylan: 6.1 cm/sec MV A max froylan: 115.3 cm/sec E/E' lat: 5.4 E/E' med: 7.3 MV E/A: 0.38 Ao V2 max: 241.1 cm/sec LV V1 max: 127.3 cm/sec SV(LVOT): 83.2 ml Ao max P.3 mmHg LV V1 max P.5 mmHg Ao V2 mean: 167.3 cm/sec LV V1 mean P.1 mmHg Ao mean P.6 mmHg LV V1 mean: 94.8 cm/sec Ao V2 VTI: 45.4 cm LV V1 VTI: 27.0 cm AV (velocity ratio): 0.59 SARA(I,D): 1.8 cm2 SARA(V,D): 1.6 cm2 PA V2 max: 119.3 cm/sec PA V2 mean: 78.6 cm/sec ECHO/Echo Complete Interpretation Summary Normal LV size. The left ventricular ejection fraction is 55 %. There is mild to moderate mitral annular calcification. Mild concentric left ventricular hypertrophy. Stage 1 diastolic dysfunction. Mean aortic valve gradient 13 mmHg. Mild aortic stenosis. Compared to previous study, the left ventricular systolic function is the same. . Ordering Physician: Tali Lenz/Ambrosio Becerra Referring Physician: Jean Paul Bañuelos Chi Performed By: Alecia Tijerina RDCS
[2024-08-27] MEDS: Cefotetan 2 GM in 0.9% Normal Saline (100mL MB+) 100 ML IV (11:16)
--- NOTE | 2024-08-27 11:45 | PCM.POST.ANE ---
Anesthesia: Postop Eval I Current Vital Signs Temperature: 97.8 F Pulse Rate: 79 Blood Pressure: 141/98 Respiratory Rate: 14 Pulse Ox: 100 Oxygen Delivery Method: Room Air Assessment Airway patent: Yes Spontaneous unlabored respirations: Yes Mental status: Awake and Calm nausea: No Vomiting: No Anesthesia Complication: No Fluid Hydration Crystalloid volume administer (ml): 600 Total IV fluid infused: 600 Progress Note Anesthesia document: Postop Eval 1 completed: Yes
--- NOTE | 2024-08-27 11:57 | DCINST_ITS ---
Discharge Instructions Diet Discharge Diet: - (Clears or regular diet) Activity Discharge Activity: May Not Drive (while taking narcotic pain medications.) May shower in (days): 1 Lifting Restrictions: no lifting >20 lbs x 1 wk Dressing / Incision Call your doctor if your incision/area has: Continuous Slow Oozing, Sudden Increased Bleeding, Increased Pain/ Swelling, Increased Redness, Foul Smelling Discharge and Swelling at the incision site Call your doctor if you observe: Fever of 101 or Higher Remove Dressing in: 2 days Cleanse incision/area with: Soap & Water Additional Dressing/Incision Instructions:: Steri-Strips will fall off in 7 to 10 days, if they do not fall off okay to remove after 10 days. Follow Up Care Please Follow Up With: May Monroy MD When: Dr. Jha's office should call for virtual appointment tomorrow plan for surgery on Saturday. Test Results: Test results from this visit will be discussed in further detail at your follow- up appointment, if applicable. Discharge Plan Admission Admit Date/Time: 08/27/24 08:19 Attending Provider: May Monroy Primary Care Provider: Jean Paul Bañuelos Chi Discharge Orders/Prescriptions Prescriptions: New ondansetron 4 mg tablet,disintegrating 4 mg PO Q6H PRN (Reason: nausea and vomiting) Qty: 10 1RF Continued spironolactone 50 mg tablet 50 mg PO DAILY albuterol sulfate 90 mcg/actuation HFA aerosol inhaler 2 puff inhalation Q4H PRN (Reason: shortness of breath or wheezing) Qty: 8.5 2RF polysaccharide iron complex [Ferrex 150] 150 mg iron capsule 150 mg PO DAILY Qty: 90 3RF ipratropium bromide 42 mcg (0.06 %) spray,non-aerosol 2 spray intranasal DAILY PRN Patient Comments: [NO ORIGINAL SIG] timolol maleate 0.5 % drops 1 drp ophthalmic (eye) BID Patient Comments: left eye only gabapentin 600 MG tablet 600 mg PO QHS Patient Comments: nerve pain latanoprost 0.005 % drops 1 drp EACH EYE QHS Patient Comments: INSTILL 1 DROP INTO BOTH EYES NIGHTLY duloxetine 20 mg capsule,delayed release(DR/EC) 40 mg PO DAILY Patient Comments: TAKE 2 CAPSULES ORALLY ONCE PER DAY FOR 90 DAYS multivitamin Tablet 1 tab PO DAILY levothyroxine 25 mcg Tablet 25 mcg PO DAILY benazepril 10 mg tablet 10 mg PO DAILY Patient Comments: TAKE 1 TABLET BY MOUTH EVERY DAY pantoprazole 40 mg tablet,delayed release (DR/EC) 40 mg PO BID rosuvastatin 20 mg tablet 20 mg PO DAILY Qty: 90 3RF Held dabigatran etexilate [Pradaxa] 75 mg capsule 75 mg PO BID Hold Instructions: Okay to take and Saturday-- hold for Saturday Patient Comments: LAST DOSE 08/24/24 Discontinued metronidazole 500 mg tablet 500 mg PO .COMPLEX Qty: 6 0RF Rx Instructions: 500 mg PO Take 2 (two) tablets at 1300, 1500, 2300 neomycin 500 mg tablet 500 mg PO .COMPLEX Qty: 6 0RF Rx Instructions: Take two (2) 500 mg tablets PO at 1300, 1500, 2300 Referrals / Follow Up: Jean Paul Bañuelos Chi, MD [Primary Care Provider] - Disposition Disposition (needs filled in before D/C Order can be placed): Home, Self Care
--- NOTE | 2024-08-27 11:57 | PCM.OPRPT ---
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 Machine Cleaner: Casie Guzmán Tasks completed by sampler first: Opening & closing Type of Anesthesia: General/Supplemental RN Documented Start/Stop Times: Operation Date: 08/27/24 10:35 Case Time Into Pre-Op 08/27/24 08:32 Out of Pre-Op 08/27/24 10:48 Anesthesia Start 08/27/24 10:53 Into Room 08/27/24 10:53 Procedure Start 08/27/24 11:21 Procedure End 08/27/24 11:28 Anesthesia End 08/27/24 11:42 Into Recovery 08/27/24 11:42 Out of Room 08/27/24 11:42 Out of Recovery 08/27/24 12:01 Into Phase II Recovery 08/27/24 12:02 Out of Phase II 08/27/24 13:56 Procedure Start Time: 11:21 Procedure Stop Time: 11:28 Select all DRAINS/GRAFTS/IMPLANTS that apply: None Special Medications: Cefotetan 2 g IV x 1 Estimated Blood Loss: < 5 cc Specimen collected: No Description of surgery: Patient was brought operating room. Timeout was completed verifying correct patient, procedure, site, positioning, special, prior to beginning procedure. General anesthesia was induced. Vo catheter was placed. Abdomen was prepped draped usual sterile fashion with chlorhexidine. 5 mm incision was made at Coyne's point for Optiview entry into the abdomen. No injury was noted upon entry, abdomen insufflated to 12 to 15 mmHg patient tolerated insufflation well. Upon inspection noted to be the ACCOUNTING MANAGER CONTROLLER shunt in the left upper quadrant going to the left paracolic gutter. Surgery was aborted, the abdomen was allowed to collapse. 5 mm left upper quadrant skin incision post with 4-0 Monocryl Steri-Strips and OpSite. Patient was extubated. Patient was taken to postanesthesia care in stable condition. Surgical Findings: see operative report Complications Complications: No
--- NOTE | 2024-08-27 13:03 | POSTOPAN2_ITS ---
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 Spontaneous unlabored Yes 08/27/24 11:46 BOILING HOUSE OILER.GDOTT respirations Mental status Awake,Calm 08/27/24 11:46 BOILING HOUSE OILER.GDOTT nausea No 08/27/24 11:46 BOILING HOUSE OILER.GDOTT Vomiting No 08/27/24 11:46 BOILING HOUSE OILER.GDOTT Anesthesia Postop Eval I: Fluid Summary Crystalloid volume administer 600 08/27/24 11:46 BOILING HOUSE OILER.GDOTT (ml) Colloids volume administered ( ml) Blood Product volume administered (ml) Total IV fluid infused 600 08/27/24 11:46 BOILING HOUSE OILER.GDOTT Anesthesia Postop Eval I: Summary Notes Anesthesia Complication No 08/27/24 11:46 BOILING HOUSE OILER.GDOTT Anesthesia Complication Comment: Post-operative progress note Anesthesia: Postop Eval II Evaluation Mental status: Awake Pain Level: 1 nausea: No Vomiting: No
--- NOTE | 2024-08-27 13:03 | PCM.POSTANE2 ---
Anesthesia Postop Eval I Sum Postop Eval Completion status Anesthesia document: Postop Eval 1 completed: Yes Anesthesia Postop Eval I Summary Anesthesia Postop Eval I Summary: Anesthesia Postop Eval I: Assessment Summary Airway patent Yes 08/27/24 11:46 SURGERY ATTENDANT.GDOTT Spontaneous unlabored Yes 08/27/24 11:46 SURGERY ATTENDANT.GDOTT respirations Mental status Awake,Calm 08/27/24 11:46 SURGERY ATTENDANT.GDOTT nausea No 08/27/24 11:46 SURGERY ATTENDANT.GDOTT Vomiting No 08/27/24 11:46 SURGERY ATTENDANT.GDOTT Anesthesia Postop Eval I: Fluid Summary Crystalloid volume administer 600 08/27/24 11:46 SURGERY ATTENDANT.GDOTT (ml) Colloids volume administered ( ml) Blood Product volume administered (ml) Total IV fluid infused 600 08/27/24 11:46 SURGERY ATTENDANT.GDOTT Anesthesia Postop Eval I: Summary Notes Anesthesia Complication No 08/27/24 11:46 SURGERY ATTENDANT.GDOTT Anesthesia Complication Comment: Post-operative progress note Anesthesia: Postop Eval II Evaluation Mental status: Awake Pain Level: 1 nausea: No Vomiting: No
== END 2024-08-27 13:56 | disposition home or self-care (01) ==
PROVIDERS: Anesthesiology; Admitting Provider Surgery; PCP Family Medicine Geriatric Medicine; Referring Provider Surgery; Visit Provider Surgery
PROC: (CPT 44238; principal; 2024-08-27 10:15)
DX: C18.8 Malignant neoplasm of overlapping sites of colon (principal); I11.0 Hypertensive heart disease with heart failure; I50.32 Chronic diastolic (congestive) heart failure; I48.91 Unspecified atrial fibrillation; K80.20 Calculus of gallbladder without cholecystitis without obstruction; D50.0 Iron deficiency anemia secondary to blood loss (chronic); E78.5 Hyperlipidemia, unspecified; E07.9 Disorder of thyroid, unspecified; I25.10 Atherosclerotic heart disease of native coronary artery without angina pectoris; Z53.09 Procedure and treatment not carried out because of other contraindication; I44.7 Left bundle-branch block, unspecified; Z79.01 Long term (current) use of anticoagulants; Z79.890 Hormone replacement therapy; Z79.899 Other long term (current) drug therapy; Z86.718 Personal history of other venous thrombosis and embolism; Z95.5 Presence of coronary angioplasty implant and graft; Z95.828 Presence of other vascular implants and grafts; Z90.710 Acquired absence of both cervix and uterus; Z82.49 Family history of ischemic heart disease and other diseases of the circulatory system
CPT/HCPCS: 44238; 00790; 80048; 82962; 83735; 93005; 93306; 94640; J0666; J2405

== ENCOUNTER 2024-10-28 10:02 | Outpatient (CLI) | payer MEDICARE, OTHER, SELFPAY ==
[2024-10-28 10:21] LABS: Hematocrit 42.9 % (37-47); Hemoglobin 13.2 g/dL (12.0-15.0); Immature Granulocytes Count 0.030 X10^3/uL (0.0-0.0); Mean Corp Hgb Conc 30.8 g/dL (32-36); Mean Corpuscular Volume 96.6 fL (81-99); Mean Platelet Vol. 10.1 fl (6.2-12.0); NRBC Flagged by Analyzer 0 % (0-5); Platelet Count 271 K/mm3 (150-450); RBC Distribution Width CV 15.1 % (11.6-14.6); RBC Distribution Width SD 53.0 fl (35.1-43.9); Red Blood Count 4.44 M/mm3 (4.2-5.4); White Blood Count 6.6 K/mm3 (4.4-11.0)
[2024-10-28 11:53] LABS: AST(SGOT) 24 U/L (<=31); Alanine Aminotransfer ALT/SGPT 22 U/L (<=34); Albumin, Serum 4.1 g/dL (3.4-4.8); Alkaline Phosphatase 54 U/L (35-104); Anion Gap 14 (5-15); BUN 16 mg/dL (4-19); BUN/Creat Ratio 15.3 RATIO (10-20); Calcium,Total 9.9 mg/dL (7.6-11.0); Carbon Dioxide 21.8 mmol/L (21.0-32.0); Chloride 105 mmol/L (98-108); Ferritin 183 ng/mL (22-378); Globulin 2.8 g/dL (2.2-4.2); Glucose 160 mg/dL (70-99); Potassium 3.9 mmol/L (3.3-5.1); Vitamin D,25 Hydroxy 35.4 ng/mL (30-100)
[2024-10-28 12:24] LABS: Iron 99 ug/dL (50-170); Iron Binding Capacity,Total 321 ug/dL (250-450); Iron Binding Capacity,Unsat 222 ug/dL (228-428)
[2024-10-28 18:06] LABS: Xtra Tube Kwok EXTRA TUBE
[2024-10-30 04:07] LABS: Carcinoembryonic Antigen 2.8 ng/mL (0.0-4.7)
== END 2024-10-28 23:59 | disposition home or self-care (01) ==
LOC: POLAB3 10:03
PROVIDERS: Internal Medicine Medical Oncology; PCP Family Medicine Geriatric Medicine; Visit Provider Family Medicine Geriatric Medicine
DX: E11.65 Type 2 diabetes mellitus with hyperglycemia (principal); C18.9 Malignant neoplasm of colon, unspecified; E55.9 Vitamin D deficiency, unspecified; I10 Essential (primary) hypertension; D50.9 Iron deficiency anemia, unspecified
CPT/HCPCS: 36415; 80053; 82306; 82378; 82728; 83540; 83550; 84443; 85025

== ENCOUNTER 2024-11-17 13:33 | Emergency (ER) | payer MEDICARE, OTHER, SELFPAY ==
[2024-11-17 13:34] VITALS: BP 146/84; PULSE 87; RESP 14; TEMP 36.9; O2SAT 100
--- NOTE | 2024-11-17 14:47 | EDS_ITS ---
HPI History of Present Illness HPI Narrative: Patient presents with pain and swelling to her left lower extremity that has been getting worse over the past 4 days. Patient describes it as tightness and burning. Patient states that it is worse with walking. Patient states nothing makes it better. Patient admits to some tingling in her left foot. Patient denies any weakness. Patient denies any fevers or chills. Patient denies any trauma or injury. Patient is on Pradaxa. Patient states she has not missed any doses of her Pradaxa. Chief Complaint: Lower Extremity Injury Informant: patient Onset/Context/Timing Onset: Days (4) Context: Sudden Onset Timing: Continuous Quality of Pain: Aching (With walking), Burning and - (Tightness) Location: Left lower extremity Worsened by: Walking Relieved by: Nothing Associated Symptoms Associated Symptoms: Negative for Parasthesia, Weakness or Loss of Funtion [facility] Medical History Bruising Gout Low iron Excessive bleeding History of pain when walking Hypertension History of cardiac monitoring Post-menopausal Skin tear Thyroid disease Ambulates with cane Bladder disease Syncope Gastric reflux Degenerative disc disease Bursitis 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 use of anticoagulant Iron deficiency anemia due to chronic blood loss History of GI bleed Venous insufficiency of both lower extremities Ulcer of right lower extremity with fat layer exposed Iron deficiency Anemia due to chronic blood loss Anemia due to gastrointestinal blood loss History of left heart catheterization (LHC) (~08/04/21) Unstable angina Hydrocephalus CAD (coronary artery disease) Iron refractory iron deficiency anemia Iron deficiency anemia Atrial fibrillation Aortic valve disorder Angina pectoris Carotid bruit Thromboembolic disorder HLD (hyperlipidemia) Presence of IVC filter Atherosclerotic heart disease of [place] coronary artery without angina pectoris Dysphagia Wears hearing aid Wears glasses Depression DVT (deep venous thrombosis) Pulmonary embolism Injury of head and neck History of IBS Gastric reflux Non-smoker BiPAP (biphasic positive airway pressure) dependence Shortness of breath on exertion Leg cramps History of edema History of echocardiogram History of stress test Cardiology follow-up encounter History of atrial fibrillation Incontinence Back pain Neck pain Limb weakness Difficulty balancing unexpained bruising Glaucoma Hay fever Fatigue Shoulder pain Hemorrhoids Arthritis Asthma Obesity Hypokalemia Atrioventricular bloc first degree Chronic diastolic (congestive) heart failure Dizziness Pharyngitis Bronchitis Upper respiratory infection Normal pressure hydrocephalus History of pulmonary embolism History of osteoarthritis Essential hypertension Home Medications ?Medication ?Instructions ?Recorded ?Last Taken ?Type gabapentin 600 mg tablet 600 mg PO QHS Check with thad holly 05/04/15 08/26/24 History doctor duloxetine 20 mg capsule,delayed 40 mg PO DAILY JAZ PARISI 08/03/21 08/26/24 History release latanoprost 0.005 % eye drops 1 drp EACH EYE QHS GLUAC RE 08/03/21 08/26/24 H istory spironolactone 50 mg tablet 50 mg PO DAILY Check with primary 10/30/21 08/26/24 History doctor dabigatran etexilate 75 mg capsule 75 mg PO BID Check with primary 04/19/22 08/24/24 History (Pradaxa) doctor Held on 08/27/24. Instructions: Okay to take and Saturday-- hold for Saturday levothyroxine 25 mcg tablet 25 mcg PO DAILY Check with primary 05/10/22 08/27/24 History doctor multivitamin 1 tab PO DAILY Check with pr imary 05/10/22 08/26/24 History doctor pantoprazole 40 mg tablet,delayed 40 mg PO BID Check w ith primary 07/05/22 08/27/24 History release doctor benazepril 10 mg tablet 10 mg PO DAILY BP 07/11/22 0 08/26/24 History albuterol sulfate 90 mcg/actuation 2 puff inhalation Q 4H PRN 01/07/23 Unknown Rx aerosol inhaler shortness of breath or wheez ing #8.5 grams timolol maleate 0.5 % eye drops 1 drp ophthalmic (eye) BID Glaucoma 06/17/23 08/26/24 History ipratropium bromide 42 mcg (0.06 2 spray intranasal DA GREGORIA PRN 01/16/24 08/25/24 History %) nasal spray ALLERGIES ondansetron 4 mg disintegrating 4 mg PO Q6H PRN nausea and 08/27/24 Unknown Rx tablet vomiting #10 tabs ciclopirox 8 % topical solution topical 10/12/24 Unkno wn History rosuvastatin 20 mg tablet 20 mg PO DAILY CHOLESTEROL # 90 tabs 10/26/24 Unknown Rx Allergy/AdvReac Type Severity Reaction Status Date / Time rivaroxaban (From Xarelto) Allergy Severe Unknown Verified 11/17/24 13:36 alprazolam (From Xanax) Allergy Unknown fatigue Verified 11/17/24 13:36 oxycodone (From Percocet) Allergy Unknown hallucinati Verified 11/17/24 13:36 ons carisoprodol (From Soma) Allergy Rash Verified 11/17/24 13:36 adhesive AdvReac blisters Verified 11/17/24 13:36 apixaban (From Eliquis) AdvReac Other Verified 11/17/24 13:36 diphenhydramine (From AdvReac Other Verified 11/17/24 13:36 Benadryl) Family History Mother Cancer pancreatic Asthma Hypertension Son Asthma Brother Heart disease Diabetes Hypertension Kidney disease Sister Heart disease Hypertension Diabetes Surgical History History of partial colectomy Hx of surgical procedure Hx of surgical procedure Hx of colonoscopy History of esophagogastroduodenoscopy (EGD) Intracranial shunt Presence of coronary angioplasty implant and graft (~06/08/20) Presence of stent in coronary artery (~06/08/20) History of ventriculoperitoneal shunting (~06/16/14) History of cardiac catheterization Hx of carpal tunnel repair Hx of appendectomy Hx of cholecystectomy History of total left knee replacement History of spinal fusion History of toe surgery History of arthroscopy of right shoulder History of hernia repair History of hysterectomy History of laminectomy Social History Smoking Status: Never smoker Electronic Cigarette Use: not used second hand exposure: Yes alcohol intake: never substance use type: does not use caffeine: Yes Type: tea Number of servings: 1 do you feel safe at home: Yes ROS ROS ED Constitutional Constitutional ED: Denies chills or fever(s) Eyes Eyes: Denies blurry vision or change in vision ENT ENT ED: Denies rhinorrhea or sore throat Cardiovascular Cardiovascular: Denies chest pain or palpitations Respiratory/Chest Respiratory/Chest: Denies cough or dyspnea Gastrointestinal Gastrointestinal: Denies nausea or vomiting Genitourinary Genitourinary ED: Denies dysuria or hematuria Musculoskeletal Musculoskeletal: Reports back pain and neck pain Integumentary Denies abscess or rash Neurologic Neurologic: Denies headache(s) or weakness Allergic/Immunologic Allergic/Immunologic ED: Denies mouth swelling or urticaria EXAM Physical Exam Const Vital Signs: 11/17/24 13:34 Temperature 98.5 F Temperature Source Oral Pulse Rate 87 Respiratory Rate 14 Blood Pressure 146/84 H Blood Pressure Mean 104 Pulse Ox 100 Oxygen Delivery Method Room Air Positive well nourished and well developed General Appearance ED: well developed and NAD HEENT Reports moist mucous membranes Neck full ROM and supple Extremity Extremity Narrative: There is tenderness and edema over the left lower leg. There is no erythema or warmth noted. There is pain with dorsiflexion of the left ankle. Strength is 5/5 bilateral in the upper and lower extremity. There are no sensory deficits noted. There is good range of motion. Neuro oriented x3, CN's II-XII intact bilaterally, moves all extremities and no sensory deficits noted Sensorium / Orientation: alert Motor Exam: strength 5/5 throughout MDM MDM MDM Narrative Medical decision making narrative: Differential diagnose includes DVT, and muscle strain. Venous duplex of the left lower extremity will be obtained to assess for DVT. Radiography Diagnostic Testing: Venous duplex of the left lower extremity was obtained. There is evidence of DVT in the common femoral vein to the mid femoral vein. Treatment and Re-Evaluation Narrative: Patient was advised of her findings. Case was discussed with Dr. Bañuelos. He will follow-up with patient tomorrow. Patient was instructed to call his office to schedule an appointment tomorrow. Patient understood and was agreeable with plan. All questions were answered. Discharge Plan Triage Chief Complaint: Lower Extremity Injury ED Provider: Moody Bedlola Dx/Rx/DC Orders Clinical Impression: DVT (deep venous thrombosis), group home current use of anticoagulant Instructions: ED Deep Vein Thrombosis (DVT) Prescriptions: No Action spironolactone 50 mg tablet 50 mg PO DAILY dabigatran etexilate [Pradaxa] 75 mg capsule 75 mg PO BID Patient Comments: LAST DOSE 08/24/24 albuterol sulfate 90 mcg/actuation HFA aerosol inhaler 2 puff inhalation Q4H PRN (Reason: shortness of breath or wheezing) Qty: 8.5 2RF ipratropium bromide 42 mcg (0.06 %) spray,non-aerosol 2 spray intranasal DAILY PRN Patient Comments: [NO ORIGINAL SIG] timolol maleate 0.5 % drops 1 drp ophthalmic (eye) BID Patient Comments: left eye only ciclopirox 8 % solution topical Patient Comments: PLEASE SEE ATTACHED FOR DETAILED DIRECTIONS Rx Instructions: apply to nail as directed for fungus gabapentin 600 MG tablet 600 mg PO QHS Patient Comments: nerve pain latanoprost 0.005 % drops 1 drp EACH EYE QHS Patient Comments: INSTILL 1 DROP INTO BOTH EYES NIGHTLY duloxetine 20 mg capsule,delayed release(DR/EC) 40 mg PO DAILY Patient Comments: TAKE 2 CAPSULES ORALLY ONCE PER DAY FOR 90 DAYS multivitamin Tablet 1 tab PO DAILY levothyroxine 25 mcg Tablet 25 mcg PO DAILY benazepril 10 mg tablet 10 mg PO DAILY Patient Comments: TAKE 1 TABLET BY MOUTH EVERY DAY pantoprazole 40 mg tablet,delayed release (DR/EC) 40 mg PO BID ondansetron 4 mg tablet,disintegrating 4 mg PO Q6H PRN (Reason: nausea and vomiting) Qty: 10 1RF rosuvastatin 20 mg tablet 20 mg PO DAILY Qty: 90 3RF Primary Care Provider: Jean Paul Bañuelos Chi Referrals: Jean Paul Bañuelos Chi, MD [Primary Care Provider] - 1 Day Print Language: [place] Citizen Disposition Disposition: Home, Self Care
--- NOTE | 2024-11-17 14:58 | VDLE_ITS ---
Reason For Study Reason For Study: LLE PAIN RIGHT LEFT CFV is compressible, spontaneous, phasic, competent GSV is normal. and demonstrates normal augmentation. Acute deep vein thrombosis is noted in the CFV. It is Procedure dilated and NONCOMPRESSIBLE. This is a venous duplex using B-mode, color flow and Acute deep vein thrombosis is noted in the FV (PROX & spectral Doppler. MID segments) is dilated and NONCOMPRESSIBLE. Exam performed portable in ED. Distal FV is compressible with flow noted. A preliminary report was called and/or faxed to Dr. MCDONALD V is compressible, spontaneous, phasic, competent Chioma & ED @ 15:35. and demonstrates normal augmentation. PTV is compressible. LT PerV is compressible. VL/Venous Duplex US, Unilateral Interpretation Summary Acute deep vein thrombosis noted in the left common femoral vein, femoral vein. Ordering Physician: Moody Bedolla Referring Physician: Jean Paul Bañuelos Chi Performed By: Anabelle Nagy, MILI, RVT
[2024-11-17 16:00] VITALS: BP 136/64; PULSE 89; RESP 18; TEMP 36.6; O2SAT 99
== END 2024-11-17 16:36 | disposition home or self-care (01) ==
PROVIDERS: Emergency Provider Emergency Medicine; PCP Family Medicine Geriatric Medicine; Visit Provider Emergency Medicine
DX: I82.412 Acute embolism and thrombosis of left femoral vein (principal); I11.0 Hypertensive heart disease with heart failure; I50.32 Chronic diastolic (congestive) heart failure; Z79.01 Long term (current) use of anticoagulants; Z79.899 Other long term (current) drug therapy
CPT/HCPCS: 93971; 99282

== ENCOUNTER 2024-11-27 15:58 | Emergency (ER) | payer MEDICARE, OTHER, SELFPAY ==
[2024-11-27 16:00] VITALS: BP 165/76; PULSE 69; RESP 16; TEMP 36.6; O2SAT 98
--- NOTE | 2024-11-27 16:34 | ED.VIS.LOWEX ---
HPI <GABRIELA Escalera - Last Filed: 11/27/24 20:28> History of Present Illness Chief Complaint: Edema Narrative Narrative: Patient presenting today due to concerns for swelling and erythema to her left lower extremity that has been ongoing for about 2 weeks. She was seen here 10 days ago and was diagnosed with a left femoral vein DVT. She has a significant history of DVTs and has been on Pradaxa. After she was found to have this LLE DVT her PCP, Dr. Bañuelos, placed her on Lovenox which she has been taking twice daily. She has been compliant with her therapy. She denies any recent surgeries or travel, chest pain, shortness of breath. She denies any injury to her leg. She has a history of an IVC filter. [facility] <GABRIELA Escalera - Last Filed: 11/27/24 20:28> [facility] Medical History Bruising Gout Low iron Excessive bleeding History of pain when walking Hypertension History of cardiac monitoring Post-menopausal Skin tear Thyroid disease Ambulates with cane Bladder disease Syncope Gastric reflux Degenerative disc disease Bursitis halfway current use of anticoagulant Iron deficiency anemia due to chronic blood loss History of GI bleed Venous insufficiency of both lower extremities Ulcer of right lower extremity with fat layer exposed Iron deficiency Anemia due to chronic blood loss Anemia due to gastrointestinal blood loss History of left heart catheterization (LHC) (~08/04/21) Unstable angina Hydrocephalus CAD (coronary artery disease) Iron refractory iron deficiency anemia Iron deficiency anemia Atrial fibrillation Aortic valve disorder Angina pectoris Carotid bruit Thromboembolic disorder HLD (hyperlipidemia) Presence of IVC filter Atherosclerotic heart disease of [place] coronary artery without angina pectoris Dysphagia Wears hearing aid Wears glasses Depression DVT (deep venous thrombosis) Pulmonary embolism Injury of head and neck History of IBS Gastric reflux Non-smoker BiPAP (biphasic positive airway pressure) dependence Shortness of breath on exertion Leg cramps History of edema History of echocardiogram History of stress test Cardiology follow-up encounter History of atrial fibrillation Incontinence Back pain Neck pain Limb weakness Difficulty balancing unexpained bruising Glaucoma Hay fever Fatigue Shoulder pain Hemorrhoids Arthritis Asthma Obesity Hypokalemia Atrioventricular bloc first degree Chronic diastolic (congestive) heart failure Dizziness Pharyngitis Bronchitis Upper respiratory infection Normal pressure hydrocephalus History of pulmonary embolism History of osteoarthritis Essential hypertension Home Medications ?Medication ?Instructions ?Recorded ?Last Taken ?Type gabapentin 600 mg tablet 600 mg PO QHS Check with primary 05/04/15 08/26/24 History doctor duloxetine 20 mg capsule,delayed 40 mg PO DAILY DEPRESSION 08/03/21 08/26/24 History release latanoprost 0.005 % eye drops 1 drp EACH EYE QHS GLUACOMA 08/03/21 08/26/24 History spironolactone 50 mg tablet 50 mg PO DAILY Check with primary 10/30/21 08/26/24 History doctor dabigatran etexilate 75 mg capsule 75 mg PO BID Check with primary 04/19/22 08/24/24 History (Pradaxa) doctor Held on 08/27/24. Instructions: Okay to take and Saturday-- hold for Saturday levothyroxine 25 mcg tablet 25 mcg PO DAILY Check with primary 05/10/22 08/27/24 History doctor multivitamin 1 tab PO DAILY Check with primary 05/10/22 08/26/24 History doctor pantoprazole 40 mg tablet,delayed 40 mg PO BID Check with primary 07/05/22 08/27/24 History release doctor benazepril 10 mg tablet 10 mg PO DAILY BP 07/11/22 08/26/24 History albuterol sulfate 90 mcg/actuation 2 puff inhalation Q4H PRN 01/07/23 Unknown Rx aerosol inhaler shortness of breath or wheezing #8.5 grams timolol maleate 0.5 % eye drops 1 drp ophthalmic (eye) BID Glaucoma 06/17/23 08/26/24 History ipratropium bromide 42 mcg (0.06 2 spray intranasal DAILY PRN 01/16/24 08/25/24 History %) nasal spray ALLERGIES ondansetron 4 mg disintegrating 4 mg PO Q6H PRN nausea and 08/27/24 Unknown Rx tablet vomiting #10 tabs ciclopirox 8 % topical solution topical 10/12/24 Unknown History rosuvastatin 20 mg tablet 20 mg PO DAILY CHOLESTEROL #90 tabs 10/26/24 Unknown Rx Allergy/AdvReac Type Severity Reaction Status Date / Time rivaroxaban (From Xarelto) Allergy Severe Unknown Verified 11/27/24 16:02 alprazolam (From Xanax) Allergy Unknown fatigue Verified 11/27/24 16:02 oxycodone (From Percocet) Allergy Unknown hallucinati Verified 11/27/24 16:02 ons carisoprodol (From Soma) Allergy Rash Verified 11/27/24 16:02 adhesive AdvReac blisters Verified 11/27/24 16:02 apixaban (From Eliquis) AdvReac Other Verified 11/27/24 16:02 diphenhydramine (From AdvReac Other Verified 11/27/24 16:02 Benadryl) Family History Mother Cancer pancreatic Asthma Hypertension Son Asthma Brother Heart disease Diabetes Hypertension Kidney disease Sister Heart disease Hypertension Diabetes Surgical History History of partial colectomy Hx of surgical procedure Hx of surgical procedure Hx of colonoscopy History of esophagogastroduodenoscopy (EGD) Intracranial shunt Presence of coronary angioplasty implant and graft (~06/08/20) Presence of stent in coronary artery (~06/08/20) History of ventriculoperitoneal shunting (~06/16/14) History of cardiac catheterization Hx of carpal tunnel repair Hx of appendectomy Hx of cholecystectomy History of total left knee replacement History of spinal fusion History of toe surgery History of arthroscopy of right shoulder History of hernia repair History of hysterectomy History of laminectomy Social History Smoking Status: Never smoker Electronic Cigarette Use: not used second hand exposure: Yes alcohol intake: never substance use type: does not use caffeine: Yes Type: tea Number of servings: 1 do you feel safe at home: Yes ROS <GABRIELA Escalera - Last Filed: 11/27/24 20:28> ROS ED Constitutional Constitutional ED: Denies chills or fever(s) Cardiovascular Cardiovascular: Denies chest pain Respiratory/Chest Respiratory/Chest: Denies dyspnea Gastrointestinal Gastrointestinal: Denies abdominal pain, nausea or vomiting Musculoskeletal Musculoskeletal: Reports myalgias Integumentary Denies rash Neurologic Neurologic: Denies paresthesias EXAM <GABRIELA Escalera - Last Filed: 11/27/24 20:28> Physical Exam Const Vital Signs: 11/27/24 16:00 11/27/24 18:23 11/27/24 18:23 Temperature 97.8 F Temperature Source Oral Pulse Rate 69 55 L Respiratory Rate 16 20 H Respiratory Effort Normal Respiratory Pattern Normal Blood Pressure 165/76 H 146/80 H Blood Pressure Mean 105 102 Pulse Ox 98 99 Oxygen Delivery Method Room Air Room Air 11/27/24 20:00 11/27/24 20:26 Temperature 97.9 F Temperature Source Pulse Rate 85 85 Respiratory Rate 18 18 Respiratory Effort Respiratory Pattern Blood Pressure 121/68 H 121/68 H Blood Pressure Mean 85 85 Pulse Ox 99 99 Oxygen Delivery Method Room Air Positive well nourished, well developed and no apparent distress General Appearance ED: well developed HEENT Reports normocephalic and head/scalp atraumatic Mouth ED: Yes moist mucous membranes normal Eyes PERRL and EOMs intact bilaterally Neck full ROM and supple Chest Wall inspection of chest normal Resp normal respiratory effort and clear to auscultation bilaterally Cardio regular rate and regular rhythm GI soft to palpation, non-tender, non-distended and no masses Back/Spine normal ROM and normal to inspection Extremity normal to inspection and full ROM Extremity Narrative: Swelling and mild erythema to the left lower extremity in comparison to the right, left DP pulse 2+, good cap refill, sensation intact. Compartments to the left lower extremity are soft and compressible. No pain out of proportion to palpation. Neuro oriented x3, CN's II-XII intact bilaterally, moves all extremities, no focal motor deficits and no sensory deficits noted Sensorium / Orientation: awake and alert Psych mental status grossly normal and thought process normal Skin no rashes or lesions noted and no wounds <Dr. Luis Bustamante DO - Last Filed: 11/28/24 00:53> Physical Exam Const Vital Signs: 11/27/24 16:00 11/27/24 18:23 11/27/24 18:23 Temperature 97.8 F Temperature Source Oral Pulse Rate 69 55 L Respiratory Rate 16 20 H Respiratory Effort Normal Respiratory Pattern Normal Blood Pressure 165/76 H 146/80 H Blood Pressure Mean 105 102 Pulse Ox 98 99 Oxygen Delivery Method Room Air Room Air 11/27/24 20:00 11/27/24 20:26 Temperature 97.9 F Temperature Source Pulse Rate 85 85 Respiratory Rate 18 18 Respiratory Effort Respiratory Pattern Blood Pressure 121/68 H 121/68 H Blood Pressure Mean 85 85 Pulse Ox 99 99 Oxygen Delivery Method Room Air MDM <GABRIELA Escalera - Last Filed: 11/27/24 20:28> MDM MDM Narrative Medical decision making narrative: Patient presenting today due to concerns for swelling to her left lower extremity that has not improved despite being on Lovenox for a left lower extremity DVT. She reports that she has also developed erythema to her left lower extremity that is not improving. She was seen here about 10 days ago and diagnosed with a left femoral vein DVT. She has allergies to Xarelto and Eliquis, she was already on Pradaxa. Her PCP switched her to Lovenox which she is taking twice daily. I suspect that the erythema is related to the clot and not cellulitis. I spoke with Dr. Ayoub's PA, she recommended repeating the venous duplex ultrasound. This shows that some of the clot burden has moved to the left popliteal veins. I again spoke with Roxanne, she recommends close follow-up as an outpatient to discuss thrombectomy, they are going to try to get her in Saturday or Saturday, she already has a appointment scheduled for Saturday. Patient does not have any chest pain or dyspnea to explain a PE. She is able to ambulate, she does not have pain out of proportion on exam. She did not require any analgesia while here. She feels her pain is well under control. She does not have any evidence of compartment syndrome on exam. Strict return instructions were discussed with her, patient discharged home in stable condition. Lab Data Attestation: I reviewed the patient's lab results. Lab results narrative: Hemoglobin 11.3, BUN 20 Labs: Laboratory Results - last 24 hr 11/27/24 17:54 WBC 6.6 RBC 3.73 L Hgb 11.3 L Hct 35.3 L MCV 94.6 MCH 30.3 MCHC 32.0 RDW Std Deviation 47.6 H RDW Coeff of Bridget 13.9 Plt Count 316 MPV 9.6 Immature Gran % (Auto) 0.900 Neut % (Auto) 66.7 Lymph % (Auto) 15.9 L Wilkinson % (Auto) 10.9 H Eos % (Auto) 5.0 Baso % (Auto) 0.6 Absolute Neuts (auto) 4.4 Absolute Lymphs (auto) 1.05 Nucleated RBC % 0 Sodium 142 Potassium 4.4 Chloride 107 Carbon Dioxide 23.4 Anion Gap 12 BUN 20 H Creatinine 0.99 Estim Creat Clear Calc 51.17 Est GFR (MDRD) Non-Af 58 L BUN/Creatinine Ratio 20.2 H Glucose 120 H Calcium 9.8 Radiography Diagnostic Testing: Clinical Impression(s) from Imaging Studies Venous Duplex 11/27/24 17:16 IMPRESSION: Occlusive DVT in the left common femoral to popliteal veins, consistent with patient's history. Reading Location: [facility] [place] <Dr. Luis Bustamante, DO - Last Filed: 11/28/24 00:53> [facility] Lab Data Labs: Laboratory Results - last 24 hr 11/27/24 17:54 WBC 6.6 RBC 3.73 L Hgb 11.3 L Hct 35.3 L MCV 94.6 MCH 30.3 MCHC 32.0 RDW Std Deviation 47.6 H RDW Coeff of Bridget 13.9 Plt Count 316 MPV 9.6 Immature Gran % (Auto) 0.900 Neut % (Auto) 66.7 Lymph % (Auto) 15.9 L Wilkinson % (Auto) 10.9 H Eos % (Auto) 5.0 Baso % (Auto) 0.6 Absolute Neuts (auto) 4.4 Absolute Lymphs (auto) 1.05 Nucleated RBC % 0 Sodium 142 Potassium 4.4 Chloride 107 Carbon Dioxide 23.4 Anion Gap 12 BUN 20 H Creatinine 0.99 Estim Creat Clear Calc 51.17 Est GFR (MDRD) Non-Af 58 L BUN/Creatinine Ratio 20.2 H Glucose 120 H Calcium 9.8 Radiography Diagnostic Testing: Clinical Impression(s) from Imaging Studies Venous Duplex 11/27/24 17:16 IMPRESSION: Occlusive DVT in the left common femoral to popliteal veins, consistent with patient's history. Reading Location: [facility] [place] Treatment and Re-Evaluation Narrative: Attending note: I have personally performed a face to face assessment of the patient and have reviewed the LAURENT note. I personally made/approved the management plan and take responsibility for the patient management. I performed a substantive portion of the visit including all aspects of the following. My rivas findings include: Presents increasing swelling left leg over last couple days. 10 days ago diagnosed with acute DVT. She has multiple DVTs has an IV filter placed approximately 15 years ago right after knee replacement. This placed prophylactically as she has had previous DVT and PE. She is on Pradaxa when she had her DVT. There is no recent travel or surgeries. She follow-up with her PCP after discussion ED she was transitioned over Lovenox twice a day for which she is taken. No chest pains no shortness of breath. Her last DVT was on the right side 3 years ago transferred to [facility] per patient. No intervention. Denies any significant pain states actually improving from 10 days ago however swelling increased. Exam nontoxic there is asymmetric swelling of the left leg compared to right there is soft compartments pulses are intact distally. She reports she has a follow-up with vascular office in 1 week. Discussed with vascular team in the ED they would like repeat ultrasound to make sure there is no progression or clot burden. Will check labs. Labs are stable. Ultrasound increasing clot burden into the popliteal. We discussed with vascular team they will move your appointment up to Saturday to be seen and further plan outpatient intervention plans. She will continue her Lovenox. Discharge Plan Triage Chief Complaint: Edema ED Midlevel Provider: Belkis Castillo ED Provider: Luis Bustamante Dx/Rx/DC Orders Clinical Impression: Acute deep vein thrombosis (DVT) of left lower extremity Instructions: DVT Dc Prescriptions: No Action spironolactone 50 mg tablet 50 mg PO DAILY dabigatran etexilate [Pradaxa] 75 mg capsule 75 mg PO BID Patient Comments: LAST DOSE 08/24/24 albuterol sulfate 90 mcg/actuation HFA aerosol inhaler 2 puff inhalation Q4H PRN (Reason: shortness of breath or wheezing) Qty: 8.5 2RF ipratropium bromide 42 mcg (0.06 %) spray,non-aerosol 2 spray intranasal DAILY PRN Patient Comments: [NO ORIGINAL SIG] timolol maleate 0.5 % drops 1 drp ophthalmic (eye) BID Patient Comments: left eye only ciclopirox 8 % solution topical Patient Comments: PLEASE SEE ATTACHED FOR DETAILED DIRECTIONS Rx Instructions: apply to nail as directed for fungus gabapentin 600 MG tablet 600 mg PO QHS Patient Comments: nerve pain latanoprost 0.005 % drops 1 drp EACH EYE QHS Patient Comments: INSTILL 1 DROP INTO BOTH EYES NIGHTLY duloxetine 20 mg capsule,delayed release(DR/EC) 40 mg PO DAILY Patient Comments: TAKE 2 CAPSULES ORALLY ONCE PER DAY FOR 90 DAYS multivitamin Tablet 1 tab PO DAILY levothyroxine 25 mcg Tablet 25 mcg PO DAILY benazepril 10 mg tablet 10 mg PO DAILY Patient Comments: TAKE 1 TABLET BY MOUTH EVERY DAY pantoprazole 40 mg tablet,delayed release (DR/EC) 40 mg PO BID ondansetron 4 mg tablet,disintegrating 4 mg PO Q6H PRN (Reason: nausea and vomiting) Qty: 10 1RF rosuvastatin 20 mg tablet 20 mg PO DAILY Qty: 90 3RF Primary Care Provider: Jean Paul Bañuelos Chi Referrals: Moody Ayoub MD [Med Staff - Active Staff] - 3-5 Days Jean Paul Bañuelos Chi, MD [Primary Care Provider] - Activity Restrictions/Additional Instructions: Follow-up with Dr. Ayoub, please return for any worsening of your symptoms, if you have any other concerns, or if you develop any chest pain or shortness of breath. Print Language: Japanese Disposition Disposition: Home, Self Care Discharge Date/Time: 11/27/24 20:26
--- NOTE | 2024-11-27 17:16 | US_ITS ---
PROCEDURE: VENOUS DUPLEX IMAG/LIMITED/UNI 11/27/2024 REASON FOR EXAM: F 79 y/o patient has known femoral DVT-was in ER 10 days ago. TECHNIQUE: VENOUS DUPLEX IMAG/LIMITED/UNI. Real-time ultrasound scan of the veins of the left lower extremity with color Doppler flow, spectral waveform analysis and compression. FINDINGS: DEEP VEINS: Noncompressible left common femoral, femoral and popliteal veins with absent flow. SOFT TISSUES: Moderate subcutaneous edema in the calf. No popliteal fossa cyst. US/Venous Duplex Imag/Limited/Uni IMPRESSION: Occlusive DVT in the left common femoral to popliteal veins, consistent with alicia novak's history. Reading Location: [id number]
[2024-11-27 18:03] LABS: Hematocrit 35.3 % (37-47); Hemoglobin 11.3 g/dL (12.0-15.0); Immature Granulocytes Count 0.060 X10^3/uL (0.0-0.0); Mean Corp Hgb Conc 32.0 g/dL (32-36); Mean Corpuscular Volume 94.6 fL (81-99); Mean Platelet Vol. 9.6 fl (6.2-12.0); NRBC Flagged by Analyzer 0 % (0-5); Platelet Count 316 K/mm3 (150-450); RBC Distribution Width CV 13.9 % (11.6-14.6); RBC Distribution Width SD 47.6 fl (35.1-43.9); Red Blood Count 3.73 M/mm3 (4.2-5.4); White Blood Count 6.6 K/mm3 (4.4-11.0)
[2024-11-27 18:23] VITALS: BP 146/80; PULSE 55; RESP 20; O2SAT 99
[2024-11-27 18:27] VITALS: BMI 39.1
[2024-11-27 18:38] LABS: Anion Gap 12 (5-15); BUN 20 mg/dL (4-19); BUN/Creat Ratio 20.2 RATIO (10-20); Calcium,Total 9.8 mg/dL (7.6-11.0); Carbon Dioxide 23.4 mmol/L (21.0-32.0); Chloride 107 mmol/L (98-108); Estimated Creatinine Clearance 51.17 ml/min (50-250); Glucose 120 mg/dL (70-99); Potassium 4.4 mmol/L (3.3-5.1)
[2024-11-27 20:00] VITALS: BP 121/68; PULSE 85; RESP 18; O2SAT 99
[2024-11-27 20:26] VITALS: BP 121/68; PULSE 85; RESP 18; TEMP 36.6; O2SAT 99
== END 2024-11-27 20:26 | disposition home or self-care (01) ==
PROVIDERS: Physician Assistant; Emergency Provider Emergency Medicine; PCP Family Medicine Geriatric Medicine; Visit Provider Emergency Medicine
DX: I82.432 Acute embolism and thrombosis of left popliteal vein (principal); I11.0 Hypertensive heart disease with heart failure; I50.32 Chronic diastolic (congestive) heart failure; I82.412 Acute embolism and thrombosis of left femoral vein; Z79.01 Long term (current) use of anticoagulants; E78.5 Hyperlipidemia, unspecified; I25.10 Atherosclerotic heart disease of native coronary artery without angina pectoris; K21.9 Gastro-esophageal reflux disease without esophagitis; J45.909 Unspecified asthma, uncomplicated
CPT/HCPCS: 80048; 85025; 93971; 99283

== ENCOUNTER → 2024-12-11 | Outpatient (CLI) | payer MEDICARE, OTHER, SELFPAY ==
--- NOTE | 2024-12-11 09:58 | VDLE_ITS ---
Reason For Study Reason For Study: HX LLE DVT / Swelling RIGHT LEFT CFV is compressible, spontaneous, phasic, competent GSV is normal. and demonstrates normal augmentation. Acute deep vein thrombosis is noted in the CFV. It is Procedure dilated and NONCOMPRESSIBLE. This is a venous duplex using B-mode, color flow and Acute deep vein thrombosis is noted in the spectral Doppler. FV is NONCOMPRESSIBLE at prox and PARTIALLY Exam performed in department. COMPRESSIBLE with diminished flow noted at mid and The exam was diagnostic. distal. COMPARE TO STUDY PERFORMED 11/17/24. POP V is compressible, spontaneous, phasic, competent and demonstrates normal augmentation. T/P Trunk is compressible PTV is compressible. LT PerV is compressible. VL/Venous Duplex US, Unilateral Interpretation Summary Acute deep vein thrombosis noted in the left common femoral vein, femoral vein. Similar distrubution to prior study, some thrombus resolution distal. Ordering Physician: Roxanne Vera Referring Physician: Jean Paul Bañuelos Chi Performed By: Ovidio Cam RVT and Student
== END | disposition home or self-care (01) ==
LOC: CVS 09:51
PROVIDERS: PCP Family Medicine Geriatric Medicine; Referring Provider Physician Assistant; Visit Provider Physician Assistant
DX: Z86.718 Personal history of other venous thrombosis and embolism (principal)
CPT/HCPCS: 93971

== ENCOUNTER → 2025-01-13 | Outpatient (CLI) | payer MEDICARE, OTHER, SELFPAY ==
[2025-01-13 11:37] LABS: Hematocrit 42.6 % (37-47); Hemoglobin 13.4 g/dL (12.0-15.0); Immature Granulocytes Count 0.030 X10^3/uL (0.0-0.0); Mean Corp Hgb Conc 31.5 g/dL (32-36); Mean Corpuscular Volume 95.7 fL (81-99); Mean Platelet Vol. 10.2 fl (6.2-12.0); NRBC Flagged by Analyzer 0 % (0-5); Platelet Count 296 K/mm3 (150-450); RBC Distribution Width CV 15.0 % (11.6-14.6); RBC Distribution Width SD 52.6 fl (35.1-43.9); Red Blood Count 4.45 M/mm3 (4.2-5.4); White Blood Count 7.2 K/mm3 (4.4-11.0)
[2025-01-13 12:16] LABS: AST(SGOT) 27 U/L (<=31); Alanine Aminotransfer ALT/SGPT 23 U/L (<=34); Albumin, Serum 4.4 g/dL (3.4-4.8); Alkaline Phosphatase 52 U/L (35-104); Anion Gap 12 (5-15); BUN 13 mg/dL (4-19); BUN/Creat Ratio 11.6 RATIO (10-20); Calcium,Total 10.0 mg/dL (7.6-11.0); Carbon Dioxide 25.4 mmol/L (21.0-32.0); Chloride 108 mmol/L (98-108); Globulin 2.7 g/dL (2.2-4.2); Glucose 120 mg/dL (70-99); Potassium 4.4 mmol/L (3.3-5.1)
[2025-01-13 12:37] LABS: Ferritin 153 ng/mL (22-378); Iron 86 ug/dL (50-170); Iron Binding Capacity,Total 329 ug/dL (250-450); Iron Binding Capacity,Unsat 243 ug/dL (228-428); Vitamin D,25 Hydroxy 39.6 ng/mL (30-100)
[2025-01-13 19:26] LABS: Xtra Tube Kwok EXTRA TUBE
== END | disposition home or self-care (01) ==
LOC: POLAB3 11:26
PROVIDERS: PCP Family Medicine Geriatric Medicine; Visit Provider Family Medicine Geriatric Medicine
DX: E11.65 Type 2 diabetes mellitus with hyperglycemia (principal); I10 Essential (primary) hypertension; E55.9 Vitamin D deficiency, unspecified; D50.9 Iron deficiency anemia, unspecified; R19.7 Diarrhea, unspecified
CPT/HCPCS: 36415; 80053; 82306; 82728; 83540; 83550; 84443; 85025; 87070; 87205

== ENCOUNTER → 2025-03-09 | Outpatient (CLI) | payer MEDICARE, OTHER, SELFPAY | END | disposition home or self-care (01) | LOC: POLAB3 14:55 | PROVIDERS: PCP Family Medicine Geriatric Medicine; Visit Provider Family Medicine Geriatric Medicine | DX: R06.2 Wheezing (principal) | CPT/HCPCS: 87631 ==

== ENCOUNTER → 2025-03-17 | Outpatient (CLI) | payer MEDICARE, OTHER, SELFPAY | END | disposition home or self-care (01) | LOC: SL 13:42 | PROVIDERS: PCP Family Medicine Geriatric Medicine; Visit Provider Nurse Practitioner Acute Care | DX: Z46.89 Encounter for fitting and adjustment of other specified devices (principal) ==